=== PATIENT | female | born 1950 | race Caucasian/White ===

== ENCOUNTER 2016-08-08 06:13 | Day surgery (SDC) | payer MEDICARE, OTHER ==
[2016-08-06 15:24] VITALS: BMI 36.6
[~2016-08-08 06:13] MED LIST: LACTATED RINGERS 1,000 ML IV SCH
[2016-08-08 06:58] VITALS: TEMP 98
[2016-08-08] MEDS ORDERED: LIDOCAINE 1% 20 ML VIAL (10MG/ML) FOR IV START SQ ONE (06:59)
[2016-08-08] MEDS ORDERED: LACTATED RINGERS 1,000 ML IV ONE (06:59)
[2016-08-08 07:02] LABS: Glucose,Whole Blood 127 mg/dL (75-99)
[2016-08-08] MEDS ORDERED: BUPIVACAINE (PF) 0.5% 30 ML VIAL ONE (07:06)
[2016-08-08] MEDS ORDERED: fentaNYL (PF) 50 MCG/ML 2 ML AMP ONE (07:06)
[2016-08-08] MEDS ORDERED: TRIAMCINOLONE ACETONIDE 40 MG/ML 1 ML VIAL ONE (07:06)
[2016-08-08] MEDS ORDERED: MIDAZOLAM 2 MG/2 ML VIAL ONE (07:06)
[2016-08-08] MEDS ORDERED: IV FLUID CONTINUATION 1,000 ML IV ONE (07:31)
--- NOTE | 2016-08-08 07:31 | P.PCN ---
Date of Procedure: 08/08/16 Procedure(s) Performed: Preoperative diagnoses= 1-bilateral sacroiliitis. 2-bilateral trochanteric bursitis 3-lumbar spondylosis with lumbar facet arthropathy without myelopathy Postoperative diagnoses= same as preoperative diagnosis. Procedure= Right /Left /bilateral sacroiliac joint steroid injection under fluoroscopic guidance. Anesthesia= conscious sedation with Versed 2 mg and fentanyl 50 micrograms and local infiltration with lidocaine 1% 4 ml Estimated blood loss=minimal. Procedure indication= the patient had a history of severe chronic low back pain , diagnosed with sacroiliitis and lumbar sacral facet arthropathy unresponsive to conservative treatment. Procedure description= the patient was seen and identified in the preoperative holding area, risks and benefits and alternative of the procedure and possible complications discussed with the patient, and he agreed with the preceding, patient signed the consent, an IV was started, and vital signs were monitored and were stable throughout the procedure, patient was placed in the prone position or table and the lumbosacral area was prepped and draped with a sterile fashion, vital signs were closely monitored during the procedure, the fluoroscopy camera was placed in the contralateral oblique view on the right sacroiliac joint and the lower part of the joint was identified, local infiltration of the skin and subcutaneous tissue with lidocaine 1% 2 mL then a 22-gauge Quincke-type spinal needle advanced slowly under fluoroscopy and placed in the posterior and inferior border of the right sacroiliac joint, placement confirmed with AP and lateral view, and after appropriate needle placement confirmed and after negative aspiration for heme and CSF and there was no paresthesia during the injection, 3 ml of Marcaine 0.5% and 40 mg of Kenalog injected after negative aspiration, the needle removed, and the entire same procedure was repeated for the left sacroiliac joint Patient tolerated the procedure well without any complication, The patient returned to supine position after the back was cleaned and a Band- Aid applied, the patient transported to recovery room in stable condition and he was monitored for 30 minutes before he was discharged home and then patient was reexamined before going home and patient was discharged in stable condition and patient will follow up with the pain clinic in a few weeks
--- NOTE | 2016-08-08 07:45 | FL ---
EXAMINATION TYPE: FL guided pain mgmt statistic DATE OF EXAM: 08/08/2016 7:34 AM FLUOROSCOPY Fluoroscopy time of 7 seconds was used during bilateral SI joint injections. 2 image/s document/s th e procedure.
[2016-08-08 07:50] VITALS: BP 132/72; PULSE 63; RESP 18
[2016-08-08 07:54] LABS: Glucose,Whole Blood 134 mg/dL (75-99)
== END 2016-08-08 08:10 | disposition home or self-care (01) ==
LOC: ORPAIN 06:13
PROVIDERS: ATTEND Specialist
DX: M46.1 Sacroiliitis, not elsewhere classified (principal); M70.62 Trochanteric bursitis, left hip; M70.61 Trochanteric bursitis, right hip; M47.816 Spondylosis without myelopathy or radiculopathy, lumbar region; M46.87 Other specified inflammatory spondylopathies, lumbosacral region; G89.29 Other chronic pain; Z88.5 Allergy status to narcotic agent; Z88.2 Allergy status to sulfonamides; Z88.8 Allergy status to other drugs, medicaments and biological substances; Z91.041 Radiographic dye allergy status
CPT/HCPCS: J2250; J3301; J3010; G0260

== ENCOUNTER 2016-08-14 07:49 | Day surgery (SDC) | payer MEDICARE, OTHER ==
[2016-08-09 13:50] VITALS: BMI 36.6
[~2016-08-14 07:49] MED LIST changes: +LIDOCAINE 1% 20 ML VIAL (10MG/ML) FOR IV START INTRADERMA PRN
--- NOTE | 2016-08-14 08:01 | P.GSHP ---
History of Present Illness H&P Date: 08/14/16 CHIEF COMPLAINT: GERD and colon screen HISTORY OF PRESENT ILLNESS: The patient is a 66-year-old female who presents reports gastroesophageal reflux disease and need for colon screen. Upper and lower endoscopy were offered for further evaluation and management. PAST MEDICAL HISTORY: Please see list. PAST SURGICAL HISTORY: Please see list. MEDICATIONS: Please see list. ALLERGIES: Please see list. SOCIAL HISTORY: No illicit drug use FAMILY HISTORY: No reports of Crohn disease or ulcerative colitis. REVIEW OF ORGAN SYSTEMS: CONSTITUTIONAL: No reports of fevers or chills. GI: Denies any blood in stools or constipation. PHYSICAL EXAM: VITAL SIGNS: Stable GENERAL: Well-developed pleasant in no acute distress. HEENT: No scleral icterus. Extraocular movements grossly intact. Moist buccal mucosa. NECK: Supple without lymphadenopathy. CHEST: Unlabored respirations. Equal bilateral excursions. CARDIOVASCULAR: Regular rate and rhythm. Distal 2+ pulses. ABDOMEN: Soft, nondistended. MUSCULOSKELETAL: No clubbing, cyanosis, or edema. ASSESSMENT: 1. Gastroesophageal reflux disease 2. Colon screen. PLAN: 1. Recommend proceeding with an upper and lower endoscopy Past Medical History Past Medical History: Asthma, CVA/TIA, Diabetes Mellitus, Fibromyalgia, GERD/ Reflux, Hyperlipidemia, Hypertension, Myocardial Infarction ([place]), Osteoarthritis (OA), Seizure Disorder, Sleep Apnea/CPAP/BIPAP, Thyroid Disorder Additional Past Medical History / Comment(s): hx back pain, sarcoidosis,IBS, hayfever,osteopenia,. difficult to lay on back needs pillow or to lay on side then go to back Last Myocardial Infarction Date:: 2005 History of Any Multi-Drug Resistant Organisms: MRSA Date of last positivie culture/infection: 2010 MDRO Source:: lung Past Surgical History: Appendectomy, Back Surgery, Bladder Surgery, Breast Surgery, Cholecystectomy, Coronary Bypass/CABG, Heart Catheterization With Stent , Hysterectomy, Joint Replacement, Orthopedic Surgery, Tonsillectomy, Tubal Ligation Additional Past Surgical History / Comment(s): cervical spinal fusion, rt, leg elbow surgery,total lt knee replacement, rt carotid artery, cataracts artie., benign tumor lt lung removed, lt ankle with hardware, laser surgery eyes Past Anesthesia/Blood Transfusion Reactions: No Reported Reaction Date of Last Stent Placement:: 2005 Smoking Status: Former smoker Past Alcohol Use History: Rare Additional Past Alcohol Use History / Comment(s): former smoker 44 years 2ppd Past Drug Use History: None Reported - Past Family History Sister(s) Family Medical History: Cancer, Diabetes Mellitus Brother(s) Family Medical History: Cancer, Diabetes Mellitus Medications and Allergies Home Medications Medication Instructions Recorded Confirmed Type Albuterol Inhaler [Ventolin Hfa 2 puff INHALATION Q6HR PRN 06/11/16 08/09/16 History Inhaler] Aspirin 325 mg PO DAILY 06/11/16 08/09/16 History Atorvastatin [Lipitor] 10 mg PO DAILY 06/11/16 08/09/16 History Baclofen 10 mg PO HS 06/11/16 08/09/16 History Calcium Carbonate/Vitamin D3 2 tab PO DAILY 06/11/16 08/09/16 History [Calcium 600-Vit D3 200 Tablet] Clopidogrel [Plavix] 75 mg PO DAILY 06/11/16 08/09/16 History Isosorbide Mononitrate ER [Imdur] 60 mg PO DAILY 06/11/16 08/09/16 History Levothyroxine Sodium [Levoxyl] 100 mcg PO DAILY 06/11/16 08/09/16 History Magnesium 400 mg PO DAILY 06/11/16 08/09/16 History Metoprolol Tartrate [Lopressor] 25 mg PO BID 06/11/16 08/09/16 History Multivitamins, Thera [Multivitamin] 1 tab PO DAILY 06/11/16 08/09/16 History Nifedical 60 mg PO DAILY 06/11/16 08/09/16 History Nitroglycerin [Nitromist] 4.9 gm TL DIRECTED PRN 06/11/16 08/09/16 History Pantoprazole Sodium [Protonix] 20 mg PO DAILY 06/11/16 08/09/16 History Pramipexole [Mirapex] 0.25 mg PO DAILY 06/11/16 08/09/16 History Pregabalin [Lyrica] 150 mg PO TID 06/11/16 08/09/16 History Ranitidine HCl 150 mg PO BID 06/11/16 08/09/16 History glipiZIDE [Glucotrol] 5 mg PO AC-BID 06/11/16 08/09/16 History metFORMIN HCL 1,000 mg PO BID 06/11/16 08/09/16 History traMADol HCL [Ultram] 50 mg PO TID 06/11/16 08/09/16 History Dicyclomine [Bentyl] 10 mg PO DAILY PRN 08/09/16 08/09/16 History Mometasone Furoate [Asmanex Hfa] 2 puff INHALATION DAILY 08/09/16 08/09/16 History Allergies Allergy/AdvReac Type Severity Reaction Status Date / Time doxycycline Allergy Nausea & Verified 08/09/16 13:24 Vomiting fluticasone Allergy loss of Verified 08/09/16 13:24 voice hydrocodone Allergy Itching-states Verified 08/09/16 13:24 "can't take to many in a row" hydroxychloroquine Allergy Nausea & Verified 08/09/16 13:24 [From Plaquenil] Vomiting Iodinated Contrast Media - Allergy Anaphylaxis Verified 08/09/16 13:24 Oral and [Iodinated Contrast Media - IV Dye] levofloxacin Allergy Nausea & Verified 08/09/16 13:24 Vomiting lisinopril Allergy Cough Verified 08/09/16 13:24 morphine Allergy Nausea & Verified 08/09/16 13:24 Vomiting shellfish derived [Shrimp] Allergy Anaphylaxis Verified 08/09/16 13:24 sulfamethoxazole Allergy Nausea & Verified 08/09/16 13:24 [From Bactrim] Vomiting trimethoprim [From Bactrim] Allergy Nausea & Verified 08/09/16 13:24 Vomiting venom-honey bee Allergy Swelling,extreme Verified 08/09/16 13:24 [bee venom (honey bee)] pain
[2016-08-14 08:25] VITALS: TEMP 97.1
[2016-08-14 08:36] LABS: Glucose,Whole Blood 120 mg/dL (75-99)
[2016-08-14] MEDS ORDERED: LACTATED RINGERS 1,000 ML IV ONE ×2 (08:38)
[2016-08-14] MEDS ORDERED: fentaNYL (PF) 50 MCG/ML 2 ML AMP ONE (08:42)
[2016-08-14] MEDS ORDERED: GLYCOPYRROLATE 0.2 MG/ML 2 ML VIAL ONE (08:42)
[2016-08-14] MEDS ORDERED: LIDOCAINE 1% INJ 10MG/ML (20 ML MDV) ONE (08:42)
[2016-08-14] MEDS ORDERED: PROPOFOL 10 MG/ML 20 ML VIAL IV ONE (08:42)
[2016-08-14] MEDS ORDERED: PHENYLEPHRINE-0.9% NACL SYG 1 MG/10 ML SYRINGE ONE (08:42)
[2016-08-14] MEDS ORDERED: MIDAZOLAM 2 MG/2 ML VIAL ONE (08:42)
[2016-08-14 09:18] VITALS: RESP 18
--- NOTE | 2016-08-14 09:26 | P.PCN ---
Date of Procedure: 08/14/16 Description of Procedure: PREOPERATIVE DIAGNOSIS: Epigastric abdominal pain. Gastroesophageal reflux disease. POSTOPERATIVE DIAGNOSIS: Chronic gastritis with stigmata of prior bleed Gastroesophageal reflux disease. Epigastric abdominal pain. Candidiasis esophagitis. OPERATION: Esophagogastroduodenoscopy with biopsies along antrum and esophagus. SURGEON: Rekha Garcia MD ANESTHESIA: MAC. INDICATIONS: The patient is a 66-year-old female who presents with a history of reflux disease. Benefits and risks of the procedure were described. Informed consent was obtained. DESCRIPTION: The patient was brought into the endoscopy suite and laid in the left lateral decubitus position. An Olympus gastroscope was passed along the posterior oropharynx down to the distal esophagus where the squamocolumnar junction was encountered at 38 cm from the incisors. Features use was found along the esophagus and biopsied. The stomach was entered and moderate bile reflux was found. Additional findings are listed below. Biopsies with cold forceps were obtained of the antrum. The first through third portion of the duodenum was examined and unremarkable. Retroflexion of the scope confirmed Hill grade II lower esophageal valve. The squamocolumnar junction demostrated acute LA grade A erosive esophagitis. The stomach was desufflated. The patient tolerated the procedure well. FINDINGS: Squamocolumnar junction 38 cm from the incisors. Hill grade II lower esophageal valve. LA grade A erosive esophagitis. No active duodenitis. Candidiasis of the esophagus. Active gastritis along the antrum with recent bleed biopsied. RECOMMENDATIONS: Start medical therapy with Zantac. Further recommendations pending results of pathology report. Upper endoscopy as needed. Treatment for yeast of the esophagus recommended.
--- NOTE | 2016-08-14 09:27 | P.PCN ---
Date of Procedure: 08/14/16 Description of Procedure: PREOPERATIVE DIAGNOSIS: Colonoscopy screening. POSTOPERATIVE DIAGNOSIS: Colonoscopy screening. Diverticulosis, sigmoid colon. Benign neoplasm of the colon of the hepatic flexure. OPERATION: Colonoscopy to the ileocecal valve and appendiceal orifice. Colonoscopy with cold forceps biopsy. SURGEON: Rekha Garcia MD. ANESTHESIA: MAC. INDICATIONS: The patient is a 66-year-old female who presents for colonoscopy screening. Her last colonoscopy was over 5 years ago with previous history of polyps. Benefits and risks were described and informed consent was obtained. DESCRIPTION OF PROCEDURE: The patient had undergone Gatorade, MiraLAX and Dulcolax prep. She had been brought into the operating room and laid in the left lateral decubitus position. After adequate intravenous sedation, the rectum was examined with 2% lidocaine jelly. No external hemorrhoids were encountered. The rectal tone was within normal limits. No lesions were palpated in the rectal vault. An Olympus colonoscope was advanced until the ileocecal valve and appendiceal orifice were clearly viewed. The prep was good with clear visualization of the mucosal folds. The scope was removed with visualization of each mucosal fold. Small sigmoid diverticulosis was encountered. At the hepatic flexure, a 3 mm benign neoplasm was cold forcep biopsy to completion. No evidence of focal colitis was found. Retroflexion of the scope demonstrated grade 1 internal hemorrhoids with mild inflammation. The colon was desufflated. The patient had tolerated the procedure well. Withdrawal time was over 6 minutes. FINDINGS: Internal hemorrhoids, grade 1 with mild inflammation. No external prolapsed hemorrhoids. No arteriovenous malformations. Benign neoplasm of the colon, hyperplastic, 3 mm at hepatic flexure cold forceps biopsy. Sigmoid diverticulosis without active diverticulitis. No focal colitis. RECOMMENDATIONS: Repeat lower endoscopy in 5 years, 2021.
[2016-08-14 10:31] VITALS: BP 142/68; PULSE 61
== END 2016-08-14 10:49 | disposition home or self-care (01) ==
LOC: ORWHC2ENDO 07:49
PROVIDERS: ATTEND Surgery Plastic and Reconstructive Surgery
DX: Z12.11 Encounter for screening for malignant neoplasm of colon (principal); K21.0 Gastro-esophageal reflux disease with esophagitis; B37.81 Candidal esophagitis; D12.3 Benign neoplasm of transverse colon; K29.50 Unspecified chronic gastritis without bleeding; K57.30 Diverticulosis of large intestine without perforation or abscess without bleeding; K64.0 First degree hemorrhoids; Z87.19 Personal history of other diseases of the digestive system; E11.9 Type 2 diabetes mellitus without complications; Z79.84 Long term (current) use of oral hypoglycemic drugs; M79.7 Fibromyalgia; E78.5 Hyperlipidemia, unspecified; I25.2 Old myocardial infarction; Z87.891 Personal history of nicotine dependence; E07.9 Disorder of thyroid, unspecified; I10 Essential (primary) hypertension; Z95.1 Presence of aortocoronary bypass graft; G47.30 Sleep apnea, unspecified; Z99.89 Dependence on other enabling machines and devices; M85.80 Other specified disorders of bone density and structure, unspecified site; Z79.82 Long term (current) use of aspirin; Z79.51 Long term (current) use of inhaled steroids; Z79.899 Other long term (current) drug therapy; R10.13 Epigastric pain; Z88.2 Allergy status to sulfonamides; Z91.030 Bee allergy status; Z91.041 Radiographic dye allergy status; Z88.5 Allergy status to narcotic agent; Z91.013 Allergy to seafood
CPT/HCPCS: 93005; 88305; 88342; 45380; 43239; J2250; J2001; J3010; J2370; J2704; 99153

== ENCOUNTER 2016-09-03 09:20 | Day surgery (SDC) | payer MEDICARE, OTHER ==
[2016-08-29 13:31] VITALS: BMI 35.8
[~2016-09-03 09:20] MED LIST changes: -LIDOCAINE 1% 20 ML VIAL (10MG/ML) FOR IV START INTRADERMA PRN
[2016-09-03 09:58] VITALS: TEMP 97.8
[2016-09-03] MEDS ORDERED: LIDOCAINE 1% 20 ML VIAL (10MG/ML) FOR IV START INTRADERMA ONE (10:08)
[2016-09-03] MEDS ORDERED: BUPIVACAINE (PF) 0.5% 30 ML VIAL ONE (10:15)
[2016-09-03] MEDS ORDERED: MIDAZOLAM 2 MG/2 ML VIAL ONE (10:15)
[2016-09-03] MEDS ORDERED: TRIAMCINOLONE ACETONIDE 40 MG/ML 1 ML VIAL ONE (10:15)
[2016-09-03] MEDS ORDERED: fentaNYL (PF) 50 MCG/ML 2 ML AMP ONE (10:15)
[2016-09-03 10:20] LABS: Glucose,Whole Blood 108 mg/dL (75-99)
--- NOTE | 2016-09-03 10:42 | P.PCN ---
Date of Procedure: 09/03/16 Procedure(s) Performed: Preoperative diagnoses= 1-Bilateral sacroiliitis. 2-lumbar spondylosis with lumbar facet arthropathy without myelopathy Postoperative diagnoses= same as preoperative diagnosis. Procedure= Bilateral sacroiliac joint steroid injection under fluoroscopic guidance.#2 Anesthesia= conscious sedation with Versed 2 mg and fentanyl 50 micrograms and local infiltration with lidocaine 1% 4 ml Estimated blood loss=minimal. Procedure indication= the patient had a history of severe chronic low back pain , diagnosed with sacroiliitis and lumbar sacral facet arthropathy unresponsive to conservative treatment. Procedure description= the patient was seen and identified in the preoperative holding area, risks and benefits and alternative of the procedure and possible complications discussed with the patient, and he agreed with the preceding, patient signed the consent, an IV was started, and vital signs were monitored and were stable throughout the procedure, patient was placed in the prone position or table and the lumbosacral area was prepped and draped with a sterile fashion, vital signs were closely monitored during the procedure, the fluoroscopy camera was placed in the contralateral oblique view on the right sacroiliac joint and the lower part of the joint was identified, local infiltration of the skin and subcutaneous tissue with lidocaine 1% 2 mL then a 22-gauge Quincke-type spinal needle advanced slowly under fluoroscopy and placed in the posterior and inferior border of the right sacroiliac joint, placement confirmed with AP and lateral view, and after appropriate needle placement confirmed and after negative aspiration for heme and CSF and there was no paresthesia during the injection, 3 ml of Marcaine 0.5% and 40 mg of Kenalog injected after negative aspiration, the needle removed, and the entire same procedure was repeated for the left sacroiliac joint Patient tolerated the procedure well without any complication, The patient returned to supine position after the back was cleaned and a Band- Aid applied, the patient transported to recovery room in stable condition and he was monitored for 30 minutes before he was discharged home and then patient was reexamined before going home and patient was discharged in stable condition and patient will follow up with the pain clinic in a few weeks given prescription refill for Lyrica 150 mg every 8 hours dispense 90 with 1 refill, and Ultram 50 mg every 8 hours dispense 60 with 1 refill, and she will be seen in the clinic in a few weeks was discussed with the patient the option of doing radiofrequency ablation of the toes around his of L5-S1 and lateral branches of S1/S2/S3 to do the radiofrequency of the sacroiliac joint, this will be done if patient had more than 50% improvement in her low back pain ,
[2016-09-03] MEDS ORDERED: IV FLUID CONTINUATION 1,000 ML IV ONE (10:46)
[2016-09-03 10:50] VITALS: RESP 18
[2016-09-03 11:09] LABS: Glucose,Whole Blood 97 mg/dL (75-99)
[2016-09-03 11:17] VITALS: BP 160/60; PULSE 60
== END 2016-09-03 11:30 | disposition home or self-care (01) ==
LOC: ORPAIN 09:20
PROVIDERS: ATTEND Specialist
DX: G89.29 Other chronic pain (principal); M54.5 Low back pain; M46.1 Sacroiliitis, not elsewhere classified; M47.816 Spondylosis without myelopathy or radiculopathy, lumbar region; M46.96 Unspecified inflammatory spondylopathy, lumbar region; Z91.041 Radiographic dye allergy status

== ENCOUNTER → 2016-09-04 | Outpatient (CLI) | payer MEDICARE, OTHER ==
[2016-09-04 15:41] LABS: Blood Urea Nitrogen 11 mg/dL (7-17); Non-African American GFR(MDRD) >60 (>60 ml/min/1.73 sqM)
--- NOTE | 2016-09-05 07:32 | CT ---
EXAMINATION TYPE: CT chest wo con DATE OF EXAM: 09/04/2016 4:40 PM COMPARISON: NONE HISTORY: SOB CT DLP: 2228 mGycm. Automated Exposure Control for Dose Reduction was Utilized. TECHNIQUE: CT scan of the thorax is performed without IV contrast. FINDINGS: LUNGS: There are some patchy atelectatic change in the left lower lobe posteriorly near axial image 3 5. No suspicious additional areas of consolidation or groundglass opacification is identified. No ple ural effusion or pneumothorax is seen bilaterally. No suspicious parenchymal nodule or mass is noted. MEDIASTINUM: Lack of IV contrast is noted to limit evaluation for mediastinal and especially hilar ad enopathy. There are no definitive greater than 1 cm hilar or mediastinal lymph nodes. No cardiomega ly or pericardial effusion is seen. There is mild to moderate coronary artery calcification. Sternal wires and mediastinal clips from CABG procedure are identified. There is suspected both SHAW and DARLENE harvesting. Mild to moderate calcified atherotic change of aorta is seen. OTHER: Please refer to same day CT abdomen pelvis report for complete details of the upper abdomen. T here is multilevel moderate spurring and disc space narrowing near the cervical thoracic junction. Th ere is some additional areas of disc space narrowing with vacuum disc phenomenon as well as endplate sclerosis and geode formation in the mid to lower thoracic spine. IMPRESSION: Some mild chronic parenchymal changes without suspicious acute pulmonary process.
--- NOTE | 2016-09-05 07:51 | CT ---
EXAMINATION TYPE: CT abdomen pelvis w con DATE OF EXAM: 09/04/2016 4:40 PM HISTORY: Pt states of abdominal pain per order and patient ; not further specified. CT DLP: 2228mGycm Automated Exposure Control for Dose Reduction was Utilized. CONTRAST: CT scan of the abdomen and pelvis is performed with IV Contrast, patient injected with 100 mL of Omni paque 300. COMPARISON: None. FINDINGS: LUNG BASES: Please see same-day CT chest report for complete details on lung bases. LIVER/GB: Cholecystectomy clips are present. PANCREAS: No significant abnormality is seen. SPLEEN: No significant abnormality is seen. ADRENALS: No significant abnormality is seen. KIDNEYS: A few scattered pelvic phleboliths are seen. There is mild fullness to right renal pelvis an d mild right-sided hydroureter without obstructing mass or calculus clearly identified. No significan t calyceal dilatation is seen to suggest hydronephrosis. Symmetric cortical medullary uptake and excr etion is noted. BOWEL: The oral contrast reaches sigmoid colon level. There is small hiatal hernia seen. There is young ggestion of eccentric wall thickening in the proximal stomach near diaphragmatic hiatus along posteri or cranial aspect near axial image 14, mass lesion at this level cannot be excluded, further workup a dvised. There is no suspicious small or large bowel dilatation. There is wondering cecum which is act ually in the left mid abdomen anteriorly near axial image 37. Amount of fecal material throughout the right and transverse colons is moderately prominent. Some diverticula are seen in the sigmoid colon. No acute diverticulitis is evident. UTERUS/ADNEXA: Uterus is surgically absent. LYMPH NODES: No greater than 1cm abdominal or pelvic lymph nodes are appreciated. OSSEOUS STRUCTURES: There is levoconvex scoliosis. There is moderate to severe multilevel spurring an d disc space narrowing throughout the visualized thoracolumbar spine. There is endplate sclerosis wit h multilevel vacuum disc phenomenon present. There is slight grade 1 anterolisthesis of L4 on L5. The re is moderate to severe joint space loss with subchondral cystic change and mild to moderate head ne ck marginal spurring in both hip joints. OTHER: There is moderate to severe calcified atherosclerotic change of distal abdominal aorta extendi ng into iliac branch vessels. IMPRESSION: 1. Overall nonobstructive bowel gas pattern. Wondering cecum is present in the left mid abdomen anter iorly. There is fairly moderate proximal colonic fecal stasis noted. 2. Moderate to severe multilevel degenerative changes in lumbar spine and both hips is noted. 3. Attention to proximal stomach as detailed above, direct visualization advised to further evaluate.
== END | disposition home or self-care (01) ==
LOC: RADCTMAIN 15:00
PROVIDERS: ATTEND Internal Medicine
DX: R06.02 Shortness of breath (principal); R10.84 Generalized abdominal pain
CPT/HCPCS: 82565; 84520; 71250; 74177; 36415; Q9967

== ENCOUNTER → 2016-09-04 | Outpatient (CLI) | payer MEDICARE, OTHER ==
--- NOTE | 2016-09-03 11:08 | FL ---
EXAMINATION TYPE: FL guided pain mgmt statistic DATE OF EXAM: 09/03/2016 10:40 AM CLINICAL HISTORY: Low back and SI joint pain. TECHNIQUE: Fluoroscopy. COMPARISON: None. FINDINGS: Fluoroscopic guidance was provided during pain relief procedure performed by Dr. Warner . A total of 8 seconds of fluoroscopic time was utilized during the procedure and two spot images ar e acquired. Images acquired shows needle localization at level of sacroiliac joints. IMPRESSION: As Above.
== END | disposition home or self-care (01) ==
LOC: RADCTMAIN 18:38
PROVIDERS: ATTEND Surgery Plastic and Reconstructive Surgery
DX: Z53.9 Procedure and treatment not carried out, unspecified reason (principal)

== ENCOUNTER → 2016-10-01 | Outpatient (CLI) | payer MEDICARE, OTHER ==
[2016-10-01 13:11] VITALS: BP 139/79; PULSE 63; RESP 16; TEMP 98.3
--- NOTE | 2016-10-01 13:26 | P.PN ---
Progress Note - Text Patient returns for followup for chronic back pain with radiation to lower extremities. Patient recently underwent bilateral SIJ injections x 2, which provided some relief for 1-2 days' interval apiece. Patient continues on Maxbass/ tramadol/Lyrica medications for pain with good relief. Patient denies adverse drug effects from medications. Today, pt denies new-onset weakness, bowel/ bladder incontinence, or any other signs or symptoms of cauda equina syndrome. There are no signs of acute intoxication, and no indications of medication diversion or overuse. In addition to above, 13-point review of systems is also negative for chest pain , shortness of breath, changes in vision, changes in hearing, new onset weakness , abdominal pain, diarrhea, extreme fatigue, malaise, fever, skin changes, homicidal or suicidal ideation, or bowel or bladder incontinence. Vital Signs: Reviewed in EMR Gen: WDWN, AAOx3, NAD HEENT: NCAT, EOMI, hearing grossly normal Pulm: resp unlabored Abd: soft, NT, ND Neck: supple, trachea midline ROM in flexion lumbar spine: reduced ROM in extension lumbar spine: reduced Lumbar paravertebral tenderness: + Facet loading: ++ bilateral SI joint tenderness: + bilateral Getachew's test: + bilateral, R > L Straight leg raise: neg Neuro: CN II-XII grossly intact, muscle strength lower extremities PRESERVED Imaging: Reviewed in EMR Assessment: 1. sacroiliac joint dysfunction 2. lumbar spondylosis without myelopathy 3. chronic pain syndrome Plan: 1. Explanation: Opioid and psychological risk scores were reviewed. Diagnoses , prognoses, and multiple treatment options including but not limited to physical therapy, interventional therapies, adjuvant medical therapies, narcotic medication therapies, and surgery were discussed with the patient and all questions were answered to the patient's satisfaction. 2. Opioid agreement: Patient has previously signed narcotic agreement, and was orally counseled to not overuse, abuse, divert, or cell medications, and to take them as prescribed by only 1 healthcare provider. The patient was also counseled to store opioid medications in a safe and preferably locked location. Patient was also counseled against driving while using narcotic medications and also to not use alcohol or any illicit or recreational drugs. The patient verbalized understanding that lack of compliance with any of the above and likely result in failure to renew narcotic prescriptions, possible discharge from the clinic, and possible legal ramifications thereafter if indicated. 3. Counseling: The patient was counseled extensively on BODY MASS INDEX, EXERCISE. Specifically, the patient was instructed regarding the importance of weight loss and exercise in the context of both chronic pain and overall health. 4. Procedures: none for now 5. Consultations: none 6. Investigations: MRI lumbar spine without contrast 7. Medications: Maxbass 7.5 #30 (pt can split in half if needed), pt only uses occasionally 8. Disposition: f/u for re-eval 6-8 weeks PQRS measures: 1-Patient's medications are documented in the chart. 2-Tobacco use is negative 3-Patient has had a pneumococcal vaccine. 4-Advanced care planning discussed, patient unable to give 5-Opioid contract signed with the patient today. 6-Pain positive, follow-up visit or procedure scheduled 7-Patient's blood pressure measured and documented, and patient will follow up with the primary care due to hypertension. 8-Patient's weight was measured, and body mass index ABOVE the normal limits, and counseling was done. Patient instructed to follow up with PCP. 9-Patient WAS NOT identified as an unhealthy alcohol user.
== END | disposition home or self-care (01) ==
LOC: PNWHC3 12:10
PROVIDERS: ATTEND Anesthesiology
DX: G89.4 Chronic pain syndrome (principal); M47.816 Spondylosis without myelopathy or radiculopathy, lumbar region; M53.3 Sacrococcygeal disorders, not elsewhere classified; I10 Essential (primary) hypertension; Z71.3 Dietary counseling and surveillance; Z98.890 Other specified postprocedural states; Z79.891 Long term (current) use of opiate analgesic
CPT/HCPCS: 99211

== ENCOUNTER → 2016-10-16 | Outpatient (CLI) | payer MEDICARE, OTHER ==
[2016-10-16 08:30] LABS: Non-African American GFR(MDRD) >60 (>60 ml/min/1.73 sqM)
--- NOTE | 2016-10-21 09:20 | MR ---
EXAMINATION TYPE: MR lumbar spine wo/w con DATE OF EXAM: 10/16/2016 9:56 AM COMPARISON: Outside MRI lumbar spine November 23, 2011. CT abdomen and pelvis September 04, 2016. HISTORY: Spondylosis without myelopathy per order. Low back pain 4 years into bilateral hips causing pain into bilateral buttocks and left thigh per patient. TECHNIQUE: Multiplanar, multisequence images of the lumbar spine is performed without and with IV contrast, util izing 20 mL intravenous MultiHance . FINDINGS: Sagittal images of the lumbar spine show vertebral body heights to appear satisfactory. The re is multilevel disc desiccation with multilevel moderate to advanced disc space narrowing. There ar e multilevel posterior disc herniations and spur disc complexes effacing anterior thecal sac on sagit jennifer images . There is heterogeneity with endplate changes throughout the lumbar spine. The conus medu llaris is remains somewhat low in position ending at mid L2 vertebral body level. No suspicious clump ing of lumbosacral nerve roots is seen. Mild multilevel spurring is redemonstrated. Progression in de generative findings from 2012 outside MRI is noted. No suspicious postcontrast enhancement is seen. Axial images at the T12-L1 level show mild facet degenerative changes and ligament flavum hypertrophy but spinal canal is preserved and bilateral neural foramina are patent. Axial images at the L1-L2 level show mild facet degenerative changes bilaterally. There is mild broad disc bulge with right lateral disc protrusion component. There is mild central spinal canal effaceme nt. Left-sided neural foramen is patent. Right side shows mild to moderate narrowing. Axial images at L2-L3 level show mild facet degenerative changes bilaterally. There is mild broad dis c bulge with eccentric right lateral disc protrusion component on axial image 19. Left-sided neural f oramen is patent. Right side shows mild/moderate inferior neural foraminal narrowing. There is efface ment of the anterior thecal sac. Axial images at L3-L4 level show mild/moderate facet degenerative changes and ligament flavum hypertr ophy. There is mild broad disc bulge with left lateral disc protrusion component. There is mild right -sided anterior inferior neural foraminal narrowing and more moderate left-sided neural foraminal laron rowing. There is some effacement the anterior and posterior lateral thecal sac. Axial images at L4-L5 level show bilateral laminectomy defects and spinous process resection. There i s mild to moderate facet arthropathy bilaterally. There is subtle spondylolisthesis or grade 1 lynn listhesis of L4 on L5. There is broad disc bulge seen mildly effacing anterior thecal sac. There is a nd moderate left and mild right-sided neural foraminal narrowing that remains present. Axial images at L5-S1 level show mild to moderate facet degenerative changes bilaterally. There is mo derate broad disc bulge seen. Spinal canal is preserved. There is mild to moderate right and mild lef t-sided neural foraminal narrowing at this level identified. IMPRESSION: Multilevel moderate to advanced degenerative changes seen as detailed above with multilev el progression from 2012 MRI noted.
== END ==
LOC: RADMRIMAIN 08:03
PROVIDERS: ATTEND Anesthesiology
DX: M47.816 Spondylosis without myelopathy or radiculopathy, lumbar region (principal)
CPT/HCPCS: 82565; 72158; 36415; A9577

== ENCOUNTER → 2016-10-25 | Outpatient (CLI) | payer MEDICARE, OTHER ==
--- NOTE | 2016-10-31 11:37 | MM ---
Reason for exam: screening (asymptomatic). Last mammogram was performed 1 year and 7 months ago. History: Patient is postmenopausal. Benign excisional biopsy of the left breast, 2014. Benign excisional biopsy of the left breast, 2010. Took estrogen beginning at age 43. Took progesterone beginning at age 43. Physical Findings: A clinical breast exam by your physician is recommended on an annual basis and results should be correlated with mammographic findings. MG 3D Screening Mammo W/Cad Bilateral CC and MLO view(s) were taken. Prior study comparison: March 30, 2015, mammogram, performed at [facility]. July 22, 2013, mammogram, performed at [facility]. The breast tissue is almost entirely fat. There is no discrete abnormality. No significant changes when compared with prior studies. ASSESSMENT: Negative, BI-RAD 1 RECOMMENDATION: Routine screening mammogram of both breasts in 1 year.
== END | disposition home or self-care (01) ==
LOC: RADMAMWWP 09:21
PROVIDERS: ATTEND Internal Medicine
DX: Z12.31 Encounter for screening mammogram for malignant neoplasm of breast (principal)
CPT/HCPCS: 77063; G0202

== ENCOUNTER → 2016-11-26 | Outpatient (CLI) | payer MEDICARE, OTHER ==
[2016-11-26 12:42] VITALS: BP 129/69; PULSE 65; RESP 20; TEMP 98.9
--- NOTE | 2016-11-26 13:11 | P.PN ---
Progress Note - Text Patient returns for followup for chronic back pain with radiation to lower extremities. Patient recently underwent bilateral SIJ injections x 2, which provided some relief for 1-2 days' interval apiece. Patient continues on [place]/ tramadol/Lyrica medications for pain with good relief. Patient denies adverse drug effects from medications. Today, pt denies new-onset weakness, bowel/ bladder incontinence, or any other signs or symptoms of cauda equina syndrome. There are no signs of acute intoxication, and no indications of medication diversion or overuse. In addition to above, 13-point review of systems is also negative for chest pain , shortness of breath, changes in vision, changes in hearing, new onset weakness , abdominal pain, diarrhea, extreme fatigue, malaise, fever, skin changes, homicidal or suicidal ideation, or bowel or bladder incontinence. Vital Signs: Reviewed in EMR Gen: WDWN, AAOx3, NAD HEENT: NCAT, EOMI, hearing grossly normal Pulm: resp unlabored Abd: soft, NT, ND Neck: supple, trachea midline ROM in flexion lumbar spine: reduced ROM in extension lumbar spine: reduced Lumbar paravertebral tenderness: + Facet loading: ++ bilateral SI joint tenderness: + bilateral Get[place]w's test: + bilateral, R > L Straight leg raise: neg Neuro: CN II-XII grossly intact, muscle strength lower extremities PRESERVED Imaging: MRI demonstrates mild facet degenerative changes at multiple levels in lumbar spine. There is mild to moderate inferior neural foraminal narrowing on the right side at the L2-L3 level with effacement of the anterior thecal sac. There are bilateral M [place] changes at the L4-L5 level with spinous process resection is mild to moderate facet arthropathy bilaterally. At the L5- S1 level there is mild to moderate facet degenerative changes bilaterally with a moderate broad-based disc bulge seen. Assessment: 1. sacroiliac joint dysfunction 2. lumbar spondylosis without myelopathy 3. lumbar PLPS 4. chronic pain syndrome Plan: 1. Explanation: Opioid and psychological risk scores were reviewed. Diagnoses , prognoses, and multiple treatment options including but not limited to physical therapy, interventional therapies, adjuvant medical therapies, narcotic medication therapies, and surgery were discussed with the patient and all questions were answered to the patient's satisfaction. 2. Opioid agreement: Patient has previously signed narcotic agreement, and was orally counseled to not overuse, abuse, divert, or cell medications, and to take them as prescribed by only 1 healthcare provider. The patient was also counseled to store opioid medications in a safe and preferably locked location. Patient was also counseled against driving while using narcotic medications and also to not use alcohol or any illicit or recreational drugs. The patient verbalized understanding that lack of compliance with any of the above and likely result in failure to renew narcotic prescriptions, possible discharge from the clinic, and possible legal ramifications thereafter if indicated. 3. Counseling: The patient was counseled extensively on BODY MASS INDEX, EXERCISE. Specifically, the patient was instructed regarding the importance of weight loss and exercise in the context of both chronic pain and overall health. 4. Procedures: none for now 5. Consultations: none 6. Investigations: none for now 7. Medications: tramadol 50 mg #90 with two refills and Lyrica 150 mg #90 with two refills 8. Disposition: f/u for re-eval 12 weeks; patient to read about lumbar MBB/RFA while she may be undergoing removal of ankle hardware PQRS measures: 1-Patient's medications are documented in the chart. 2-Tobacco use is negative 3-Patient has had a pneumococcal vaccine. 4-Advanced care planning discussed, patient unable to give 5-Opioid contract signed with the patient today. 6-Pain positive, follow-up visit or procedure scheduled 7-Patient's blood pressure measured and documented, and patient will follow up with the primary care due to hypertension. 8-Patient's weight was measured, and body mass index ABOVE the normal limits, and counseling was done. Patient instructed to follow up with PCP. 9-Patient WAS NOT identified as an unhealthy alcohol user.
== END ==
LOC: PNWHC3 11:48
PROVIDERS: ATTEND Anesthesiology
DX: M47.816 Spondylosis without myelopathy or radiculopathy, lumbar region (principal); G97.1 Other reaction to spinal and lumbar puncture; M53.3 Sacrococcygeal disorders, not elsewhere classified; G89.4 Chronic pain syndrome; Z87.891 Personal history of nicotine dependence; Z79.899 Other long term (current) drug therapy
CPT/HCPCS: 99211

== ENCOUNTER → 2016-12-03 | Outpatient (CLI) | payer MEDICARE, OTHER ==
[2016-12-03 10:58] LABS: CH 28.3; CHCM 32.8; HCT 39.8 % (34.0-46.0); HDW 2.64; MCH 28.3 pg (25.0-35.0); MCHC 32.7 g/dL (31.0-37.0); MCV 86.5 fL (80.0-100.0); Mean Platelet Volume 7.9; RDW 14.1 % (11.5-15.5); WBC 6.4 k/uL (3.8-10.6)
[2016-12-03 12:33] LABS: Erythrocyte Sedimentation Rate 13 mm/hr (0-20)
--- NOTE | 2016-12-03 14:50 | NM ---
EXAMINATION TYPE: NM bone 3 phase DATE OF EXAM: 12/03/2016 2:24 PM COMPARISON: None available HISTORY: 66-year-old female lesion of plantar nerve, left lower limb, left knee and left ankle/foot p ain. Patient with left knee replacement in 2007 and hardware at the left ankle for 3 years. TECHNIQUE: Triple phase bone scintigraphy was performed following the injection of26.9 mCi Tc 99m MDP . Flow and pool images followed by 3 hours post injection images acquired of the bilateral knees as w ell as the bilateral distal lower extremities. FINDINGS: There is normal symmetrical blood flow to the bilateral knees. Symmetrical pool activity at the knees . Delayed images show photopenic defect at the left knee related to patient's total arthroplasty. Foc al increased activity is noted about the tibial tray component both medially and laterally. No asymmetric focal activity at the distal lower extremities. Delayed images show scattered mild incr eased activity at the left mid foot, and right ankle/midfoot region. No focal abnormal tracer accumul ation at the left ankle. IMPRESSION: 1. Some delayed activity along the tibial tray component of the left total knee arthroplasty is nonsp ecific and could represent changes related to loosening. Radiographic correlation recommended. 2. Findings suggest degenerative activity within the left midfoot as well as the right ankle/midfoot region.
== END | disposition home or self-care (01) ==
LOC: RADNMMAIN 09:56
PROVIDERS: ATTEND Orthopaedic Surgery
DX: R94.8 Abnormal results of function studies of other organs and systems (principal); G57.62 Lesion of plantar nerve, left lower limb; M67.479 Ganglion, unspecified ankle and foot; Z86.14 Personal history of Methicillin resistant Staphylococcus aureus infection; Z96.652 Presence of left artificial knee joint
CPT/HCPCS: 85652; 85027; 86140; 83520; 78315; 36415; A9503

== ENCOUNTER → 2016-12-04 | Outpatient (CLI) | payer MEDICARE, OTHER ==
[2016-12-04 11:40] LABS: Blood Urea Nitrogen 12 mg/dL (7-17); Non-African American GFR(MDRD) >60 (>60 ml/min/1.73 sqM)
--- NOTE | 2016-12-04 15:22 | MR ---
EXAMINATION TYPE: MR brain/cspine wo DATE OF EXAM: 12/04/2016 12:26 PM COMPARISON: NONE HISTORY: Headaches, Neck pain COMPARISON: CT brain 07/19/2016 T1-weighted sagittal, T2, FLAIR, and diffusion axial, and T2 coronal coronal views of the brain are s ubmitted. There is no evidence of acute ischemia. The ventricles, basal cisterns, and sulci overlying the conv exities are consistent with the patient's age. There is no mass effect. Craniocervical junction maintained. Sella turcica has a normal appearance. No cerebellopontine angle mass. Changes of chronic sinusitis noted. White matter: There are approximately 15 punctate areas of abnormal signal seen scattered throughout the white cleve er nonspecific pattern. All measure less than 5 mm. No callosal lesions. No lesions perpendicular to ventricular system. No subcortical lesions. No posterior fossa lesions. Adjacent to the tentorium on the right there is a 7 mm area of rounded signal. Recommend post contras t images. IMPRESSION: 1. No acute intracranial process 2. Posterior fossa 7 mm rounded area of signal adjacent to the tentorium on the right. Postcontrast i maging recommended to assess for possible meningioma or enhancing lesion. 3. Minimal nonspecific white matter changes. Remote microvascular ischemia favored. 4. Moderate changes of ethmoidal chronic sinusitis EXAMINATION TYPE: MR brain/cspine wo DATE OF EXAM: 12/04/2016 12:26 PM COMPARISON: 11/10/2014 HISTORY: Headaches, Neck pain TECHNIQUE: T1 sagittal and coronal, T2 sagittal, and gradient echo axial views of the cervical spine are submitted. Exam limited by motion artifact. FINDINGS: The cranial cervical junction is preserved. There is no abnormal signal seen within the sp inal cord or paraspinal soft tissues. At C2-3 there is hypertrophic change of the facets and uncovertebral joint with degenerative disc dis ease but no canal stenosis or focal herniation. At C3-4 there is artifact seen posteriorly which obscures portions of the posterior elements and spin al canal. Facet arthropathy and uncovertebral joint hypertrophy with mild bilateral foraminal encroac hment. Minimal left paracentral disc bulging but no canal stenosis. At C4-5 there is stable signal within the disc space likely postsurgical but should be correlated cli nically. Artifact posteriorly limits evaluation the spinal canal and posterior elements. Central disc bulging with no spinal cord contact. Neural foramina patent At C5-6 there is a degenerative disc disease and uncovertebral joint hypertrophy. No disc herniation or canal stenosis. At C6-7 there is severe degenerative disc disease with uncovertebral joint hypertrophy and complete l oss of disc space with discogenic marrow changes. Posterior spur osteophyte complex results in severe canal stenosis and moderate left and severe right-sided foraminal encroachment. Osteophyte disc comp kevin abuts the anterior margin the spinal cord. At C7-T1 there is severe degenerative disc disease with complete loss of disc space. Posterior disc o steophyte complex results in mild effacement of thecal sac. Stable bilateral mild foraminal encroachm ent. Minimal anterolisthesis stable. IMPRESSION: 1. Postsurgical changes with severe canal stenosis and foraminal encroachment C6-C7 due to disc oste ophyte complex and hypertrophic changes. Findings appear stable.
== END | disposition home or self-care (01) ==
LOC: RADMRIMAIN 10:39
PROVIDERS: ATTEND Psychiatry & Neurology Pain Medicine
DX: R90.82 White matter disease, unspecified (principal); M48.02 Spinal stenosis, cervical region; Z98.890 Other specified postprocedural states
CPT/HCPCS: 36415; 70551; 72141; 82565; 84520

== ENCOUNTER → 2016-12-09 | Outpatient (CLI) | payer MEDICARE, OTHER ==
[2016-12-09 11:20] LABS: Cholesterol 118 mg/dL (<200); HDL Cholesterol 53 mg/dL (40-60); Triglycerides 119 mg/dL (<150)
== END | disposition home or self-care (01) ==
LOC: LABWHC1 09:59
PROVIDERS: ATTEND Psychiatry & Neurology Pain Medicine
DX: M62.81 Muscle weakness (generalized) (principal); R51 Headache
CPT/HCPCS: 36415; 80061; 87070

== ENCOUNTER → 2016-12-09 | Outpatient (CLI) | payer MEDICARE, OTHER | END | disposition home or self-care (01) | LOC: LABPAT 09:57 | PROVIDERS: ATTEND Orthopaedic Surgery | DX: Z01.812 Encounter for preprocedural laboratory examination (principal) | CPT/HCPCS: 87070 ==

== ENCOUNTER 2016-12-20 09:23 | Day surgery (SDC) | payer MEDICARE, OTHER ==
[2016-12-12 09:33] VITALS: BMI 37.5
[~2016-12-20 09:23] MED LIST changes: +MIDAZOLAM 2 MG/2 ML VIAL IV PRN; +ONDANSETRON 4 MG/2 ML VIAL IVP ONE; +VANCOMYCIN 1,250 MG in SODIUM CHLORIDE 0.9% 250 ML IVPB ONE; +ceFAZolin 2 GM in SODIUM CHLORIDE 0.9% 100 ML IVPB ONE
[2016-12-20] MEDS ORDERED: LIDOCAINE 1% 20 ML VIAL (10MG/ML) FOR IV START INTRADERMA ONE (09:55)
[2016-12-20 10:00] LABS: Glucose,Whole Blood 107 mg/dL (75-99)
[2016-12-20 10:03] VITALS: RESP 16; TEMP 97.5
[2016-12-20] MEDS ORDERED: SUCCINYLCHOLINE CHLORIDE 100 MG/5 ML SYR IV ONE (12:46)
[2016-12-20] MEDS ORDERED: fentaNYL (PF) 50 MCG/ML 2 ML AMP ONE (12:46)
[2016-12-20] MEDS ORDERED: ePHEDrine 50 MG/ML 1 ML AMP ONE (12:46)
[2016-12-20] MEDS ORDERED: MIDAZOLAM 2 MG/2 ML VIAL ONE (12:46)
[2016-12-20] MEDS ORDERED: PROPOFOL 10 MG/ML 20 ML VIAL IV ONE (12:46)
[2016-12-20] MEDS ORDERED: LIDOCAINE 1% INJ 10MG/ML (20 ML MDV) ONE (12:46)
[2016-12-20] MEDS ORDERED: BUPIVACAIN-EPI 0.25%-1:200,000 30 ML VIAL INTRAARTIC ONE (13:22)
[2016-12-20] MEDS ORDERED: methylPREDNISolone ACETATE 40 MG/ML 1 ML VIAL INTRAARTIC ONE (13:23)
[2016-12-20] MEDS ORDERED: HYDROmorphone 1 MG/ML 1 ML SYRINGE IVP ONE ×5 (13:50→14:15)
--- NOTE | 2016-12-20 13:51 | P.OP ---
Date of Procedure: 12/20/16 Preoperative Diagnosis: 1. Symptomatic left ankle hardware 2. Left ankle pain 3. Obesity with a BMI of 37.5 4. Coronary artery disease Postoperative Diagnosis: Same Procedure(s) Performed: 1. Left ankle hardware removal 2. Left ankle injection Implants: Anesthesia: LATONIA Surgeon: Issa Fletcher Logging Assistant #1: Emmanuel Nunez Estimated Blood Loss (ml): 3 IV fluids (ml): 700 Pathology: none sent Condition: stable Disposition: PACU Indications for Procedure: The patient is a 66-year-old female with long-standing history of problems in her left ankle. The patient had a ankle fracture was fixed several years ago an outside hospital. She's gone on to develop symptomatically hardware over the lateral aspect of her ankle. She also has diffuse anterior ankle and foot pain. The patient met with me in the office to discuss treatment options. Due to most for symptoms being over the lateral aspect of her ankle at the site of the prominent hardware I recommended hardware removal. She also had diffuse ankle pain and requested an injection while under anesthesia. The patient understands that she has diffuse pain to the ankle and foot and removing the hardware will only alleviate the lateral hardware-related complaints and will likely not address any of her dorsal midfoot or forefoot pain. We discussed potential risks and complications of surgery including but not limited to risk of anesthesia, risk of superficial infection, risk of deep infection, risk of delayed wound healing, risk of wound necrosis, risk of intraoperative fracture, risk of postoperative fracture, risk of progression of arthritis, risk of continued preoperative symptoms, risk of continued pain, risk of chronic swelling, risk of need for further surgery, risk of damage to local sensory nerves resulting in Her permanent numbness, risk of generalized to satisfaction with surgery, and possibly loss of life or limb. She voiced her verbal and written consent to go forward with above procedures. Operative Findings: Description of Procedure: The patient was identified in preoperative holding and the correct left leg was marked with a marker. She was then brought back to the operating room by anesthesia. She was transferred onto an operating room table and a general anesthetic was administered. The patient had a tourniquet applied proximal aspect of the left thigh. All bony prominences were well-padded. A bone foam bump was placed under her left buttock internally rotating the leg. A ramp was placed under her left leg elevating the leg. Preoperative antibiotics were administered. The patient's left leg was then prepped and draped in a sagittal fashion. Prior to surgery surgery timeout was performed identifying the correct patient, operative extremity, and procedure. The patient's leg was then elevated, exsanguinated with an Esmarch bandage and the tourniquet was inflated to 250 mmHg. I began by outlining incision over the lateral aspect distal femur directly over the previous are. Skin incision with a 15 blade scalpel dissection was carried down carefully through the subcutaneous tissue to the periosteum overlying the plate. The periosteum was elevated off the plate and all the screws were sequentially removed and the plate was freed from the lateral fibula with a antoine elevator and removed. The anterior lag screw was then identified and removed. All of the screw tracks were curetted. The wound was copiously irrigated. C-arm was brought in to verify that all the hardware was removed. I also performed a stress test to verify there was no opening of the ankle joint or fractures. The periosteum was closed with a running 0 Vicryl stitch. The deep subcu was reapproximated using 2-0 Vicryl. The skin was closed with 3-0 nylon horizontal mattress stitches. Next I then performed a left ankle injection. Using sterile technique all the patient's leg was still fairly prepped a running 2-gauge needle was inserted in the anteromedial portal in a solution containing 1 mL of Depo-Medrol and 3 mL's of half percent Marcaine was injected into the ankle joint. The needle withdrawn. The patient also complained of a "cyst" under the plantar aspect of her second toe. Using the 22-gauge needle I attempted to aspirate the cyst but did not get any fluid. A sterile dressing was then applied over the lateral aspect of the ankle including Adaptic, 4 x 4, and web roll. The tourniquet was let down and the drapes removed. An Espinoza wrap was applied and the patient was placed in a cam boot. She is brought to PACU having to the procedure well. Emmanuel Nunez PA-C was required is a skilled podiatry assistant for patient positioning, prepping, draping, surgical exposure, removal of hardware, closure, and application of dressing. Plan: The patient can weight-bear as tolerated in a boot. She is to take her dressing down in 2 days. She can shower after 2 days but should not soak her leg. We'll give for [place] for pain. She'll plan on seeing us in the office in 2 weeks.
[2016-12-20] MEDS ORDERED: LACTATED RINGERS 1,000 ML IV ONE ×2 (14:00)
[2016-12-20 14:48] LABS: Glucose,Whole Blood 77 mg/dL (75-99)
[2016-12-20] MEDS ORDERED: diphenhydrAMINE 50 MG/ML 1 ML VIAL IVP ONE (15:00)
[2016-12-20] MEDS ORDERED: HYDROcodone/APAP 7.5-325MG 1 EACH TAB PO ONE (15:41)
[2016-12-20 15:42] VITALS: BP 110/70; PULSE 65
--- NOTE | 2016-12-20 16:21 | FL ---
EXAMINATION TYPE: FL guidance operating room DATE OF EXAM: 12/20/2016 1:21 PM FLUOROSCOPY Fluoroscopy time of 1 second was used during left ankle hardware removal. 2 image/s document/s the constance johnson.
== END 2016-12-20 16:15 | disposition home or self-care (01) ==
LOC: OR 09:23
PROVIDERS: ATTEND Orthopaedic Surgery
DX: T85.9XXA Unspecified complication of internal prosthetic device, implant and graft, initial encounter (principal); M25.572 Pain in left ankle and joints of left foot; L72.0 Epidermal cyst; E66.9 Obesity, unspecified; Z68.37 Body mass index [BMI] 37.0-37.9, adult; I25.10 Atherosclerotic heart disease of native coronary artery without angina pectoris; I10 Essential (primary) hypertension; K21.9 Gastro-esophageal reflux disease without esophagitis; E03.9 Hypothyroidism, unspecified; E78.5 Hyperlipidemia, unspecified; J45.909 Unspecified asthma, uncomplicated; D86.9 Sarcoidosis, unspecified; E11.9 Type 2 diabetes mellitus without complications; Z79.84 Long term (current) use of oral hypoglycemic drugs; Z79.02 Long term (current) use of antithrombotics/antiplatelets; Z79.891 Long term (current) use of opiate analgesic; Z79.51 Long term (current) use of inhaled steroids; Z79.899 Other long term (current) drug therapy; Z88.2 Allergy status to sulfonamides; Z88.8 Allergy status to other drugs, medicaments and biological substances; Z88.1 Allergy status to other antibiotic agents; Z91.030 Bee allergy status; Z91.041 Radiographic dye allergy status; Z88.5 Allergy status to narcotic agent; Z91.013 Allergy to seafood
CPT/HCPCS: 20680; 20605; 10160; J2250; J3370; J1200; J1030; J2405; J2001; J3010; J1170; J0330; J2704

== ENCOUNTER → 2017-01-01 | Outpatient (CLI) | payer MEDICARE, OTHER ==
--- NOTE | 2017-01-01 08:37 | MR ---
EXAMINATION TYPE: MR brain w con DATE OF EXAM: 01/01/2017 COMPARISON: Recent MRI brain December 04, 2016 HISTORY: white matter changes, cervicalgia. Abnormal MRI. TECHNIQUE: Multiplanar, multisequence images of the brain and brainstem is performed without and with IV contras t, utilizing 20 mL intravenous MultiHance gadolinium contrast is administered intravenously. Demyeli nating disease protocol with additional Sagittal Flair sequence performed. FINDINGS: Exam is suboptimal as there is artifact degradation present. T2 Lesions Present : Yes Approximate Number of Lesions: Estimated approximately 10-15 small lesions Locations Identified : Scattered deep. Size of Reference Lesion(s): 1. 0.7 cm x 0.3 cm x 0.6 cm on axial image 17 and sagittal image 17 anterior aspect midline splenium of corpus callosum. Other lesions all 3 mm or smaller in size. Enhancing Lesion(s) Present: No Change from Prior: N/A -stable from one month earlier. There is no worrisome extra-axial fluid collection. The ventricular system and cisternal spaces are normal in size and appearance. The brain volume is age appropriate. Midline structures demonstrate normal morphology. The craniocervical junction appears within normal limits. Post contrast images demonstrate homogeneous enhancing 8 mm lesion right superior lateral po sterior fossa seen best on sagittal image 114 with dural tail system with small meningioma. No intrac erebral edema is seen to suggest intra-axial lesion. Dural tail is pretty convincing on sagittal imag es. The dural venous sinuses appear patent. The visualized sinuses are clear and the globes are inta ct. IMPRESSION: 1. Small meningioma right lateral superior posterior fossa is confirmed on postcontrast images. 2. Mild nonspecific white matter changes as detailed above. No enhancing lesions are evident
--- NOTE | 2017-01-01 08:43 | MR ---
MRI CERVICAL SPINE: CLINICAL HISTORY: White matter changes and cervicalgia per order. TECHNIQUE: Multiplanar, multisequence imaging of the cervical spine is performed with IV contrast onl y, 20 cc of gadolinium was given intravenously. COMPARISON: Cervical spine MRI December 04, 2016 FINDINGS: There is significant artifact degradation. No suspicious enhancing mass or lesion is seen i n the cervical spinal cord or canal. Fishes osseous enhancement is seen. There is redemonstration of straightening of cervical spine. There is advanced spurring and disc spac e narrowing C6-C7 level with posterior spur disc complex effacing anterior thecal sac redemonstrated. Axial images show artifact from posterior fusion hardware mid to lower cervical levels making evaluat ion suboptimal. IMPRESSION: No suspicious postcontrast enhancement is evident. Artifact degradation noted.
== END | disposition home or self-care (01) ==
LOC: RADMRIMAIN 06:49
PROVIDERS: ATTEND Psychiatry & Neurology Pain Medicine
DX: D18.09 Hemangioma of other sites (principal); R90.82 White matter disease, unspecified; M54.2 Cervicalgia
CPT/HCPCS: 70552; 72142; A9577

== ENCOUNTER → 2017-01-02 | Outpatient (CLI) | payer MEDICARE, OTHER ==
--- NOTE | 2017-01-03 08:49 | NM ---
EXAMINATION TYPE: NM DatScan Brain SPECT DATE OF EXAM: 01/02/2017 COMPARISON: MRI brain January 01, 2017 and older MRI from 03/06/2017. HISTORY: G20 Paralysis agitans per order. White matter changes and headaches. TECHNIQUE: 10 drops of Lugol's solution was administered 1 hour prior to injection as a thyroid bloc radha agent. After the administration of 4.4 mCi I-123 Ioflupane DaTscan. Images obtained [address] injection. SPECT images of the brain were acquired with axial and coronal reconstructions. FINDINGS: The SONALI Scan demonstrates balance striatal loss to the caudate and putamen nuclei in the striata. The appearance is consistent with a lost of the presynaptic dopaminergic terminals. IMPRESSION: Abnormal appearance is supportive of a clinical diagnosis of diffuse Lewy body, idiopathic Parkinson' s disease, Parkinson's dementia complex, or Parkinson's syndrome. Clinical correlation advised.
== END | disposition home or self-care (01) ==
LOC: RADNMMAIN 09:29
PROVIDERS: ATTEND Psychiatry & Neurology Pain Medicine
DX: G20 Parkinson's disease (principal)
CPT/HCPCS: 78607; A9584

== ENCOUNTER → 2017-02-04 | Outpatient (CLI) | payer MEDICARE, OTHER ==
--- NOTE | 2017-02-04 10:18 | XR ---
EXAMINATION TYPE: XR chest 2V DATE OF EXAM: 02/04/2017 COMPARISON: NONE HISTORY: Prior bypass surgery 2006, pre-MRI TECHNIQUE: Frontal and lateral views of the chest are obtained. FINDINGS: There are sternal wires with broken first and second superior wires identified. Mediastinal clips are seen. There is no focal air space opacity, pleural effusion, or pneumothorax seen. Underly ing emphysematous change is not excluded. The cardiac silhouette size is within normal limits. Ather osclerotic change in aortic knob is seen. There is slight S-shaped scoliosis with disc space narrowin g and spurring right L1-L2 level. Cholecystectomy clips are seen on lateral view. IMPRESSION: Chronic changes without acute pulmonary process. No epicardial pacer wires or metallic c ardiac valve identified to prevent MRI study.
== END | disposition home or self-care (01) ==
LOC: RADXRMAIN 09:36
PROVIDERS: ATTEND Orthopaedic Surgery
DX: Z01.818 Encounter for other preprocedural examination (principal)
CPT/HCPCS: 71020

== ENCOUNTER → 2017-02-18 | Outpatient (CLI) | payer MEDICARE, OTHER ==
[2017-02-18 12:50] VITALS: BP 138/81; PULSE 138; RESP 16; TEMP 66
--- NOTE | 2017-02-18 13:43 | P.PN ---
Progress Note - Text Patient returns for followup for chronic back pain with radiation to lower extremities. Patient recently underwent workup for chronic headaches which revealed a possible meningioma in her brain, Parkinson's disease, and severe stenosis in her neck with facet arthropathy as well. Patient continues on tramadol/Lyrica medications for pain with some relief. Patient denies adverse drug effects from medications. Today, pt denies new-onset weakness, bowel/ bladder incontinence, or any other signs or symptoms of cauda equina syndrome. There are no signs of acute intoxication, and no indications of medication diversion or overuse. In addition to above, 13-point review of systems is also negative for chest pain , shortness of breath, changes in vision, changes in hearing, new onset weakness , abdominal pain, diarrhea, extreme fatigue, malaise, fever, skin changes, homicidal or suicidal ideation, or bowel or bladder incontinence. Vital Signs: Reviewed in EMR Gen: WDWN, AAOx3, NAD HEENT: NCAT, EOMI, hearing grossly normal Pulm: resp unlabored Abd: soft, NT, ND Neuro: CN II-XII grossly intact, muscle strength lower extremities PRESERVED Imaging: MRI demonstrates mild facet degenerative changes at multiple levels in lumbar spine. There is mild to moderate inferior neural foraminal narrowing on the right side at the L2-L3 level with effacement of the anterior thecal sac. There are bilateral M [place] changes at the L4-L5 level with spinous process resection is mild to moderate facet arthropathy bilaterally. At the L5- S1 level there is mild to moderate facet degenerative changes bilaterally with a moderate broad-based disc bulge seen. MRI C-spine reviewed Assessment: 1. sacroiliac joint dysfunction 2. lumbar spondylosis without myelopathy 3. lumbar PLPS 4. chronic pain syndrome 5. Parkinson's disease Plan: 1. Explanation: Opioid and psychological risk scores were reviewed. Diagnoses , prognoses, and multiple treatment options including but not limited to physical therapy, interventional therapies, adjuvant medical therapies, narcotic medication therapies, and surgery were discussed with the patient and all questions were answered to the patient's satisfaction. 2. Opioid agreement: Patient has previously signed narcotic agreement, and was orally counseled to not overuse, abuse, divert, or cell medications, and to take them as prescribed by only 1 healthcare provider. The patient was also counseled to store opioid medications in a safe and preferably locked location. Patient was also counseled against driving while using narcotic medications and also to not use alcohol or any illicit or recreational drugs. The patient verbalized understanding that lack of compliance with any of the above and likely result in failure to renew narcotic prescriptions, possible discharge from the clinic, and possible legal ramifications thereafter if indicated. 3. Counseling: The patient was counseled extensively on BODY MASS INDEX, EXERCISE. Specifically, the patient was instructed regarding the importance of weight loss and exercise in the context of both chronic pain and overall health. 4. Procedures: none for now 5. Consultations: none 6. Investigations: none for now 7. Medications: tramadol 50 mg #90 with two refills and Lyrica 150 mg #90 with two refills 8. Disposition: f/u for re-eval 12 weeks; patient to discuss with new neurologist whether or not interventional procedures are OK for her given meningioma and Parkinson's. PQRS measures: 1-Patient's medications are documented in the chart. 2-Tobacco use is negative 3-Patient has had a pneumococcal vaccine. 4-Advanced care planning discussed, patient unable to give 5-Opioid contract signed with the patient today. 6-Pain positive, follow-up visit or procedure scheduled 7-Patient's blood pressure measured and documented, and patient will follow up with the primary care due to hypertension. 8-Patient's weight was measured, and body mass index ABOVE the normal limits, and counseling was done. Patient instructed to follow up with PCP. 9-Patient WAS NOT identified as an unhealthy alcohol user.
== END | disposition home or self-care (01) ==
LOC: PNWHC3 12:11
PROVIDERS: ATTEND Anesthesiology
DX: M47.816 Spondylosis without myelopathy or radiculopathy, lumbar region (principal); M53.3 Sacrococcygeal disorders, not elsewhere classified; G20 Parkinson's disease; G89.4 Chronic pain syndrome
CPT/HCPCS: 99211

== ENCOUNTER → 2017-02-27 | Outpatient (CLI) | payer MEDICARE, OTHER ==
[2017-02-27 08:33] LABS: Basophils # (A) 0.1 k/uL (0-0.2); Basophils % (A) 1 %; CH 27.6; CHCM 32.9; Eosinophils # (A) 0.3 k/uL (0-0.7); Eosinophils % (A) 5 %; HCT 40.2 % (34.0-46.0); HDW 2.64; HGB 13.5 gm/dL (11.4-16.0); Luc # (Auto) 0.16; Luc % (Auto) 3; Lymphocytes # (A) 1.2 k/uL (1.0-4.8); Lymphocytes % (A) 21 %; MCH 28.4 pg (25.0-35.0); MCHC 33.7 g/dL (31.0-37.0); MCV 84.3 fL (80.0-100.0); Mean Platelet Volume 8.6; Monocytes # (A) 0.4 k/uL (0-1.0); Monocytes % (A) 7 %; Neutrophils # (A) 3.7 k/uL (1.3-7.7); Neutrophils % (A) 63 %; RBC 4.76 m/uL (3.80-5.40); RDW 14.3 % (11.5-15.5); WBC 5.9 k/uL (3.8-10.6); WBC (Perox) 5.89
[2017-02-27 10:42] LABS: Erythrocyte Sedimentation Rate 13 mm/hr (0-20)
[2017-02-27 11:19] LABS: ALT 35 U/L (9-52); AST 18 U/L (14-36); Alkaline Phosphatase 92 U/L (38-126); Anion Gap 14 mmol/L; Blood Urea Nitrogen 13 mg/dL (7-17); Calcium 9.4 mg/dL (8.4-10.2); Carbon Dioxide 25 mmol/L (22-30); Chloride 104 mmol/L (98-107); Glucose 104 mg/dL (74-99); Magnesium 1.4 mg/dL (1.6-2.3); Non-African American GFR(MDRD) 55 (>60 ml/min/1.73 sqM); Potassium 4.5 mmol/L (3.5-5.1); Sodium 143 mmol/L (137-145); Total Bilirubin 0.4 mg/dL (0.2-1.3); Total Protein 6.6 g/dL (6.3-8.2)
[2017-02-27 11:22] LABS: Rheumatoid Factor, Qnt <9 IU/mL (<12)
[2017-02-27 12:12] LABS: Hemoglobin A1C 6.3 % (4.2-6.1)
[2017-02-27 16:50] LABS: ANA w/Reflex to Titer NEGATIVE (NEGATIVE)
== END | disposition home or self-care (01) ==
LOC: LABWHC1 07:19
PROVIDERS: ATTEND Family Medicine
DX: E03.9 Hypothyroidism, unspecified (principal); E11.9 Type 2 diabetes mellitus without complications; K21.9 Gastro-esophageal reflux disease without esophagitis; R76.8 Other specified abnormal immunological findings in serum; E55.9 Vitamin D deficiency, unspecified
CPT/HCPCS: 36415; 80053; 82306; 83036; 83735; 84439; 84443; 85025; 85652; 86038; 86431

== ENCOUNTER 2017-04-23 23:43 | Observation (INO) | payer MEDICARE, OTHER ==
[2017-04-23] MEDS ORDERED: SODIUM CHLORIDE 0.9% 1,000 ML IV STA (23:55)
[2017-04-23] MEDS ORDERED: ONDANSETRON 4 MG/2 ML VIAL IVP STA (23:55)
--- NOTE | 2017-04-23 23:58 | ED ---
General Adult HPI - General Chief complaint: Nausea/Vomiting/Diarrhea Stated complaint: NVD Time Seen by Provider: 04/23/17 23:45 Source: patient, EMS, RN notes reviewed Mode of arrival: EMS Limitations: physical limitation - History of Present Illness Initial comments: This is a 66-year-old female presents emergency Department complaining of vomiting and abdominal cramping. Patient states she was here yesterday the emergency department for vomiting and diarrhea. Patient states today she's had no diarrhea but continues to vomit. Patient states she's had a couple episodes of vomiting starting last Friday but over the last 2 days is gotten considerably worse. Patient states she's had previous abdominal surgeries for gallbladder or appendix and hysterectomy. Patient denies any fevers or chills per patient denies chest pain difficult breathing shortness of breath. Patient denies any dysuria hematuria urinary frequency. Patient states the cramping is taking place mostly epigastric region. - Related Data Home Medications Medication Instructions Recorded Confirmed Albuterol Inhaler [Ventolin Hfa 2 puff INHALATION RT-Q6H PRN 06/11/16 04/22/17 Inhaler] Aspirin 325 mg PO DAILY 06/11/16 04/22/17 Baclofen 10 mg PO HS 06/11/16 04/22/17 Calcium Carbonate/Vitamin D3 2 tab PO DAILY 06/11/16 04/22/17 [Calcium 600-Vit D3 200 Tablet] Clopidogrel [Plavix] 75 mg PO DAILY 06/11/16 04/22/17 Isosorbide Mononitrate ER [Imdur] 60 mg PO DAILY 06/11/16 04/22/17 Levothyroxine Sodium [Levoxyl] 100 mcg PO DAILY 06/11/16 04/22/17 Metoprolol Tartrate [Lopressor] 25 mg PO BID 06/11/16 04/22/17 metFORMIN HCL 1,000 mg PO BID 06/11/16 04/22/17 NIFEdipine XL [Procardia XL] 60 mg PO DAILY 09/03/16 04/22/17 Albuterol Nebulized [Ventolin 2.5 mg INHALATION RT-Q4H PRN 12/12/16 04/22/17 Nebulized] Ranitidine HCl [Zantac] 150 mg PO BID 12/12/16 04/22/17 Atorvastatin [Lipitor] 40 mg PO HS 04/22/17 04/22/17 Donepezil HCl [Aricept] 5 mg PO HS 04/22/17 04/22/17 Gabapentin [Neurontin] 100 mg PO HS 04/22/17 04/22/17 HYDROcodone/APAP 7.5-325MG [[place] 1 tab PO BID PRN 04/22/17 04/22/17 7.5-325] Loperamide [Imodium] 2 mg PO BID PRN 04/22/17 04/22/17 Magnesium Oxide [Mag-Ox] 400 mg PO DAILY 04/22/17 04/22/17 Mometasone Inhalr 220 Mcg/Puff 2 puff INHALATION RT-BID 04/22/17 04/22/17 [Asmanex] Multivitamins, Thera [Multivitamin 1 tab PO DAILY 04/22/17 04/22/17 (formulary)] Nitroglycerin [Nitroglycerin 1 spray TRANSLINGU Q5M PRN 04/22/17 04/22/17 400MCG [place]] SUMAtriptan SUCCINATE [Imitrex] 50 mg PO BID PRN 04/22/17 04/22/17 glipiZIDE XL [Glucotrol Xl] 5 mg PO BID 04/22/17 04/22/17 rOPINIRole HCL [Requip] 1 mg PO TID 04/22/17 04/22/17 traMADol HCL [Ultram] 50 mg PO TID PRN 04/22/17 04/22/17 Previous Rx's Medication Instructions Recorded Ketorolac [Toradol] 10 mg PO Q6HR #20 tab 04/22/17 Allergies Allergy/AdvReac Type Severity Reaction Status Date / Time fluconazole Allergy Itching Verified 04/22/17 16:56 hydrocodone Allergy Itching-states Verified 04/22/17 16:56 "can't take too many in a row" Iodinated Contrast- Oral and Allergy Anaphylaxis Verified 04/22/17 16:56 IV Dye /Rash/Itchi [Iodinated Contrast Media - ng IV Dye] shellfish derived [Shrimp] Allergy Anaphylaxis Verified 04/22/17 16:56 vancomycin Allergy Itching Verified 04/22/17 16:56 venom-honey bee Allergy Swelling/It Verified 04/22/17 16:56 [bee venom (honey bee)] suellen doxycycline AdvReac Nausea & Verified 04/22/17 16:56 Vomiting fluticasone AdvReac Loss of Verified 04/22/17 16:56 Voice hydroxychloroquine AdvReac Nausea & Verified 04/22/17 16:56 [From Plaquenil] Vomiting levofloxacin AdvReac Nausea & Verified 04/22/17 16:56 Vomiting lisinopril AdvReac Cough Verified 04/22/17 16:56 morphine AdvReac Nausea & Verified 04/22/17 16:56 Vomiting sulfamethoxazole AdvReac Nausea & Verified 04/22/17 16:56 [From Bactrim] Vomiting trimethoprim [From Bactrim] AdvReac Nausea & Verified 04/22/17 16:56 Vomiting Review of Systems ROS Statement: Those systems with pertinent positive or pertinent negative responses have been documented in the HPI. ROS Other: All systems not noted in ROS Statement are negative. Past Medical History Past Medical History: Asthma, Coronary Artery Disease (CAD), CVA/TIA, Diabetes Mellitus, Fibromyalgia, GERD/Reflux, Hyperlipidemia, Hypertension, Myocardial Infarction (NE), Osteoarthritis (OA), Seizure Disorder, Sleep Apnea/CPAP/BIPAP, Thyroid Disorder Additional Past Medical History / Comment(s): hx back pain, sarcoidosis, IBS, osteopenia, past hx of seizures, last one years ago. states has had both cva and tia, some left sided weakness, face numbness, some memory loss Last Myocardial Infarction Date:: 2006 History of Any Multi-Drug Resistant Organisms: MRSA Date of last positivie culture/infection: 2010 MDRO Source:: lung Past Surgical History: Appendectomy, Back Surgery, Breast Surgery, Cholecystectomy, Coronary Bypass/CABG, Heart Catheterization With Stent, Hysterectomy, Joint Replacement, Orthopedic Surgery, Tonsillectomy, Tubal Ligation Additional Past Surgical History / Comment(s): cervical spinal fusion, rt leg, artie elbow surgery,total lt knee replacement, rt carotid artery, cataracts artie, benign tumor lt lung removed, lt ankle with hardware, laser surgery eyes, stent x1, cabg x1, pin in finger in and removed, sx for pleural effusion, [facility], artie breast bx x2 Past Anesthesia/Blood Transfusion Reactions: No Reported Reaction Date of Last Stent Placement:: 2005 Past Psychological History: No Psychological Hx Reported Smoking Status: Former smoker Past Alcohol Use History: Rare Past Drug Use History: None Reported - Past Family History Sister(s) Family Medical History: Cancer Brother(s) Family Medical History: Cancer General Exam - General Exam Comments Initial Comments: GENERAL: Patient is well-developed and well-nourished. Patient is nontoxic and well- hydrated and is in mild distress. ENT: Neck is soft and supple. No significant lymphadenopathy is noted. Oropharynx is clear. Moist mucous membranes. Neck has full range of motion without eliciting any pain. EYES: The sclera were anicteric and conjunctiva were pink and moist. Extraocular movements were intact and pupils were equal round and reactive to light. Eyelids were unremarkable. PULMONARY: Unlabored respirations. Good breath sounds bilaterally. No audible rales rhonchi or wheezing was noted. CARDIOVASCULAR: There is a regular rate and rhythm without any murmurs gallops or rubs. ABDOMEN: Soft and nontender with normal bowel sounds. No palpable organomegaly was noted. There is no palpable pulsatile mass. SKIN: Skin is clear with no lesions or rashes and otherwise unremarkable. NEUROLOGIC: Patient is alert and oriented x3. Cranial nerves II through XII are grossly intact. Motor and sensory are also intact. Normal speech, volume and content. Symmetrical smile. MUSCULOSKELETAL: Normal extremities with adequate strength and full range of motion. LYMPHATICS: No significant lymphadenopathy is noted PSYCHIATRIC: Normal psychiatric evaluation. Limitations: physical limitation Course Vital Signs 04/23/17 23:45 Temperature 98.9 F Pulse Rate 100 Respiratory 19 Rate Blood Pressure 173/73 O2 Sat by Pulse 100 Oximetry Medical Decision Making - Medical Decision Making I will back in the room to reevaluate the patient she continued to be nauseated complained of epigastric abdominal pain is stated she could not go home because of increasing difficult to the pain and nausea - Lab Data Result diagrams: 04/23/17 23:45 04/23/17 23:45 Lab Results 04/23/17 04/23/17 04/23/17 Range/Units 23:45 23:45 23:45 WBC 8.1 (3.8-10.6) k/uL RBC 5.47 H (3.80-5.40) m/uL Hgb 15.0 (11.4-16.0) gm/dL Hct 45.2 (34.0-46.0) % MCV 82.5 (80.0-100.0) fL MCH 27.4 (25.0-35.0) pg MCHC 33.2 (31.0-37.0) g/dL RDW 15.2 (11.5-15.5) % Plt Count 257 (150-450) k/uL Neutrophils % 83 % Lymphocytes % 10 % Monocytes % 6 % Eosinophils % 1 % Basophils % 0 % Neutrophils # 6.7 (1.3-7.7) k/uL Lymphocytes # 0.8 L (1.0-4.8) k/uL Monocytes # 0.4 (0-1.0) k/uL Eosinophils # 0.1 (0-0.7) k/uL Basophils # 0.0 (0-0.2) k/uL Sodium 140 (137-145) mmol/L Potassium 3.6 (3.5-5.1) mmol/L Chloride 103 (98-107) mmol/L Carbon Dioxide 24 (22-30) mmol/L Anion Gap 13 mmol/L BUN 13 (7-17) mg/dL Creatinine 0.97 (0.52-1.04) mg/dL Est GFR (MDRD) Af Amer >60 (>60 ml/min/1.73 sqM) Est GFR (MDRD) Non-Af 57 (>60 ml/min/1.73 sqM) Glucose 153 H (74-99) mg/dL Plasma Lactic Acid [place] 1.9 (0.7-2.0) mmol/L Calcium 9.8 (8.4-10.2) mg/dL Total Bilirubin 0.5 (0.2-1.3) mg/dL AST 18 (14-36) U/L ALT 41 (9-52) U/L Alkaline Phosphatase 111 (38-126) U/L Total Protein 7.6 (6.3-8.2) g/dL Albumin 4.3 (3.5-5.0) g/dL Amylase 91 (30-110) U/L Lipase 79 (23-300) U/L Urine Color Urine Appearance (Clear) Urine pH (5.0-8.0) Ur Specific [place] (1.001-1.035) Urine Protein (Negative) Urine Glucose (UA) (Negative) Urine Ketones (Negative) Urine Blood (Negative) Urine Nitrite (Negative) Urine Bilirubin (Negative) Urine Urobilinogen (<2.0) mg/dL Ur Leukocyte Esterase (Negative) Urine RBC (0-5) /hpf Urine WBC (0-5) /hpf Ur Squamous Epith Cells (0-4) /hpf Urine Mucus (None) /hpf 04/24/17 Range/Units 02:21 WBC (3.8-10.6) k/uL RBC (3.80-5.40) m/uL Hgb (11.4-16.0) gm/dL Hct (34.0-46.0) % MCV (80.0-100.0) fL MCH (25.0-35.0) pg MCHC (31.0-37.0) g/dL RDW (11.5-15.5) % Plt Count (150-450) k/uL Neutrophils % % Lymphocytes % % Monocytes % % Eosinophils % % Basophils % % Neutrophils # (1.3-7.7) k/uL Lymphocytes # (1.0-4.8) k/uL Monocytes # (0-1.0) k/uL Eosinophils # (0-0.7) k/uL Basophils # (0-0.2) k/uL Sodium (137-145) mmol/L Potassium (3.5-5.1) mmol/L Chloride (98-107) mmol/L Carbon Dioxide (22-30) mmol/L Anion Gap mmol/L BUN (7-17) mg/dL Creatinine (0.52-1.04) mg/dL Est GFR (MDRD) Af Amer (>60 ml/min/1.73 sqM) Est GFR (MDRD) Non-Af (>60 ml/min/1.73 sqM) Glucose (74-99) mg/dL Plasma Lactic Acid [place] (0.7-2.0) mmol/L Calcium (8.4-10.2) mg/dL Total Bilirubin (0.2-1.3) mg/dL AST (14-36) U/L ALT (9-52) U/L Alkaline Phosphatase (38-126) U/L Total Protein (6.3-8.2) g/dL Albumin (3.5-5.0) g/dL Amylase (30-110) U/L Lipase (23-300) U/L Urine Color Yellow Urine Appearance Clear (Clear) Urine pH 8.0 (5.0-8.0) Ur Specific [place] 1.012 (1.001-1.035) Urine Protein 1+ H (Negative) Urine Glucose (UA) Negative (Negative) Urine Ketones 3+ H (Negative) Urine Blood Negative (Negative) Urine Nitrite Negative (Negative) Urine Bilirubin Negative (Negative) Urine Urobilinogen <2.0 (<2.0) mg/dL Ur Leukocyte Esterase Small H (Negative) Urine RBC 1 (0-5) /hpf Urine WBC 3 (0-5) /hpf Ur Squamous Epith Cells 1 (0-4) /hpf Urine Mucus Rare H (None) /hpf Disposition Clinical Impression: Intractable vomiting, Abdominal pain Disposition: ADMITTED IP TO THIS HOSP Referrals: Melissa Mares MD [Primary Care Provider] - 1-2 days Time of Disposition: 02:50
[2017-04-24 00:03] LABS: Basophils % (A) 0 %; CH 28.8; CHCM 35.1; Eosinophils # (A) 0.1 k/uL (0-0.7); Eosinophils % (A) 1 %; HCT 45.2 % (34.0-46.0); HDW 2.68; Luc # (Auto) 0.06; Luc % (Auto) 1; Lymphocytes # (A) 0.8 k/uL (1.0-4.8); Lymphocytes % (A) 10 %; MCH 27.4 pg (25.0-35.0); MCHC 33.2 g/dL (31.0-37.0); MCV 82.5 fL (80.0-100.0); Mean Platelet Volume 8.3; Monocytes # (A) 0.4 k/uL (0-1.0); Monocytes % (A) 6 %; Neutrophils # (A) 6.7 k/uL (1.3-7.7); Neutrophils % (A) 83 %; RBC 5.47 m/uL (3.80-5.40); RDW 15.2 % (11.5-15.5); WBC 8.1 k/uL (3.8-10.6)
[2017-04-24 00:15] LABS: ALT 41 U/L (9-52); AST 18 U/L (14-36); Alkaline Phosphatase 111 U/L (38-126); Amylase 91 U/L (30-110); Anion Gap 13 mmol/L; Blood Urea Nitrogen 13 mg/dL (7-17); Calcium 9.8 mg/dL (8.4-10.2); Carbon Dioxide 24 mmol/L (22-30); Chloride 103 mmol/L (98-107); Glucose 153 mg/dL (74-99); Non-African American GFR(MDRD) 57 (>60 ml/min/1.73 sqM); Potassium 3.6 mmol/L (3.5-5.1); Sodium 140 mmol/L (137-145); Total Bilirubin 0.5 mg/dL (0.2-1.3); Total Protein 7.6 g/dL (6.3-8.2)
--- NOTE | 2017-04-24 00:52 | XR ---
EXAMINATION TYPE: XR KUB DATE OF EXAM: 04/24/2017 COMPARISON: 04/22/2017 HISTORY: Abdominal pain TECHNIQUE: 2 views FINDINGS: There is no sign of intestinal obstruction or pneumoperitoneum. Fecal pattern is normal. Th ere are spondylotic changes in the lumbar spine. There are clips from cholecystectomy. There is no ev idence of a mass. There are no pathologic calcifications over the kidneys. There is thoracolumbar lev oscoliosis. IMPRESSION: Nonacute abdomen. No change.
[2017-04-24 02:37] LABS: Appearance,Urine Clear (Clear); Bilirubin,Urine Negative (Negative); Glucose,Urine (UA) Negative (Negative); Ketones,Urine 3+ (Negative); Leukocyte Esterase,Urine Small (Negative); Mucus,Urine Rare /hpf; Nitrite,Urine Negative (Negative); Particle Count 1686; Protein,Urine 1+ (Negative); RBC,Urine 1 /hpf (0-5); Specific Gravity,Urine 1.012 (1.001-1.035); Squamous Epithelial Cell,Urine 1 /hpf (0-4); UA Billing (MACRO vs. MICRO) MICRO; Urobilinogen,Urine <2.0 mg/dL (<2.0); WBC,Urine 3 /hpf (0-5)
[2017-04-24] MEDS ORDERED: HYDROmorphone 1 MG/ML 1 ML SYRINGE IVP STA ×2 (02:51→11:41)
[2017-04-24] MEDS ORDERED: PANTOPRAZOLE 40 MG/10 ML VIAL IVP STA (02:51)
[2017-04-24] MEDS ORDERED: SODIUM CHLORIDE 0.9% 1,000 ML IV ONE (02:51)
[2017-04-24 05:20] VITALS: BMI 35.6
[2017-04-24] MEDS ORDERED: METOPROLOL TARTRATE 5 MG/5 ML VIAL IVP PRN (06:52)
[2017-04-24] MEDS ORDERED: MAG HYDROX/AL HYDROX/SIMETH 30 ML, HYOSCYAMINE ELIXIR 10 ML, CIMETIDINE HCL 300 MG, LID... PO STA ×8 (06:52→10:34)
[2017-04-24] MEDS ORDERED: IPRATROPIUM-ALBUTEROL 3 ML NEB INHALATION PRN (06:53)
--- NOTE | 2017-04-24 06:54 | P.HPIM ---
History of Present Illness H&P Date: 04/24/17 Chief Complaint: Abdominal pain and nausea and vomiting The patient is a 66-year-old female with a complex past medical history including a past medical history of GERD and abdominal surgeries with laparoscopic cholecystectomy and history of hysterectomy presents to the ER for the second time in 2 days with chief complaint of sharp severe epigastric pain radiating into the right upper quadrant with associated multiple episodes of nausea and vomiting over the last 2 days, she reports bilious emesis with some streaks of blood. She denies any diarrhea or constipation or bright red blood per rectum or dark melanotic stools. She denies any chest pain but does report some shortness of breath she denies a cough and recently saw her PCP for refill of her rescue inhaler. Patient also complains of intermittent pyrosis and bloating. It appears that she had a CT abdomen and pelvis 2 days ago that did not show an acute abdomen and had no significant changes from her prior study in August of this year. Review of her records indicated the patient had a EGD in July that showed chronic gastritis with stigmata of prior bleed and candidal esophagitis, her colonoscopy showed some internal hemorrhoids and a benign neoplasm of the colon described as hyperplastic. Review of Systems All other 14 point review of systems negative except per HPI Past Medical History Past Medical History: Asthma, Coronary Artery Disease (CAD), CVA/TIA, Diabetes Mellitus, Fibromyalgia, GERD/Reflux, Hyperlipidemia, Hypertension, Myocardial Infarction ([place]), Neurologic Disorder, Osteoarthritis (OA), Seizure Disorder, Sleep Apnea/CPAP/BIPAP, Thyroid Disorder Additional Past Medical History / Comment(s): hx back pain, sarcoidosis, IBS, osteopenia, past hx of seizures, last one years ago. 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 has chronic back and neck pain that she goes to the pain clinic for Last Myocardial Infarction Date:: 2006 History of Any Multi-Drug Resistant Organisms: MRSA Date of last positivie culture/infection: 2010 MDRO Source:: lung Past Surgical History: Appendectomy, Back Surgery, Breast Surgery, Cholecystectomy, Coronary Bypass/CABG, Heart Catheterization With Stent, Hysterectomy, Joint Replacement, Orthopedic Surgery, Tonsillectomy, Tubal Ligation Additional Past Surgical History / Comment(s): cervical spinal fusion, rt leg, artie elbow surgery,total lt knee replacement, rt carotid artery, cataracts artie, benign tumor lt lung removed, lt ankle with hardware, laser surgery eyes, stent x1, cabg x1, pin in finger in and removed, sx for pleural effusion, [facility], artie breast bx x2 Past Anesthesia/Blood Transfusion Reactions: No Reported Reaction Date of Last Stent Placement:: 2005 Past Psychological History: No Psychological Hx Reported Smoking Status: Former smoker Past Alcohol Use History: Rare Additional Past Alcohol Use History / Comment(s): former smoker 44 years, 2ppd, quit 2005 Past Drug Use History: None Reported - Past Family History Sister(s) Family Medical History: Cancer Brother(s) Family Medical History: Cancer Medications and Allergies Home Medications Medication Instructions Recorded Confirmed Type Albuterol Inhaler [Ventolin Hfa 2 puff INHALATION RT-Q6H PRN 06/11/16 04/22/17 History Inhaler] Aspirin 325 mg PO DAILY 06/11/16 04/22/17 History Baclofen 10 mg PO HS 06/11/16 04/22/17 History Calcium Carbonate/Vitamin D3 2 tab PO DAILY 06/11/16 04/22/17 History [Calcium 600-Vit D3 200 Tablet] Clopidogrel [Plavix] 75 mg PO DAILY 06/11/16 04/22/17 History Isosorbide Mononitrate ER [Imdur] 60 mg PO DAILY 06/11/16 04/22/17 History Levothyroxine Sodium [Levoxyl] 100 mcg PO DAILY 06/11/16 04/22/17 History Metoprolol Tartrate [Lopressor] 25 mg PO BID 06/11/16 04/22/17 History metFORMIN HCL 1,000 mg PO BID 06/11/16 04/22/17 History NIFEdipine XL [Procardia XL] 60 mg PO DAILY 09/03/16 04/22/17 History Albuterol Nebulized [Ventolin 2.5 mg INHALATION RT-Q4H PRN 12/12/16 04/22/17 History Nebulized] Ranitidine HCl [Zantac] 150 mg PO BID 12/12/16 04/22/17 History Atorvastatin [Lipitor] 40 mg PO HS 04/22/17 04/22/17 History Donepezil HCl [Aricept] 5 mg PO HS 04/22/17 04/22/17 History Gabapentin [Neurontin] 100 mg PO HS 04/22/17 04/22/17 History HYDROcodone/APAP 7.5-325MG [[place] 1 tab PO BID PRN 04/22/17 04/22/17 History 7.5-325] Ketorolac [Toradol] 10 mg PO Q6HR #20 tab 04/22/17 Rx Loperamide [Imodium] 2 mg PO BID PRN 04/22/17 04/22/17 History Magnesium Oxide [Mag-Ox] 400 mg PO DAILY 04/22/17 04/22/17 History Mometasone Inhalr 220 Mcg/Puff 2 puff INHALATION RT-BID 04/22/17 04/22/17 History [Asmanex] Multivitamins, Thera [Multivitamin 1 tab PO DAILY 04/22/17 04/22/17 History (formulary)] Nitroglycerin [Nitroglycerin 1 spray TRANSLINGU Q5M PRN 04/22/17 04/22/17 History 400MCG [place]] SUMAtriptan SUCCINATE [Imitrex] 50 mg PO BID PRN 04/22/17 04/22/17 History glipiZIDE XL [Glucotrol Xl] 5 mg PO BID 04/22/17 04/22/17 History rOPINIRole HCL [Requip] 1 mg PO TID 04/22/17 04/22/17 History traMADol HCL [Ultram] 50 mg PO TID PRN 04/22/17 04/22/17 History Allergies Allergy/AdvReac Type Severity Reaction Status Date / Time fluconazole Allergy Itching Verified 04/24/17 06:39 hydrocodone Allergy Itching-states Verified 04/24/17 06:39 "can't take too many in a row" Iodinated Contrast- Oral and Allergy Anaphylaxis Verified 04/24/17 06:39 IV Dye /Rash/Itchi [Iodinated Contrast Media - ng IV Dye] shellfish derived [Shrimp] Allergy Anaphylaxis Verified 04/24/17 06:39 vancomycin Allergy Itching Verified 04/24/17 06:39 venom-honey bee Allergy Swelling/It Verified 04/24/17 06:39 [bee venom (honey bee)] suellen doxycycline AdvReac Nausea & Verified 04/24/17 06:39 Vomiting fluticasone AdvReac Loss of Verified 04/24/17 06:39 Voice hydroxychloroquine AdvReac Nausea & Verified 04/24/17 06:39 [From Plaquenil] Vomiting levofloxacin AdvReac Nausea & Verified 04/24/17 06:39 Vomiting lisinopril AdvReac Cough Verified 04/24/17 06:39 morphine AdvReac Nausea & Verified 04/24/17 06:39 Vomiting sulfamethoxazole AdvReac Nausea & Verified 04/24/17 06:39 [From Bactrim] Vomiting trimethoprim [From Bactrim] AdvReac Nausea & Verified 04/24/17 06:39 Vomiting Physical Exam Vitals: Vital Signs Temp Pulse Pulse Resp BP BP Pulse Ox 04/24/17 04:58 98.6 F 88 18 145/69 96 04/24/17 04:00 16 04/24/17 03:17 98.6 F 86 19 185/70 99 04/23/17 23:45 98.9 F 100 19 173/73 100 Intake and Output 04/23/17 04/23/17 04/24/17 14:59 22:59 06:59 Other: Voiding Method Toilet Weight 88.451 kg Patient Weight 04/24/17 06:59 Weight 88.451 kg Constitutional: No acute distress, conversant, pleasant Eyes: Anicteric sclerae, moist conjunctiva, no lid-lag, PERRLA ENMT: NC/AT,Oropharynx clear, no erythema, exudates Neck:Supple, FROM, no masses, or JVD, No carotid bruits; No thyromegaly Lungs: Clear to auscultation, Clear to percussion, Normal respiratory effort, no accessory muscle use Cardiovascular: Heart regular in rate and rhythm, No murmurs, gallops, or rubs no peripheral edema Abdominal: Soft tender to palpation in epigastric area, non distended, no guarding, no rebound or rigidity, Normoactive bowel sounds No hepatomegaly, No splenomegaly, No palpable mass No abdominal wall hernia noted Skin: Normal temperature, tone, texture, turgor, No induration No subcutaneous nodules, No rash, lesions, No ulcers Extremities:No digital cyanosis No clubbing, Pedal pulses intact and symmetrical Radial pulses intact and symmetrical Normal gait and station, No calf tenderness Psychiatric: Alert and oriented to person, place and time, Appropriate affect Intact judgement Neuro: Muscles Strength 5/5 in all 4 extremities, Sensation to light touch grossly present throughout, Cranial nerves II-XII grossly intact. No focal sensory deficits Results CBC & Chem 7: 04/23/17 23:45 04/23/17 23:45 Labs: Abnormal Lab Results - Last 24 Hours (Table) 04/23/17 04/23/17 04/24/17 Range/Units 23:45 23:45 02:21 RBC 5.47 H (3.80-5.40) m/uL Lymphocytes # 0.8 L (1.0-4.8) k/uL Glucose 153 H (74-99) mg/dL Urine Protein 1+ H (Negative) Urine Ketones 3+ H (Negative) Ur Leukocyte Esterase Small H (Negative) Urine Mucus Rare H (None) /hpf Thrombosis Risk Factor Assmnt - Choose All That Apply Any of the Below Risk Factors Present?: Yes Each Factor Represents 1 point: Abnormal pulmonary function (COPD), Obesity ( BMI >25) Other Risk Factors: Yes Each Risk Factor Represents 2 Points: Age 61-74 years Other congenital or acquired thrombophilia - If yes, enter type in comment: No Thrombosis Risk Factor Assessment Total Risk Factor Score: 4 Thrombosis Risk Factor Assessment Level: Moderate Risk Assessment and Plan (1) Abdominal pain Status: Acute (2) Intractable vomiting Status: Acute (3) Essential hypertension Status: Acute (4) GERD (gastroesophageal reflux disease) Status: Acute (5) Type 2 diabetes mellitus Status: Acute Plan: The patient was placed in observation anticipated at less than two midnight stay after presenting with intractable nausea and vomiting and epigastric and right upper quadrant abdominal pain. Previous CT of the abdomen and pelvis did not show an acute abdomen and abdominal x-ray repeated today are also negative. Given the patient's history of GERD and gastritis it is reasonable to think that she is having a recurrence or flare given she has not been on any PPI therapy and was only taking ranitidine prior to presentation. GI has been consult to possibly EGD will appreciate their recommendations we'll continue the patient on Protonix she is nothing by mouth. We'll attempt a GI cocktail and start IV metoprolol for her blood pressure. We'll continue to monitor her clinical course Time with Patient: Greater than 30
[2017-04-24] MEDS: ONDANSETRON 4 MG/2 ML VIAL IVP PRN (07:56)
--- NOTE | 2017-04-24 09:57 | P.CONS ---
History of Present Illness - Reason for Consult Consult date: 04/24/17 Abdominal pain nausea vomiting Requesting physician: Lico Jeffery - History of Present Illness 58-year-old female admitted with nausea vomiting crampy abdominal epigastric pain intermittently over the last week but exacerbated over last few days. Denies hematemesis hematochezia melena. Initially patient had diarrhea but that has since subsided. Presently she still reports that epigastric right upper quadrant pain with persistent nausea unable to keep medications or diet down. EGD colonoscopy July [address] Garcia reported chronic gastritis with prior stigmata of bleeding and esophageal brianda biopsies reported chronic esophagitis. Colonoscopy identified left-sided diverticulosis and hepatic flexure polypectomy. Multiple home medications including Zantac, Imodium, Toradol, Plavix, baclofen, and full strength aspirin. No alcohol. Takes daily NSAIDs aspirin but denies excessive consumption. White count 8.1. Hemoglobin 15. Platelet 257. BUN 13. Creatinine 0.9. LFTs lipase within normal limits. Afebrile. Abdominal x-rays nonacute. Review of Systems Constitutional: Denies fever, chills, sweats, weight gain, or loss. HEENT: Negative for migraines, blurred vision or loss, earaches, drainage, tinnitus, oral mucosal lesions, dysphagia, or odynophagia. CARDIAC: [place]. CAD with PCI stent. Hyperlipidemia. Hypertension. Negative for chest pain, arrhythmias, or palpitation. RESPIRATORY: Sleep apnea. Asthma Negative for shortness of breath, hemoptysis, cough, or sputum production. GI: See HPI for pertinent findings. : Negative for hematuria, urgency, frequency, polyuria, or dysuria. GYNc: Denies possibility of . Negative vaginal discharge. MUSCULOSKELETAL: Fibromyalgia. Chronic back pain. NEUROLOGIC: Meningioma brain. Mild Parkinson's. Memory loss. Left-sided weakness facial numbness. CVA/TIA. History of seizures. ENDOCRINE: Diabetes. Hypothyroidism.. SKIN: Negative for rash or itching. History of MRSA. PSYCHIATRIC: Negative history for depression and anxiety All systems: negative (See HPI) Past Medical History Past Medical History: Asthma, Coronary Artery Disease (CAD), CVA/TIA, Diabetes Mellitus, Fibromyalgia, GERD/Reflux, Hyperlipidemia, Hypertension, Myocardial Infarction ([place]), Neurologic Disorder, Osteoarthritis (OA), Seizure Disorder, Sleep Apnea/CPAP/BIPAP, Thyroid Disorder Additional Past Medical History / Comment(s): hx back pain, sarcoidosis, IBS, osteopenia, past hx of seizures, last one years ago. 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 has chronic back and neck pain that she goes to the pain clinic for Last Myocardial Infarction Date:: 2006 History of Any Multi-Drug Resistant Organisms: MRSA Year Discovered:: 2010 MDRO Source:: lung Past Surgical History: Appendectomy, Back Surgery, Breast Surgery, Cholecystectomy, Coronary Bypass/CABG, Heart Catheterization With Stent, Hysterectomy, Joint Replacement, Orthopedic Surgery, Tonsillectomy, Tubal Ligation Additional Past Surgical History / Comment(s): cervical spinal fusion, rt leg, artie elbow surgery,total lt knee replacement, rt carotid artery, cataracts artie, benign tumor lt lung removed, lt ankle with hardware, laser surgery eyes, stent x1, cabg x1, pin in finger in and removed, sx for pleural effusion, [facility], artie breast bx x2 Past Anesthesia/Blood Transfusion Reactions: No Reported Reaction Date of Last Stent Placement:: 2005 Past Psychological History: No Psychological Hx Reported Smoking Status: Former smoker Past Alcohol Use History: Rare Additional Past Alcohol Use History / Comment(s): former smoker 44 years, 2ppd, quit 2005 Past Drug Use History: None Reported - Past Family History Sister(s) Family Medical History: Cancer Brother(s) Family Medical History: Cancer Medications and Allergies Home Medications Medication Instructions Recorded Confirmed Type Albuterol Inhaler [Ventolin Hfa 2 puff INHALATION RT-Q6H PRN 06/11/16 04/24/17 History Inhaler] Aspirin 325 mg PO DAILY 06/11/16 04/24/17 History Baclofen 10 mg PO HS 06/11/16 04/24/17 History Calcium Carbonate/Vitamin D3 2 tab PO DAILY 06/11/16 04/24/17 History [Calcium 600-Vit D3 200 Tablet] Clopidogrel [Plavix] 75 mg PO DAILY 06/11/16 04/24/17 History Isosorbide Mononitrate ER [Imdur] 60 mg PO DAILY 06/11/16 04/24/17 History Levothyroxine Sodium [Levoxyl] 100 mcg PO DAILY 06/11/16 04/24/17 History Metoprolol Tartrate [Lopressor] 25 mg PO BID 06/11/16 04/24/17 History metFORMIN HCL 1,000 mg PO BID 06/11/16 04/24/17 History NIFEdipine XL [Procardia XL] 60 mg PO DAILY 09/03/16 04/24/17 History Albuterol Nebulized [Ventolin 2.5 mg INHALATION RT-Q4H PRN 12/12/16 04/24/17 History Nebulized] Ranitidine HCl [Zantac] 150 mg PO BID 12/12/16 04/24/17 History Atorvastatin [Lipitor] 40 mg PO HS 04/22/17 04/24/17 History Donepezil HCl [Aricept] 5 mg PO HS 04/22/17 04/24/17 History Gabapentin [Neurontin] 100 mg PO HS 04/22/17 04/24/17 History HYDROcodone/APAP 7.5-325MG [[place] 1 tab PO BID PRN 04/22/17 04/24/17 History 7.5-325] Ketorolac [Toradol] 10 mg PO Q6HR #20 tab 04/22/17 04/24/17 Rx Loperamide [Imodium] 2 mg PO BID PRN 04/22/17 04/24/17 History Magnesium Oxide [Mag-Ox] 400 mg PO DAILY 04/22/17 04/24/17 History Mometasone Inhalr 220 Mcg/Puff 2 puff INHALATION RT-BID 04/22/17 04/24/17 History [Asmanex] Multivitamins, Thera [Multivitamin 1 tab PO DAILY 04/22/17 04/24/17 History (formulary)] Nitroglycerin [Nitroglycerin 1 spray TRANSLINGU Q5M PRN 04/22/17 04/24/17 History 400MCG [place]] SUMAtriptan SUCCINATE [Imitrex] 50 mg PO BID PRN 04/22/17 04/24/17 History glipiZIDE XL [Glucotrol Xl] 5 mg PO BID 04/22/17 04/24/17 History rOPINIRole HCL [Requip] 1 mg PO TID 04/22/17 04/24/17 History traMADol HCL [Ultram] 50 mg PO TID PRN 04/22/17 04/24/17 History Allergies Allergy/AdvReac Type Severity Reaction Status Date / Time fluconazole Allergy Itching Verified 04/24/17 06:39 hydrocodone Allergy Itching-states Verified 04/24/17 06:39 "can't take too many in a row" Iodinated Contrast- Oral and Allergy Anaphylaxis Verified 04/24/17 06:39 IV Dye /Rash/Itchi [Iodinated Contrast Media - ng IV Dye] shellfish derived [Shrimp] Allergy Anaphylaxis Verified 04/24/17 06:39 vancomycin Allergy Itching Verified 04/24/17 06:39 venom-honey bee Allergy Swelling/It Verified 04/24/17 06:39 [bee venom (honey bee)] suellen doxycycline AdvReac Nausea & Verified 04/24/17 06:39 Vomiting fluticasone AdvReac Loss of Verified 04/24/17 06:39 Voice hydroxychloroquine AdvReac Nausea & Verified 04/24/17 06:39 [From Plaquenil] Vomiting levofloxacin AdvReac Nausea & Verified 04/24/17 06:39 Vomiting lisinopril AdvReac Cough Verified 04/24/17 06:39 morphine AdvReac Nausea & Verified 04/24/17 06:39 Vomiting sulfamethoxazole AdvReac Nausea & Verified 04/24/17 06:39 [From Bactrim] Vomiting trimethoprim [From Bactrim] AdvReac Nausea & Verified 04/24/17 06:39 Vomiting Physical Exam Vitals: Vital Signs Temp Pulse Pulse Resp BP BP Pulse Ox 04/24/17 07:00 97.6 F 83 16 180/77 96 04/24/17 04:58 98.6 F 88 18 145/69 96 04/24/17 04:00 16 04/24/17 03:17 98.6 F 86 19 185/70 99 04/23/17 23:45 98.9 F 100 19 173/73 100 Intake and Output 04/23/17 04/24/17 04/24/17 22:59 06:59 14:59 Other: Voiding Method Toilet Weight 88.451 kg General appearance: The patient is alert, oriented, in no acute distress. HET: Head is normocephalic and atraumatic. Pupils are equal and reactive. Oropharynx is clear without lesions. Neck: Supple without lymphadenopathy. Trachea midline. Heart: S1 S2. Regular rate and rhythm. Lungs: No crackles or wheezes are heard. Abdomen: Soft, midepigastric tenderness, nondistended with bowel sounds. No peritoneal signs. No palpable organomegaly or masses. Extremities: Normal skin color and turgor. No cyanosis, rash, ulceration, clubbing, or edema. Radial and pedal pulses are 2/4 bilaterally. Neurological: No focal deficits. Strength and sensation are grossly intact. Results CBC & Chem 7: 04/23/17 23:45 04/23/17 23:45 Labs: Abnormal Lab Results - Last 24 Hours (Table) 04/23/17 04/23/17 04/24/17 Range/Units 23:45 23:45 02:21 RBC 5.47 H (3.80-5.40) m/uL Lymphocytes # 0.8 L (1.0-4.8) k/uL Glucose 153 H (74-99) mg/dL Urine Protein 1+ H (Negative) Urine Ketones 3+ H (Negative) Ur Leukocyte Esterase Small H (Negative) Urine Mucus Rare H (None) /hpf Assessment and Plan (1) Abdominal pain Narrative/Plan: Possible GERD possible peptic ulcer disease with home medication NSAID usage Status: Acute Plan: 1. Protonix 40 mg IV daily. 2. EGD evaluation. 3. Hold NSAIDs. The customer service and sales consultant has discussed the risks, benefits and alternative therapies for the above-mentioned procedure and for both sedation/analgesia as well as necessary blood product administration, if indicated, as they pertain to this patient. The patient has indicated understanding and acceptance of the risks and procedures discussed. Thank you for this kind referral and the opportunity to participate in the care of your patient. This consultation was discussed with Dr. Rebollar. The impression and plan of care have been directed as dictated.
[2017-04-24] MEDS: PANTOPRAZOLE 40 MG/10 ML VIAL IVP SCH (10:36)
[2017-04-24] MEDS ORDERED: hydrALAZINE HCL 20 MG/ML 1 ML VIAL IVP STA (11:41)
[2017-04-24] MEDS ORDERED: LIDOCAINE 1% INJ 10MG/ML (20 ML MDV) ONE (14:11)
[2017-04-24] MEDS ORDERED: IV FLUID CONTINUATION 1,000 ML IV ONE (14:11)
[2017-04-24] MEDS ORDERED: ONDANSETRON 4 MG/2 ML VIAL ONE (14:11)
[2017-04-24] MEDS ORDERED: PROPOFOL 10 MG/ML 20 ML VIAL IV ONE (14:11)
[2017-04-24] MEDS ORDERED: LACTATED RINGERS 1,000 ML IV ONE (14:28)
--- NOTE | 2017-04-24 14:58 | P.PCN ---
Date of Procedure: 04/24/17 Procedure(s) Performed: Procedure: Esophagogastroduodenoscopy and biopsy. Preoperative diagnosis: Epigastric pain and nausea. Postoperative diagnosis: 1. Small sliding hiatal hernia with high-grade esophagitis R/O infectious etiology, biopsies obtained. 2. Mild gastritis. 3. Biopsies obtained from the duodenum and antrum in addition to the esophageal biopsies. Preparation sedation: Was provided by anesthesia. Brief clinical history: The patient is a 58-year-old female who was admitted to the hospital with nausea, vomiting, crampy abdominal and epigastric pain intermittently over the last week but exacerbated over last few days. Denied hematemesis, hematochezia or melena. Initially patient had diarrhea but that has since subsided. Presently she still reports that epigastric right upper quadrant pain with persistent nausea unable to keep medications or diet down. EGD and colonoscopy were performed in July [address] Garcia reported chronic gastritis with prior stigmata of bleeding and esophageal brianda biopsies reported chronic esophagitis. Colonoscopy identified left-sided diverticulosis and hepatic flexure polyp which was snared. Was on several medications at home including Zantac, Imodium, Toradol, Plavix, baclofen, and full strength aspirin. No alcohol. Takes daily NSAIDs aspirin but denies excessive consumption. The details are summarized in the history and physical and dictated consultation and progress notes. This evaluation is to assess the bases for symptoms. Procedure: With the patient on her left lateral decubitus position and after informed consent and adequate sedation, I passed the Olympus-GIF 160 video upper endoscope through the cricopharyngeus down the esophagus. GE junction was around 36 cm from the incisors and there was a small sliding hiatal hernia. The esophagus showed high-grade esophagitis with ulcerations and exudations carpeting the lower third of the esophagus and extending partially to the middle third with no evidence of active bleeding. No strictures. Biopsies obtained to rule out infectious etiology. The endoscope was then passed into the stomach which was insufflated with air and inspected in detail including the retroflex view in the cardia. There was some mottling and erythema in the antrum and minimal friability consistent with mild gastritis but no ulcers or erosions. Pyloric channel, duodenal bulb, post bulbar area and descending duodenum appeared within normal limits, however, because of her symptoms, I obtained biopsies from the duodenum in addition to biopsies from the antrum as well as the esophagus as mentioned. The patient tolerated the procedure well. Plan: The patient was reassured and I discussed with her daughter. Will await biopsy results. In the meantime, would continue PPI and symptomatic treatment and will allow liquid diet and advance diet as tolerated.
[2017-04-24] MEDS ORDERED: LOPERAMIDE 2 MG CAP PO PRN (15:59)
[2017-04-24] MEDS ORDERED: NITROGLYCERIN SL TABS 0.4 MG TAB SUBLINGUAL PRN (15:59)
[2017-04-24] MEDS ORDERED: ALBUTEROL INHALER 60 PUFF/8 GM INHALER INHALATION PRN (15:59)
[2017-04-24] MEDS ORDERED: ALBUTEROL NEBULIZED 2.5 MG/3 ML INHALATION PRN (15:59)
[2017-04-24] MEDS ORDERED: MORPHINE SULFATE 2 MG/ML SYRINGE IVP PRN (16:06)
[2017-04-24] MEDS ORDERED: NON-FORMULARY DRUG (Ketorolac 10 MG) PO SCH (18:00)
--- NOTE | 2017-04-24 18:57 | P.PN ---
Subjective Principal diagnosis: intractable vomitting and abdomenal pain x 1 week A 66-year-old white female who presented with abdominal pain and vomiting for one week she had dry heaves admitted for further management and workup she is still symptomatic without any acute abdominal signs on exam GI consultation. Scheduled for EGD today she reported episodes of loose stools no recent antibiotic and no recent travel . No clear fever or chills nor pulmonary neurologic genitourinary complaints offered Objective - Vital Signs Vital signs: Vital Signs Temp 97.2 F L 04/24/17 15:00 Pulse 72 04/24/17 15:00 Resp 18 04/24/17 15:00 BP 165/81 04/24/17 15:00 Pulse Ox 95 04/24/17 15:00 Intake & Output 04/23/17 04/24/17 04/24/17 18:59 06:59 18:59 Intake Total 200 Balance 200 Weight 88.451 kg 88.451 kg Intake: IV 200 Other: Voiding Method Toilet Toilet # Voids 1 2 - Constitutional General appearance: Present: cooperative, mild distress - EENT Eyes: Present: anicteric sclerae, EOMI, PERRLA ENT: Present: NA/AT, normal oropharynx. Absent: pharyngeal erythema, thrush Ears: bilateral: normal - Neck Neck: Present: normal ROM. Absent: lymphadenopathy, other, rigidity, stridor, thyromegaly Thyroid: negative: normal size, enlarged, firm, nodule - Respiratory Respiratory: bilateral: CTA, negative: diminished, dullness, rales, rhonchi, wheezing, prolonged expiration - Cardiovascular Rhythm: regular Heart sounds: normal: S1, S2 Abnormal Heart Sounds: Absent: systolic murmur, diastolic murmur, rub, S3 Gallop , S4 Gallop, click, other - Gastrointestinal General gastrointestinal: Present: hyperactive bowel sounds, soft, tenderness. Absent: distended, hepatomegaly, organomegaly, splenomegaly - Integumentary Integumentary: Absent: calor, cellulitis, cyanotic, decreased turgor, flushed, jaundiced, normal, normal turgor, pale, rash, ulcer - Neurologic Neurologic: Present: CNII-XII intact, focal deficits - Musculoskeletal Musculoskeletal: Present: gait normal, strength equal bilaterally. Absent: generalized weakness, right sided weakness, left sided weakness - Psychiatric Psychiatric: Present: A&O x's 3, appropriate affect, intact judgment & insight - Labs CBC & Chem 7: 04/23/17 23:45 04/23/17 23:45 Labs: Abnormal Lab Results - Last 24 Hours (Table) 04/23/17 04/23/17 04/24/17 Range/Units 23:45 23:45 02:21 RBC 5.47 H (3.80-5.40) m/uL Lymphocytes # 0.8 L (1.0-4.8) k/uL Glucose 153 H (74-99) mg/dL Urine Protein 1+ H (Negative) Urine Ketones 3+ H (Negative) Ur Leukocyte Esterase Small H (Negative) Urine Mucus Rare H (None) /hpf Assessment and Plan (1) CAD (coronary artery disease) of artery bypass graft Narrative/Plan: s/p CABG Asymptomatic Status: Chronic (2) Abdominal pain Narrative/Plan: diffuse no acute signs Status: Acute (3) Essential hypertension Narrative/Plan: BP is high off therapy Hydralazine prn Status: Chronic (4) GERD (gastroesophageal reflux disease) Narrative/Plan: stable Status: Chronic (5) Intractable vomiting Narrative/Plan: dry heaving now zofran iv gi consult Status: Acute (6) Type 2 diabetes mellitus Narrative/Plan: controled Status: Chronic Plan: Gi consult : EGD today iv protonix MS ivp prn for pain Zofran for vomitting Time with Patient: Less than 30
[2017-04-24] MEDS: BUDESONIDE 0.5 MG/2 ML NEBU INHALATION SCH (19:46)
[2017-04-24] MEDS: HYDROcodone/APAP 5-325MG 1 EACH TAB PO PRN (20:45)
[2017-04-24] MEDS: GABAPENTIN 100 MG CAP PO SCH (20:47)
[2017-04-24] MEDS: BACLOFEN 10 MG TAB PO SCH (20:47)
[2017-04-24] MEDS: ATORVASTATIN 40 MG TAB PO SCH (20:47)
[2017-04-24] MEDS: METOPROLOL TARTRATE 25 MG TAB PO SCH (20:49)
[2017-04-24] MEDS: glipiZIDE 5 MG TAB PO SCH (20:51)
[2017-04-24] MEDS: metFORMIN 500 MG TAB PO SCH (20:51)
[2017-04-25] MEDS: HYDROcodone/APAP 5-325MG 1 EACH TAB PO PRN ×2 (03:49→21:38)
[2017-04-25] MEDS: LEVOTHYROXINE 100 MCG TAB PO SCH (06:16)
[2017-04-25] MEDS: PANTOPRAZOLE 40 MG/10 ML VIAL IVP SCH (07:19)
[2017-04-25] MEDS: BUDESONIDE 0.5 MG/2 ML NEBU INHALATION SCH ×2 (08:15→20:51)
[2017-04-25] MEDS ORDERED: CALCIUM CARBONATE PO SCH (09:00)
[2017-04-25] MEDS ORDERED: VITAMIN D3 PO SCH (09:00)
[2017-04-25] MEDS: ONDANSETRON 4 MG/2 ML VIAL IVP PRN (10:41)
[2017-04-25] MEDS: MAGNESIUM OXIDE 400 MG TAB PO SCH (10:42)
[2017-04-25] MEDS: glipiZIDE 5 MG TAB PO SCH ×2 (10:43→21:30)
[2017-04-25] MEDS: ASPIRIN 325 MG TAB PO SCH (10:43)
[2017-04-25] MEDS: metFORMIN 500 MG TAB PO SCH ×2 (10:43→21:31)
[2017-04-25] MEDS: ISOSORBIDE MONONITRATE ER 60 MG TAB.ER.24H PO SCH (10:43)
[2017-04-25] MEDS: CLOPIDOGREL 75 MG TAB PO SCH (10:43)
[2017-04-25] MEDS: METOPROLOL TARTRATE 25 MG TAB PO SCH ×2 (10:44→21:31)
[2017-04-25] MEDS ORDERED: MULTIVITAMINS, THERA 1 EACH TAB PO SCH (12:00)
[2017-04-25 16:56] VITALS: RESP 16
--- NOTE | 2017-04-25 18:32 | P.PN ---
Subjective Principal diagnosis: Abdominal pain Patient is a 66-year-old female with history of Parkinson's disease, hypertension, and coronary artery disease who presented with abdominal pain. She was seen by GI and underwent EGD on 04/24. This was consisted with hiatal hernia, esophagitis, and gastritis. They recommended placement on a PPI. Patient feels as though her gastritis may be secondary to vomiting with Requip use. She is going to stop this medication and talk with her neurologist. Patient seen and examined at bedside. Feeling much improved. Wants advance her diet but worry that it may re-flare her symptoms. Had a long discussion with her regarding her Parkinson's disease, meningioma, and neck pain. She plans on following up with a new neurologist and orthopedic surgeon on discharge. She denies any nausea, vomiting, or recurrent abdominal pain. Objective - Vital Signs Vital signs: Vital Signs Temp 97.7 F 04/25/17 15:00 Pulse 59 L 04/25/17 16:00 Resp 16 04/25/17 16:00 BP 133/75 04/25/17 15:00 Pulse Ox 95 04/25/17 15:00 Intake & Output 04/24/17 04/25/17 04/25/17 18:59 06:59 18:59 Intake Total 200 1200 500 Balance 200 1200 500 Weight 88.451 kg Intake: IV 200 Intake, IV Titration 1200 Amount Lactated Ringers 1,000 ml 600 As IV .STK-MED ONE Rx#: [id number] Sodium Chloride 0.9% 1, 600 000 ml @ 75 mls/hr IV . [id number] ONE Rx#:[id number] Oral 500 Other: Voiding Method Toilet Toilet Toilet # Voids 2 2 - Exam General: non toxic, no distress, appears at stated age Derm: no rashes, no lesions Head: atraumatic, normocephalic, symmetric Eyes: EOMI, no lid lag, anicteric sclera ENT: no post nasal drip, no thrush Mouth: no lip lesion, mucus membranes moist Cardiovascular: S1S2 reg, no murmur, positive posterior tibial pulse bilateral, Lungs: CTA bilateral, no rhonchi, no rales , no accessory muscle use Abdominal: soft, nontender to palpation, no guarding, no appreciable organomegaly Ext: no gross muscle atrophy, no edema, no contractures Neuro: CN II-XI grossly intact, no focal neuro deficits Psych: Alert, oriented, appropriate affect - Labs CBC & Chem 7: 04/23/17 23:45 04/23/17 23:45 Assessment and Plan Plan: #Acute gastritis and esophagitis -Continue with PPI, discontinue H2 ramakrishna -Patient has elected to remain off her Requip which was causing her to have nausea #Hypertension -Controlled -Continue with current medications #DM type II -Continue glipizide, metformin -Follow blood sugars And hemoglobin A1c 6.3 02/2017 Chronic: Coronary artery disease R consistencies Fibromyalgia Sarcoidosis IBS Seizures CVA
[2017-04-25 19:50] LABS: ALT 36 U/L (9-52); AST 17 U/L (14-36); Alkaline Phosphatase 82 U/L (38-126); Anion Gap 12 mmol/L; Blood Urea Nitrogen 9 mg/dL (7-17); Calcium 9.2 mg/dL (8.4-10.2); Carbon Dioxide 23 mmol/L (22-30); Chloride 106 mmol/L (98-107); Glucose 94 mg/dL (74-99); Non-African American GFR(MDRD) >60 (>60 ml/min/1.73 sqM); Potassium 3.1 mmol/L (3.5-5.1); Sodium 141 mmol/L (137-145); Total Bilirubin 0.4 mg/dL (0.2-1.3); Total Protein 6.7 g/dL (6.3-8.2)
[2017-04-25] MEDS: GABAPENTIN 100 MG CAP PO SCH (21:30)
[2017-04-25] MEDS: BACLOFEN 10 MG TAB PO SCH (21:30)
[2017-04-25] MEDS: ATORVASTATIN 40 MG TAB PO SCH (21:31)
[2017-04-26] MEDS: HYDROcodone/APAP 5-325MG 1 EACH TAB PO PRN (04:53)
[2017-04-26] MEDS: LEVOTHYROXINE 100 MCG TAB PO SCH (06:11)
[2017-04-26] MEDS: BUDESONIDE 0.5 MG/2 ML NEBU INHALATION SCH (07:26)
[2017-04-26] MEDS: PANTOPRAZOLE 40 MG/10 ML VIAL IVP SCH (09:01)
[2017-04-26] MEDS: glipiZIDE 5 MG TAB PO SCH (09:02)
[2017-04-26] MEDS: CLOPIDOGREL 75 MG TAB PO SCH (09:02)
[2017-04-26] MEDS: METOPROLOL TARTRATE 25 MG TAB PO SCH (09:02)
[2017-04-26] MEDS: MAGNESIUM OXIDE 400 MG TAB PO SCH (09:02)
[2017-04-26] MEDS: ISOSORBIDE MONONITRATE ER 60 MG TAB.ER.24H PO SCH (09:02)
[2017-04-26] MEDS: ASPIRIN 325 MG TAB PO SCH (09:02)
[2017-04-26] MEDS: metFORMIN 500 MG TAB PO SCH (09:03)
[2017-04-26 09:07] VITALS: BP 124/71; PULSE 73; TEMP 98.2
--- NOTE | 2017-04-26 10:26 | P.DS ---
Providers Date of admission: 04/24/17 02:51 Expected date of discharge: 04/26/17 Attending physician: Lico Jeffery MD Consults: 04/24/17 02:51 Consult Physician Urgent Consulting Provider: Anastacio Rebollar Consult Reason/Comments: Abdominal pain, intractable vomiting Do you want consulting provider notified?: Yes Primary care physician: Melissa Mares MD - Discharge Diagnosis(es) (1) Gastritis Status: Acute (2) Parkinsons disease Status: Chronic (3) HTN (hypertension) Status: Chronic (4) Intractable vomiting Status: Resolved Priority: High (5) Type 2 diabetes mellitus Status: Chronic Priority: Low Hospital Course: aliza is a 66-year-old female with history of Parkinson's disease, hypertension, and coronary artery disease who presented with abdominal pain. She was seen by GI and underwent EGD on 04/24. This was consisted with hiatal hernia, esophagitis, and gastritis. They recommended placement on a PPI. Biopsy resulted which showed no signs of H. pylori but were consistent with chronic gastritis and esophagitis. Patient feels as though her gastritis may be secondary to vomiting with Requip use. She is going to stop this medication and talk with her neurologist. She was able to tolerate a soft diet and was determined stable for discharge home. She will maintain on her PPI, stop her oral Toradol, and continue her daily aspirin. She will follow up with a neurologist regarding her Parkinson's disease. Patient seen and examined at bedside. Tolerating diet, no recurrent abdominal pain, no nausea, no vomiting. Vital signs reviewed and stable. General: non toxic, no distress, appears at stated age Derm: no rashes, no lesions Head: atraumatic, normocephalic, symmetric Eyes: EOMI, no lid lag, anicteric sclera ENT: no post nasal drip, no thrush Mouth: no lip lesion, mucus membranes moist Cardiovascular: S1S2 reg, no murmur, positive posterior tibial pulse bilateral, Lungs: CTA bilateral, no rhonchi, no rales , no accessory muscle use Abdominal: soft, nontender to palpation, no guarding, no appreciable organomegaly Ext: no gross muscle atrophy, no edema, no contractures Neuro: CN II-XI grossly intact, no focal neuro deficits Psych: Alert, oriented, appropriate affect A total of 35 minutes of time were spent preparing this complex discharge summary . Pertinent Studies: KUB-no acute process Procedures: EGD-esophagitis, gastritis, hiatal hernia Patient Condition at Discharge: Stable Plan - Discharge Summary New Discharge Prescriptions: New Pantoprazole [Protonix] 40 mg PO BID #60 tablet.dr Continue Calcium Carbonate/Vitamin D3 [Calcium 600-Vit D3 200 Tablet] 2 tab PO DAILY Aspirin 325 mg PO DAILY Albuterol Inhaler [Ventolin Hfa Inhaler] 2 puff INHALATION RT-Q6H PRN PRN Reason: Shortness Of Breath Baclofen 10 mg PO HS Levothyroxine Sodium [Levoxyl] 100 mcg PO DAILY Clopidogrel [Plavix] 75 mg PO DAILY Metoprolol Tartrate [Lopressor] 25 mg PO BID Isosorbide Mononitrate ER [Imdur] 60 mg PO DAILY metFORMIN HCL 1,000 mg PO BID NIFEdipine XL [Procardia XL] 60 mg PO DAILY Albuterol Nebulized [Ventolin Nebulized] 2.5 mg INHALATION RT-Q4H PRN PRN Reason: Shortness Of Breath Magnesium Oxide [Mag-Ox] 400 mg PO DAILY Multivitamins, Thera [Multivitamin (formulary)] 1 tab PO DAILY Loperamide [Imodium] 2 mg PO BID PRN PRN Reason: Diarrhea HYDROcodone/APAP 7.5-325MG [[place] 7.5-325] 1 tab PO BID PRN PRN Reason: Pain Nitroglycerin [Nitroglycerin 400MCG [place]] 1 spray TRANSLINGU Q5M PRN PRN Reason: Chest Pain SUMAtriptan SUCCINATE [Imitrex] 50 mg PO BID PRN PRN Reason: Migraine Headache Mometasone Inhalr 220 Mcg/Puff [Asmanex] 2 puff INHALATION RT-BID Atorvastatin [Lipitor] 40 mg PO HS traMADol HCL [Ultram] 50 mg PO TID PRN PRN Reason: Pain Gabapentin [Neurontin] 100 mg PO HS glipiZIDE XL [Glucotrol XL] 5 mg PO BID Discontinued Ranitidine HCl [Zantac] 150 mg PO BID Donepezil HCl [Aricept] 5 mg PO HS rOPINIRole HCL [Requip] 1 mg PO TID Ketorolac [Toradol] 10 mg PO Q6HR #20 tab Discharge Medication List Albuterol Inhaler [Ventolin Hfa Inhaler] 2 puff INHALATION RT-Q6H PRN 06/11/16 [ History] Aspirin 325 mg PO DAILY 06/11/16 [History] Baclofen 10 mg PO HS 06/11/16 [History] Calcium Carbonate/Vitamin D3 [Calcium 600-Vit D3 200 Tablet] 2 tab PO DAILY [History] Clopidogrel [Plavix] 75 mg PO DAILY 06/11/16 [History] Isosorbide Mononitrate ER [Imdur] 60 mg PO DAILY 06/11/16 [History] Levothyroxine Sodium [Levoxyl] 100 mcg PO DAILY 06/11/16 [History] Metoprolol Tartrate [Lopressor] 25 mg PO BID 06/11/16 [History] metFORMIN HCL 1,000 mg PO BID 06/11/16 [History] NIFEdipine XL [Procardia XL] 60 mg PO DAILY 09/03/16 [History] Albuterol Nebulized [Ventolin Nebulized] 2.5 mg INHALATION RT-Q4H PRN 12/12/16 [ History] Atorvastatin [Lipitor] 40 mg PO HS 04/22/17 [History] Gabapentin [Neurontin] 100 mg PO HS 04/22/17 [History] HYDROcodone/APAP 7.5-325MG [[place] 7.5-325] 1 tab PO BID PRN 04/22/17 [History] Loperamide [Imodium] 2 mg PO BID PRN 04/22/17 [History] Magnesium Oxide [Mag-Ox] 400 mg PO DAILY 04/22/17 [History] Mometasone Inhalr 220 Mcg/Puff [Asmanex] 2 puff INHALATION RT-BID 04/22/17 [ History] Multivitamins, Thera [Multivitamin (formulary)] 1 tab PO DAILY 04/22/17 [History ] Nitroglycerin [Nitroglycerin 400MCG [place]] 1 spray TRANSLINGU Q5M PRN 04/22/17 [ History] SUMAtriptan SUCCINATE [Imitrex] 50 mg PO BID PRN 04/22/17 [History] glipiZIDE XL [Glucotrol XL] 5 mg PO BID 04/22/17 [History] traMADol HCL [Ultram] 50 mg PO TID PRN 04/22/17 [History] Pantoprazole [Protonix] 40 mg PO BID #60 tablet. 04/26/17 [Rx] Follow up Appointment(s)/Referral(s): Anastacio Rebollar MD [STAFF PHYSICIAN] - 4 Weeks El Noland MD [STAFF PHYSICIAN] - 1 Week Melissa Mares MD [Primary Care Provider] - 1-2 days Patient Instructions/Handouts: Pantoprazole (By mouth), Acute Abdominal Pain ( DC) Activity/Diet/Wound Care/Special Instructions: Diabetic diet Activity as tolerated [facility] ([facility]) [id number] [place], [place] [phone] Jimbo Herndon Discharge Disposition: HOME SELF-CARE
== END 2017-04-26 11:35 | disposition home or self-care (01) ==
LOC: EC 23:43 → 5MS5E 04-24 02:51
PROVIDERS: ADMIT Family Medicine; ATTEND Family Medicine
DX: K29.50 Unspecified chronic gastritis without bleeding (principal); K29.00 Acute gastritis without bleeding; G20 Parkinson's disease; I10 Essential (primary) hypertension; E11.9 Type 2 diabetes mellitus without complications; M85.80 Other specified disorders of bone density and structure, unspecified site; M79.7 Fibromyalgia; K58.9 Irritable bowel syndrome, unspecified; G47.30 Sleep apnea, unspecified; G40.909 Epilepsy, unspecified, not intractable, without status epilepticus; E78.5 Hyperlipidemia, unspecified; I25.2 Old myocardial infarction; K57.90 Diverticulosis of intestine, part unspecified, without perforation or abscess without bleeding; E03.9 Hypothyroidism, unspecified; K44.9 Diaphragmatic hernia without obstruction or gangrene; K22.10 Ulcer of esophagus without bleeding; I25.810 Atherosclerosis of coronary artery bypass graft(s) without angina pectoris; M19.90 Unspecified osteoarthritis, unspecified site; Z79.82 Long term (current) use of aspirin; Z79.899 Other long term (current) drug therapy; Z79.02 Long term (current) use of antithrombotics/antiplatelets; Z79.84 Long term (current) use of oral hypoglycemic drugs; Z88.2 Allergy status to sulfonamides; Z88.8 Allergy status to other drugs, medicaments and biological substances; Z88.1 Allergy status to other antibiotic agents; Z88.3 Allergy status to other anti-infective agents; Z91.030 Bee allergy status; Z91.041 Radiographic dye allergy status; Z88.5 Allergy status to narcotic agent; Z91.013 Allergy to seafood; Z86.73 Personal history of transient ischemic attack (TIA), and cerebral infarction without residual deficits; Z99.89 Dependence on other enabling machines and devices; Z86.14 Personal history of Methicillin resistant Staphylococcus aureus infection; Z95.1 Presence of aortocoronary bypass graft; Z95.5 Presence of coronary angioplasty implant and graft; Z87.891 Personal history of nicotine dependence; Z79.1 Long term (current) use of non-steroidal anti-inflammatories (NSAID); K21.0 Gastro-esophageal reflux disease with esophagitis; D32.0 Benign neoplasm of cerebral meninges; Z79.51 Long term (current) use of inhaled steroids; D86.9 Sarcoidosis, unspecified; E66.9 Obesity, unspecified; Z68.35 Body mass index [BMI] 35.0-35.9, adult; J44.9 Chronic obstructive pulmonary disease, unspecified; M54.2 Cervicalgia
CPT/HCPCS: 96376 ×3; 96375 ×2; 96361; 96374; 99285; 36415; 94640 ×2; 88305; 80053 ×2; 82150; 83605; 83690; 85025; 81001; 88312; 88342; 74000; 43239; G0378 ×3; J2405 ×2; J2001; J1170; J2704; C9113 ×3

== ENCOUNTER → 2017-04-28 | Outpatient (CLI) | payer MEDICARE, OTHER ==
[2017-04-28 14:11] VITALS: BP 89/55; PULSE 77; RESP 16; TEMP 97.6
--- NOTE | 2017-04-28 14:24 | P.PN ---
Progress Note - Text Patient returns for followup for chronic back pain with radiation to lower extremities. Patient recently underwent workup for chronic headaches which revealed a possible meningioma in her brain, Parkinson's disease, and severe stenosis in her neck with facet arthropathy as well. Patient continues on tramadol/Lyrica medications for pain with some relief. Patient was seen at Dr. Arriaza's office and they stopped her Lyrica suddenly and she experienced withdrawal. She is now on gabapentin which is helping with her neuropathy symptoms and her back pain is well-controlled for now. Patient denies adverse drug effects from medications. Today, pt denies new-onset weakness, bowel/ bladder incontinence, or any other signs or symptoms of cauda equina syndrome. There are no signs of acute intoxication, and no indications of medication diversion or overuse. In addition to above, 13-point review of systems is also negative for chest pain , shortness of breath, changes in vision, changes in hearing, new onset weakness , abdominal pain, diarrhea, extreme fatigue, malaise, fever, skin changes, homicidal or suicidal ideation, or bowel or bladder incontinence. Vital Signs: Reviewed in EMR Gen: WDWN, AAOx3, NAD HEENT: NCAT, EOMI, hearing grossly normal Pulm: resp unlabored Abd: soft, NT, ND Neuro: CN II-XII grossly intact, muscle strength lower extremities PRESERVED Imaging: MRI demonstrates mild facet degenerative changes at multiple levels in lumbar spine. There is mild to moderate inferior neural foraminal narrowing on the right side at the L2-L3 level with effacement of the anterior thecal sac. There are bilateral laminectomy changes at the L4-L5 level with spinous process resection is mild to moderate facet arthropathy bilaterally. At the L5- S1 level there is mild to moderate facet degenerative changes bilaterally with a moderate broad-based disc bulge seen. MRI C-spine reviewed Assessment: 1. sacroiliac joint dysfunction 2. lumbar spondylosis without myelopathy 3. lumbar PLPS 4. chronic pain syndrome 5. Parkinson's disease Plan: 1. Explanation: Opioid and psychological risk scores were reviewed. Diagnoses , prognoses, and multiple treatment options including but not limited to physical therapy, interventional therapies, adjuvant medical therapies, narcotic medication therapies, and surgery were discussed with the patient and all questions were answered to the patient's satisfaction. 2. Opioid agreement: Patient has previously signed narcotic agreement, and was orally counseled to not overuse, abuse, divert, or cell medications, and to take them as prescribed by only 1 healthcare provider. The patient was also counseled to store opioid medications in a safe and preferably locked location. Patient was also counseled against driving while using narcotic medications and also to not use alcohol or any illicit or recreational drugs. The patient verbalized understanding that lack of compliance with any of the above and likely result in failure to renew narcotic prescriptions, possible discharge from the clinic, and possible legal ramifications thereafter if indicated. 3. Counseling: The patient was counseled extensively on BODY MASS INDEX, EXERCISE. Specifically, the patient was instructed regarding the importance of weight loss and exercise in the context of both chronic pain and overall health. 4. Procedures: none for now 5. Consultations: referral to Dr. Noland re: Parkinson's management, history of meningioma 6. Investigations: none for now 7. Medications: gabapentin 100 mg #90 with two refills 8. Disposition: f/u for re-eval 6 weeks after patient sees Dr. Noland PQRS measures: 1-Patient's medications are documented in the chart. 2-Tobacco use is negative 3-Patient has had a pneumococcal vaccine. 4-Advanced care planning discussed, patient unable to give 5-Opioid contract signed with the patient today. 6-Pain positive, follow-up visit or procedure scheduled 7-Patient's blood pressure measured and documented, and patient will follow up with the primary care due to hypertension. 8-Patient's weight was measured, and body mass index ABOVE the normal limits, and counseling was done. Patient instructed to follow up with PCP. 9-Patient WAS NOT identified as an unhealthy alcohol user.
== END | disposition home or self-care (01) ==
LOC: PNWHC3 13:25
PROVIDERS: ATTEND Anesthesiology
DX: M47.816 Spondylosis without myelopathy or radiculopathy, lumbar region (principal); M53.3 Sacrococcygeal disorders, not elsewhere classified; M96.1 Postlaminectomy syndrome, not elsewhere classified; G89.4 Chronic pain syndrome; G20 Parkinson's disease
CPT/HCPCS: 99211

== ENCOUNTER → 2017-06-09 | Outpatient (CLI) | payer MEDICARE, OTHER ==
[2017-06-09 13:02] VITALS: BP 117/75; PULSE 87; RESP 16; TEMP 98
--- NOTE | 2017-06-09 13:17 | P.PN ---
Progress Note - Text Progress Note Date: 06/09/17 This is a 67-year-old female with history of chronic lower back pain status post back surgery. The patient had bilateral sacroiliac joint steroid injection long time ago which did not give her good pain relief. Her pain starts from the mid back area down to the hips. She does have numbness in the left big toe but she thinks it is due to her previous foot surgery. She denies any bowel or bladder dysfunction. The patient takes tramadol 3 times a day and when the pain is very severe she takes [place] however she is trying not to use [place]. Today I will ask the patient to go up on the Neurontin dose from 300 to 400 mg a day. I will continue tramadol and I will give her prescription for 90 pills with 1 refill. She might be a good candidate for lumbar diagnostic medial branch block under fluoroscopic guidance but we will plan on doing this procedure for pain gets out of control. She is going to see her neurologist next week. We will see the patient 2 months from now. PQRS measures: 1-Patient's medications are documented in the chart. 2-Tobacco use is negative, counseling given 3-Patient has had a pneumococcal vaccine. 4-Advanced care planning discussed, patient unable to give 5-Opioid contract signed with the patient. 6-Pain positive, follow-up visit or procedure scheduled 7-Patient's blood pressure measured and documented within normal limits. 8-Patient's weight was measured, and body mass index ABOVE the normal limits, and counseling was done. Patient instructed to follow up with PCP. 9-Patient WAS NOT identified as an unhealthy alcohol user
== END | disposition home or self-care (01) ==
LOC: PNWHC3 12:29
PROVIDERS: ATTEND Anesthesiology
DX: M54.5 Low back pain (principal)
CPT/HCPCS: 99211

== ENCOUNTER 2017-06-12 21:26 | Inpatient (IN) | payer MEDICARE, OTHER ==
[2017-06-12] MEDS ORDERED: SODIUM CHLORIDE 0.9% 1,000 ML IV STA (22:02)
[2017-06-12] MEDS ORDERED: SODIUM CHLORIDE 0.9% 500 ML IV STA (22:02)
[2017-06-12] MEDS ORDERED: FAMOTIDINE 20 MG/2 ML VIAL IV STA (22:02)
[2017-06-12] MEDS ORDERED: methylPREDNISolone SOD SUCCI 125 MG/2 ML VIAL IV STA (22:02)
[2017-06-12] MEDS ORDERED: RX INFO: IV CONTRAST WAS GIVEN 1 EACH MISC MISCELLANE PRN (22:02)
[2017-06-12] MEDS ORDERED: diphenhydrAMINE 50 MG/ML 1 ML VIAL IVP STA (22:02)
[2017-06-12 22:11] LABS: Glucose,Whole Blood 172 mg/dL (75-99)
--- NOTE | 2017-06-12 22:21 | ED ---
General Adult HPI - General Chief complaint: Neuro Symptoms/Deficit Stated complaint: Poss CVA Time Seen by Provider: 06/12/17 21:27 Source: patient, EMS, RN notes reviewed, old records reviewed Mode of arrival: EMS Limitations: no limitations - History of Present Illness Initial comments: This is a 67-year-old female to the ER for evaluation of slurred speech difficulty to eat and left-sided facial weakness. Patient has strong history of CVA and also has underlying history of CVA. Patient coming in today about 2 hours after onset of symptoms. She does also complain of mild headache but denies any other neurological complaints. Patient does take aspirin every day. No blood thinners. Patient has no nausea vomiting no chest pain no shortness of breath no other complaints. - Related Data Home Medications Medication Instructions Recorded Confirmed Aspirin 325 mg PO DAILY 06/11/16 06/12/17 Baclofen 10 mg PO HS 06/11/16 06/12/17 Clopidogrel [Plavix] 75 mg PO DAILY 06/11/16 06/12/17 Isosorbide Mononitrate ER [Imdur] 60 mg PO DAILY 06/11/16 06/12/17 Levothyroxine Sodium [Levoxyl] 100 mcg PO DAILY 06/11/16 06/12/17 Metoprolol Tartrate [Lopressor] 25 mg PO BID 06/11/16 06/12/17 NIFEdipine XL [Procardia XL] 60 mg PO DAILY 09/03/16 06/12/17 Albuterol Nebulized [Ventolin 2.5 mg INHALATION RT-Q4H PRN 12/12/16 06/12/17 Nebulized] Atorvastatin [Lipitor] 40 mg PO HS 04/22/17 06/12/17 HYDROcodone/APAP 7.5-325MG [[place] 1 tab PO BID PRN 04/22/17 06/12/17 7.5-325] Loperamide [Imodium] 2 mg PO BID PRN 04/22/17 06/12/17 Magnesium Oxide [Mag-Ox] 750 mg PO DAILY 04/22/17 06/12/17 Nitroglycerin [Nitroglycerin 1 spray TRANSLINGU Q5M PRN 04/22/17 06/12/17 400MCG [place]] SUMAtriptan SUCCINATE [Imitrex] 50 mg PO BID PRN 04/22/17 06/12/17 glipiZIDE XL [Glucotrol XL] 5 mg PO BID 04/22/17 06/12/17 Albuterol Inhaler [Ventolin Hfa 1 - 2 puff INHALATION RT-Q6H PRN 04/28/17 Inhaler] Fluticasone Propionate [Flovent 2 puff INHALATION RT-BID 04/28/17 06/12/17 Hfa 110mcg] Gabapentin [Neurontin] 100 mg PO TID 04/28/17 06/12/17 Calcium Carbonate/Vitamin D3 1 tab PO DIRECTED 06/12/17 06/12/17 [Calcium 500-Vit D3 200 Tablet] Multivitamins, Thera [Multivitamin 1 tab PO DIRECTED 06/12/17 06/12/17 (formulary)] metFORMIN HCL 1,000 mg PO BID 06/12/17 06/12/17 Previous Rx's Medication Instructions Recorded Pantoprazole [Protonix] 40 mg PO BID #60 tablet. 04/26/17 Allergies Allergy/AdvReac Type Severity Reaction Status Date / Time fluconazole Allergy Itching Verified 06/12/17 22:10 hydrocodone Allergy Itching-states Verified 06/12/17 22:10 "can't take too many in a row" Iodinated Contrast- Oral and Allergy Anaphylaxis Verified 06/12/17 22:10 IV Dye /Rash/Itchi [Iodinated Contrast Media - ng IV Dye] shellfish derived [Shrimp] Allergy Anaphylaxis Verified 06/12/17 22:10 vancomycin Allergy Itching Verified 06/12/17 22:10 venom-honey bee Allergy Swelling/It Verified 06/12/17 22:10 [bee venom (honey bee)] suellen doxycycline AdvReac Nausea & Verified 06/12/17 22:10 Vomiting fluticasone AdvReac Loss of Verified 06/12/17 22:10 Voice hydroxychloroquine AdvReac Nausea & Verified 06/12/17 22:10 [From Plaquenil] Vomiting levofloxacin AdvReac Nausea & Verified 06/12/17 22:10 Vomiting lisinopril AdvReac Cough Verified 06/12/17 22:10 morphine AdvReac Nausea & Verified 06/12/17 22:10 Vomiting ropinirole AdvReac Nausea & Verified 06/12/17 22:10 Vomiting sulfamethoxazole AdvReac Nausea & Verified 06/12/17 22:10 [From Bactrim] Vomiting trimethoprim [From Bactrim] AdvReac Nausea & Verified 06/12/17 22:10 Vomiting Review of Systems ROS Statement: Those systems with pertinent positive or pertinent negative responses have been documented in the HPI. ROS Other: All systems not noted in ROS Statement are negative. Past Medical History Past Medical History: Asthma, Coronary Artery Disease (CAD), CVA/TIA, Diabetes Mellitus, Fibromyalgia, GERD/Reflux, Hyperlipidemia, Hypertension, Myocardial Infarction ([place]), Neurologic Disorder, Osteoarthritis (OA), Seizure Disorder, Sleep Apnea/CPAP/BIPAP, Thyroid Disorder Additional Past Medical History / Comment(s): hx back pain, sarcoidosis, IBS, osteopenia, past hx of seizures, last one years ago. 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 has chronic back and neck pain that she goes to the pain clinic for Last Myocardial Infarction Date:: 2006 History of Any Multi-Drug Resistant Organisms: MRSA Date of last positivie culture/infection: 2010 MDRO Source:: lung Past Surgical History: Appendectomy, Back Surgery, Breast Surgery, Cholecystectomy, Coronary Bypass/CABG, Heart Catheterization With Stent, Hysterectomy, Joint Replacement, Orthopedic Surgery, Tonsillectomy, Tubal Ligation Additional Past Surgical History / Comment(s): cervical spinal fusion, rt leg, artie elbow surgery,total lt knee replacement, rt carotid artery, cataracts artie, benign tumor lt lung removed, lt ankle with hardware, laser surgery eyes, stent x1, cabg x1, pin in finger in and removed, sx for pleural effusion, [facility] pain clinic, artie breast bx x2 Past Anesthesia/Blood Transfusion Reactions: No Reported Reaction Date of Last Stent Placement:: 2005 Past Psychological History: No Psychological Hx Reported Smoking Status: Former smoker Past Alcohol Use History: Rare Past Drug Use History: None Reported - Past Family History Sister(s) Family Medical History: Cancer Brother(s) Family Medical History: Cancer General Exam - General Exam Comments Initial Comments: NIH of 1, left-sided facial droop Limitations: no limitations General appearance: alert, in no apparent distress Head exam: Present: atraumatic, normocephalic, normal inspection Eye exam: Present: normal appearance, PERRL, EOMI. Absent: scleral icterus, conjunctival injection, periorbital swelling ENT exam: Present: normal exam, mucous membranes moist Neck exam: Present: normal inspection. Absent: tenderness, meningismus, lymphadenopathy Respiratory exam: Present: normal lung sounds bilaterally. Absent: respiratory distress, wheezes, rales, rhonchi, stridor Cardiovascular Exam: Present: regular rate, normal rhythm, normal heart sounds. Absent: systolic murmur, diastolic murmur, rubs, gallop, clicks GI/Abdominal exam: Present: soft, normal bowel sounds. Absent: distended, tenderness, guarding, rebound, rigid Extremities exam: Present: normal inspection, full ROM, normal capillary refill. Absent: tenderness, pedal edema, joint swelling, calf tenderness Back exam: Present: normal inspection Neurological exam: Present: alert, oriented X3, CN II-XII intact Psychiatric exam: Present: normal affect, normal mood Skin exam: Present: warm, dry, intact, normal color. Absent: rash Course Vital Signs 06/12/17 06/12/17 06/12/17 21:34 21:49 22:04 Temperature 97.9 F Pulse Rate 79 78 78 Respiratory 18 18 18 Rate Blood Pressure 144/71 168/81 185/88 O2 Sat by Pulse 96 94 L 94 L Oximetry 06/12/17 06/12/17 06/12/17 22:19 22:34 23:00 Temperature Pulse Rate 80 74 72 Respiratory 18 19 18 Rate Blood Pressure 199/94 175/77 153/66 O2 Sat by Pulse 98 98 94 L Oximetry 06/12/17 23:15 Temperature Pulse Rate 70 Respiratory 18 Rate Blood Pressure 157/67 O2 Sat by Pulse 95 Oximetry - Reevaluation(s) Reevaluation #1: Code stroke. Initial patient evaluation, patient not to be a candidate secondary to low NIH Reevaluation #2: 06/12/17 23:53 Patient has no clinical improvement EKG Findings - EKG Comments: EKG Findings:: EKG shows normal sinus rhythm rhythm rate of 77, [place] 128, QRS 90, QTc 457 Medical Decision Making - Medical Decision Making 67 male DEL with left-sided facial droop, positive CVA. Patient will be admitted for neurological evaluation and treatment, no prior history of CVA. - Lab Data Result diagrams: 06/12/17 21:40 06/12/17 21:40 Lab Results 06/12/17 06/12/17 06/12/17 Range/Units 21:29 21:40 21:40 WBC 6.4 (3.8-10.6) k/uL RBC 4.92 (3.80-5.40) m/uL Hgb 13.2 (11.4-16.0) gm/dL Hct 40.0 (34.0-46.0) % MCV 81.3 (80.0-100.0) fL MCH 26.9 (25.0-35.0) pg MCHC 33.0 (31.0-37.0) g/dL RDW 14.8 (11.5-15.5) % Plt Count 236 (150-450) k/uL Neutrophils % 62 % Lymphocytes % 24 % Monocytes % 6 % Eosinophils % 5 % Basophils % 1 % Neutrophils # 3.9 (1.3-7.7) k/uL Lymphocytes # 1.6 (1.0-4.8) k/uL Monocytes # 0.4 (0-1.0) k/uL Eosinophils # 0.3 (0-0.7) k/uL Basophils # 0.1 (0-0.2) k/uL PT (9.0-12.0) sec INR (<1.2) APTT (22.0-30.0) sec Sodium (137-145) mmol/L Potassium (3.5-5.1) mmol/L Chloride (98-107) mmol/L Carbon Dioxide (22-30) mmol/L Anion Gap mmol/L BUN (7-17) mg/dL Creatinine (0.52-1.04) mg/dL Est GFR (MDRD) Af Amer (>60 ml/min/1.73 sqM) Est GFR (MDRD) Non-Af (>60 ml/min/1.73 sqM) Glucose (74-99) mg/dL POC Glucose (mg/dL) 172 H (75-99) mg/dL POC Glu Newspaper Illustrator ID Nancy Reilly Calcium (8.4-10.2) mg/dL Total Bilirubin (0.2-1.3) mg/dL AST (14-36) U/L ALT (9-52) U/L Alkaline Phosphatase (38-126) U/L Total Creatine Kinase <20 L (30-135) U/L CK-MB (CK-2) 0.3 (0.0-2.4) ng/mL CK-MB (CK-2) Rel Index Troponin I <0.012 (0.000-0.034) ng/mL Total Protein (6.3-8.2) g/dL Albumin (3.5-5.0) g/dL 06/12/17 06/12/17 Range/Units 21:40 21:40 WBC (3.8-10.6) k/uL RBC (3.80-5.40) m/uL Hgb (11.4-16.0) gm/dL Hct (34.0-46.0) % MCV (80.0-100.0) fL MCH (25.0-35.0) pg MCHC (31.0-37.0) g/dL RDW (11.5-15.5) % Plt Count (150-450) k/uL Neutrophils % % Lymphocytes % % Monocytes % % Eosinophils % % Basophils % % Neutrophils # (1.3-7.7) k/uL Lymphocytes # (1.0-4.8) k/uL Monocytes # (0-1.0) k/uL Eosinophils # (0-0.7) k/uL Basophils # (0-0.2) k/uL PT 10.4 (9.0-12.0) sec INR 1.0 (<1.2) APTT 23.6 (22.0-30.0) sec Sodium 137 (137-145) mmol/L Potassium 4.3 (3.5-5.1) mmol/L Chloride 101 (98-107) mmol/L Carbon Dioxide 25 (22-30) mmol/L Anion Gap 11 mmol/L BUN 17 (7-17) mg/dL Creatinine 1.10 H (0.52-1.04) mg/dL Est GFR (MDRD) Af Amer 60 (>60 ml/min/1.73 sqM) Est GFR (MDRD) Non-Af 49 (>60 ml/min/1.73 sqM) Glucose 180 H (74-99) mg/dL POC Glucose (mg/dL) (75-99) mg/dL POC Glu Newspaper Illustrator ID Calcium 9.3 (8.4-10.2) mg/dL Total Bilirubin 0.4 (0.2-1.3) mg/dL AST 16 (14-36) U/L ALT 31 (9-52) U/L Alkaline Phosphatase 87 (38-126) U/L Total Creatine Kinase (30-135) U/L CK-MB (CK-2) (0.0-2.4) ng/mL CK-MB (CK-2) Rel Index Troponin I (0.000-0.034) ng/mL Total Protein 6.7 (6.3-8.2) g/dL Albumin 3.8 (3.5-5.0) g/dL - Radiology Data Radiology results: report reviewed (CT brain and CTA brain negative for acute disease, chest x-ray negative), image reviewed Disposition Clinical Impression: HTN (hypertension), Cerebrovascular accident Disposition: ADMITTED IP TO THIS [facility] Condition: Fair Referrals: Melissa Mares MD [Primary Care Provider] - 1-2 days
[2017-06-12 22:25] LABS: Basophils # (A) 0.1 k/uL (0-0.2); Basophils % (A) 1 %; CH 27.6; CHCM 34.1; Eosinophils # (A) 0.3 k/uL (0-0.7); Eosinophils % (A) 5 %; HDW 2.63; HGB 13.2 gm/dL (11.4-16.0); Luc # (Auto) 0.16; Luc % (Auto) 3; Lymphocytes # (A) 1.6 k/uL (1.0-4.8); Lymphocytes % (A) 24 %; MCH 26.9 pg (25.0-35.0); MCV 81.3 fL (80.0-100.0); Mean Platelet Volume 7.4; Monocytes # (A) 0.4 k/uL (0-1.0); Monocytes % (A) 6 %; Neutrophils # (A) 3.9 k/uL (1.3-7.7); Neutrophils % (A) 62 %; RBC 4.92 m/uL (3.80-5.40); RDW 14.8 % (11.5-15.5); WBC 6.4 k/uL (3.8-10.6); WBC (Perox) 6.49
[2017-06-12 22:33] LABS: Partial Thromboplastin Time 23.6 sec (22.0-30.0); Prothrombin Time 10.4 sec (9.0-12.0)
[2017-06-12 22:36] LABS: Calcium 9.3 mg/dL (8.4-10.2); Potassium 4.3 mmol/L (3.5-5.1); Total Bilirubin 0.4 mg/dL (0.2-1.3); Total Protein 6.7 g/dL (6.3-8.2)
--- NOTE | 2017-06-12 22:38 | CT ---
EXAMINATION TYPE: CT brain wo con for TPA DATE OF EXAM: 06/12/2017 COMPARISON: 07/19/2016 HISTORY: Stroke symptoms CT DLP: 952.8 mGycm Automated exposure control for dose reduction was used. FINDINGS: There is mild cerebral cortical atrophy. There is no mass effect nor midline shift. There is no sign of intracranial hemorrhage. There is some mucosal thickening in the right ethmoid sinus. The calvariu m is intact. IMPRESSION: CEREBRAL ATROPHY. NO ACUTE INTRACRANIAL ABNORMALITY. RIGHT SIDED ETHMOID MUCOUS RETENTION CYST IS STA BLE COMPARED TO OLD EXAM.
[2017-06-12 22:43] LABS: Creatine Kinase <20 U/L (30-135)
[2017-06-12 22:56] LABS: Creatine Kinase MB 0.3 ng/mL (0.0-2.4); Troponin I <0.012 ng/mL (0.000-0.034)
--- NOTE | 2017-06-12 23:07 | XR ---
EXAMINATION TYPE: XR chest 1V portable DATE OF EXAM: 06/12/2017 COMPARISON: 04/22/2017 HISTORY: Asthma. Neuro deficits. TECHNIQUE: Single frontal view of the chest is obtained. FINDINGS: There is no heart failure nor confluent pneumonic infiltrate. There are sternal wires. The re are chest leads. Costophrenic angles are clear. IMPRESSION: No active cardiopulmonary disease. No change.
--- NOTE | 2017-06-12 23:14 | CT ---
EXAMINATION TYPE: CT angio head neck DATE OF EXAM: 06/12/2017 HISTORY: Stroke symptoms COMPARISON: NONE CT DLP: 325.2 mGycm. Automated Exposure Control for Dose Reduction was Utilized. TECHNIQUE: CTA scan of the neck is performed with IV Contrast, patient injected with 65 mL of Omnipa que 350, axial images are obtained, coronal and sagittal reformatted images are reviewed. Three-D rec onstructed images are created on an independent workstation and reviewed. FINDINGS: There is normal branching pattern of the great vessels on the aortic arch. Thoracic aorta is atheroma tous. There is no evidence of aneurysm at the aortic arch. There is bilateral patency of the vertebral arteries. Left vertebral artery is larger than the right. There appears to be wide patency of the right carotid artery bifurcation. There is significant plaqu e formation at the left carotid artery bifurcation with lumen narrowing of approximate 75% at the fabio gin of the left internal carotid artery. There is 75% stenosis of the distal left common carotid marshall ry. There is no sign of dissection. There is bilateral arterial flow in the anterior middle and posterior cerebral arteries. There is no mass effect. There is no evidence of aneurysm or neovascularity. There is patency of the vertebrobasi lar artery system. There is normal contrast opacification of the venous sinuses. There is approximate 50% stenosis of the origin of the right subclavian artery. There appears to be 50% stenosis of the o rigin of the innominate artery on the aortic arch. There is plaque formation an approximate 50% steno sis of the origin of the left common carotid artery on the aortic arch. CONCLUSION: Normal CT angiogram of the brain. Approximate 75% stenosis of the origin of the left internal carotid artery and the distal left common carotid artery. 50% stenosis of the origin of the right subclavian artery. 50% stenosis of the origins of the innomin ate artery and the left common carotid artery.
[2017-06-12] MEDS ORDERED: ASPIRIN 325 MG TAB PO STA (23:50)
[2017-06-13] MEDS ORDERED: NALOXONE 0.4 MG/ML 1 ML VIAL IV PRN (01:09)
[2017-06-13] MEDS ORDERED: ACETAMINOPHEN TAB 325 MG TAB PO PRN (01:09)
[2017-06-13] MEDS ORDERED: NITROGLYCERIN SL TABS 0.4 MG TAB SUBLINGUAL PRN (01:13)
[2017-06-13] MEDS ORDERED: ALBUTEROL NEBULIZED 2.5 MG/3 ML INHALATION PRN (01:13)
[2017-06-13] MEDS ORDERED: SUMAtriptan SUCCINATE 50 MG TAB PO PRN (01:13)
[2017-06-13] MEDS ORDERED: CALCIUM CARB-VIT D 500MG-200UN 1 EACH TAB PO SCH (01:15)
[2017-06-13] MEDS ORDERED: MULTIVITAMINS, THERA 1 EACH TAB PO SCH (01:15)
--- NOTE | 2017-06-13 01:41 | P.HPIM ---
History of Present Illness H&P Date: 06/13/17 Chief Complaint: left-sided facial weakness 67-year-old female to the ER for evaluation of slurred speech, difficulty with eating and left-sided facial weakness. Patient has history of multiple TIAs in the past. Her symptoms started around 8 PM last evening. she felt that the words were not coming out of her mouth right and that her speech was not ''plain ' as it is usually. In addition she was having left-sided facial weakness, left- sided blurred vision. Throughout the day yesterday she was having headaches. She felt slightly nauseous but did not throw up. She arrived to the ER 2 hours after onset of symptoms. she was feeling generally weak but did not have any focal weakness. She mentioned that her left carotid artery is narrow and that her physicians are currently watching it, no intervention was advised. Patient does take aspirin and Plavix every day. No blood thinners. Patient has no nausea, vomiting, no chest pain ,no shortness of breath, no other complaints. Review of Systems 12 point review of system was performed, negative except for HPI Past Medical History Past Medical History: Asthma, Coronary Artery Disease (CAD), CVA/TIA, Diabetes Mellitus, Fibromyalgia, GERD/Reflux, Hyperlipidemia, Hypertension, Myocardial Infarction ([place]), Neurologic Disorder, Osteoarthritis (OA), Seizure Disorder, Sleep Apnea/CPAP/BIPAP, Thyroid Disorder Additional Past Medical History / Comment(s): hx back pain, sarcoidosis, IBS, osteopenia, past hx of seizures, last one years ago. 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 has chronic back and neck pain that she goes to the pain clinic for Last Myocardial Infarction Date:: 2006 History of Any Multi-Drug Resistant Organisms: MRSA Date of last positivie culture/infection: 2010 MDRO Source:: lung Past Surgical History: Appendectomy, Back Surgery, Breast Surgery, Cholecystectomy, Coronary Bypass/CABG, Heart Catheterization With Stent, Hysterectomy, Joint Replacement, Orthopedic Surgery, Tonsillectomy, Tubal Ligation Additional Past Surgical History / Comment(s): cervical spinal fusion, rt leg, artie elbow surgery,total lt knee replacement, rt carotid artery, cataracts artie, benign tumor lt lung removed, lt ankle with hardware, laser surgery eyes, stent x1, cabg x1, pin in finger in and removed, sx for pleural effusion, [facility] pain clinic, artie breast bx x2 Past Anesthesia/Blood Transfusion Reactions: No Reported Reaction Date of Last Stent Placement:: 2005 Past Psychological History: No Psychological Hx Reported Smoking Status: Former smoker Past Alcohol Use History: Rare Past Drug Use History: None Reported - Past Family History Sister(s) Family Medical History: Cancer Brother(s) Family Medical History: Cancer Medications and Allergies Home Medications Medication Instructions Recorded Confirmed Type Aspirin 325 mg PO DAILY 06/11/16 06/12/17 History Baclofen 10 mg PO HS 06/11/16 06/12/17 History Clopidogrel [Plavix] 75 mg PO DAILY 06/11/16 06/12/17 History Isosorbide Mononitrate ER [Imdur] 60 mg PO DAILY 06/11/16 06/12/17 History Levothyroxine Sodium [Levoxyl] 100 mcg PO DAILY 06/11/16 06/12/17 History Metoprolol Tartrate [Lopressor] 25 mg PO BID 06/11/16 06/12/17 History NIFEdipine XL [Procardia XL] 60 mg PO DAILY 09/03/16 06/12/17 History Albuterol Nebulized [Ventolin 2.5 mg INHALATION RT-Q4H PRN 12/12/16 06/12/17 History Nebulized] Atorvastatin [Lipitor] 40 mg PO HS 04/22/17 06/12/17 History HYDROcodone/APAP 7.5-325MG [[place] 1 tab PO BID PRN 04/22/17 06/12/17 History 7.5-325] Loperamide [Imodium] 2 mg PO BID PRN 04/22/17 06/12/17 History Magnesium Oxide [Mag-Ox] 750 mg PO DAILY 04/22/17 06/12/17 History Nitroglycerin [Nitroglycerin 1 spray TRANSLINGU Q5M PRN 04/22/17 06/12/17 History 400MCG [place]] SUMAtriptan SUCCINATE [Imitrex] 50 mg PO BID PRN 04/22/17 06/12/17 History glipiZIDE XL [Glucotrol XL] 5 mg PO BID 04/22/17 06/12/17 History Pantoprazole [Protonix] 40 mg PO BID #60 tablet. 04/26/17 06/12/17 Rx Albuterol Inhaler [Ventolin Hfa 1 - 2 puff INHALATION RT-Q6H PRN 04/28/17 History Inhaler] Fluticasone Propionate [Flovent 2 puff INHALATION RT-BID 04/28/17 06/12/17 History Hfa 110mcg] Gabapentin [Neurontin] 100 mg PO TID 04/28/17 06/12/17 History Calcium Carbonate/Vitamin D3 1 tab PO DIRECTED 06/12/17 06/12/17 History [Calcium 500-Vit D3 200 Tablet] Multivitamins, Thera [Multivitamin 1 tab PO DIRECTED 06/12/17 06/12/17 History (formulary)] metFORMIN HCL 1,000 mg PO BID 06/12/17 06/12/17 History Allergies Allergy/AdvReac Type Severity Reaction Status Date / Time fluconazole Allergy Itching Verified 06/12/17 22:10 hydrocodone Allergy Itching-states Verified 06/12/17 22:10 "can't take too many in a row" Iodinated Contrast- Oral and Allergy Anaphylaxis Verified 06/12/17 22:10 IV Dye /Rash/Itchi [Iodinated Contrast Media - ng IV Dye] shellfish derived [Shrimp] Allergy Anaphylaxis Verified 06/12/17 22:10 vancomycin Allergy Itching Verified 06/12/17 22:10 venom-honey bee Allergy Swelling/It Verified 06/12/17 22:10 [bee venom (honey bee)] suellen doxycycline AdvReac Nausea & Verified 06/12/17 22:10 Vomiting fluticasone AdvReac Loss of Verified 06/12/17 22:10 Voice hydroxychloroquine AdvReac Nausea & Verified 06/12/17 22:10 [From Plaquenil] Vomiting levofloxacin AdvReac Nausea & Verified 06/12/17 22:10 Vomiting lisinopril AdvReac Cough Verified 06/12/17 22:10 morphine AdvReac Nausea & Verified 06/12/17 22:10 Vomiting ropinirole AdvReac Nausea & Verified 06/12/17 22:10 Vomiting sulfamethoxazole AdvReac Nausea & Verified 06/12/17 22:10 [From Bactrim] Vomiting trimethoprim [From Bactrim] AdvReac Nausea & Verified 06/12/17 22:10 Vomiting Physical Exam Vitals: Vital Signs Temp Pulse Resp BP Pulse Ox 06/13/17 00:50 79 19 184/81 94 L 06/12/17 23:15 70 18 157/67 95 06/12/17 23:00 72 18 153/66 94 L 06/12/17 22:34 74 19 175/77 98 06/12/17 22:19 80 18 199/94 98 06/12/17 22:04 78 18 185/88 94 L 06/12/17 21:49 78 18 168/81 94 L 06/12/17 21:34 97.9 F 79 18 144/71 96 Intake and Output 06/12/17 06/12/17 06/13/17 14:59 22:59 06:59 Other: Weight 83.5 kg Patient Weight 06/13/17 06:59 Weight 83.5 kg Constitutional: No acute distress, conversant, pleasant Eyes:Anicteric sclerae, moist conjunctiva, no lid-lag, PERRLA, ENMT: Oropharynx clear, no erythema, exudates Neck: Supple, FROM, no masses, or JVD, No carotid bruits, No thyromegaly Lungs: Clear to auscultation, Clear to percussion, Normal respiratory effort, no accessory muscle use Cardiovascular: Heart regular in rate and rhythm, No murmurs, gallops, or rubs, No peripheral edema Abdominal: Soft, Nontender, no guarding, rebound or rigidity, Normoactive bowel sounds, No hepatomegaly, No splenomegaly, No palpable mass Skin: Normal temperature, tone, texture, turgor, no induration, No subcutaneous nodules, No rash, lesions, No ulcers Extremities: No digital cyanosis, No clubbing, Pedal pulses intact and symmetrical, Radial pulses intact and symmetrical, No calf tenderness Psychiatric: Alert and oriented to person, place and time, appropriate affect, intact judgement Neuro: Muscles Strength 4+/5 in the RUE, 5/5 all other extremities, Sensation to light touch diminished on the left face and left arm, +left facial weakness. Speech clear. Results CBC & Chem 7: 06/12/17 21:40 06/12/17 21:40 Labs: Abnormal Lab Results - Last 24 Hours (Table) 06/12/17 06/12/17 06/12/17 Range/Units 21:29 21:40 21:40 Creatinine 1.10 H (0.52-1.04) mg/dL Glucose 180 H (74-99) mg/dL POC Glucose (mg/dL) 172 H (75-99) mg/dL Total Creatine Kinase <20 L (30-135) U/L Assessment and Plan Plan: #1 Acute cerebrovascular accident: Admit to selective care unit Telemetry Labs checked Continue aspirin and Plavix High dose statin Already had a CT angiogram of the neck that showed 75% stenosis of the left internal carotid artery, consult vascular surgery Neuro checks Neuro consult. Check lipid profile Check MRI brain, echo PT/OT/speech and swallow eval #2 diabetes type 2 Hold oral hypoglycemics Start sliding scale insulin with blood sugar checks every before meals and at bedtime Check HbA1c #3 Benign hypertension, hyperlipidemia, chronic back pain, hypothyroidism Stable Check lipid profile as above Continue all medications #4 DVT prophylaxis: S.Q Lovenox
[2017-06-13 01:57] VITALS: BMI 35.2
[2017-06-13] MEDS: SODIUM CHLORIDE 0.9% 1,000 ML IV SCH ×2 (02:00→12:12)
[2017-06-13 03:51] LABS: Cholesterol 128 mg/dL (<200); HDL Cholesterol 45 mg/dL (40-60)
[2017-06-13 05:33] LABS: Glucose,Whole Blood 214 mg/dL (75-99)
[2017-06-13] MEDS: INSULIN ASPART 100 UNIT/ML 1 ML 10 ML VIAL SQ SCH ×4 (06:19→22:55)
[2017-06-13] MEDS: LEVOTHYROXINE 100 MCG TAB PO SCH (06:19)
[2017-06-13] MEDS: PANTOPRAZOLE 40 MG TABLET PO SCH ×2 (06:19→16:56)
[2017-06-13] MEDS: BUDESONIDE 0.5 MG/2 ML NEBU INHALATION SCH ×2 (08:31→20:31)
[2017-06-13] MEDS: METOPROLOL TARTRATE 25 MG TAB PO SCH ×2 (08:32→20:57)
[2017-06-13] MEDS: MAGNESIUM OXIDE 400 MG TAB PO SCH (08:32)
[2017-06-13] MEDS: ENOXAPARIN 40 MG/0.4 ML SYRINGE SQ SCH (08:33)
[2017-06-13] MEDS: ISOSORBIDE MONONITRATE ER 60 MG TAB.ER.24H PO SCH (08:33)
[2017-06-13] MEDS: GABAPENTIN 100 MG CAP PO SCH ×3 (08:33→20:57)
[2017-06-13] MEDS: CLOPIDOGREL 75 MG TAB PO SCH (08:33)
[2017-06-13] MEDS: ASPIRIN 325 MG TAB PO SCH (08:33)
[2017-06-13] MEDS ORDERED: ASPIRIN 325 MG TAB PO SCH (09:00)
--- NOTE | 2017-06-13 09:59 | ECHOF ---
Referral Reason:stroke workup MEASUREMENTS -------- HEIGHT: 157.5 cm WEIGHT: 88.0 kg BP: 192/82 RVIDd: 2.8 cm (< 3.3) IVSd: 1.0 cm (0.6 - 1.1) LVIDd: 4.1 cm (3.9 - 5.3) LVPWd: 1.0 cm (0.6 - 1.1) IVSs: 1.3 cm LVIDs: 2.8 cm LVPWs: 1.0 cm LAESV Index (A-L): 18.29 ml/m Ao Diam: 2.6 cm (2.0 - 3.7) AV Cusp: 1.3 cm (1.5 - 2.6) LA Diam: 4.5 cm (2.7 - 3.8) MV EXCURSION: 12.451 mm (> 18.000) MV EF SLOPE: 40 mm/s (70 - 150) EPSS: 0.2 cm MV E Jayden: 0.68 m/s MV DecT: 281 ms MV A Jayden: 0.92 m/s MV E/A Ratio: 0.74 RAP: 5.00 mmHg RVSP: 24.03 mmHg FINDINGS -------- Sinus rhythm. This was a technically good study. The left ventricular size is normal. There is borderline concentric left ventricular hypertrophy. Overall left ventricular systolic function is normal with, an EF between 55 - 60 %. The right ventricle is normal in size. Normal LA size by volume 22+/-6 ml/m2. The right atrial size is normal. The aortic valve is trileaflet, and appears structurally normal. No aortic stenosis or regurgitation. Mild mitral regurgitation is present. Mild tricuspid regurgitation present. There is no evidence of pulmonary hypertension. The right v entricular systolic pressure, as measured by Doppler, is 24.03mmHg. There is no pulmonic regurgitation present. The aortic root size is normal. There is no pericardial effusion. CONCLUSIONS -------- 1. The left ventricular size is normal. 2. There is borderline concentric left ventricular hypertrophy. 3. Overall left ventricular systolic function is normal with, an EF between 55 - 60 %. 4. The aortic valve is trileaflet, and appears structurally normal. No aortic stenosis or regurgitati on. 5. Mild mitral regurgitation is present. 6. Mild tricuspid regurgitation present. 7. There is no evidence of pulmonary hypertension. 8. The right ventricular systolic pressure, as measured by Doppler, is 24.03mmHg. 9. There is no pulmonic regurgitation present. 10. The aortic root size is normal. 11. There is no pericardial effusion. HOT MAN: Coral Sheikh RDCS
[2017-06-13 11:35] LABS: Glucose,Whole Blood 187 mg/dL (75-99)
--- NOTE | 2017-06-13 13:21 | FL ---
EXAMINATION TYPE: FL barium swallow w video DATE OF EXAM: 06/13/2017 MODIFIED SWALLOW / DEGLUTITION STUDY CLINICAL HISTORY: Recent stroke with left-sided facial droop, globus sensation and dysphagia. TECHNIQUE: Deglutition study is performed utilizing thin liquid barium, honey and nectar thick liqui d barium, barium thick applesauce, and barium coated cracker. 0 images were saved and 1.34 minutes of fluoroscopy time was utilized. COMPARISON: None. FINDINGS: The oral and pharyngeal phases show satisfactory initiation and propagation with all modali ties tested. Normal mastication is seen with solid modalities tested. There is no evidence of penet ration or aspiration with any modality tested. No significant pharyngeal residue was appreciated. IMPRESSION: Unremarkable deglutition study. Please refer to speech therapist notes for further detai ls if necessary.
--- NOTE | 2017-06-13 14:45 | MR ---
EXAMINATION TYPE: MR brain wo con DATE OF EXAM: 06/13/2017 COMPARISON: CTA angiogram of head and neck dated 06/12/2017 HISTORY: Stroke TECHNIQUE: Multiplanar, multisequence images of the brain and brainstem is performed without intravenous contras t. FINDINGS: Diffusion weighted images demonstrate no evidence of a recent infarct or other diffusion ab normality. Few punctate foci of nonspecific T2/FLAIR hyperintensity are scattered within the subcorti alexandra and periventricular white matter, mild burden. These are localized to the supratentorial white ma tter. Old lacunar injury measuring 4 mm is seen of the right lentiform nucleus. There is no extra-ax ial fluid collection. The ventricular system and cisternal spaces are normal in size and appearance. The brain volume is age appropriate. Major intracranial flow voids are maintained Midline structures demonstrate normal morphology. The craniocervical junction appears within normal limits. Mucosal thickening is seen within the ethmoid sinuses, moderate in degree and circumferential ly with near complete opacification in the right maxillary sinus. Remaining paranasal sinuses and mas toid air cells are well aerated. IMPRESSION: 1. No restricted diffusion to indicate acute infarct. 2. Old right lacunar injury of the lentiform nucleus. 3. Circumferential near complete opacification of the right maxillary sinus and moderate ethmoid muco raheem thickening. 3. Mild burden nonspecific white matter change, likely related to chronic microangiopathy.
[2017-06-13 16:51] LABS: Glucose,Whole Blood 146 mg/dL (75-99)
[2017-06-13] MEDS: HYDROcodone/APAP 7.5-325MG 1 EACH TAB PO PRN ×2 (16:54→23:51)
--- NOTE | 2017-06-13 18:44 | P.PN ---
Progress Note - Text Progress Note Date: 06/13/17 67 year old female with history of CVA and TIA, presented due to left sided facial weakness of a few hours duration prior to presentation. She was not a candidate for TPA due to low NIH. Further workup has revealed left internal carotid stenosis of 75% MRI of the brain has not show area of infarct. Patient continues on aspirin and statin await further input from neurology. Patient requests to go home after discharge she denies any new focal neurologic deficits in her upper or lower extremities. She had she seems to have deficits related to her cranial nerves only.
[2017-06-13] MEDS ORDERED: ARTIFICIAL TEARS-HYPROMELLOSE DROPS 15 ML BTL LEFT EYE PRN (18:49)
--- NOTE | 2017-06-13 18:52 | P.CNNES ---
History of Present Illness Consult date: 06/13/17 History of Present Illness: The patient is a 67-year-old right-handed white female with a history of recurrent TIAs consisting of left-sided weakness. She has been on Plavix and baby aspirin. She is not sure when her last TIA was. She states that last night she was eating a frozen pop when her face became droopy on the left side and she had difficulty articulating her words. She also noticed last night she was unable to close her left eyelid. He denied any new weakness in her arms or legs. She did describe numbness and tingling in the left cheek area and pain in the left ear. The patient denies any headache dizziness vertigo double vision or ataxia. She has a history of residual left-sided weakness from a previous right subcortical stroke. She had an MRI of the brain which showed an old right lacunar infarct. She has a history of right carotid endarterectomy and left carotid stenosis which is being followed by cardiology. He had as Angio-Seal CT today which showed narrowing and stenosis of 75% at the origin of the left ICA. Review of Systems Constitutional: Denies chills, Denies fever Eyes: denies blurred vision, denies pain Ears, nose, mouth and throat: Denies headache, Denies sore throat Cardiovascular: Denies chest pain, Denies shortness of breath Respiratory: Denies cough Musculoskeletal: Denies myalgias Neurological: Denies numbness, Denies weakness Psychiatric: Denies anxiety, Denies depression Past Medical History Past Medical History: Asthma, Coronary Artery Disease (CAD), CVA/TIA, Diabetes Mellitus, Fibromyalgia, GERD/Reflux, Hyperlipidemia, Hypertension, Myocardial Infarction ([place]), Neurologic Disorder, Osteoarthritis (OA), Seizure Disorder, Sleep Apnea/CPAP/BIPAP, Thyroid Disorder Additional Past Medical History / Comment(s): hx back pain, sarcoidosis, IBS, osteopenia, past hx of seizures, last one years ago. 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 has chronic back and neck pain that she goes to the pain clinic for Last Myocardial Infarction Date:: 2006 History of Any Multi-Drug Resistant Organisms: MRSA Date of last positivie culture/infection: 2010 MDRO Source:: lung Past Surgical History: Appendectomy, Back Surgery, Breast Surgery, Cholecystectomy, Coronary Bypass/CABG, Heart Catheterization With Stent, Hysterectomy, Joint Replacement, Orthopedic Surgery, Tonsillectomy, Tubal Ligation Additional Past Surgical History / Comment(s): cervical spinal fusion, rt leg, artie elbow surgery,total lt knee replacement, rt carotid artery, cataracts artie, benign tumor lt lung removed, lt ankle with hardware, laser surgery eyes, stent x1, cabg x1, pin in finger in and removed, sx for pleural effusion, [facility] pain clinic, artie breast bx x2 Past Anesthesia/Blood Transfusion Reactions: No Reported Reaction Date of Last Stent Placement:: 2005 Past Psychological History: No Psychological Hx Reported Smoking Status: Former smoker Past Alcohol Use History: Rare Past Drug Use History: None Reported - Past Family History Sister(s) Family Medical History: Cancer Additional Family Medical History / Comment(s): Cervical cancer; lung cancer Brother(s) Family Medical History: Cancer Additional Family Medical History / Comment(s): Pancreatic, prostate; lung cancer Medications and Allergies Home Medications Medication Instructions Recorded Confirmed Type Aspirin 325 mg PO DAILY 06/11/16 06/12/17 History Baclofen 10 mg PO HS 06/11/16 06/12/17 History Clopidogrel [Plavix] 75 mg PO DAILY 06/11/16 06/12/17 History Isosorbide Mononitrate ER [Imdur] 60 mg PO DAILY 06/11/16 06/12/17 History Levothyroxine Sodium [Levoxyl] 100 mcg PO DAILY 06/11/16 06/12/17 History Metoprolol Tartrate [Lopressor] 25 mg PO BID 06/11/16 06/12/17 History NIFEdipine XL [Procardia XL] 60 mg PO DAILY 09/03/16 06/12/17 History Albuterol Nebulized [Ventolin 2.5 mg INHALATION RT-Q4H PRN 12/12/16 06/12/17 History Nebulized] Atorvastatin [Lipitor] 40 mg PO HS 04/22/17 06/12/17 History HYDROcodone/APAP 7.5-325MG [[place] 1 tab PO BID PRN 04/22/17 06/12/17 History 7.5-325] Loperamide [Imodium] 2 mg PO BID PRN 04/22/17 06/12/17 History Magnesium Oxide [Mag-Ox] 750 mg PO DAILY 04/22/17 06/12/17 History Nitroglycerin [Nitroglycerin 1 spray TRANSLINGU Q5M PRN 04/22/17 06/12/17 History 400MCG [place]] SUMAtriptan SUCCINATE [Imitrex] 50 mg PO BID PRN 04/22/17 06/12/17 History glipiZIDE XL [Glucotrol XL] 5 mg PO BID 04/22/17 06/12/17 History Pantoprazole [Protonix] 40 mg PO BID #60 tablet. 04/26/17 06/12/17 Rx Albuterol Inhaler [Ventolin Hfa 1 - 2 puff INHALATION RT-Q6H PRN 04/28/17 History Inhaler] Fluticasone Propionate [Flovent 2 puff INHALATION RT-BID 04/28/17 06/12/17 History Hfa 110mcg] Gabapentin [Neurontin] 100 mg PO TID 04/28/17 06/12/17 History Calcium Carbonate/Vitamin D3 1 tab PO DIRECTED 06/12/17 06/12/17 History [Calcium 500-Vit D3 200 Tablet] Multivitamins, Thera [Multivitamin 1 tab PO DIRECTED 06/12/17 06/12/17 History (formulary)] metFORMIN HCL 1,000 mg PO BID 06/12/17 06/12/17 History Allergies Allergy/AdvReac Type Severity Reaction Status Date / Time fluconazole Allergy Itching Verified 06/12/17 22:10 hydrocodone Allergy Itching-states Verified 06/12/17 22:10 "can't take too many in a row" Iodinated Contrast- Oral and Allergy Anaphylaxis Verified 06/12/17 22:10 IV Dye /Rash/Itchi [Iodinated Contrast Media - ng IV Dye] shellfish derived [Shrimp] Allergy Anaphylaxis Verified 06/12/17 22:10 vancomycin Allergy Itching Verified 06/12/17 22:10 venom-honey bee Allergy Swelling/It Verified 06/12/17 22:10 [bee venom (honey bee)] suellen doxycycline AdvReac Nausea & Verified 06/12/17 22:10 Vomiting fluticasone AdvReac Loss of Verified 06/12/17 22:10 Voice hydroxychloroquine AdvReac Nausea & Verified 06/12/17 22:10 [From Plaquenil] Vomiting levofloxacin AdvReac Nausea & Verified 06/12/17 22:10 Vomiting lisinopril AdvReac Cough Verified 06/12/17 22:10 morphine AdvReac Nausea & Verified 06/12/17 22:10 Vomiting ropinirole AdvReac Nausea & Verified 06/12/17 22:10 Vomiting sulfamethoxazole AdvReac Nausea & Verified 06/12/17 22:10 [From Bactrim] Vomiting trimethoprim [From Bactrim] AdvReac Nausea & Verified 06/12/17 22:10 Vomiting Physical Examination - Vital Signs Vital Signs: Vital Signs Temp Pulse Pulse Resp BP BP Pulse Ox 06/13/17 15:56 98.1 F 96 20 126/59 94 L 06/13/17 11:33 98.3 F 89 20 132/70 94 L 06/13/17 08:42 101 H 06/13/17 08:33 101 H 06/13/17 08:00 97.8 F 103 H 20 218/88 95 06/13/17 06:30 87 16 192/82 95 06/13/17 04:30 89 17 151/70 95 06/13/17 03:30 97.3 F L 80 17 189/77 94 L 06/13/17 03:16 97.3 F L 80 17 189/77 94 L 06/13/17 02:30 72 17 174/79 96 06/13/17 01:30 96.6 F L 78 17 187/84 96 06/13/17 00:50 79 19 184/81 94 L 06/13/17 00:24 96.6 F L 78 17 187/84 96 06/12/17 23:15 70 18 157/67 95 06/12/17 23:00 72 18 153/66 94 L 06/12/17 22:34 74 19 175/77 98 06/12/17 22:19 80 18 199/94 98 06/12/17 22:04 78 18 185/88 94 L 06/12/17 21:49 78 18 168/81 94 L 06/12/17 21:34 97.9 F 79 18 144/71 96 Intake and Output 06/13/17 06/13/17 06/13/17 06:59 14:59 22:59 Intake Total 500 1272 220 Balance 500 1272 220 Intake: IV 500 800 Sodium Chloride 0.9% 1, 500 800 000 ml @ 100 mls/hr IV . Q10H STA Rx#:[id number] Oral 472 220 Other: Voiding Method Toilet # Voids 2 1 1 Weight 87.5 kg - Constitutional General appearance: average body habitus - EENT EENT: PERRL, hearing intact, vision intact - Respiratory Respiratory: lungs clear - Cardiovascular Cardiovascular: regular rate, normal S1 - Neurologic Mental status she was awake alert and oriented chance of questions appropriately there is no a aphasia or dysarthria Cranial nerve examination: PERRL, EOMI, VFF, facial droop (She had a left lower motor neuron facial paralysis) Speech examination: intact Sensorimotor examination: other (Decreased light touch left cheek) Detailed motor examination: grossly full strength in all extremities - Psychiatric Psychiatric: mood/affect appropriate Results - Laboratory Findings CBC and BMP: 06/12/17 21:40 06/12/17 21:40 Abnormal Lab Findings: Abnormal Labs 06/12/17 06/12/17 06/12/17 21:29 21:40 21:40 Creatinine 1.10 H Glucose 180 H POC Glucose (mg/dL) 172 H Hemoglobin A1c Total Creatine Kinase <20 L 06/13/17 06/13/17 06/13/17 03:06 05:32 11:34 Creatinine Glucose POC Glucose (mg/dL) 214 H 187 H Hemoglobin A1c 7.3 H Total Creatine Kinase 06/13/17 16:42 Creatinine Glucose POC Glucose (mg/dL) 146 H Hemoglobin A1c Total Creatine Kinase Assessment and Plan (1) Left-sided Corona's palsy Current Visit: Yes Status: Acute SNOMED Code(s): 210121907 (2) Left carotid stenosis Current Visit: Yes Status: Acute SNOMED Code(s): 274792606598137 Plan: The patient is a 67-year-old woman who is admitted to the hospital with difficulty with speech and left facial weakness. On neurologic examination she has a left lower motor neuron facial paralysis i.e. Corona's palsy. Recommend artificial tears to left eye every 6 hours. Recommend eye patch to wear in the evening. Recommend facial exercises., Recommend Medrol Dosepak, and antiviral treatment i.e. Valtrex 7 days. Recommend physical therapy to evaluate patient for possible TENS unit. The patient also has asymptomatic left carotid stenosis. Recommend vascular surgery consult. Continue Plavix and aspirin therapy
[2017-06-13] MEDS ORDERED: ATORVASTATIN 80 MG TAB PO SCH (21:00)
[2017-06-13] MEDS ORDERED: ATORVASTATIN 40 MG TAB PO SCH (21:00)
[2017-06-13] MEDS ORDERED: BACLOFEN 10 MG TAB PO SCH (21:00)
[2017-06-13 21:01] LABS: Glucose,Whole Blood 136 mg/dL (75-99)
[2017-06-14 05:56] LABS: Anisocytosis Slight; Basophils % (A) 1 %; CHCM 33.1; Eosinophils # (A) 0.1 k/uL (0-0.7); Eosinophils % (A) 2 %; HDW 2.53; HGB 12.2 gm/dL (11.4-16.0); Luc # (Auto) 0.09; Luc % (Auto) 2; Lymphocytes # (A) 1.3 k/uL (1.0-4.8); Lymphocytes % (A) 23 %; MCHC 32.9 g/dL (31.0-37.0); MCV 82.1 fL (80.0-100.0); Mean Platelet Volume 8.2; Monocytes # (A) 0.4 k/uL (0-1.0); Monocytes % (A) 7 %; Neutrophils # (A) 3.6 k/uL (1.3-7.7); Neutrophils % (A) 66 %; RDW 16.5 % (11.5-15.5); WBC 5.4 k/uL (3.8-10.6)
[2017-06-14 06:04] LABS: Glucose,Whole Blood 152 mg/dL (75-99)
[2017-06-14] MEDS: INSULIN ASPART 100 UNIT/ML 1 ML 10 ML VIAL SQ SCH ×2 (06:33→11:56)
[2017-06-14 06:34] LABS: Anion Gap 9 mmol/L; Blood Urea Nitrogen 13 mg/dL (7-17); Carbon Dioxide 23 mmol/L (22-30); Chloride 107 mmol/L (98-107); Glucose 147 mg/dL (74-99); Magnesium 1.8 mg/dL (1.6-2.3); Non-African American GFR(MDRD) >60 (>60 ml/min/1.73 sqM); Phosphorous 3.9 mg/dL (2.5-4.5); Potassium 3.8 mmol/L (3.5-5.1); Sodium 139 mmol/L (137-145)
[2017-06-14] MEDS: PANTOPRAZOLE 40 MG TABLET PO SCH (06:34)
[2017-06-14] MEDS: LEVOTHYROXINE 100 MCG TAB PO SCH (06:34)
[2017-06-14] MEDS: GABAPENTIN 100 MG CAP PO SCH (07:53)
[2017-06-14] MEDS: ISOSORBIDE MONONITRATE ER 60 MG TAB.ER.24H PO SCH (07:53)
[2017-06-14] MEDS: CLOPIDOGREL 75 MG TAB PO SCH (07:53)
[2017-06-14] MEDS: ASPIRIN 325 MG TAB PO SCH (07:53)
[2017-06-14] MEDS: METOPROLOL TARTRATE 25 MG TAB PO SCH (07:53)
[2017-06-14] MEDS: MAGNESIUM OXIDE 400 MG TAB PO SCH (07:53)
[2017-06-14] MEDS: ENOXAPARIN 40 MG/0.4 ML SYRINGE SQ SCH (07:53)
[2017-06-14] MEDS: BUDESONIDE 0.5 MG/2 ML NEBU INHALATION SCH (08:32)
[2017-06-14] MEDS ORDERED: valACYclovir 500 MG TAB PO SCH (09:15)
[2017-06-14] MEDS ORDERED: valACYclovir HCL 1,000 MG TABLET PO SCH (09:29)
[2017-06-14] MEDS ORDERED: predniSONE 20 MG TAB PO SCH (09:30)
--- NOTE | 2017-06-14 09:45 | CONS ---
CONSULTATION This is a 67-year-old, white female, patient came with a history of recent TIA. Patient came recently with history of she had difficulty in producing her words and she also noticed some she was unable to close her left eye. She had no evidence of any motor deficit. She had some kind of numbness and tingling sensation of the left cheek area and the area of pain in the left the ear. There is no history of headache, vertigo, loss of vision or any motor deficit. The patient had a complete stroke workup. MRI of the brain showed old infarct. She has a right carotid endarterectomy done in the past in [facility]. The patient MRI should old right lacunar infarct. The patient had a CT which showed left side 70% to 75% right side 50% stenosis. MEDICAL HISTORY: History of hypertension, diabetes, sarcoidosis, history of fibromyalgia. SURGICAL HISTORY: Patient had multiple back surgeries and right carotid endarterectomy and a C-spine surgery in the past. The patient has history of hypertension. The patient also had a coronary artery bypass in 2006 and also she had a coronary artery stent. EXAMINATION: Patient was seen in her room. Her vital signs stable. NECK: Supple. Trachea central. Patient still has some facial weakness. Patient has normal motor function of her lower extremity. CHEST: Clear to auscultation. ABDOMEN: Soft. Femoral pulses are present. Motor functions are normal bilateral upper and lower extremity. IMPRESSION: I have been reviewed the case with Neurology, they stating that she has Corona's palsy versus transient ischemic attack. The patient is on antiplatelet therapy which will be continued. We will discuss with internal medicine and Dr. Noland about further management. We will follow with you. MMODL / IJN: [id number] /
[2017-06-14] MEDS: SODIUM CHLORIDE 0.9% 1,000 ML IV SCH (10:35)
[2017-06-14 11:39] LABS: Glucose,Whole Blood 185 mg/dL (75-99)
[2017-06-14 12:09] VITALS: BP 107/61; PULSE 86; RESP 20; TEMP 98
--- NOTE | 2017-06-14 12:16 | P.DS ---
Providers Date of admission: 06/12/17 23:52 Expected date of discharge: 06/14/17 Attending physician: Lico Jeffery MD Consults: 06/12/17 23:51 Consult Physician Routine Consulting Provider: Tamara Noland Consult Reason/Comments: cva Do you want consulting provider notified?: Yes 06/13/17 02:13 Consult Physician Routine Consulting Provider: Chintan Rossi Consult Reason/Comments: carotid stenosis Do you want consulting provider notified?: Yes, Notify in am 06/14/17 09:19 Consult Physician Routine Consulting Provider: Cisco Key Consult Reason/Comments: bells palsy Do you want consulting provider notified?: Yes Primary care physician: Melissa Mares MD - Discharge Diagnosis(es) (1) Left carotid stenosis Current Visit: Yes Status: Acute (2) Left-sided Corona's palsy Current Visit: Yes Status: Acute (3) HTN (hypertension) Current Visit: Yes Status: Chronic (4) Type 2 diabetes mellitus Current Visit: No Status: Chronic Priority: Low Hospital Course: 67-year-old female with past medical history of diabetes type 2, CVA multiple TIAs with residual left-sided weakness. Patient presented due to sudden onset left facial droop and numbness of 2 hours duration prior to presentation. In the ED she was evaluated and was found to have low NIH score CT angiogram the head and neck revealed 75% stenosis of the left internal carotid artery. TPA was not given due to low NIH score. Patient admitted for further care for presumed stroke. Later she had an MRI of the brain and only showed was an old infarct no acute stroke. Upon further evaluation and questioning patient reported left-sided ear pain and and itching patient was found to have viral Corona's palsy of the left facial nerve. She was started on high-dose steroid and valacyclovir and was instructed to continue that for 7 days. Physical therapy was consulted, patient was counseled regarding facial exercising, chewing gum. Patient will require follow-up as an outpatient with neurology and physical therapy as she has severe left facial weakness for which she might not end up with complete resolution of her symptoms. Vascular surgery evaluated the patient and no recommendations for immediate intervention patient to follow up outpatient. Continue with aspirin and Plavix and statin. Patient seen and examined on day of discharge no events overnight patient was counseled regarding her current condition prognosis treatment options patient verbalized understanding of the plan she denies any new weakness or numbness in her body. She continues to have left-sided facial numbness and weakness. No trouble with swallowing. Constitutional: vital signs stable, Not in acute distress, pleasant, conversant Lungs: Clear to auscultation bilaterally, clear to percussion, normal respiratory effort Cardiovascular: Regular rate and rhythm, no murmurs, no gallops, no rubs, no peripheral edema Gastrointestinal: Soft, no tenderness to palpation, no palpable hepatosplenomegally, bowel sounds positive, no abdominal wall hernias Extremities: No digital cyanosis or ischemia, peripheral pulses palpable and equal over bilateral radial arteries and dorsalis pedis artery, no calf muscle tenderness Psych: Alert, oriented to place, person and time Neuro: Patient cranial nerve exam compatible with left seventh cranial nerve weakness of lower motor neuron type. Prescription for valacyclovir and prednisone was sent pharmacy. Magda performed Patient follow-up outpatient with neurology physical therapy and vascular surgery Metformin was added to her home regimen of oral hypoglycemic medications due to risk of hyperglycemia while on high-dose steroid Patient counseled to monitor her blood glucose 3 times a day 40 minutes were spent discharging this patient, and more than 50% of the time was spent in counseling the patient and family and in coordinating care. Patient Condition at Discharge: Fair Plan - Discharge Summary Discharge Rx Participant: Yes New Discharge Prescriptions: New Artificial Tears-Hypromellose [Artificial Tear Drops] 1 drops LEFT EYE QID PRN #1 bottle PRN Reason: Dry Eye(S) predniSONE 80 mg PO DAILY 6 Days #24 tab valACYclovir HCL [Valtrex] 1,000 mg PO TID #21 tablet Continue Aspirin 325 mg PO DAILY Baclofen 10 mg PO HS Levothyroxine Sodium [Levoxyl] 100 mcg PO DAILY Clopidogrel [Plavix] 75 mg PO DAILY Metoprolol Tartrate [Lopressor] 25 mg PO BID Isosorbide Mononitrate ER [Imdur] 60 mg PO DAILY NIFEdipine XL [Procardia XL] 60 mg PO DAILY Albuterol Nebulized [Ventolin Nebulized] 2.5 mg INHALATION RT-Q4H PRN PRN Reason: Shortness Of Breath Magnesium Oxide [Mag-Ox] 750 mg PO DAILY Nitroglycerin [Nitroglycerin 400MCG [place]] 1 spray TRANSLINGU Q5M PRN PRN Reason: Chest Pain SUMAtriptan SUCCINATE [Imitrex] 50 mg PO BID PRN PRN Reason: Migraine Headache Atorvastatin [Lipitor] 40 mg PO HS glipiZIDE XL [Glucotrol XL] 5 mg PO BID Pantoprazole [Protonix] 40 mg PO BID #60 tablet. Fluticasone Propionate [Flovent Hfa 110mcg] 2 puff INHALATION RT-BID Gabapentin [Neurontin] 100 mg PO TID Albuterol Inhaler [Ventolin Hfa Inhaler] 1 - 2 puff INHALATION RT-Q6H PRN PRN Reason: difficulty breathing Multivitamins, Thera [Multivitamin (formulary)] 1 tab PO DIRECTED Calcium Carbonate/Vitamin D3 [Calcium 500-Vit D3 200 Tablet] 1 tab PO DIRECTED Changed metFORMIN HCL 1,000 mg PO DAILY #30 tablet Discontinued Loperamide [Imodium] 2 mg PO BID PRN PRN Reason: Diarrhea HYDROcodone/APAP 7.5-325MG [[place] 7.5-325] 1 tab PO BID PRN PRN Reason: Pain Discharge Medication List Aspirin 325 mg PO DAILY 06/11/16 [History] Baclofen 10 mg PO HS 06/11/16 [History] Clopidogrel [Plavix] 75 mg PO DAILY 06/11/16 [History] Isosorbide Mononitrate ER [Imdur] 60 mg PO DAILY 06/11/16 [History] Levothyroxine Sodium [Levoxyl] 100 mcg PO DAILY 06/11/16 [History] Metoprolol Tartrate [Lopressor] 25 mg PO BID 06/11/16 [History] NIFEdipine XL [Procardia XL] 60 mg PO DAILY 09/03/16 [History] Albuterol Nebulized [Ventolin Nebulized] 2.5 mg INHALATION RT-Q4H PRN 12/12/16 [ History] Atorvastatin [Lipitor] 40 mg PO HS 04/22/17 [History] Magnesium Oxide [Mag-Ox] 750 mg PO DAILY 04/22/17 [History] Nitroglycerin [Nitroglycerin 400MCG [place]] 1 spray TRANSLINGU Q5M PRN 04/22/17 [ History] SUMAtriptan SUCCINATE [Imitrex] 50 mg PO BID PRN 04/22/17 [History] glipiZIDE XL [Glucotrol XL] 5 mg PO BID 04/22/17 [History] Pantoprazole [Protonix] 40 mg PO BID #60 tablet. 04/26/17 [Rx] Albuterol Inhaler [Ventolin Hfa Inhaler] 1 - 2 puff INHALATION RT-Q6H PRN [History] Fluticasone Propionate [Flovent Hfa 110mcg] 2 puff INHALATION RT-BID 04/28/17 [ History] Gabapentin [Neurontin] 100 mg PO TID 04/28/17 [History] Calcium Carbonate/Vitamin D3 [Calcium 500-Vit D3 200 Tablet] 1 tab PO DIRECTED 06/12/17 [History] Multivitamins, Thera [Multivitamin (formulary)] 1 tab PO DIRECTED 06/12/17 [ History] Artificial Tears-Hypromellose [Artificial Tear Drops] 1 drops LEFT EYE QID PRN # 1 bottle 06/14/17 [Rx] metFORMIN HCL 1,000 mg PO DAILY #30 tablet 06/14/17 [Rx] predniSONE 80 mg PO DAILY 6 Days #24 tab 06/14/17 [Rx] valACYclovir HCL [Valtrex] 1,000 mg PO TID #21 tablet 06/14/17 [Rx] Follow up Appointment(s)/Referral(s): Melissa Mares MD [Primary Care Provider] - 1-2 days [facility], [NON-STAFF] - Chintan Rossi MD [STAFF PHYSICIAN] - 1 Week Cisco Key MD [STAFF PHYSICIAN] - 1 Week Tamara Noland MD [STAFF PHYSICIAN] - 1 Week Patient Instructions/Handouts: Corona Palsy (GEN), Carotid Artery Disease (GEN) Activity/Diet/Wound Care/Special Instructions: activity as tolerated diet as tolerated resume preadmission diet Discharge Disposition: HOME SELF-CARE
== END 2017-06-14 14:27 | disposition home or self-care (01) | DRG 74 ==
LOC: EC 21:26 → 6SEL 23:52
PROVIDERS: ADMIT Family Medicine; ATTEND Family Medicine
DX: G51.0 Bell's palsy (principal); I69.354 Hemiplegia and hemiparesis following cerebral infarction affecting left non-dominant side; G20 Parkinson's disease; D86.9 Sarcoidosis, unspecified; E03.9 Hypothyroidism, unspecified; E11.9 Type 2 diabetes mellitus without complications; E78.5 Hyperlipidemia, unspecified; G40.909 Epilepsy, unspecified, not intractable, without status epilepticus; G47.30 Sleep apnea, unspecified; G89.29 Other chronic pain; I10 Essential (primary) hypertension; I25.10 Atherosclerotic heart disease of native coronary artery without angina pectoris; I25.2 Old myocardial infarction; I65.22 Occlusion and stenosis of left carotid artery; J45.909 Unspecified asthma, uncomplicated; K21.9 Gastro-esophageal reflux disease without esophagitis; K58.9 Irritable bowel syndrome, unspecified; M79.7 Fibromyalgia; M85.80 Other specified disorders of bone density and structure, unspecified site; M19.90 Unspecified osteoarthritis, unspecified site; M54.9 Dorsalgia, unspecified; Z79.02 Long term (current) use of antithrombotics/antiplatelets; Z79.51 Long term (current) use of inhaled steroids; Z79.82 Long term (current) use of aspirin; Z79.84 Long term (current) use of oral hypoglycemic drugs; Z79.899 Other long term (current) drug therapy; Z87.891 Personal history of nicotine dependence; Z95.1 Presence of aortocoronary bypass graft; Z95.5 Presence of coronary angioplasty implant and graft; Z98.1 Arthrodesis status; Z96.652 Presence of left artificial knee joint; Z86.14 Personal history of Methicillin resistant Staphylococcus aureus infection; Z88.2 Allergy status to sulfonamides; Z88.8 Allergy status to other drugs, medicaments and biological substances; Z88.1 Allergy status to other antibiotic agents; Z91.041 Radiographic dye allergy status; Z88.5 Allergy status to narcotic agent; Z91.013 Allergy to seafood
CPT/HCPCS: 36415; 70450; 70496; 70498; 70551; 71010; 74230; 80048; 80053; 80061; 82550; 82553; 83036; 83735; 84100; 84484; 85025; 85610; 85730; 93005; 93306; 94640; 94760; 96361; 96374; 96375; 99285

== ENCOUNTER → 2017-08-29 | Outpatient (CLI) | payer MEDICARE, OTHER ==
[2017-08-29 09:30] LABS: Basophils # (A) 0.1 k/uL (0-0.2); Basophils % (A) 1 %; Eosinophils # (A) 0.1 k/uL (0-0.7); Eosinophils % (A) 3 %; HCT 42.8 % (34.0-46.0); HGB 13.8 gm/dL (11.4-16.0); Lymphocytes % (A) 25 %; MCHC 32.2 g/dL (31.0-37.0); Monocytes # (A) 0.3 k/uL (0-1.0); Monocytes % (A) 8 %; Neutrophils # (A) 2.5 k/uL (1.3-7.7); Neutrophils % (A) 60 %; Platelet Count 185 k/uL (150-450); RBC 4.92 m/uL (3.80-5.40); RDW 13.6 % (11.5-15.5); WBC 4.1 k/uL (3.8-10.6)
[2017-08-29 09:44] LABS: ALT 33 U/L (9-52); AST 19 U/L (14-36); Albumin 4.1 g/dL (3.5-5.0); Alkaline Phosphatase 117 U/L (38-126); Anion Gap 13 mmol/L; Blood Urea Nitrogen 13 mg/dL (7-17); Calcium 9.7 mg/dL (8.4-10.2); Carbon Dioxide 30 mmol/L (22-30); Chloride 101 mmol/L (98-107); Cholesterol 102 mg/dL (<200); Glucose 178 mg/dL (74-99); HDL Cholesterol 39 mg/dL (40-60); LDL Cholesterol,Calculated 32 mg/dL (0-99); Magnesium 1.6 mg/dL (1.6-2.3); Phosphorus 3.7 mg/dL (2.5-4.5); Potassium 4.1 mmol/L (3.5-5.1); Sodium 144 mmol/L (137-145); Total Bilirubin 0.5 mg/dL (0.2-1.3); Total Protein 6.9 g/dL (6.3-8.2); Triglycerides 154 mg/dL (<150)
[2017-08-29 09:56] LABS: T4, Free (Free Thyroxine) 1.42 ng/dL (0.78-2.19)
[2017-08-29 17:06] LABS: Vitamin D 25 Hydroxy 23.2 ng/mL (30.0-100.0)
[2017-08-29 17:49] LABS: Parathyroid Hormone Intact 57.5 pg/mL (14.0-72.0)
[2017-08-29 19:37] LABS: Hemoglobin A1C 6.7 % (4.0-6.0)
== END | disposition home or self-care (01) ==
LOC: LABWHC1 08:53
PROVIDERS: ATTEND Family Medicine
DX: E03.9 Hypothyroidism, unspecified (principal); N18.3 Chronic kidney disease, stage 3 (moderate); E11.22 Type 2 diabetes mellitus with diabetic chronic kidney disease; I12.9 Hypertensive chronic kidney disease with stage 1 through stage 4 chronic kidney disease, or unspecified chronic kidney disease
CPT/HCPCS: 36415; 80053; 80061; 82043; 82306; 82570; 83036; 83735; 83970; 84100; 84439; 84443; 85025

== ENCOUNTER → 2017-09-04 | Outpatient (CLI) | payer MEDICARE, OTHER ==
[2017-09-04 12:13] VITALS: BP 145/78; PULSE 97; RESP 18; TEMP 98.3
--- NOTE | 2017-09-06 07:18 | P.PN ---
Subjective Progress Note Date: 09/04/17 This is follow-up visit for this patient with a history of severe and chronic low back pain secondary to lumbar degenerative disc diseases , lumbar spondylosis with facet arthropathy, And sacroiliitis ,the past we have sacroiliac joint steroid injection Patients currently on Ultram 50 mg 3 times a day, Neurontin 3 times a day , and [place] 5/325 , patient reported that [place] quarrelsome itching for her and she tried to avoid taking [place] because she had side effects from it and she reported that the Ultram is not helping to control her pain and improve activity of daily living, Patient denies any motor or sensory deficit , patient denies any fever or night sweats, denies any change in the bowel movements or urination Physical Examinations : 1-Constitutiona : Cooperative , not in acute distress . 2-HEENT : nech ; supple , no Lymphadenopathy , no Thyromegaly , normal thyroid size . eyes : no ptosis , no icterus, no photophobia . ENT : normal of hearing , normal oropharynx , no Thrush . 3- Respiratory : Chest clear to auscultations Bilaterally , no wheezing , no Rhonchi . 4- Cardiovascular : regular rate and rhythem , S1 , S2 , no S3 , no S4. 5- Gastrointestinal : abdomen soft no tenderness , bowel sounds positive all four quadrents , no organomegally . 6- Genitourinary : Defferred . 7- neurologic : Cranial nerve II to XII intact , no focal neurological deffecit . 8-psychatric : alert , oriented X 3 , appropriate affect , intact judgment and insight . 9-Lymphatic : no Lymphadenopathy . 10- musculoskeltal : exams of the cervical spine = motor strength normal bilateral upper extremities facet loading test cervical area positive. exams of the Lumber spine = motor strength lower extremities ,thigh and legs .5/5 deep tendon reflexes : normal Knee Jerk , normal ankle Jerk . lumber facet Loading Test positive strait leg raising test positive at 30 degree , RT ,LT , Fabere test positive RT and positive LT . Range of motion: Range of motion in flexion of the lumbar spine 30 degrees Range of motion range of motion of extension of the lumbar spine 10 Sever tenderness over the Sacroiliac joint on the Right , and Left side Assessment and plan = Chronic low back pain secondary to lumbar degenerative disc disease , lumbar spondylosis with facet arthropathy without myelopathy , and sacroiliitis chronic and current use of high-risk medication (Opioids). The patient was counseled about risk of opioid use, psychological risk associated with opioids and was orally counseled to not overuse , divert,or sell dictations to take medications as prescribed only , and to restore medication in safe location , and the patient counseled against driving while using narcotic medications, and also not to use alcohol or any illicit recreational drugs, the patient's verbalized understanding that the lack of compliance will result in failure to renew narcotic prescription and possible discharge from the clinic - diagnoses, prognosis, and treatment options including but not limited to physical therapy, surgical interventions, interventional therapies , and medication management including narcotics and adjuvant medication were discussed with the patient and all the questions answered Discussed with the patient the option of doing diagnostic medial branch block and possibly radiofrequency ablation of the medial branch, the patient will think about it and next visit with local aborted if she will proceed with the diagnostic medial branch block, also patient given prescription refill for Ultram 50 mg 3 times a day dispensed 90 with 1 refill, I will discontinue [place] 5/325, patient given prescription for oxycodone 5 mg every 12 hours when necessary Objective - Vital Signs Vital signs: Vital Signs Temp 98.3 F 09/04/17 12:07 Pulse 97 09/04/17 12:07 Resp 18 09/04/17 12:07 BP 145/78 09/04/17 12:07 Pulse Ox
== END | disposition home or self-care (01) ==
LOC: PNWHC3 11:37
PROVIDERS: ATTEND Specialist
DX: G89.29 Other chronic pain (principal); M51.36 Other intervertebral disc degeneration, lumbar region; M47.816 Spondylosis without myelopathy or radiculopathy, lumbar region; M46.86 Other specified inflammatory spondylopathies, lumbar region; M46.1 Sacroiliitis, not elsewhere classified; Z79.891 Long term (current) use of opiate analgesic; Z79.899 Other long term (current) drug therapy
CPT/HCPCS: 99211

== ENCOUNTER → 2017-09-11 | Outpatient (CLI) | payer MEDICARE, OTHER ==
--- NOTE | 2017-09-11 14:25 | US ---
EXAMINATION TYPE: US kidneys/renal and bladder DATE OF EXAM: 09/11/2017 COMPARISON: NONE CLINICAL HISTORY: N18.3 CHRONIC KIDNEY DX,STAGE 3. EXAM MEASUREMENTS: Right Kidney: 10.7 x 4.3 x 5.3 cm Left Kidney: 9.6 x 5.1 x 5.1 cm Right Kidney: No hydronephrosis or masses seen Left Kidney: No hydronephrosis or masses seen Bladder: wnl Bilateral Jets seen: Yes There is no evidence for hydronephrosis at this point in time. No nephrolithiasis is seen. No kim s are identified. The urinary bladder is anechoic. Bilateral ureteral jets are seen. IMPRESSION: No significant abnormality seen.
== END | disposition home or self-care (01) ==
LOC: RADUSWWP 13:25
PROVIDERS: ATTEND Family Medicine
DX: N18.3 Chronic kidney disease, stage 3 (moderate) (principal)
CPT/HCPCS: 76770

== ENCOUNTER → 2017-10-30 | Outpatient (CLI) | payer MEDICARE, OTHER ==
[2017-10-30 13:08] VITALS: BP 128/60; PULSE 62; RESP 16
--- NOTE | 2017-10-30 14:45 | P.PN ---
Subjective Progress Note Date: 10/30/17 This is follow-up visit for this patient with a history of severe and chronic low back pain secondary to lumbar degenerative disc disease, lumbar facet arthropathy, and sacroiliitis we have done bilateral sacroiliac joint steroid injection patient currently on Ultram 50 mg daily at bedtime , Neurontin 100 mg 3 times a day and oxycodone 5/325 Patient denies any side effects of the medication, denies excessive drowsiness or sleepiness, denies suicidal ideation, and reports that the current pain medication is NOT helping To control the pain and improve activity of daily living . Patient denies any motor or sensory deficit, denies change in bowel movement or urination, patient denies any fever or night sweats and patient here for follow-up visit and medication refill Objective - Vital Signs Vital signs: Vital Signs Temp Pulse 62 10/30/17 12:59 Resp 16 10/30/17 12:59 BP 128/60 10/30/17 12:59 Pulse Ox 95 10/30/17 12:59 Intake & Output 10/29/17 10/30/17 10/30/17 18:59 06:59 18:59 Weight 83.461 kg - Exam Physical Examinations : 1-Constitutiona : Cooperative , not in acute distress . 2-HEENT : nech ; supple , no Lymphadenopathy , normal thyroid size . eyes : no ptosis , no icterus, no photophobia . ENT : normal of hearing , normal oropharynx , no Thrush . 3- Respiratory : Chest clear to auscultations Bilaterally , no wheezing , no Rhonchi . 4- Cardiovascular : regular rate and rhythem , S1 , S2 , no S3 , no S4. 5- Gastrointestinal : abdomen soft no tenderness , bowel sounds positive all four quadrents , no organomegally . 6- Genitourinary : Defferred . 7- neurologic : Cranial nerve II to XII intact , no focal neurological deffecit . 8-psychatric : alert , oriented X 3 , appropriate affect , intact judgment and insight . 9-Lymphatic : no Lymphadenopathy . 10- musculoskeltal : , Lumber spine = normal moter stegnth lower extremities ,thigh and legs .5/5 deep tendon reflexes : normal Knee Jerk , normal ankle Jerk . lumber facet Loading Test positive strait leg raising test positive at 30 degree Right , positve at 30 degree Left Fabere test positive Right and positive Left Sever tenderness over the Sacroiliac joint on the Right , and Left side sever Left hip pain with flexion and extension of the left hip Assessment and Plan Plan: Assessment and plan= chronic low back pain secondary to lumbar degenerative disc disease , lumbar spondylosis with lumbar facet arthropathy , sacroiliitis New finding which is left hip arthralgia chronic and current use of high-risk medication (opioids) Patient denies any side effects of the current pain medication and the current treatment/medication ML and the patient to do activity of daily living , Diagnoses, prognosis, treatment options, including but not limited to physical therapy, medication management, interventional therapies, and surgery, were discussed with the patient All the questions answered Patient signed the narcotic agreement, and he was orally counseled, not to overuse, not to abuse, not to Divert , not tp sell pain medication, and to take it as prescribed only, Patient was counseled not to drive or operate heavy equipment while using narcotic medication, and advised not to use alcohol or any Illicit drugs while using the narcotis, the patient's verbalized understanding that lack of compliance with any of the above instructions and will likely to cause discharge from the pain service, not to renew his narcotic prescriptions Medication managements= patient will be given prescription refills for Neurontin 100 mg 3 times a day , Percocet 5/325 every 8 hours dispense 90 Discontinue Ultram, ordered x-ray of the left hip rule out osteoarthritis forces avascular necrosis of the left hip. She will follow up in the pain clinic in 1 month , Time with Patient: Less than 30
== END | disposition home or self-care (01) ==
LOC: PNWHC3 12:27
PROVIDERS: ATTEND Specialist
DX: G89.29 Other chronic pain (principal); M51.36 Other intervertebral disc degeneration, lumbar region; M47.816 Spondylosis without myelopathy or radiculopathy, lumbar region; M46.96 Unspecified inflammatory spondylopathy, lumbar region; M46.1 Sacroiliitis, not elsewhere classified; M25.552 Pain in left hip; Z79.891 Long term (current) use of opiate analgesic; Z79.899 Other long term (current) drug therapy
CPT/HCPCS: 99211

== ENCOUNTER → 2017-11-24 | Outpatient (CLI) | payer MEDICARE, OTHER ==
--- NOTE | 2017-11-26 08:57 | MM ---
Reason for exam: screening (asymptomatic). Last mammogram was performed 1 year and 1 month ago. History: Patient is postmenopausal. Benign excisional biopsy of the left breast, 2014. Benign excisional biopsy of the left breast, 2010. Took estrogen beginning at age 43. Took progesterone beginning at age 43. Physical Findings: A clinical breast exam by your physician is recommended on an annual basis and results should be correlated with mammographic findings. MG 3D Screening Mammo W/Cad Bilateral CC and MLO view(s) were taken. Prior study comparison: October 25, 2016, bilateral MG 3d screening mammo w/cad. March 30, 2015, mammogram, performed at [facility]. The breast tissue is almost entirely fat. No significant changes when compared with prior studies. ASSESSMENT: Negative, BI-RAD 1 RECOMMENDATION: Routine screening mammogram of both breasts in 1 year.
== END | disposition home or self-care (01) ==
LOC: RADMAMWWP 14:04
PROVIDERS: ATTEND Family Medicine
DX: Z12.31 Encounter for screening mammogram for malignant neoplasm of breast (principal)
CPT/HCPCS: 77063; 77067

== ENCOUNTER → 2017-11-27 | Outpatient (CLI) | payer MEDICARE, OTHER ==
[2017-11-27 14:01] VITALS: PULSE 69; RESP 18
--- NOTE | 2017-11-27 14:37 | P.PAINPG ---
Subjective Progress Note Date: 11/27/17 This is a 67-year-old woman with a history of severe chronic hip pain. She recently underwent x-ray evaluation. She reports continued debility secondary to her hip pain. She has never followed up with orthopedist for her hip. She does take Plavix and has done so for nearly 20 years. This is secondary to a history of TIAs as well as a 75% blockage in her carotid artery. She denies any new pain symptoms. She does report that the Percocet she was prescribed at her last appointment tends to cause her to have her legs shake more once it has been several hours since her last dose. She admits that she reported she had itching when taking the [place] but then she continue to take it for several days after her appointment and realized she did not have any itching with this drug. She is requesting to go back to her [place] as a prescription. Objective - Vital Signs Vital signs: Vital Signs Temp Pulse 69 11/27/17 13:45 Resp 18 11/27/17 13:45 BP Pulse Ox 96 11/27/17 13:45 Intake & Output 11/26/17 11/27/17 11/27/17 18:59 06:59 18:59 Weight 83.915 kg - Exam Physical Examination : 1-Constitutional : Cooperative , not in acute distress . She is wheelchair bound 2-HEENT : No obvious masses. Normocephalic. 3- Respiratory : Chest clear to auscultation. 4- Cardiovascular : regular rate and rhythm. 5- Gastrointestinal: abdomen soft no tenderness , bowel sounds positive all four quadrants, no organomegaly . 6- Genitourinary : Deferred . 7- Integumentary : No cellulitis , no ulcers, normal skin turgor, no cyanotic. Well-healed scar on left knee from previous replacement surgery 8- neurologic : No obvious focal motor deficits. 9- psychatric : alert, oriented, appropriate affect , intact judgment and insight . Affect congruent with situation. 10- musculoskeltal: The patient is difficulty with ambulation. She does utilize a wheelchair whenever possible. She is requesting electronic scooter. Assessment and Plan Plan: Follow-up plan: Impression: Hip arthralgia Corona's palsy Carotid stenosis Medications: Will discontinue the patient's Percocet. I will describe her [place] at her previous dose. She has signed an opiate agreement. I reviewed her mass report. It does reveal some utilization of tramadol and Percocet as prescribed by our office. She will continue on [place] only. She is aware of the risks and benefits of opiate therapy. Procedures: No procedure indicated due to the patient being on anticoagulant therapy Referrals: Patient will follow up with senior quality assurance specialist as well as a physician who specializes in disability evaluations Additional tests ordered: No additional tests were ordered Next follow-up visit: One month for medication management PQRS Measure Charge Sheet Measure #130: Documentation of Current Meds in Medical Chart: Patient's medications documented in chart Measure #226: Tobacco Use: Screen & Cessation Intervention: Pt not a tobacco user Measure #111: Pneumonia Vaccination: Pneumococcal vaccine administered or previously received Measure #47: Advance Care Plan: Advance care planning discussed & documented, pt chose/unable to give Measure #412: Opioid Treatment Agreement: Documented signed opioid trtmnt agreemnt min once during opioid trtmnt Measure #408: Opioid Therapy Follow-up Evaluation: Patient had f/u eval minimum every 3 months during opioid therapy Measure #317: Preventitive Care & Scrn High Bld Press & F/U: Pre-hypertensive or hypertensive BP documented, pt will f/u with PCP Measure #128: Body Mass Index (BMI) Screening & Follow-up: BMI documented ABOVE normal parameters - f/u documented Measure #131: Pain Assessment & Follow-up: Pain positive & plan documented Measure #431: Unhealthy Alcohol Use Preventative Care & Scrn: Patient not identified as an unhealthy alcohol user PQRS Narrative: Smoking Status Former smoker Do You Want the Pneumonia Vaccine Up to Date Vaccine AT THIS TIME? Pain Intensity [Left Hip] 3 Scale Used Numeric (1 - 10) Hx Alcohol Use (MH) Yes: OCCASIONALLY Home Medications: Ambulatory Orders Aspirin 325 mg PO DAILY 06/11/16 Baclofen 10 mg PO HS 06/11/16 Clopidogrel [Plavix] 75 mg PO DAILY 06/11/16 Isosorbide Mononitrate ER [Imdur] 60 mg PO DAILY 06/11/16 Metoprolol Tartrate [Lopressor] 25 mg PO BID 06/11/16 NIFEdipine XL [Procardia XL] 60 mg PO DAILY 09/03/16 Albuterol Nebulized [Ventolin Nebulized] 2.5 mg INHALATION RT-Q4H PRN 12/12/16 Atorvastatin [Lipitor] 40 mg PO HS 04/22/17 Magnesium Oxide [Mag-Ox] 750 mg PO DAILY 04/22/17 Nitroglycerin [Nitroglycerin 400MCG [place]] 1 spray TRANSLINGU Q5M PRN 04/22/17 SUMAtriptan SUCCINATE [Imitrex] 50 mg PO BID PRN 04/22/17 glipiZIDE XL [Glucotrol XL] 5 mg PO BID 04/22/17 Pantoprazole [Protonix] 40 mg PO BID #60 tablet. 04/26/17 Albuterol Inhaler [Ventolin Hfa Inhaler] 1 - 2 puff INHALATION RT-Q6H PRN Fluticasone Propionate [Flovent Hfa 110mcg] 2 puff INHALATION RT-BID 04/28/17 Gabapentin [Neurontin] 100 mg PO TID 04/28/17 Multivitamins, Thera [Multivitamin (formulary)] 1 tab PO DIRECTED 06/12/17 Artificial Tears-Hypromellose [Artificial Tear Drops] 2 drops LEFT EYE QID PRN 09/04/17 Melatonin 5 mg PO HS 09/04/17 Levothyroxine Sodium [Synthroid] 88 mcg PO DAILY 11/27/17 Controlled Substance Measures - Controlled Substance Measures Is patient prescribed a controlled substance at discharge?: Yes If prescribed controlled substance>3 days was MAPS reviewed?: Yes When asked, does pt state using other controlled substances?: No
== END | disposition home or self-care (01) ==
LOC: PNWHC3 13:29
PROVIDERS: ATTEND Pain Medicine Pain Medicine
DX: G89.29 Other chronic pain (principal); M25.559 Pain in unspecified hip; I65.29 Occlusion and stenosis of unspecified carotid artery; G51.0 Bell's palsy; Z79.01 Long term (current) use of anticoagulants; Z79.891 Long term (current) use of opiate analgesic; Z79.02 Long term (current) use of antithrombotics/antiplatelets; Z79.82 Long term (current) use of aspirin; Z79.51 Long term (current) use of inhaled steroids
CPT/HCPCS: 99211

== ENCOUNTER → 2017-12-30 | Outpatient (CLI) | payer MEDICARE, OTHER ==
--- NOTE | 2017-12-30 11:25 | MR ---
EXAMINATION TYPE: MR brain wo/w con DATE OF EXAM: 12/30/2017 COMPARISON: 01/01/2017, 12/04/2016 HISTORY: Left-sided Minford palsy / Meningioma TECHNIQUE: Multiplanar, multisequence images of the brain and brainstem is performed without and with IV contras t, utilizing 8 mL intravenous Gadavist . FINDINGS: Diffusion weighted images demonstrate no evidence of a recent infarct or other diffusion ab normality. Changes of chronic sinusitis noted. Craniocervical junction maintained. Sella turcica has a normal ap pearance. The ventricular system and cisternal spaces are normal in size and appearance. The brain v olume is age appropriate. There is a linear area of enhancement involving the medulla which may be artifactual. Changes of supplier diversity director nalini sinusitis noted. White matter: There are approximately 15 punctate areas of abnormal signal seen scattered throughout the white cleve er nonspecific pattern. All measure less than 5 mm. No callosal lesions. No lesions perpendicular to ventricular system. No subcortical lesions. No enhancing lesions. Adjacent to the tentorium on the right there is a 8.5 mm area of rounded signal. Recommend post contr ast images. IMPRESSION: 1. Minimal increase in size of the posterior fossa extra-axial mass most typical of meningioma now me asuring 8.5 mm and previously measuring 7 mm area 2. Stable minimal nonspecific white matter changes. Differential diagnosis would include remote micro vascular ischemia. Other etiologies not entirely excluded. 3. linear area of enhancement within the medulla is felt to be most likely artifactual and not presen t on the previous exam. Short-term follow-up could be obtained for confirmation.
== END | disposition home or self-care (01) ==
LOC: RADMRIMAIN 09:46
PROVIDERS: ATTEND Psychiatry & Neurology Neurology
DX: D32.0 Benign neoplasm of cerebral meninges (principal); G51.0 Bell's palsy; Z91.041 Radiographic dye allergy status; Z13.89 Encounter for screening for other disorder
CPT/HCPCS: 82565; 70553; 36415; A9581

== ENCOUNTER → 2018-01-01 | Outpatient (CLI) | payer MEDICARE, OTHER ==
--- NOTE | 2018-01-01 12:14 | P.PN ---
Progress Note - Text Progress Note Date: 01/01/18 Patient returns for followup for chronic back pain with radiation to lower extremities. Patient continues on Rid[place] medications for pain with some relief, but ran out of [place] due to cancelled appt and had to take leftover Percocet, which she notes is helping more with her pain. She is also on gabapentin which is helping with her neuropathy symptoms and her back pain is controlled for now. Patient denies adverse drug effects from medications. Today, pt denies new-onset weakness, bowel/bladder incontinence, or any other signs or symptoms of cauda equina syndrome. There are no signs of acute intoxication, and no indications of medication diversion or overuse. In addition to above, 13-point review of systems is also negative for chest pain , shortness of breath, changes in vision, changes in hearing, new onset weakness , abdominal pain, diarrhea, extreme fatigue, malaise, fever, skin changes, homicidal or suicidal ideation, or bowel or bladder incontinence. Vital Signs: Reviewed in EMR Gen: WDWN, AAOx3, NAD HEENT: NCAT, EOMI, hearing grossly normal Pulm: resp unlabored Abd: soft, NT, ND +lumbar facet loading, L > R Imaging: MRI demonstrates mild facet degenerative changes at multiple levels in lumbar spine. There is mild to moderate inferior neural foraminal narrowing on the right side at the L2-L3 level with effacement of the anterior thecal sac. There are bilateral laminectomy changes at the L4-L5 level with spinous process resection is mild to moderate facet arthropathy bilaterally. At the L5- S1 level there is mild to moderate facet degenerative changes bilaterally with a moderate broad-based disc bulge seen. Assessment: 1. sacroiliac joint dysfunction 2. lumbar spondylosis without myelopathy 3. lumbar PLPS 4. chronic pain syndrome 5. Parkinson's disease Plan: 1. Explanation: Opioid and psychological risk scores were reviewed. Diagnoses , prognoses, and multiple treatment options including but not limited to physical therapy, interventional therapies, adjuvant medical therapies, narcotic medication therapies, and surgery were discussed with the patient and all questions were answered to the patient's satisfaction. 2. Opioid agreement: Patient has previously signed narcotic agreement, and was orally counseled to not overuse, abuse, divert, or cell medications, and to take them as prescribed by only 1 healthcare provider. The patient was also counseled to store opioid medications in a safe and preferably locked location. Patient was also counseled against driving while using narcotic medications and also to not use alcohol or any illicit or recreational drugs. The patient verbalized understanding that lack of compliance with any of the above and likely result in failure to renew narcotic prescriptions, possible discharge from the clinic, and possible legal ramifications thereafter if indicated. 3. Counseling: The patient was counseled extensively on BODY MASS INDEX, EXERCISE. Specifically, the patient was instructed regarding the importance of weight loss and exercise in the context of both chronic pain and overall health. 4. Procedures: none for now 5. Consultations: 6. Investigations: none for now 7. Medications: Percocet 5/325 reduced to #60 with no refill, patient still has >30 Percocet pills left 8. MME/day: 15 (unchanged from [place] 7.5 BID) 8. Disposition: f/u for re-eval 6 weeks for further evaluation prior to patient 's hip surgery PQRS measures: 1-Patient's medications are documented in the chart. 2-Tobacco use is negative 3-Patient has had a pneumococcal vaccine. 4-Advanced care planning discussed, patient unable to give 5-Opioid contract signed with the patient today. 6-Pain positive, follow-up visit or procedure scheduled 7-Patient's blood pressure measured and documented, and patient will follow up with the primary care due to hypertension. 8-Patient's weight was measured, and body mass index ABOVE the normal limits, and counseling was done. Patient instructed to follow up with PCP. 9-Patient WAS NOT identified as an unhealthy alcohol user.
== END | disposition home or self-care (01) ==
LOC: PNWHC3 11:11
PROVIDERS: ATTEND Anesthesiology
DX: G89.4 Chronic pain syndrome (principal); M54.9 Dorsalgia, unspecified; M47.816 Spondylosis without myelopathy or radiculopathy, lumbar region; M53.88 Other specified dorsopathies, sacral and sacrococcygeal region; G20 Parkinson's disease; G97.1 Other reaction to spinal and lumbar puncture; Z79.891 Long term (current) use of opiate analgesic
CPT/HCPCS: 99211

== ENCOUNTER → 2018-01-29 | Outpatient (CLI) | payer MEDICARE, OTHER ==
[2018-01-29 12:03] VITALS: BP 138/62; PULSE 69; RESP 16
--- NOTE | 2018-01-29 12:29 | P.PAINPG ---
Subjective Progress Note Date: 01/29/18 Principal diagnosis: Hip arthralgia This very pleasant 67-year-old woman with a history of significant hip pain who is scheduled for hip surgery. She is maintained on opiate therapy. She reports that this is well tolerated and does afford her some reduction in pain and improvement in functionality. She still is suffering significant relief from her hip pain. Objective - Vital Signs Vital signs: Vital Signs Temp Pulse 69 01/29/18 11:55 Resp 16 01/29/18 11:55 BP 138/62 01/29/18 11:55 Pulse Ox 94 L 01/29/18 11:55 Intake & Output 01/28/18 01/29/18 01/29/18 18:59 06:59 18:59 Weight 86.183 kg - Exam General: The patient is alert and oriented. Patient is not sedateded Patient answers all question appropriately. She is transported in a wheelchair by her daughter Cardiac: Heart is regular in rate and rhythm Respiratory: Clear to auscultation. No audible wheezes. Abdomen: Soft nontender nondistended. Lower extremities: Strength is normal bilaterally. Sensation is normal bilaterally. Reflexes are preserved and symmetric bilaterally. Straight leg raise is negative bilaterally. Multiple scars from previous knee surgeries. Assessment and Plan (1) Hip arthritis Narrative/Plan: Plan of Care 1. Medications: I will give the patient 2 refills of her oxycodone. I do expect that she will probably be on a different medication from her orthopedic surgeon immediately after her surgery. She will then referred back to her twice a day oxycodone. I discussed with her weaning off this medication as she heals from her surgery. She is in agreement with this goal. I have reviewed the patient's MAPS report and it reveals expected results. Patient has signed an opiate agreement as well as opiate consent for treatment in our clinic. They understand the risks and benefits of opiate medications. They are aware of the potential for addiction. 2. Interventions: None indicated 3. Referrals: None 4. Testing: None 5. Psychological: She denies significant depression or anxiety today. Current Visit: Yes Status: Acute Code(s): M16.10 - UNILATERAL PRIMARY OSTEOARTHRITIS, UNSPECIFIED HIP SNOMED Code(s): 55270523 PQRS Measure Charge Sheet Measure #130: Documentation of Current Meds in Medical Chart: Patient's medications documented in chart Measure #226: Tobacco Use: Screen & Cessation Intervention: Pt not a tobacco user Measure #111: Pneumonia Vaccination: Pneumococcal vaccine NOT administered or previously given Measure #47: Advance Care Plan: Advance care planning discussed & documented, pt chose/unable to give Measure #412: Opioid Treatment Agreement: Documented signed opioid trtmnt agreemnt min once during opioid trtmnt Measure #408: Opioid Therapy Follow-up Evaluation: Patient had f/u eval minimum every 3 months during opioid therapy Measure #317: Preventitive Care & Scrn High Bld Press & F/U: Pre-hypertensive or hypertensive BP documented, pt will f/u with PCP Measure #128: Body Mass Index (BMI) Screening & Follow-up: BMI documented ABOVE normal parameters - f/u documented Measure #131: Pain Assessment & Follow-up: Pain positive & plan documented Measure #431: Unhealthy Alcohol Use Preventative Care & Scrn: Patient not identified as an unhealthy alcohol user PQRS Narrative: Smoking Status Former smoker Do You Want the Pneumonia Yes Vaccine AT THIS TIME? Blood Pressure 138/62 Pain Intensity [Left Leg] 8 Scale Used Numeric (1 - 10) Hx Alcohol Use (MH) Yes: OCCASIONALLY Home Medications: Ambulatory Orders Aspirin 325 mg PO DAILY 06/11/16 Baclofen 10 mg PO HS 06/11/16 Clopidogrel [Plavix] 75 mg PO DAILY 06/11/16 Isosorbide Mononitrate ER [Imdur] 60 mg PO DAILY 06/11/16 Metoprolol Tartrate [Lopressor] 25 mg PO BID 06/11/16 NIFEdipine XL [Procardia XL] 60 mg PO DAILY 09/03/16 Albuterol Nebulized [Ventolin Nebulized] 2.5 mg INHALATION RT-Q4H PRN 12/12/16 Atorvastatin [Lipitor] 40 mg PO HS 04/22/17 Magnesium Oxide [Mag-Ox] 750 mg PO DAILY 04/22/17 Nitroglycerin [Nitroglycerin 400MCG [place]] 1 spray TRANSLINGU Q5M PRN 04/22/17 SUMAtriptan SUCCINATE [Imitrex] 50 mg PO BID PRN 04/22/17 glipiZIDE XL [Glucotrol XL] 5 mg PO BID 04/22/17 Albuterol Inhaler [Ventolin Hfa Inhaler] 1 - 2 puff INHALATION RT-Q6H PRN Fluticasone Propionate [Flovent Hfa 110mcg] 2 puff INHALATION RT-BID 04/28/17 Gabapentin [Neurontin] 200 mg PO TID 04/28/17 Artificial Tears-Hypromellose [Artificial Tear Drops] 2 drops LEFT EYE QID PRN 09/04/17 Melatonin 7.5 mg PO HS 09/04/17 Levothyroxine Sodium [Synthroid] 88 mcg PO DAILY 11/27/17 Pantoprazole [Protonix] 40 mg PO DAILY 01/01/18 Ranitidine HCl 150 mg PO DAILY 01/01/18 oxyCODONE HCL/ACETAMINOPHEN [Percocet 5-325 mg] 1 tab PO Q12HR PRN 30 Days #60 tab 01/01/18 Controlled Substance Measures - Controlled Substance Measures Is patient prescribed a controlled substance at discharge?: Yes When asked, does pt state using other controlled substances?: No If Rx opioid, was Start Talking consent form obtained?: Yes If opioid is for acute pain is fill amount 7 days or less?: Yes Was information provided regarding opioid addiction?: Yes
== END | disposition home or self-care (01) ==
LOC: PNWHC3 11:45
PROVIDERS: ATTEND Pain Medicine Pain Medicine
DX: M16.10 Unilateral primary osteoarthritis, unspecified hip (principal); Z87.891 Personal history of nicotine dependence; Z79.82 Long term (current) use of aspirin; Z79.02 Long term (current) use of antithrombotics/antiplatelets; Z79.899 Other long term (current) drug therapy
CPT/HCPCS: 99211

== ENCOUNTER → 2018-02-20 | Outpatient (CLI) | payer MEDICARE, OTHER ==
[2018-02-20 10:08] LABS: Basophils % (A) 1 %; Eosinophils # (A) 0.2 k/uL (0-0.7); Eosinophils % (A) 5 %; Lymphocytes # (A) 1.1 k/uL (1.0-4.8); Lymphocytes % (A) 26 %; MCH 26.9 pg (25.0-35.0); MCHC 31.7 g/dL (31.0-37.0); Mean Platelet Volume 7.7; Monocytes # (A) 0.3 k/uL (0-1.0); Monocytes % (A) 8 %; Neutrophils # (A) 2.5 k/uL (1.3-7.7); Neutrophils % (A) 57 %; Platelet Count 188 k/uL (150-450); RBC 4.83 m/uL (3.80-5.40); RDW 14.5 % (11.5-15.5); WBC 4.3 k/uL (3.8-10.6)
[2018-02-20 10:19] LABS: Partial Thromboplastin Time 22.3 sec (22.0-30.0); Prothrombin Time 9.8 sec (9.0-12.0)
[2018-02-20 10:56] LABS: Calcium 9.2 mg/dL (8.4-10.2); Magnesium 1.8 mg/dL (1.6-2.3); Potassium 4.6 mmol/L (3.5-5.1); Total Bilirubin 0.3 mg/dL (0.2-1.3); Total Protein 6.8 g/dL (6.3-8.2)
[2018-02-20 11:03] LABS: T4, Free (Free Thyroxine) 1.05 ng/dL (0.78-2.19)
[2018-02-20 16:05] LABS: Vitamin D 25 Hydroxy 28.7 ng/mL (30.0-100.0)
== END | disposition home or self-care (01) ==
LOC: LABPAT 08:58
PROVIDERS: ATTEND Orthopaedic Surgery
DX: Z01.812 Encounter for preprocedural laboratory examination (principal); M16.12 Unilateral primary osteoarthritis, left hip; E53.8 Deficiency of other specified B group vitamins; E55.9 Vitamin D deficiency, unspecified; E11.9 Type 2 diabetes mellitus without complications; I10 Essential (primary) hypertension; I25.10 Atherosclerotic heart disease of native coronary artery without angina pectoris; E03.9 Hypothyroidism, unspecified
CPT/HCPCS: 80053; 80061; 82306; 82607; 83036; 83735; 84439; 84443; 85025; 85610; 85730; 86850; 86900; 86901; 87070

== ENCOUNTER → 2018-04-03 | Outpatient (CLI) | payer MEDICARE, OTHER ==
[2018-04-03 13:24] LABS: Basophils # (A) 0.1 k/uL (0-0.2); Basophils % (A) 1 %; Eosinophils # (A) 0.2 k/uL (0-0.7); Eosinophils % (A) 4 %; HCT 39.1 % (34.0-46.0); HGB 12.8 gm/dL (11.4-16.0); Lymphocytes # (A) 1.4 k/uL (1.0-4.8); Lymphocytes % (A) 24 %; MCH 28.3 pg (25.0-35.0); MCHC 32.8 g/dL (31.0-37.0); MCV 86.3 fL (80.0-100.0); Mean Platelet Volume 7.4; Monocytes # (A) 0.5 k/uL (0-1.0); Monocytes % (A) 8 %; Neutrophils # (A) 3.5 k/uL (1.3-7.7); Neutrophils % (A) 62 %; Platelet Count 205 k/uL (150-450); RBC 4.53 m/uL (3.80-5.40); RDW 13.8 % (11.5-15.5); WBC 5.8 k/uL (3.8-10.6)
[2018-04-03 13:30] LABS: INR 1.1 (<1.2); Prothrombin Time 10.6 sec (9.0-12.0)
[2018-04-03 13:51] LABS: Potassium 4.6 mmol/L (3.5-5.1)
== END | disposition home or self-care (01) ==
LOC: LABPAT 12:43
PROVIDERS: ATTEND Orthopaedic Surgery
DX: Z01.812 Encounter for preprocedural laboratory examination (principal); M16.12 Unilateral primary osteoarthritis, left hip
CPT/HCPCS: 36415; 80051; 85025; 85610; 86850; 86900; 86901

== ENCOUNTER 2018-04-13 08:53 | Inpatient (IN) | payer MEDICARE, OTHER ==
[2018-04-03 12:33] VITALS: BMI 35.9
--- NOTE | 2018-04-12 10:38 | HP ---
HISTORY AND PHYSICAL REASON FOR ADMISSION: Surgery is 04/13/2018. Sofy Faria is a 67-year-old patient seen with symptomatic left hip osteoarthritis. We discussed treatment options. She elected to proceed with total hip arthroplasty. Consent regarding the procedure obtained. Medical clearance provided by Dr. Mares. Cardiac clearance provided by Dr. Gongora. PAST MEDICAL HISTORY: Asthma, hypertension, hypothyroidism, liv-bcupitt-nllizqrxj diabetes. PAST SURGICAL HISTORY: Appendectomy, breast biopsy, tubal ligation, coronary artery bypass, cataract surgery, cholecystectomy, hysterectomy. MEDICATIONS: Aspirin, albuterol, atorvastatin, baclofen, Flovent, glipizide, levothyroxine, loperamide, metoprolol. ALLERGIES: MULTIPLE: IV DYE, PLAQUENIL, LEVOFLOXACIN, DOXYCYCLINE, BACTRIM, MORPHINE, VICODIN, LISINOPRIL, VANCOMYCIN. SOCIAL HISTORY: Patient denies tobacco use. PHYSICAL EXAMINATION: Evaluation of the left hip, there is limited range of motion with severe pain, diffuse tenderness. Straight leg raise negative. Positive hip impingement sign. Distal neurovascular exam is intact. RADIOGRAPHS: Radiographs of the left hip reveal severe osteoarthritic changes. IMPRESSION: 1. Left hip osteoarthritis. 2. Hypertension. 3. Hyperlipidemia. 4. Hypothyroidism. 5. Lfd-hlhqpoi-yskgzjfur diabetes. PLAN: Direct anterior left total hip arthroplasty. Surgery scheduled for 04/13/2018. MMODL / IJN: [id number] /
[~2018-04-13 08:53] MED LIST changes: -LACTATED RINGERS 1,000 ML IV SCH; -MIDAZOLAM 2 MG/2 ML VIAL IV PRN; -VANCOMYCIN 1,250 MG in SODIUM CHLORIDE 0.9% 250 ML IVPB ONE; -ceFAZolin 2 GM in SODIUM CHLORIDE 0.9% 100 ML IVPB ONE; +fentaNYL (PF) 50 MCG/ML 2 ML AMP IV PRN
[2018-04-13] MEDS ORDERED: VANCOMYCIN 1,250 MG in SODIUM CHLORIDE 0.9% 250 ML IVPB ONE (10:00)
[2018-04-13] MEDS: LACTATED RINGERS 1,000 ML IV SCH (10:07)
[2018-04-13] MEDS ORDERED: LIDOCAINE 1% 20 ML VIAL (10MG/ML) FOR IV START INTRADERMA ONE (10:07)
[2018-04-13] MEDS ORDERED: MELOXICAM 7.5 MG TAB PO ONE (10:15)
[2018-04-13] MEDS ORDERED: ACETAMINOPHEN TAB 500 MG TAB PO ONE (10:15)
[2018-04-13] MEDS ORDERED: TRANEXAMIC ACID 1,000 MG in SODIUM CHLORIDE 0.9% 50 ML IVPB ONE ×4 (10:15)
[2018-04-13 10:21] LABS: Glucose,Whole Blood 202 mg/dL (75-99)
[2018-04-13] MEDS ORDERED: ROPIVACAINE 246.25 MG, EPINEPHrine 0.5 MG, KETOROLAC 30 MG, cloNIDine HCL/PF 80 MCG, WA... MISCELLANE ONE ×5 (11:13)
[2018-04-13] MEDS ORDERED: TRANEXAMIC ACID 1,000 MG/10 ML VIAL ONE (11:25)
[2018-04-13] MEDS ORDERED: MIDAZOLAM 2 MG/2 ML VIAL ONE (11:25)
[2018-04-13] MEDS ORDERED: PHENYLEPHRINE-0.9% NACL SYG 1 MG/10 ML SYRINGE ONE (11:25)
[2018-04-13] MEDS ORDERED: SODIUM CHLORIDE 0.9% 100 ML BAG ONE (11:25)
[2018-04-13] MEDS ORDERED: DEXAMETHASONE SOD PHOS (MDV) 100 MG/10 ML VIAL ONE (11:25)
[2018-04-13] MEDS ORDERED: ePHEDrine SULFATE/0.9% NACL/PF 50 MG/5 ML SYRINGE IV ONE (11:25)
[2018-04-13] MEDS ORDERED: GLYCOPYRROLATE 0.2 MG/ML 2 ML VIAL ONE (11:25)
[2018-04-13] MEDS ORDERED: ceFAZolin 3,000 MG in SODIUM CHLORIDE 0.9% IRRIGATIO 3,000 ML IRRIGATION ONE (12:12)
[2018-04-13] MEDS ORDERED: LACTATED RINGERS 1,000 ML IV ONE (13:01)
[2018-04-13] MEDS ORDERED: HYDROmorphone 1 MG/ML 1 ML SYRINGE IVP PRN ×3 (13:15)
[2018-04-13] MEDS ORDERED: NALOXONE 0.4 MG/ML 1 ML VIAL IV PRN (13:15)
[2018-04-13] MEDS ORDERED: HYDROcodone/APAP 7.5-325MG 1 EACH TAB PO PRN (13:15)
[2018-04-13] MEDS ORDERED: ONDANSETRON 4 MG/2 ML VIAL IVP PRN (13:15)
--- NOTE | 2018-04-13 13:15 | P.OP ---
Date of Procedure: 04/13/18 Preoperative Diagnosis: Left hip osteoarthritis Postoperative Diagnosis: Left hip osteoarthritis Procedure(s) Performed: Direct anterior left total hip arthroplasty Implants: 1. Lauren Corail KA size 11 standard collar press-fit femoral stem 2. [place] pinnacle 52 mm acetabular press-fit shell 3. [place] pinnacle polyethylene acetabular liner neutral 36 mm ID 52 mm OD 4. Biolox delta ceramic femoral head +1.5 36 Anesthesia: local, spinal Surgeon: Jackson Palma Neon Installer #1: Blu Goldberg Estimated Blood Loss (ml): 1,000 Pathology: none sent (Femoral head) Condition: stable Disposition: PACU Indications for Procedure: 67-year-old patient seen with symptomatic left hip osteoarthritis. After having treatment options discussed, she elected to proceed with total hip arthroplasty. Operative Findings: See description of procedure Description of Procedure: The patient was taken to the operative suite. Patient underwent a spinal anesthetic by the department of anesthesia. Patient was then transferred to the [place] table. Patient was given preoperative IV antibiotics and TXA. Both lower extremities were placed in standard leg spars. The hip was then prepped and draped in the normal sterile orthopedic fashion. A standard anterior incision was made beginning 3 cm lateral and 1 cm distal to the ASIS extending 10 cm. Dissection was then carried down through the subcutaneous soft tissues down to the fascia overlying the tensor fascia jeff. An incision was now made through the fascia. Careful dissection was taken down exposing the tensor fascia jeff muscle. A Cobra retractor was now placed along the medial femoral neck and a second one along the lateral femoral neck. The venous circumflex vessels were now identified, cauterized and clipped. We identified the anterior hip capsule. An incision was made through the hip capsule along the lateral border. I performed a partial anterior capsulectomy. Retractors were now placed around the femoral neck itself. A femoral neck cut was now made with a sagittal saw. It was completed with an osteotome at the lateral neck area. The femoral head was now removed without difficulty. The extremity was now rotated to 45 of external rotation. It was locked in position. Residual labrum was now debrided out. Serial reaming was performed of the acetabulum while Cisco WHITAKER assisted holding an anterior retractor for exposure. Once we reached the appropriate size and a trial was position and fit nicely. The appropriate size was now chosen opened and made available. It was introduced into the acetabulum without difficulty. The C-arm/fluoroscopy was now brought into the operative field. We made sure we had a true AP pelvic view. We now under direct C-arm/fluoroscopy introduced into the acetabular component with appropriate version and inclination. I held the cup in appropriate position well Cisco WHITAKER used a mallet to seat the acetabular component. I noted the component now to be well seated and stable. Acetabular cup introduce her was removed. The C-arm was pulled back. An appropriate liner was introduced and clicked into position. It was felt to be stable. At this point retractors were removed. The extremity was now placed into 120 external rotation with no traction. The leg was now dropped to the ground and adducted. Appropriate retractors were now positioned along the proximal femur. We also placed our femoral look into position. Additional capsular releasing was performed to gain access to the proximal femur. We now used a box osteotome. A canal finder was now utilized. Serial broaching was now performed with the assistance of Cisco WHITAKER tapping the broaches down with a mallet while held the broach in appropriate rotation and position. This was done until we reached the appropriate size with good overall rotational stability. Appropriate calcar planing was performed. A trial head/neck was placed into position. The hip was now reduced. The C-arm/fluoroscopy was brought back into the operative field. A spot film was obtained of the nonoperative hip. A spot film was obtained of the trial components. Overlays were performed, we noted good overall alignment and positioning for determining leg length. The C- arm/fluoroscopy was pulled back. Retractors were repositioned and the hip was dislocated. The leg was again taken down to the ground and adducted. Appropriate retractors were repositioned as well as the femoral hook. All trial components were removed. The femoral implant was opened along with the femoral head. The femoral implant was introduced on the appropriate handle into our pre-broached area. I held the component position well Cisco WHITAKER used a mallet to seat the femoral component. The femoral component was now noted to be well seated and stable.. The femoral head was introduced with good positioning and fixation noted. Retractors were now removed. The hip was now reduced. There appeared be good positioning of the hip confirmed on intraoperative fluoroscopy. Spot films were obtained to document this. A second gram of TXA was given. The deep and superficial soft tissues were infiltrated with local analgesic. Bipolar cautery had been utilized intermittently through the procedure for hemostasis. The wound was irrigated copiously with pulse lavage mechanical irrigation. The fascia was repaired with Vicryl suture. The subcutaneous soft tissues were repaired in layers with Vicryl suture. The skin was approximated with pernio/Dermabond. Sterile dressings were applied. Patient was then awakened, transferred to a bed and taken to recovery in stable condition. Cisco WHITAKER assisted with the complex procedure.
[2018-04-13 13:57] LABS: Glucose,Whole Blood 182 mg/dL (75-99)
--- NOTE | 2018-04-13 14:08 | FL ---
Fluoroscopy History: Lt Hip-Ant 16sec fluoro time
[2018-04-13] MEDS: HYDROcodone/APAP 7.5-325MG 1 EACH TAB PO PRN ×2 (17:47→23:20)
[2018-04-13 17:52] LABS: Glucose,Whole Blood 248 mg/dL (75-99)
--- NOTE | 2018-04-13 18:42 | P.CONS ---
History of Present Illness - Reason for Consult Consult date: 04/13/18 Medical management Requesting physician: Jackson Palma - Chief Complaint Consult for medical management - History of Present Illness The patient is a [age]-year-old obese female with a complex past medical history including asthma coronary artery disease, history of CVA/TIA, GERD, T2DM, hypertension, hyperlipidemia, seizure disorder, sleep apnea who is currently postop day #0 status post left hip arthroplasty secondary to history of severe left hip osteoarthritis performed by Dr. Palma earlier today. The patient is doing well postop denies any chest pain or shortness of breath, denies any wheezing, nausea vomiting or abdominal pain. She actually has no complaints today. She reports she was cleared by cardiology Dr. Roach and her PCP Dr. Mares after having a reportedly negative echocardiogram and stress test prior to her procedure today. Review of Systems Pertinent positives per HPI, all other review of systems otherwise negative Past Medical History Past Medical History: Asthma, Coronary Artery Disease (CAD), CVA/TIA, Diabetes Mellitus, Fibromyalgia, GERD/Reflux, Hyperlipidemia, Hypertension, Myocardial Infarction ([place]), Neurologic Disorder, Osteoarthritis (OA), Seizure Disorder, Sleep Apnea/CPAP/BIPAP, Thyroid Disorder Additional Past Medical History / Comment(s): back pain & hip pain, sarcoidosis , IBS, osteopenia, past hx of seizures, states has had both cva and tia, some left sided weakness, face numbness, some memory loss, possibly early stages of parkinsons, mengioma on her brain, Rahel fuentesangela (2016)- still has some numbness left face., frequent diarrhea., states left carotid artery 75 % blockage., walks only short distance and needs to sit down due to hip pain. Last Myocardial Infarction Date:: 2006 History of Any Multi-Drug Resistant Organisms: MRSA Year Discovered:: 2010 MDRO Source:: lung Past Surgical History: Appendectomy, Back Surgery, Breast Surgery, Cholecystectomy, Coronary Bypass/CABG, Heart Catheterization With Stent, Hysterectomy, Joint Replacement, Orthopedic Surgery, Tonsillectomy, Tubal Ligation Additional Past Surgical History / Comment(s): cervical spinal fusion, artie elbow surgery,total lt knee replacement, rt carotid artery, cataracts artie, benign tumor lt lung removed, lt ankle with hardware, laser surgery eyes, Heart Cath with 1 stent (2005)), cabg (2006), pin in finger and removed, drainage of pleural effusion, [facility] pain [facility] procedures, artie breast bx x2, eye surgery for macular hole in left eye., Right Carotid surgery. Past Anesthesia/Blood Transfusion Reactions: No Reported Reaction Additional Past Anesthesia/Blood Transfusion Reaction / Comm: claustrophobic. UNKNOWN RX PRIOR TO HEART CATH MADE HER LEGS "JUMP". HX OF BLOOD TRANSFUSION ( NO REACTION). STATES DIFFICULTY LYING FLAT- NEEDS PILLOW AND "EASES IN TO LYING FLAT" Date of Last Stent Placement:: 2005 Past Psychological History: No Psychological Hx Reported Smoking Status: Former smoker Past Alcohol Use History: None Reported Additional Past Alcohol Use History / Comment(s): former smoker 44 years, 2ppd, quit 2005 Past Drug Use History: None Reported - Past Family History Sister(s) Family Medical History: Cancer Additional Family Medical History / Comment(s): Cervical cancer; lung cancer Brother(s) Family Medical History: Cancer Additional Family Medical History / Comment(s): Pancreatic, prostate; lung cancer Medications and Allergies Home Medications Medication Instructions Recorded Confirmed Type Aspirin 325 mg PO DAILY 06/11/16 04/13/18 History Baclofen 10 mg PO HS 06/11/16 04/13/18 History Clopidogrel [Plavix] 75 mg PO DAILY 06/11/16 04/13/18 History Isosorbide Mononitrate ER [Imdur] 60 mg PO DAILY 06/11/16 04/13/18 History Metoprolol Tartrate [Lopressor] 25 mg PO BID 06/11/16 04/13/18 History NIFEdipine XL [Procardia XL] 60 mg PO DAILY@1200 09/03/16 04/13/18 History Albuterol Nebulized [Ventolin 2.5 mg INHALATION RT-Q4H PRN 12/12/16 04/13/18 History Nebulized] Atorvastatin [Lipitor] 40 mg PO HS 04/22/17 04/13/18 History Nitroglycerin [Nitroglycerin 1 spray TRANSLINGU Q5M PRN 04/22/17 04/13/18 History 400MCG [place]] SUMAtriptan SUCCINATE [Imitrex] 50 mg PO BID PRN 04/22/17 04/13/18 History Albuterol Inhaler [Ventolin Hfa 1 - 2 puff INHALATION RT-Q6H PRN 04/28/17 History Inhaler] Fluticasone Propionate [Flovent 2 puff INHALATION RT-BID 04/28/17 04/13/18 History Hfa 110mcg] Gabapentin [Neurontin] 200 mg PO TID 04/28/17 04/13/18 History Melatonin 7.5 mg PO HS 09/04/17 04/13/18 History Levothyroxine Sodium [Synthroid] 88 mcg PO DAILY 11/27/17 04/13/18 History Pantoprazole [Protonix] 40 mg PO DAILY 01/01/18 04/13/18 History Ranitidine HCl 150 mg PO HS 01/01/18 04/13/18 History Cholecalciferol [Vitamin D3] 1,000 unit PO DAILY 04/03/18 04/13/18 History Cyanocobalamin [Vitamin B-12] 500 mcg PO DAILY 04/03/18 04/13/18 History Loperamide HCl [Loperamide] 2 mg PO DAILY PRN 04/03/18 04/13/18 History Magnesium 200 mg PO DAILY 04/03/18 04/13/18 History glipiZIDE [Glucotrol] 10 mg PO AC-BID 04/03/18 04/13/18 History oxyCODONE HCL/ACETAMINOPHEN 1 tab PO TID PRN 04/03/18 04/13/18 History [Percocet 5-325 mg] Allergies Allergy/AdvReac Type Severity Reaction Status Date / Time fluconazole Allergy Itching Verified 04/13/18 16:01 hydrocodone Allergy Itching-states Verified 04/13/18 16:01 "can't take too many in a row" Iodinated Contrast- Oral and Allergy Anaphylaxis Verified 04/13/18 16:01 IV Dye /Rash/Itchi [Iodinated Contrast Media - ng IV Dye] shellfish derived [Shrimp] Allergy Anaphylaxis- Verified 04/13/18 16:01 FEELS LIKE THROAT CLOSING vancomycin Allergy Itching Verified 04/13/18 16:01 venom-honey bee Allergy Swelling/It Verified 04/13/18 16:01 [bee venom (honey bee)] suellen doxycycline AdvReac Nausea & Verified 04/13/18 16:01 Vomiting fluticasone AdvReac Loss of Verified 04/13/18 16:01 Voice hydroxychloroquine AdvReac Nausea & Verified 04/13/18 16:01 [From Plaquenil] Vomiting levofloxacin AdvReac Nausea & Verified 04/13/18 16:01 Vomiting lisinopril AdvReac Cough Verified 04/13/18 16:01 morphine AdvReac Nausea & Verified 04/13/18 16:01 Vomiting ropinirole AdvReac Nausea & Verified 04/13/18 16:01 Vomiting sulfamethoxazole AdvReac Nausea & Verified 04/13/18 16:01 [From Bactrim] Vomiting trimethoprim [From Bactrim] AdvReac Nausea & Verified 04/13/18 16:01 Vomiting Physical Exam Vitals: Vital Signs Temp Pulse Resp BP Pulse Ox 04/13/18 16:45 89 148/83 04/13/18 16:30 98 129/66 04/13/18 16:15 99 126/66 04/13/18 16:00 93 142/69 04/13/18 14:30 87 16 130/60 99 04/13/18 14:15 83 16 134/60 99 04/13/18 14:00 82 16 142/64 95 04/13/18 13:46 97.1 F L 92 15 136/65 97 04/13/18 10:02 97.4 F L 59 L 18 148/67 97 Intake and Output 04/13/18 04/13/18 04/13/18 06:59 14:59 22:59 Intake Total 1451 Output Total 1000 Balance 451 Intake: IV 1451 Output: Estimated Blood Loss 1000 Other: Weight 86.183 kg Constitutional: No acute distress, conversant, pleasant Eyes: Anicteric sclerae, moist conjunctiva, no lid-lag, PERRLA ENMT: NC/AT,Oropharynx clear, no erythema, exudates Neck:Supple, FROM, no masses, or JVD, No carotid bruits; No thyromegaly Lungs: Clear to auscultation, Clear to percussion, Normal respiratory effort, no accessory muscle use Cardiovascular: Heart regular in rate and rhythm, No murmurs, gallops, or rubs no peripheral edema Abdominal: Soft Nontender, nom distended, no guarding, no rebound or rigidity, Normoactive bowel sounds No hepatomegaly, No splenomegaly, No palpable mass No abdominal wall hernia noted Skin: Normal temperature, tone, texture, turgor, No induration No subcutaneous nodules, No rash, lesions, No ulcers Extremities:No digital cyanosis No clubbing, Pedal pulses intact and symmetrical Radial pulses intact and symmetrical Normal gait and station, No calf tenderness Psychiatric: Alert and oriented to person, place and time, Appropriate affect Intact judgement Neuro: Muscles Strength 5/5 in all 4 extremities, Sensation to light touch grossly present throughout, Cranial nerves II-XII grossly intact. No focal sensory deficits Results Labs: Abnormal Lab Results - Last 24 Hours (Table) 04/13/18 04/13/18 04/13/18 Range/Units 10:03 13:55 17:50 POC Glucose (mg/dL) 202 H 182 H 248 H (75-99) mg/dL Assessment and Plan (1) CAD (coronary artery disease) of artery bypass graft Current Visit: No Status: Chronic Priority: Low Onset Date: Unknown Code (s): I25.810 - ATHEROSCLEROSIS OF CABG W/O ANGINA PECTORIS SNOMED Code(s): 197094582 (2) Essential hypertension Current Visit: No Status: Chronic Priority: Medium Code(s): I10 - ESSENTIAL (PRIMARY) HYPERTENSION SNOMED Code(s): 19834743 (3) GERD (gastroesophageal reflux disease) Current Visit: No Status: Chronic Priority: Medium Code(s): K21.9 - GASTRO -ESOPHAGEAL REFLUX DISEASE WITHOUT ESOPHAGITIS SNOMED Code(s): 629594286 (4) HTN (hypertension) Current Visit: No Status: Chronic Code(s): I10 - ESSENTIAL (PRIMARY) HYPERTENSION SNOMED Code(s): 72361756 (5) Type 2 diabetes mellitus Current Visit: No Status: Chronic Priority: Low Code(s): E11.9 - TYPE 2 DIABETES MELLITUS WITHOUT COMPLICATIONS SNOMED Code(s): 96539816 Plan: The patient is admitted to primary orthopedic service under currently postop after having left hip total arthroplasty secondary to severe left hip osteoarthritis. Doing well postop. Hemodynamically stable. Resume all home medications including dual antiplatelet therapy, beta blockers. hr blood sugar slightly elevated resume home diabetic regimen with Accu-Cheks planned. Defer pain management to primary team. We'll continue to follow her clinical course I appreciate opportunity to be involved in ongoing care of this patient. We'll continue to follow with you
[2018-04-13] MEDS: traMADol 50 MG TAB PO SCH ×2 (18:57→23:20)
[2018-04-13] MEDS: SODIUM CHLORIDE 0.9% 1,000 ML IV SCH ×2 (18:57→19:27)
[2018-04-13 19:48] LABS: Glucose,Whole Blood 259 mg/dL (75-99)
[2018-04-13] MEDS: INSULIN ASPART 100 UNIT/ML 1 ML 10 ML VIAL SQ SCH (20:13)
[2018-04-13] MEDS: ATORVASTATIN 40 MG TAB PO SCH (20:13)
[2018-04-13] MEDS: BACLOFEN 10 MG TAB PO SCH (20:13)
[2018-04-13] MEDS: MELATONIN 5 MG TABLET PO SCH (20:14)
[2018-04-13] MEDS: METOPROLOL TARTRATE 25 MG TAB PO SCH (20:14)
[2018-04-13] MEDS: GABAPENTIN 100 MG CAP PO SCH (20:14)
[2018-04-13] MEDS: SENNOSIDES-DOCUSATE SODIUM 1 EACH TAB PO SCH (20:14)
[2018-04-14] MEDS: FLUTICASONE 110 MCG INHALER INHALATION SCH ×3 (00:06→21:15)
[2018-04-14] MEDS: HYDROcodone/APAP 7.5-325MG 1 EACH TAB PO PRN ×3 (04:33→17:56)
[2018-04-14] MEDS: LEVOTHYROXINE 88 MCG TAB PO SCH (04:36)
[2018-04-14] MEDS: LACTATED RINGERS 1,000 ML IV SCH (05:44)
[2018-04-14 07:16] LABS: Glucose,Whole Blood 217 mg/dL (75-99)
[2018-04-14 07:57] LABS: Basophils % (A) 0 %; Eosinophils % (A) 0 %; Lymphocytes # (A) 0.6 k/uL (1.0-4.8); Lymphocytes % (A) 7 %; MCH 28.4 pg (25.0-35.0); MCHC 33.4 g/dL (31.0-37.0); Mean Platelet Volume 7.9; Monocytes # (A) 0.5 k/uL (0-1.0); Monocytes % (A) 5 %; Neutrophils # (A) 7.5 k/uL (1.3-7.7); Neutrophils % (A) 87 %; Platelet Count 184 k/uL (150-450); RBC 3.41 m/uL (3.80-5.40); RDW 13.9 % (11.5-15.5); WBC 8.6 k/uL (3.8-10.6)
[2018-04-14 08:01] LABS: HGB 9.7 gm/dL (11.4-16.0)
[2018-04-14] MEDS: ISOSORBIDE MONONITRATE ER 60 MG TAB.ER.24H PO SCH (08:01)
[2018-04-14] MEDS: GABAPENTIN 100 MG CAP PO SCH ×3 (08:02→21:45)
[2018-04-14] MEDS: CHOLECALCIFEROL 1,000 UNIT TAB PO SCH (08:02)
[2018-04-14] MEDS: glipiZIDE 10 MG TAB PO SCH ×2 (08:02→17:57)
[2018-04-14] MEDS: ASPIRIN 325 MG TAB PO SCH (08:02)
[2018-04-14] MEDS: traMADol 50 MG TAB PO SCH ×4 (08:02→21:46)
[2018-04-14] MEDS: INSULIN ASPART 100 UNIT/ML 1 ML 10 ML VIAL SQ SCH ×4 (08:03→21:44)
[2018-04-14] MEDS: MAGNESIUM OXIDE 400 MG TAB PO SCH (08:03)
[2018-04-14] MEDS: CYANOCOBALAMIN 500 MCG TAB PO SCH (08:03)
[2018-04-14] MEDS: PANTOPRAZOLE 40 MG TABLET PO SCH (08:03)
[2018-04-14] MEDS: METOPROLOL TARTRATE 25 MG TAB PO SCH ×2 (08:03→21:47)
[2018-04-14] MEDS: CLOPIDOGREL 75 MG TAB PO SCH (08:03)
[2018-04-14] MEDS ORDERED: ENOXAPARIN 40 MG/0.4 ML SYRINGE SQ SCH (09:00)
[2018-04-14] MEDS ORDERED: MELOXICAM 7.5 MG TAB PO SCH (09:00)
[2018-04-14] MEDS ORDERED: FAMOTIDINE 20 MG TAB PO SCH (09:00)
[2018-04-14 11:49] LABS: Glucose,Whole Blood 163 mg/dL (75-99)
--- NOTE | 2018-04-14 11:52 | P.PN ---
Subjective Progress Note Date: 04/14/18 Principal diagnosis: Status post left total hip arthroplasty Patient seen today resting in her hospital chair, she does have family at bedside. She has minimally with therapy. She denies any acute pain. She denies any chest pain or shortness of breath. Objective - Vital Signs Vital signs: Vital Signs Temp 98.5 F 04/14/18 07:00 Pulse 54 L 04/14/18 07:00 Resp 12 04/14/18 07:00 BP 148/68 04/14/18 07:00 Pulse Ox 98 04/14/18 07:00 Intake & Output 04/13/18 04/14/18 04/14/18 18:59 06:59 18:59 Intake Total 1451 Output Total 1000 Balance 451 Weight 86.183 kg Intake: IV 1451 Output: Estimated Blood Loss 1000 Other: Voiding Method Bedside Commode # Voids 2 - Exam Left lower extremity: Incision is clean, dry, and intact. The prineo tape is in good condition. There is minimal soft tissue swelling and ecchymosis surrounding the medial and lateral aspects of the incision. Calf is soft, no tenderness with palpation. Plantar flexion, dorsiflexion, EHL, FHL are intact. Sensory exam to light touch throughout the extremity is intact, dorsal pedis pulses 2+. - Labs CBC & Chem 7: 04/14/18 06:22 Labs: Abnormal Lab Results - Last 24 Hours (Table) 04/13/18 04/13/18 04/13/18 Range/Units 13:55 17:50 19:46 RBC (3.80-5.40) m/uL Hgb (11.4-16.0) gm/dL Hct (34.0-46.0) % Lymphocytes # (1.0-4.8) k/uL POC Glucose (mg/dL) 182 H 248 H 259 H (75-99) mg/dL 04/14/18 04/14/18 04/14/18 Range/Units 06:22 07:13 11:48 RBC 3.41 L (3.80-5.40) m/uL Hgb 9.7 L D (11.4-16.0) gm/dL Hct 29.0 L (34.0-46.0) % Lymphocytes # 0.6 L (1.0-4.8) k/uL POC Glucose (mg/dL) 217 H 163 H (75-99) mg/dL Assessment and Plan Plan: Assessment: Postoperative day #1 status post left total hip arthroplasty Plan: Pain control, continue subcu current medication GI and DVT prophylaxis, continue Lovenox Continue work physical therapy Encourage incentive spirometer Daily dressing changes/ice the extremity Medical recommendations Discharge planning: Patient will likely be discharged home tomorrow Time with Patient: Less than 30
[2018-04-14 14:19] LABS: Hemoglobin A1C 8.4 % (4.0-6.0)
--- NOTE | 2018-04-14 16:34 | P.PN ---
Subjective Progress Note Date: 04/14/18 Patient doing well postop day #1 status post left total hip arthroplasty, appears comfortable, reports her pain is tolerable, hasn't had a bowel movement as yet. Working well with her incentive spirometry, plans to work with PT Objective - Vital Signs Vital signs: Vital Signs Temp 98.5 F 04/14/18 07:00 Pulse 54 L 04/14/18 07:00 Resp 12 04/14/18 07:00 BP 148/68 04/14/18 07:00 Pulse Ox 98 04/14/18 07:00 Intake & Output 04/13/18 04/14/18 04/14/18 18:59 06:59 18:59 Intake Total 1451 Output Total 1000 Balance 451 Weight 86.183 kg Intake: IV 1451 Output: Estimated Blood Loss 1000 Other: Voiding Method Bedside Commode # Voids 2 - Exam Constitutional: No acute distress, conversant, pleasant Eyes: Anicteric sclerae, moist conjunctiva, no lid-lag, PERRLA ENMT: NC/AT,Oropharynx clear, no erythema, exudates Neck:Supple, FROM, no masses, or JVD, No carotid bruits; No thyromegaly Lungs: Clear to auscultation, Clear to percussion, Normal respiratory effort, no accessory muscle use Cardiovascular: Heart regular in rate and rhythm, No murmurs, gallops, or rubs no peripheral edema Abdominal: Soft Nontender, nom distended, no guarding, no rebound or rigidity, Normoactive bowel sounds No hepatomegaly, No splenomegaly, No palpable mass No abdominal wall hernia noted Skin: Normal temperature, tone, texture, turgor, No induration No subcutaneous nodules, No rash, lesions, No ulcers Extremities: Incision clean dry and intact, minimal soft tissue swelling and ecchymosis surrounding incision, neurovascularly intact, with good pulses Psychiatric: Alert and oriented to person, place and time, Appropriate affect Intact judgement Neuro: Muscles Strength 5/5 in all 4 extremities, Sensation to light touch grossly present throughout, Cranial nerves II-XII grossly intact. No focal sensory deficits - Labs CBC & Chem 7: 04/14/18 06:22 Labs: Abnormal Lab Results - Last 24 Hours (Table) 04/13/18 04/13/18 04/13/18 Range/Units 13:55 17:50 19:46 RBC (3.80-5.40) m/uL Hgb (11.4-16.0) gm/dL Hct (34.0-46.0) % Lymphocytes # (1.0-4.8) k/uL POC Glucose (mg/dL) 182 H 248 H 259 H (75-99) mg/dL 04/14/18 04/14/18 04/14/18 Range/Units 06:22 07:13 11:48 RBC 3.41 L (3.80-5.40) m/uL Hgb 9.7 L D (11.4-16.0) gm/dL Hct 29.0 L (34.0-46.0) % Lymphocytes # 0.6 L (1.0-4.8) k/uL POC Glucose (mg/dL) 217 H 163 H (75-99) mg/dL Assessment and Plan (1) CAD (coronary artery disease) of artery bypass graft Narrative/Plan: * Stable asymptomatic, denies any chest pain * Continue dual antiplatelet therapy Current Visit: No Status: Chronic Priority: Low Onset Date: Unknown Code (s): I25.810 - ATHEROSCLEROSIS OF CABG W/O ANGINA PECTORIS SNOMED Code(s): 081109427 (2) Essential hypertension Current Visit: No Status: Chronic Priority: Medium Code(s): I10 - ESSENTIAL (PRIMARY) HYPERTENSION SNOMED Code(s): 66109834 (3) GERD (gastroesophageal reflux disease) Narrative/Plan: * Stable * Continue Protonix therapy Current Visit: No Status: Chronic Priority: Medium Code(s): K21.9 - GASTRO -ESOPHAGEAL REFLUX DISEASE WITHOUT ESOPHAGITIS SNOMED Code(s): 669045699 (4) HTN (hypertension) Narrative/Plan: * Blood pressure stable and controlled * Continue current regimen Current Visit: No Status: Chronic Code(s): I10 - ESSENTIAL (PRIMARY) HYPERTENSION SNOMED Code(s): 30244337 (5) Type 2 diabetes mellitus Narrative/Plan: * A1c 8.4 * Continue with Accu-Cheks and correctional scale insulin Current Visit: No Status: Chronic Priority: Low Code(s): E11.9 - TYPE 2 DIABETES MELLITUS WITHOUT COMPLICATIONS SNOMED Code(s): 43001516 Plan: Patient doing well postop day 1 status post left total hip arthroplasty. Anticipate discharge tomorrow, pain management per primary team
[2018-04-14 17:22] LABS: Glucose,Whole Blood 177 mg/dL (75-99)
[2018-04-14] MEDS: SODIUM CHLORIDE 0.9% 1,000 ML IV SCH (18:20)
[2018-04-14 21:01] LABS: Glucose,Whole Blood 175 mg/dL (75-99)
[2018-04-14] MEDS: MELATONIN 5 MG TABLET PO SCH (21:45)
[2018-04-14] MEDS: SENNOSIDES-DOCUSATE SODIUM 1 EACH TAB PO SCH (21:45)
[2018-04-14] MEDS: BACLOFEN 10 MG TAB PO SCH (21:46)
[2018-04-14] MEDS: ATORVASTATIN 40 MG TAB PO SCH (21:47)
[2018-04-15] MEDS: HYDROcodone/APAP 7.5-325MG 1 EACH TAB PO PRN ×3 (00:08→14:56)
[2018-04-15] MEDS: LACTATED RINGERS 1,000 ML IV SCH (03:22)
[2018-04-15] MEDS: LEVOTHYROXINE 88 MCG TAB PO SCH (05:48)
[2018-04-15 07:31] LABS: Glucose,Whole Blood 155 mg/dL (75-99)
[2018-04-15 07:50] LABS: Basophils % (A) 0 %; Eosinophils # (A) 0.1 k/uL (0-0.7); Eosinophils % (A) 3 %; HCT 26.8 % (34.0-46.0); HGB 8.9 gm/dL (11.4-16.0); Lymphocytes # (A) 1.4 k/uL (1.0-4.8); Lymphocytes % (A) 26 %; MCH 28.5 pg (25.0-35.0); MCHC 33.3 g/dL (31.0-37.0); MCV 85.6 fL (80.0-100.0); Mean Platelet Volume 7.9; Monocytes # (A) 0.4 k/uL (0-1.0); Monocytes % (A) 8 %; Neutrophils # (A) 3.4 k/uL (1.3-7.7); Neutrophils % (A) 61 %; Platelet Count 147 k/uL (150-450); RBC 3.13 m/uL (3.80-5.40); RDW 13.9 % (11.5-15.5); WBC 5.5 k/uL (3.8-10.6)
[2018-04-15 07:51] VITALS: BP 117/51; PULSE 60; RESP 16; TEMP 97.6
[2018-04-15] MEDS: glipiZIDE 10 MG TAB PO SCH (08:14)
[2018-04-15] MEDS: PANTOPRAZOLE 40 MG TABLET PO SCH (08:14)
[2018-04-15] MEDS: INSULIN ASPART 100 UNIT/ML 1 ML 10 ML VIAL SQ SCH ×2 (08:14→12:31)
[2018-04-15] MEDS: traMADol 50 MG TAB PO SCH ×2 (08:14→12:32)
[2018-04-15] MEDS: ASPIRIN 325 MG TAB PO SCH (08:48)
[2018-04-15] MEDS: METOPROLOL TARTRATE 25 MG TAB PO SCH (08:48)
[2018-04-15] MEDS: ISOSORBIDE MONONITRATE ER 60 MG TAB.ER.24H PO SCH (08:48)
[2018-04-15] MEDS: MAGNESIUM OXIDE 400 MG TAB PO SCH (08:48)
[2018-04-15] MEDS: CYANOCOBALAMIN 500 MCG TAB PO SCH (08:49)
[2018-04-15] MEDS: CHOLECALCIFEROL 1,000 UNIT TAB PO SCH (08:49)
[2018-04-15] MEDS: GABAPENTIN 100 MG CAP PO SCH (08:49)
[2018-04-15] MEDS: CLOPIDOGREL 75 MG TAB PO SCH (08:49)
[2018-04-15] MEDS: FLUTICASONE 110 MCG INHALER INHALATION SCH (09:15)
--- NOTE | 2018-04-15 11:21 | P.PN ---
Subjective Progress Note Date: 04/15/18 Principal diagnosis: left hip pain Patient is a 67-year-old female with a history of diabetes mellitus type 2 on oral medications not well-controlled with an A1c of 8.4, coronary artery disease, and TIA who presented for elective left total hip arthroplasty. She underwent left total hip arthroplasty on 04/13. She had approximately 1 L of intraoperative blood loss. She develop some postoperative anemia as well as anticipated that this was not symptomatic. She does have a history of anemia needing blood transfusions in the past. Patient seen and examined at bedside. Her pain is controlled. She is excited to go home. She denies any chest pain or shortness of breath. We had a long discussion about her diabetes. She states that Dr. Mares recently increased her glipizide to 10 mg twice daily from 5 mg. We discussed that her A1c is actually elevating from where was at January and is now 8.4. She reports increased stress and difficulty obtaining her testing strips. We discussed adding additional medication. She has been intolerant to metformin in the past secondary to diarrhea. She is agreeable to start Januvia. Objective - Vital Signs Vital signs: Vital Signs Temp 97.6 F 04/15/18 07:00 Pulse 60 04/15/18 07:00 Resp 16 04/15/18 07:00 BP 117/51 04/15/18 07:00 Pulse Ox 96 04/15/18 07:00 Intake & Output 04/14/18 04/15/18 04/15/18 18:59 06:59 18:59 Intake Total 540 Output Total 200 Balance -200 540 Intake: Oral 540 Output: Urine 200 Other: # Voids 2 2 1 - Exam General: non toxic, no distress, appears at stated age, obese Derm: warm, dry Head: atraumatic, normocephalic, symmetric Eyes: EOMI, no lid lag, anicteric sclera Mouth: no lip lesion, mucus membranes moist Cardiovascular: S1S2 reg, no murmur, positive posterior tibial pulse bilateral, Lungs: Increased breath sounds bilateral bases, no rhonchi, no rales , no accessory muscle use Abdominal: soft, nontender to palpation, no guarding, no appreciable organomegaly Ext: no gross muscle atrophy, trace edema left leg, no contractures Neuro: CN II-XI grossly intact, no focal neuro deficits Psych: Alert, oriented, appropriate affect - Labs CBC & Chem 7: 04/15/18 06:49 Labs: Abnormal Lab Results - Last 24 Hours (Table) 04/14/18 04/14/18 04/14/18 Range/Units 06:22 11:48 17:15 RBC (3.80-5.40) m/uL Hgb (11.4-16.0) gm/dL Hct (34.0-46.0) % Plt Count (150-450) k/uL POC Glucose (mg/dL) 163 H 177 H (75-99) mg/dL Hemoglobin A1c 8.4 H (4.0-6.0) % 04/14/18 04/15/18 04/15/18 Range/Units 21:00 06:49 07:20 RBC 3.13 L (3.80-5.40) m/uL Hgb 8.9 L (11.4-16.0) gm/dL Hct 26.8 L (34.0-46.0) % Plt Count 147 L (150-450) k/uL POC Glucose (mg/dL) 175 H 155 H (75-99) mg/dL Hemoglobin A1c (4.0-6.0) % Assessment and Plan Assessment: Diabetes mellitus type 2, uncontrolled with A1c 8.4 -Continue with his eye, and Januvia -New prescription for Accu-Chek with test strips was provided for patient -Follow up with Dr. Mares upon discharge Acute blood loss anemia -Oral iron supplementation twice daily 30 days -Repeat CBC in 1 week with results to Dr. Mares. Will be obtained with home health care. Osteoarthritis status post left total hip arthroplasty -Management per primary team Morbid obesity -Structured outpatient weight loss Thrombocytopenia - follow CBC Patient is medically stable for discharge at the discretion of orthopedics.
[2018-04-15 11:59] LABS: Glucose,Whole Blood 163 mg/dL (75-99)
--- NOTE | 2018-04-15 12:48 | P.PN ---
Subjective Progress Note Date: 04/15/18 Principal diagnosis: Status post left total hip arthroplasty Patient seen today resting in her hospital chair, she does have family at bedside. She denies any acute pain. She denies any chest pain or shortness of breath. Objective - Vital Signs Vital signs: Vital Signs Temp 97.6 F 04/15/18 07:00 Pulse 60 04/15/18 07:00 Resp 16 04/15/18 07:00 BP 117/51 04/15/18 07:00 Pulse Ox 96 04/15/18 07:00 Intake & Output 04/14/18 04/15/18 04/15/18 18:59 06:59 18:59 Intake Total 540 Output Total 200 Balance -200 540 Intake: Oral 540 Output: Urine 200 Other: # Voids 2 2 1 - Exam Left lower extremity: Incision is clean, dry, and intact. The prineo tape is in good condition. There is minimal soft tissue swelling and ecchymosis surrounding the medial and lateral aspects of the incision. Calf is soft, no tenderness with palpation. Plantar flexion, dorsiflexion, EHL, FHL are intact. Sensory exam to light touch throughout the extremity is intact, dorsal pedis pulses 2+. - Labs CBC & Chem 7: 04/15/18 06:49 Labs: Abnormal Lab Results - Last 24 Hours (Table) 04/14/18 04/14/18 04/14/18 Range/Units 06:22 17:15 21:00 RBC (3.80-5.40) m/uL Hgb (11.4-16.0) gm/dL Hct (34.0-46.0) % Plt Count (150-450) k/uL POC Glucose (mg/dL) 177 H 175 H (75-99) mg/dL Hemoglobin A1c 8.4 H (4.0-6.0) % 04/15/18 04/15/18 04/15/18 Range/Units 06:49 07:20 11:57 RBC 3.13 L (3.80-5.40) m/uL Hgb 8.9 L (11.4-16.0) gm/dL Hct 26.8 L (34.0-46.0) % Plt Count 147 L (150-450) k/uL POC Glucose (mg/dL) 155 H 163 H (75-99) mg/dL Hemoglobin A1c (4.0-6.0) % Assessment and Plan Plan: Assessment: Postoperative day #2 status post left total hip arthroplasty Plan: Pain control, plan for discharge on [place] and tramadol GI and DVT prophylaxis, will utilize aspirin 325 mg twice a day after discharge Continue work physical therapy Encourage incentive spirometer Daily dressing changes/ice the extremity Medical recommendations Discharge planning: Plan for discharge home today Time with Patient: Less than 30
--- NOTE | 2018-04-15 12:57 | P.DS ---
Providers Date of admission: 04/13/18 08:53 Expected date of discharge: 04/15/18 Attending physician: Jackson Palma Consults: 04/13/18 13:15 Consult Physician Routine Consulting Provider: Melissa Mares Consult Reason/Comments: Medical management Do you want consulting provider notified?: Yes Primary care physician: Melissa Mares MD Hospital Course: Date of admission: 04/13/2018 Date of discharge: 04/15/2018 Admission diagnosis: Status post left total arthroplasty Discharge diagnosis: Same Attending physician: Dr. Palma Surgical procedures: Left total knee arthroplasty Brief history: Patient is a 67-year-old female with a history of progressive primary left knee arthritis. At this point patient has failed conservative treatment measures and has opted to proceed with a elective left total knee arthroplasty. Hospital course: Details of patient's surgery can be found in operative report. Patient tolerated the procedure well and was subsequently transported to orthopedic floor. Patient's orthopeidc and medical care was provided daily. Patient had daily laboratory tests performed for evaluation of overall blood counts. Patient had daily physical therapy to include strengthening range of motion as well as education with walker ambulation. Patient was treated with Lovenox for their postoperative DVT prophylaxis during their inpatient stay. Patient was noted to have a relatively uneventful postoperative course. Patient reported satisfactory pain control with oral pain medications by postoperative day 1. Patient showed satisfactory progress with physical therapy. Patient moved steadily through the program and had no difficulty meeting the goals by postoperative day 2. Given patient's otherwise satisfactory course and having met physical therapy goals, plan is to discharge patient home on postoperative day 2. Discharge condition/disposition: Patient will be discharged home in stable condition. Discharge medications: Instructions are given on resumption of patient's normal daily medications per primary care recommendation, in addition patient will be prescribed [place] 7.5 mg/325 mg, ferrous sulfate, Januvia. Discharge instructions: 1. Wound care and infection precautions, keep incision dry and covered while showering, no lotions, creams, moisturizers. No soaking, tubs, pools, hottubs. Do not scrub over the incision. 2. Weight-bear as tolerated with walker / cane until follow-up. 3. Ice and elevate when necessary. Do not exceed 20 minutes per hour with ice pack. 4. Utilize compression sleeve until seen at first follow up appointment. 5. Visiting nursing care. 6. Home physical therap. 7. Pain meds and anticoagulants per prescription. 8. Pain medication has potential to cause constipation. Increase oral fluid and fiber intake. Contact primary care provider if you have not had a bowel movement within 48 hours after discharge 9. No anti-inflammatory medication until discussed at first post operative visit, this including Motrin, Aleve, Mobic, Diclofenac 10. Follow up in office at 2 weeks postop with Cisco Goldberg PA-C 11. Follow up with your primary care doctor 7-10 days after discharge. 12. Contact [facility] with any questions, . Procedures: Left total hip arthroplasty Patient Condition at Discharge: Good Plan - Discharge Summary Discharge Rx Participant: Yes New Discharge Prescriptions: New Ferrous Sulfate [Iron (65 MG Elemental)] 325 mg PO BID #60 tab sitaGLIPtin [Januvia] 100 mg PO DAILY #30 tab HYDROcodone/APAP 7.5-325MG [[place] 7.5] 1 - 2 each PO Q6HR PRN #40 tab PRN Reason: Pain traMADol HCl [Ultram] 50 mg PO Q6H PRN #28 tab PRN Reason: Pain Continue Baclofen 10 mg PO HS Clopidogrel [Plavix] 75 mg PO DAILY Metoprolol Tartrate [Lopressor] 25 mg PO BID Isosorbide Mononitrate ER [Imdur] 60 mg PO DAILY NIFEdipine XL [Procardia XL] 60 mg PO DAILY@1200 Albuterol Nebulized [Ventolin Nebulized] 2.5 mg INHALATION RT-Q4H PRN PRN Reason: Shortness Of Breath Nitroglycerin [Nitroglycerin 400MCG [place]] 1 spray TRANSLINGU Q5M PRN PRN Reason: Chest Pain SUMAtriptan SUCCINATE [Imitrex] 50 mg PO BID PRN PRN Reason: Migraine Headache Atorvastatin [Lipitor] 40 mg PO HS Fluticasone Propionate [Flovent Hfa 110mcg] 2 puff INHALATION RT-BID Gabapentin [Neurontin] 200 mg PO TID Albuterol Inhaler [Ventolin Hfa Inhaler] 1 - 2 puff INHALATION RT-Q6H PRN PRN Reason: Shortness Of Breath Melatonin 7.5 mg PO HS Levothyroxine Sodium [Synthroid] 88 mcg PO DAILY Pantoprazole [Protonix] 40 mg PO DAILY Ranitidine HCl 150 mg PO HS Cholecalciferol [Vitamin D3] 1,000 unit PO DAILY Magnesium 200 mg PO DAILY Loperamide HCl [Loperamide] 2 mg PO DAILY PRN PRN Reason: Diarrhea Cyanocobalamin [Vitamin B-12] 500 mcg PO DAILY No Action Aspirin 325 mg PO DAILY glipiZIDE [Glucotrol] 10 mg PO AC-BID oxyCODONE HCL/ACETAMINOPHEN [Percocet 5-325 mg] 1 tab PO TID PRN PRN Reason: Pain Discharge Medication List Aspirin 325 mg PO DAILY 06/11/16 [History] Baclofen 10 mg PO HS 06/11/16 [History] Clopidogrel [Plavix] 75 mg PO DAILY 06/11/16 [History] Isosorbide Mononitrate ER [Imdur] 60 mg PO DAILY 06/11/16 [History] Metoprolol Tartrate [Lopressor] 25 mg PO BID 06/11/16 [History] NIFEdipine XL [Procardia XL] 60 mg PO DAILY@1200 09/03/16 [History] Albuterol Nebulized [Ventolin Nebulized] 2.5 mg INHALATION RT-Q4H PRN 12/12/16 [ History] Atorvastatin [Lipitor] 40 mg PO HS 04/22/17 [History] Nitroglycerin [Nitroglycerin 400MCG [place]] 1 spray TRANSLINGU Q5M PRN 04/22/17 [ History] SUMAtriptan SUCCINATE [Imitrex] 50 mg PO BID PRN 04/22/17 [History] Albuterol Inhaler [Ventolin Hfa Inhaler] 1 - 2 puff INHALATION RT-Q6H PRN [History] Fluticasone Propionate [Flovent Hfa 110mcg] 2 puff INHALATION RT-BID 04/28/17 [ History] Gabapentin [Neurontin] 200 mg PO TID 04/28/17 [History] Melatonin 7.5 mg PO HS 09/04/17 [History] Levothyroxine Sodium [Synthroid] 88 mcg PO DAILY 11/27/17 [History] Pantoprazole [Protonix] 40 mg PO DAILY 01/01/18 [History] Ranitidine HCl 150 mg PO HS 01/01/18 [History] Cholecalciferol [Vitamin D3] 1,000 unit PO DAILY 04/03/18 [History] Cyanocobalamin [Vitamin B-12] 500 mcg PO DAILY 04/03/18 [History] Loperamide HCl [Loperamide] 2 mg PO DAILY PRN 04/03/18 [History] Magnesium 200 mg PO DAILY 04/03/18 [History] glipiZIDE [Glucotrol] 10 mg PO AC-BID 04/03/18 [History] oxyCODONE HCL/ACETAMINOPHEN [Percocet 5-325 mg] 1 tab PO TID PRN 04/03/18 [ History] Ferrous Sulfate [Iron (65 MG Elemental)] 325 mg PO BID #60 tab 04/15/18 [Rx] HYDROcodone/APAP 7.5-325MG [[place] 7.5] 1 - 2 each PO Q6HR PRN #40 tab 04/15/18 [ Rx] sitaGLIPtin [Januvia] 100 mg PO DAILY #30 tab 04/15/18 [Rx] traMADol HCl [Ultram] 50 mg PO Q6H PRN #28 tab 04/15/18 [Rx] Follow up Appointment(s)/Referral(s): Melissa Mares MD [Primary Care Provider] - 1 Week [facility], [NON-STAFF] - Blu Goldberg PAC [PHYSICIAN PAPER MAKER] - 2 Weeks Ambulatory/Diagnostic Orders: Complete Blood Count w/diff [LAB.AMB] Location: None Selected Patient Instructions/Handouts: Anterior Hip Replacement (DC) Activity/Diet/Wound Care/Special Instructions: Orthopedic Discharge Instructions: 1. Wound care and infection precautions, keep incision dry and covered while showering, no lotions, creams, moisturizers. No soaking, pools, hot tubs. Do not scrub over incision. 2. Weight-bear as tolerated with walker / cane until follow-up. 3. Ice and elevate when necessary. Do not exceed 20 minutes per hour with ice pack. 4. Utilize compression sleeve until seen at first follow up appointment. 5. Pain meds and anticoagulants per prescription. 6. Pain medication has potential to cause constipation. Increase oral fluid and fiber intake. Contact primary care provider if you have not had a bowel movement within 48 hours after discharge. 7. No anti-inflammatory medication until discussed at first post operative visit, this including Motrin, Aleve, Mobic, Diclofenac. 8. Follow up in office at 2 weeks postop with Cisco Goldberg PA-C 9. Follow up with your primary care doctor 7-10 days after discharge. 10. Contact [facility] with any questions, 11.[facility] - [phone] - will deliver to bedside before discharge. Discharge Disposition: HOME WITH HOME HEALTH SERVICES
== END 2018-04-15 15:17 | disposition home health service (06) | DRG 470 ==
LOC: 2ORMAIN 08:53 → 3SUR 15:00
PROVIDERS: ADMIT Orthopaedic Surgery; ATTEND Orthopaedic Surgery
PROC: 0SRB04A Replacement of Left Hip Joint with Ceramic on Polyethylene Synthetic Substitute, Uncemented, Open Approach (ICD-10-PCS; principal; 2018-04-13 11:55)
DX: M16.12 Unilateral primary osteoarthritis, left hip (principal); D62 Acute posthemorrhagic anemia; I25.810 Atherosclerosis of coronary artery bypass graft(s) without angina pectoris; I69.354 Hemiplegia and hemiparesis following cerebral infarction affecting left non-dominant side; D69.6 Thrombocytopenia, unspecified; D86.9 Sarcoidosis, unspecified; E03.9 Hypothyroidism, unspecified; E11.65 Type 2 diabetes mellitus with hyperglycemia; E66.01 Morbid (severe) obesity due to excess calories; E78.5 Hyperlipidemia, unspecified; F40.240 Claustrophobia; G40.909 Epilepsy, unspecified, not intractable, without status epilepticus; G47.30 Sleep apnea, unspecified; I10 Essential (primary) hypertension; I25.2 Old myocardial infarction; J45.909 Unspecified asthma, uncomplicated; K21.9 Gastro-esophageal reflux disease without esophagitis; K58.0 Irritable bowel syndrome with diarrhea; M79.7 Fibromyalgia; M85.80 Other specified disorders of bone density and structure, unspecified site; Z79.02 Long term (current) use of antithrombotics/antiplatelets; Z79.51 Long term (current) use of inhaled steroids; Z79.82 Long term (current) use of aspirin; Z79.84 Long term (current) use of oral hypoglycemic drugs; Z80.1 Family history of malignant neoplasm of trachea, bronchus and lung; Z80.49 Family history of malignant neoplasm of other genital organs; G20 Parkinson's disease; I65.22 Occlusion and stenosis of left carotid artery; Z79.890 Hormone replacement therapy; Z79.899 Other long term (current) drug therapy; Z87.891 Personal history of nicotine dependence; Z90.710 Acquired absence of both cervix and uterus; Z96.652 Presence of left artificial knee joint; Z95.1 Presence of aortocoronary bypass graft; Z95.5 Presence of coronary angioplasty implant and graft; Z98.1 Arthrodesis status; Z98.42 Cataract extraction status, left eye; Z98.41 Cataract extraction status, right eye; Z88.2 Allergy status to sulfonamides; Z88.1 Allergy status to other antibiotic agents; Z91.041 Radiographic dye allergy status; Z88.5 Allergy status to narcotic agent; Z91.013 Allergy to seafood
CPT/HCPCS: 73501; 83036; 85025; 86850; 86900; 86901; 88300; 94640

== ENCOUNTER 2018-05-02 10:02 | Inpatient (IN) | payer MEDICARE, OTHER ==
--- NOTE | 2018-05-02 10:23 | ED ---
General Adult HPI - General Chief complaint: Recheck/Abnormal Lab/Rx Stated complaint: Post surgery incision turning black Time Seen by Provider: 05/02/18 10:09 Source: patient, family, RN notes reviewed Mode of arrival: wheelchair Limitations: no limitations - History of Present Illness Initial comments: Patient is a pleasant 67-year-old female presenting to the emergency department with concerns for possible wound infection. Patient did have surgery done less than a month ago. Patient is having some increased discomfort and burning of the skin over the incision. Patient has noticed a dark discoloration. Discomfort does increase somewhat with movement. Discomfort has been waxing and waning. Patient was seen last week in the office and started on cephalexin. Symptoms are worsening despite this. - Related Data Home Medications Medication Instructions Recorded Confirmed Aspirin 325 mg PO DAILY 06/11/16 04/13/18 Baclofen 10 mg PO HS 06/11/16 04/13/18 Clopidogrel [Plavix] 75 mg PO DAILY 06/11/16 04/13/18 Isosorbide Mononitrate ER [Imdur] 60 mg PO DAILY 06/11/16 04/13/18 Metoprolol Tartrate [Lopressor] 25 mg PO BID 06/11/16 04/13/18 NIFEdipine XL [Procardia XL] 60 mg PO DAILY@1200 09/03/16 04/13/18 Albuterol Nebulized [Ventolin 2.5 mg INHALATION RT-Q4H PRN 12/12/16 04/13/18 Nebulized] Atorvastatin [Lipitor] 40 mg PO HS 04/22/17 04/13/18 Nitroglycerin [Nitroglycerin 1 spray TRANSLINGU Q5M PRN 04/22/17 04/13/18 400MCG [place]] SUMAtriptan SUCCINATE [Imitrex] 50 mg PO BID PRN 04/22/17 04/13/18 Albuterol Inhaler [Ventolin Hfa 1 - 2 puff INHALATION RT-Q6H PRN 04/28/17 Inhaler] Fluticasone Propionate [Flovent 2 puff INHALATION RT-BID 04/28/17 04/13/18 Hfa 110mcg] Gabapentin [Neurontin] 200 mg PO TID 04/28/17 04/13/18 Melatonin 7.5 mg PO HS 09/04/17 04/13/18 Levothyroxine Sodium [Synthroid] 88 mcg PO DAILY 11/27/17 04/13/18 Pantoprazole [Protonix] 40 mg PO DAILY 01/01/18 04/13/18 Ranitidine HCl 150 mg PO HS 01/01/18 04/13/18 Cholecalciferol [Vitamin D3] 1,000 unit PO DAILY 04/03/18 04/13/18 Cyanocobalamin [Vitamin B-12] 500 mcg PO DAILY 04/03/18 04/13/18 Loperamide HCl [Loperamide] 2 mg PO DAILY PRN 04/03/18 04/13/18 Magnesium 200 mg PO DAILY 04/03/18 04/13/18 glipiZIDE [Glucotrol] 10 mg PO AC-BID 04/03/18 04/13/18 oxyCODONE HCL/ACETAMINOPHEN 1 tab PO TID PRN 04/03/18 04/13/18 [Percocet 5-325 mg] Previous Rx's Medication Instructions Recorded Ferrous Sulfate [Iron (65 MG 325 mg PO BID #60 tab 04/15/18 Elemental)] HYDROcodone/APAP 7.5-325MG [[place] 1 - 2 each PO Q6HR PRN #40 tab 04/15/18 7.5] sitaGLIPtin [Januvia] 100 mg PO DAILY #30 tab 04/15/18 traMADol HCl [Ultram] 50 mg PO Q6H PRN #28 tab 04/15/18 Allergies Allergy/AdvReac Type Severity Reaction Status Date / Time fluconazole Allergy Itching Verified 05/02/18 10:07 hydrocodone Allergy Itching-states Verified 05/02/18 10:07 "can't take too many in a row" Iodinated Contrast- Oral and Allergy Anaphylaxis Verified 05/02/18 10:07 IV Dye /Rash/Itchi [Iodinated Contrast Media - ng IV Dye] shellfish derived [Shrimp] Allergy Anaphylaxis- Verified 05/02/18 10:07 FEELS LIKE THROAT CLOSING vancomycin Allergy Itching Verified 05/02/18 10:07 venom-honey bee Allergy Swelling/It Verified 05/02/18 10:07 [bee venom (honey bee)] suellen doxycycline AdvReac Nausea & Verified 05/02/18 10:07 Vomiting fluticasone AdvReac Loss of Verified 05/02/18 10:07 Voice hydroxychloroquine AdvReac Nausea & Verified 05/02/18 10:07 [From Plaquenil] Vomiting levofloxacin AdvReac Nausea & Verified 05/02/18 10:07 Vomiting lisinopril AdvReac Cough Verified 05/02/18 10:07 morphine AdvReac Nausea & Verified 05/02/18 10:07 Vomiting ropinirole AdvReac Nausea & Verified 05/02/18 10:07 Vomiting sulfamethoxazole AdvReac Nausea & Verified 05/02/18 10:07 [From Bactrim] Vomiting trimethoprim [From Bactrim] AdvReac Nausea & Verified 05/02/18 10:07 Vomiting Review of Systems ROS Statement: Those systems with pertinent positive or pertinent negative responses have been documented in the HPI. ROS Other: All systems not noted in ROS Statement are negative. Constitutional: Denies: fever, chills Eyes: Denies: eye pain ENT: Denies: ear pain Respiratory: Denies: cough Cardiovascular: Denies: chest pain Endocrine: Denies: fatigue Gastrointestinal: Denies: abdominal pain Genitourinary: Denies: dysuria Skin: Reports: rash Neurological: Denies: weakness Past Medical History Past Medical History: Asthma, Coronary Artery Disease (CAD), CVA/TIA, Diabetes Mellitus, Fibromyalgia, GERD/Reflux, Hyperlipidemia, Hypertension, Myocardial Infarction ([place]), Neurologic Disorder, Osteoarthritis (OA), Seizure Disorder, Sleep Apnea/CPAP/BIPAP, Thyroid Disorder Additional Past Medical History / Comment(s): back pain & hip pain, sarcoidosis , IBS, osteopenia, past hx of seizures, 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 Last Myocardial Infarction Date:: 2006 History of Any Multi-Drug Resistant Organisms: MRSA Date of last positivie culture/infection: 2010 MDRO Source:: lung Past Surgical History: Appendectomy, Back Surgery, Breast Surgery, Cholecystectomy, Coronary Bypass/CABG, Heart Catheterization With Stent, Hysterectomy, Joint Replacement, Orthopedic Surgery, Tonsillectomy, Tubal Ligation Additional Past Surgical History / Comment(s): cervical spinal fusion, artie elbow surgery,total lt knee replacement, rt carotid artery, cataracts artie, benign tumor lt lung removed, lt ankle with hardware, laser surgery eyes, Heart Cath with 1 stent (2005)), cabg (2006), pin in finger and removed, drainage of pleural effusion, [facility] procedures, artie breast bx x2, eye surgery for macular hole in left eye., Right Carotid surgery. Past Anesthesia/Blood Transfusion Reactions: No Reported Reaction Additional Past Anesthesia/Blood Transfusion Reaction / Comment(s): claustrophobic. UNKNOWN RX PRIOR TO HEART CATH MADE HER LEGS "JUMP". HX OF BLOOD TRANSFUSION (NO REACTION). STATES DIFFICULTY LYING FLAT- NEEDS PILLOW AND "EASES IN TO LYING FLAT" Date of Last Stent Placement:: 2005 Past Psychological History: No Psychological Hx Reported Smoking Status: Former smoker Past Alcohol Use History: None Reported Past Drug Use History: None Reported - Past Family History Sister(s) Family Medical History: Cancer Additional Family Medical History / Comment(s): Cervical cancer; lung cancer Brother(s) Family Medical History: Cancer Additional Family Medical History / Comment(s): Pancreatic, prostate; lung cancer General Exam Limitations: no limitations General appearance: alert, in no apparent distress Head exam: Present: atraumatic Eye exam: Present: normal appearance Neck exam: Present: normal inspection Respiratory exam: Present: normal lung sounds bilaterally Cardiovascular Exam: Present: regular rate, normal rhythm GI/Abdominal exam: Present: soft. Absent: tenderness Extremities exam: Present: tenderness, other (Left anterior hip with erythematous discoloration. Incisional site and site lateral to it with black eschar formation. There is some purulent discharge in the superior portion of the incisional site.) Neurological exam: Present: alert. Absent: motor sensory deficit Psychiatric exam: Present: normal affect, normal mood Skin exam: Present: rash Course Vital Signs 05/02/18 10:05 Temperature 98.2 F Pulse Rate 86 Respiratory 20 Rate Blood Pressure 112/67 O2 Sat by Pulse 98 Oximetry - Reevaluation(s) Reevaluation #1: 05/02/18 11:27 1500 mL fluid bolus provided based on a deal body weight of 50 kg. 05/02/18 11:38 Patient does not meet Sirs criteria. Medical Decision Making - Medical Decision Making Patient reevaluated and resting comfortably in bed. Patient and family updated on results and plan. Case was discussed in detail with Dr. Palma, who will admit his patient. He does request 2 g every 6 hours as well as consult for medicine and infectious disease. - Lab Data Result diagrams: 05/02/18 10:15 Lab Results 05/02/18 05/02/18 05/02/18 Range/Units 10:15 10:15 10:15 WBC 8.1 (3.8-10.6) k/uL RBC 4.01 (3.80-5.40) m/uL Hgb 11.1 L (11.4-16.0) gm/dL Hct 32.7 L (34.0-46.0) % MCV 81.5 D (80.0-100.0) fL MCH 27.7 (25.0-35.0) pg MCHC 33.9 (31.0-37.0) g/dL RDW 14.0 (11.5-15.5) % Plt Count 392 (150-450) k/uL Neutrophils % 79 % Lymphocytes % 11 % Monocytes % 6 % Eosinophils % 1 % Basophils % 1 % Neutrophils # 6.4 (1.3-7.7) k/uL Lymphocytes # 0.9 L (1.0-4.8) k/uL Monocytes # 0.5 (0-1.0) k/uL Eosinophils # 0.1 (0-0.7) k/uL Basophils # 0.1 (0-0.2) k/uL Hypochromasia Slight Poikilocytosis Slight PT 10.2 (9.0-12.0) sec INR 1.0 (<1.2) APTT 24.8 (22.0-30.0) sec Plasma Lactic Acid Osvaldo 2.4 H* (0.7-2.0) mmol/L - Radiology Data Radiology results: image reviewed (Status post left hip [id number]. No acute process.) Disposition Clinical Impression: Incisional infection Disposition: ADMITTED IP TO THIS HOSP Is patient prescribed a controlled substance at d/c from ED?: No Referrals: Melissa Mares MD [Primary Care Provider] - 1-2 days Decision Time: 11:40
--- NOTE | 2018-05-02 11:01 | XR ---
EXAMINATION TYPE: XR Hip Limited LT , 2 VIEWS DATE OF EXAM ORDERED: 05/02/2018 HISTORY: infection. COMPARISON: None. FINDINGS: A left hip hemiarthroplasties been performed. Prosthetic elements appear in good position. IMPRESSION: STATUS POST LEFT HIP HEMIARTHROPLASTY.
[2018-05-02 11:02] LABS: Basophils # (A) 0.1 k/uL (0-0.2); Basophils % (A) 1 %; Eosinophils # (A) 0.1 k/uL (0-0.7); Eosinophils % (A) 1 %; HCT 32.7 % (34.0-46.0); HGB 11.1 gm/dL (11.4-16.0); Hypochromasia Slight; Lymphocytes # (A) 0.9 k/uL (1.0-4.8); Lymphocytes % (A) 11 %; MCH 27.7 pg (25.0-35.0); MCHC 33.9 g/dL (31.0-37.0); Monocytes # (A) 0.5 k/uL (0-1.0); Monocytes % (A) 6 %; Neutrophils # (A) 6.4 k/uL (1.3-7.7); Neutrophils % (A) 79 %; Platelet Count 392 k/uL (150-450); Poikilocytosis Slight; RBC 4.01 m/uL (3.80-5.40); WBC 8.1 k/uL (3.8-10.6)
[2018-05-02 11:04] LABS: MCV 81.5 fL (80.0-100.0)
[2018-05-02 11:06] LABS: Partial Thromboplastin Time 24.8 sec (22.0-30.0); Prothrombin Time 10.2 sec (9.0-12.0)
[2018-05-02] MEDS ORDERED: SODIUM CHLORIDE 0.9% 1,000 ML IV STA (11:27)
[2018-05-02] MEDS ORDERED: SODIUM CHLORIDE 0.9% 500 ML 500 ML IV STA (11:27)
[2018-05-02] MEDS ORDERED: cefTRIAXone 1,000 MG in SODIUM CHLORIDE 0.9% 100 ML IVPB STA (11:35)
[2018-05-02 11:37] LABS: Albumin 3.7 g/dL (3.5-5.0); Anion Gap 13 mmol/L; Blood Urea Nitrogen 12 mg/dL (7-17); Calcium 9.4 mg/dL (8.4-10.2); Carbon Dioxide 24 mmol/L (22-30); Chloride 102 mmol/L (98-107); Glucose 162 mg/dL (74-99); Sodium 139 mmol/L (137-145); Total Bilirubin 0.7 mg/dL (0.2-1.3); Total Protein 7.2 g/dL (6.3-8.2)
[2018-05-02 11:40] LABS: ALT 13 U/L (9-52); AST 29 U/L (14-36); Alkaline Phosphatase 84 U/L (38-126); Potassium 4.9 mmol/L (3.5-5.1)
[2018-05-02] MEDS ORDERED: NALOXONE 0.4 MG/ML 1 ML VIAL IV PRN (11:40)
[2018-05-02] MEDS ORDERED: ACETAMINOPHEN TAB 325 MG TAB PO PRN (11:40)
[2018-05-02] MEDS: SODIUM CHLORIDE 0.9% 1,000 ML IV SCH (12:40)
[2018-05-02 12:41] LABS: Glucose,Whole Blood 127 mg/dL (75-99)
[2018-05-02 12:52] VITALS: BMI 34.0
[2018-05-02] MEDS: ceFAZolin IN SWFI 2 GM/20 ML SYRINGE IVP SCH ×3 (13:43→23:32)
[2018-05-02] MEDS ORDERED: ALBUTEROL NEBULIZED 2.5 MG/3 ML INHALATION PRN (14:20)
[2018-05-02] MEDS: HYDROcodone/APAP 7.5-325MG 1 EACH TAB PO PRN ×2 (15:33→21:33)
--- NOTE | 2018-05-02 15:58 | P.CONS ---
History of Present Illness - Reason for Consult Consult date: 05/02/18 medical management Requesting physician: Jackson Palma - Chief Complaint left hip erythema - History of Present Illness 67-year-old female with extensive past medical history. Patient presented for hospital due to left hip erythema and black discoloration over the surgical wound. Patient had left hip replacement on 3 weeks ago. However up until one week ago she was doing fine until she noticed erythema and pain over the surgical site. In consultation with orthopedic was recommended that she start on Keflex for possible cellulitis and skin infection. She received antibiotics and after 2 days noticed worsening of the area of erythema with new areas of blackish discoloration over the surgical wound otherwise denies any fevers or chills. She reports only superficial pain over the skin that worsens with movement no radiation no deep pain at the surgical site. Denies any traumas. Patient was growing concerned as the area of erythema was increasing and presented for further evaluation and management. Patient otherwise denies any headache, shortness of breath, chest pain, abdominal pain, GI bleeding, denies any dizziness or lightheadedness. Patient has been compliant with her medications otherwise and physical therapy outpatient. Patient is admitted under orthopedic service, medicine was consult at to assist in medical management of her complex medical history. Review of Systems Pertinent positives as noted in HPI. All other systems were reviewed and are negative Past Medical History Past Medical History: Asthma, Coronary Artery Disease (CAD), CVA/TIA, Diabetes Mellitus, Fibromyalgia, GERD/Reflux, Hyperlipidemia, Hypertension, Myocardial Infarction ([place]), Neurologic Disorder, Osteoarthritis (OA), Seizure Disorder, Sleep Apnea/CPAP/BIPAP, Thyroid Disorder Additional Past Medical History / Comment(s): back pain & hip pain, sarcoidosis , IBS, osteopenia, past hx of seizures, states has had both cva and tia, some left sided weakness, face numbness, some memory loss, possibly early stages of parkinsons, mengioma on her brain, [place] ruiz (2016)- still has some numbness left face, frequent diarrhea., states left carotid artery 75 % blockage., walks only short distance and needs to sit down due to hip pain, left hip replacement 04/13/18. Last Myocardial Infarction Date:: 2006 History of Any Multi-Drug Resistant Organisms: MRSA Year Discovered:: 2010 MDRO Source:: lung Past Surgical History: Appendectomy, Back Surgery, Breast Surgery, Cholecystectomy, Coronary Bypass/CABG, Heart Catheterization With Stent, Hysterectomy, Joint Replacement, Orthopedic Surgery, Tonsillectomy, Tubal Ligation Additional Past Surgical History / Comment(s): cervical spinal fusion, lumbar spinal surg x2, artie elbow surgery,total lt knee replacement, cataracts artie, benign tumor lt lung removed, lt ankle with hardware (since removed), laser surgery eyes, Heart Cath with 1 stent (2005)), cabg (2006), pin in finger and removed, drainage of pleural effusion, [facility] procedures, artie breast bx x2, eye surgery for macular hole in left eye., Right Carotid surgery. Past Anesthesia/Blood Transfusion Reactions: No Reported Reaction Additional Past Anesthesia/Blood Transfusion Reaction / Comm: claustrophobic. UNKNOWN RX PRIOR TO HEART CATH MADE HER LEGS "JUMP". HX OF BLOOD TRANSFUSION ( NO REACTION). STATES DIFFICULTY LYING FLAT- NEEDS PILLOW AND "EASES IN TO LYING FLAT" Date of Last Stent Placement:: 2005 Past Psychological History: No Psychological Hx Reported Smoking Status: Former smoker Past Alcohol Use History: None Reported Additional Past Alcohol Use History / Comment(s): former smoker 44 years, 2ppd, quit 2005 Past Drug Use History: None Reported - Past Family History Sister(s) Family Medical History: Cancer Additional Family Medical History / Comment(s): Cervical cancer; lung cancer Brother(s) Family Medical History: Cancer Additional Family Medical History / Comment(s): Pancreatic, prostate; lung cancer Medications and Allergies Home Medications Medication Instructions Recorded Confirmed Type Aspirin 325 mg PO DAILY 06/11/16 05/02/18 History Baclofen 10 mg PO HS 06/11/16 05/02/18 History Clopidogrel [Plavix] 75 mg PO DAILY 06/11/16 05/02/18 History Isosorbide Mononitrate ER [Imdur] 60 mg PO DAILY 06/11/16 05/02/18 History Metoprolol Tartrate [Lopressor] 25 mg PO BID 06/11/16 05/02/18 History NIFEdipine XL [Procardia XL] 60 mg PO DAILY@1200 09/03/16 05/02/18 History Albuterol Nebulized [Ventolin 2.5 mg INHALATION RT-Q4H PRN 12/12/16 05/02/18 History Nebulized] Atorvastatin [Lipitor] 40 mg PO HS 04/22/17 05/02/18 History Nitroglycerin [Nitroglycerin 1 spray TRANSLINGU Q5M PRN 04/22/17 05/02/18 History 400MCG [place]] SUMAtriptan SUCCINATE [Imitrex] 50 mg PO BID PRN 04/22/17 05/02/18 History Albuterol Inhaler [Ventolin Hfa 1 - 2 puff INHALATION RT-Q6H PRN 04/28/17 History Inhaler] Fluticasone Propionate [Flovent 2 puff INHALATION RT-BID 04/28/17 05/02/18 History Hfa 110mcg] Gabapentin [Neurontin] 200 mg PO TID 04/28/17 05/02/18 History Melatonin 7.5 mg PO HS 09/04/17 05/02/18 History Levothyroxine Sodium [Synthroid] 88 mcg PO DAILY 11/27/17 05/02/18 History Pantoprazole [Protonix] 40 mg PO DAILY 01/01/18 05/02/18 History Ranitidine HCl 150 mg PO HS 01/01/18 05/02/18 History Cholecalciferol [Vitamin D3] 1,000 unit PO DAILY 04/03/18 05/02/18 History Cyanocobalamin [Vitamin B-12] 500 mcg PO DAILY 04/03/18 05/02/18 History Loperamide HCl [Loperamide] 2 mg PO DAILY PRN 04/03/18 05/02/18 History Magnesium 200 mg PO DAILY 04/03/18 05/02/18 History glipiZIDE [Glucotrol] 10 mg PO AC-BID 04/03/18 05/02/18 History Ferrous Sulfate [Iron (65 MG 325 mg PO BID #60 tab 04/15/18 05/02/18 Rx Elemental)] sitaGLIPtin [Januvia] 100 mg PO DAILY #30 tab 04/15/18 05/02/18 Rx Cephalexin [Keflex] 500 mg PO Q6H 05/02/18 05/02/18 History HYDROcodone/APAP 7.5-325MG [[place] 1 - 2 tab PO Q6HR PRN 05/02/18 05/02/18 History 7.5] traMADol HCl [Ultram] 50 mg PO Q6H PRN 05/02/18 05/02/18 History Allergies Allergy/AdvReac Type Severity Reaction Status Date / Time fluconazole Allergy Itching Verified 05/02/18 12:19 hydrocodone Allergy Itching-states Verified 05/02/18 12:19 "can't take too many in a row" Iodinated Contrast- Oral and Allergy Anaphylaxis Verified 05/02/18 12:19 IV Dye /Rash/Itchi [Iodinated Contrast Media - ng IV Dye] shellfish derived [Shrimp] Allergy Anaphylaxis- Verified 05/02/18 12:19 FEELS LIKE THROAT CLOSING vancomycin Allergy Itching Verified 05/02/18 12:19 venom-honey bee Allergy Swelling/It Verified 05/02/18 12:19 [bee venom (honey bee)] suellen doxycycline AdvReac Nausea & Verified 05/02/18 12:19 Vomiting fluticasone AdvReac Loss of Verified 05/02/18 12:19 Voice hydroxychloroquine AdvReac Nausea & Verified 05/02/18 12:19 [From Plaquenil] Vomiting levofloxacin AdvReac Nausea & Verified 05/02/18 12:19 Vomiting lisinopril AdvReac Cough Verified 05/02/18 12:19 morphine AdvReac Nausea & Verified 05/02/18 12:19 Vomiting ropinirole AdvReac Nausea & Verified 05/02/18 12:19 Vomiting sulfamethoxazole AdvReac Nausea & Verified 05/02/18 12:19 [From Bactrim] Vomiting trimethoprim [From Bactrim] AdvReac Nausea & Verified 05/02/18 12:19 Vomiting Physical Exam Vitals: Vital Signs Temp Pulse Pulse Resp BP BP Pulse Ox 05/02/18 14:35 98.1 F 73 18 133/63 97 05/02/18 12:40 98.0 F 74 18 137/73 95 05/02/18 11:53 98.4 F 67 18 146/67 99 05/02/18 10:05 98.2 F 86 20 112/67 98 Intake and Output 05/02/18 05/02/18 05/02/18 06:59 14:59 22:59 Other: # Voids 0 Weight 84.36 kg Constitutional: No acute distress, conversant, pleasant Eyes: Anicteric sclerae, moist conjunctiva, no lid-lag Pupils equal round reactive to light ENMT: NC/AT Oropharynx clear, no erythema, or exudates Neck: Supple, FROM, no masses, or JVD No carotid bruits No thyromegaly Lungs: Clear to auscultation Clear to percussion Normal respiratory effort, no accessory muscle use Cardiovascular: Heart regular in rate and rhythm, No murmurs, gallops, or rubs No peripheral edema Abdominal: Soft Nontender, no guarding, rebound or rigidity Abdomen moving with respiration Normoactive bowel sounds No hepatomegaly, No splenomegaly No palpable mass No abdominal wall hernia noted Skin: left hip area with large erythema and induration, with 2 areas of scab black in color , of 5X2 and 5X5 cm, no active drainage noted, warm to the touch otherwise Normal temperature, tone, texture, turgor No subcutaneous nodules No ulcers Extremities: left hip area with large erythema and induration, with 2 areas of scab black in color , of 5X2 and 5X5 cm, no active drainage noted No digital cyanosis No clubbing Pedal pulses intact and symmetrical Radial pulses intact and symmetrical No calf tenderness Psychiatric: Alert and oriented to person, place and time Appropriate affect fair judgment Neuro Muscles Strength 5/5 in all 4 extremities Sensation to light touch grossly present throughout Cranial nerves II-XII grossly intact No focal sensory deficits Lymphatics: no palpable cervical or supraclavicular , or inguinal lymph nodes Results CBC & Chem 7: 05/02/18 10:15 05/02/18 10:15 Labs: Abnormal Lab Results - Last 24 Hours (Table) 05/02/18 05/02/18 05/02/18 Range/Units 10:15 10:15 10:15 Hgb 11.1 L (11.4-16.0) gm/dL Hct 32.7 L (34.0-46.0) % Lymphocytes # 0.9 L (1.0-4.8) k/uL Glucose 162 H (74-99) mg/dL POC Glucose (mg/dL) (75-99) mg/dL Plasma Lactic Acid Osvaldo 2.4 H* (0.7-2.0) mmol/L 05/02/18 Range/Units 12:39 Hgb (11.4-16.0) gm/dL Hct (34.0-46.0) % Lymphocytes # (1.0-4.8) k/uL Glucose (74-99) mg/dL POC Glucose (mg/dL) 127 H (75-99) mg/dL Plasma Lactic Acid Osvaldo (0.7-2.0) mmol/L Assessment and Plan Assessment: 67 year old female with extensive past medical history , patient had left hip replacement surgery done 3 weeks ago, however, she noticed some erythema and ulceration over the surgical wound for the past week, she went to her surgeons office who started her on oral keflex however, patient did not notice any improvement and noticed worsening of the erythema area which got larger with another area of blackish discoloration. she denies any fevers or chills. medicine was consulted for medical management of her complex medical history . patient is allergic to vancomycin, doxycyclin and bactrim, await further recs from ID for choice of antibiotics, I will add clindamycin for staph coverage Plan: surgical site wound infection , failed OP therapy currently on IV cephalosporin Add clindamycin for staph coverage (patient with multiple allergies) ortho evaluation ID recommendations pain control Anemia , chronic post op, improving overall denies any evidence of bleeding Diabetes mellitus type II on oral agents hold oral agents Insulin sliding scale history of CAD continue with ASA, statin , plavix Hypertension and hyperlipidemia continue home meds Hypothyroidism continue with levothyroxin DVT PPx on heaprin sc tid full code Thank you for allowing us to participate in the care of this patient. Do not hesitate to contact us with questions. Someone can be reached from the [facility] hospitalist group at all hours of the day at [phone].
[2018-05-02] MEDS: CLINDAMYCIN 150 MG CAP PO SCH ×2 (17:01→21:27)
[2018-05-02 17:02] LABS: Glucose,Whole Blood 174 mg/dL (75-99)
[2018-05-02] MEDS: GABAPENTIN 100 MG CAP PO SCH ×2 (17:03→21:27)
[2018-05-02] MEDS: INSULIN ASPART 100 UNIT/ML 1 ML 10 ML VIAL SQ SCH ×2 (17:19→21:27)
[2018-05-02] MEDS: traMADol 50 MG TAB PO PRN (18:54)
[2018-05-02 20:36] LABS: Glucose,Whole Blood 137 mg/dL (75-99)
[2018-05-02] MEDS: FLUTICASONE 110 MCG INHALER INHALATION SCH (21:08)
[2018-05-02] MEDS: BACLOFEN 10 MG TAB PO SCH (21:27)
[2018-05-02] MEDS: METOPROLOL TARTRATE 25 MG TAB PO SCH (21:27)
[2018-05-02] MEDS: ATORVASTATIN 40 MG TAB PO SCH (21:27)
[2018-05-02] MEDS: FERROUS SULFATE 325 MG TAB PO SCH (21:27)
[2018-05-02] MEDS: FAMOTIDINE 20 MG TAB PO SCH (21:27)
[2018-05-02] MEDS: MELATONIN 5 MG TABLET PO SCH (21:27)
--- NOTE | 2018-05-03 00:04 | P.CONS ---
History of Present Illness - Reason for Consult Consult date: 05/02/18 - Chief Complaint Pain left hip - History of Present Illness 67-year-old female who is a known history of severe degenerative joint disease was having progressive pain to her left hip and constantly underwent a left total hip arthroplasty via anterior approach about 3 weeks ago. Directly postoperatively she continued to improve but now several days ago developed increasing pain to the area. She does have a physical therapist who has been coming to the home who apparently has been assessing area. The patient herself has difficulty seeing the area and there was a dressing in place. She contact her primary care physician and the visiting nurse was requested. Apparently when the nurse evaluated the site she was directed to hospital with evidence of pain erythema and discoloration to the site.She continues to have pain and discomfort at the area which limits her ability to move the leg at this time. Touch the area is very tender. She has noticed no drainage. She's had low-grade temperature only without chills or rigors. Review of Systems HEENT:Denies headache or acute visual change. Denies sinus or mouth discomforts. Denies neck stiffness or pain. Denies significant oral cavity pain. Denies difficulty on swallowing. Lungs: Denies significant shortness of breath, cough, sputum production, or hemoptysis. Cardiovascular: Denies significant shortness of breath, chest pain, chest wall pain, orthopnea, dyspnea on exertion, syncope Gastrointestinal:Denies nausea, vomiting, diarrhea, constipation, hematemesis, melena, hematochezia. No no significant change of bowel habit noticed. Musculoskeletal: denies significant myalgias or arthralgias. No new joint swelling. Denies new back pain. Skin: As per the HPI has developed evidence of the rash at the left hip total arthroplasty anterior incision with discomfort to range of motion no drainage Neuro: Denies headache or visual change. Denies any new onset weakness or difficulty with ambulation. Denies falls or seizures. Psychiatric:Denies anxiety or depression. Endocrine: Denies significant fatigue, denies significant weight loss or weight gain. Past Medical History Past Medical History: Asthma, Coronary Artery Disease (CAD), CVA/TIA, Diabetes Mellitus, Fibromyalgia, GERD/Reflux, Hyperlipidemia, Hypertension, Myocardial Infarction ([place]), Neurologic Disorder, Osteoarthritis (OA), Seizure Disorder, Sleep Apnea/CPAP/BIPAP, Thyroid Disorder Additional Past Medical History / Comment(s): back pain & hip pain, sarcoidosis , IBS, osteopenia, past hx of seizures, states has had both cva and tia, some left sided weakness, face numbness, some memory loss, possibly early stages of parkinsons, mengioma on her brain, [place] alfredoangela (2016)- still has some numbness left face, frequent diarrhea., states left carotid artery 75 % blockage., walks only short distance and needs to sit down due to hip pain, left hip replacement 04/13/18. Last Myocardial Infarction Date:: 2006 History of Any Multi-Drug Resistant Organisms: MRSA Year Discovered:: 2010 MDRO Source:: lung Past Surgical History: Appendectomy, Back Surgery, Breast Surgery, Cholecystectomy, Coronary Bypass/CABG, Heart Catheterization With Stent, Hysterectomy, Joint Replacement, Orthopedic Surgery, Tonsillectomy, Tubal Ligation Additional Past Surgical History / Comment(s): cervical spinal fusion, lumbar spinal surg x2, artie elbow surgery,total lt knee replacement, cataracts artie, benign tumor lt lung removed, lt ankle with hardware (since removed), laser surgery eyes, Heart Cath with 1 stent (2005)), cabg (2006), pin in finger and removed, drainage of pleural effusion, [facility] procedures, artie breast bx x2, eye surgery for macular hole in left eye., Right Carotid surgery. Past Anesthesia/Blood Transfusion Reactions: No Reported Reaction Additional Past Anesthesia/Blood Transfusion Reaction / Comm: claustrophobic. UNKNOWN RX PRIOR TO HEART CATH MADE HER LEGS "JUMP". HX OF BLOOD TRANSFUSION ( NO REACTION). STATES DIFFICULTY LYING FLAT- NEEDS PILLOW AND "EASES IN TO LYING FLAT" Date of Last Stent Placement:: 2005 Past Psychological History: No Psychological Hx Reported Additional Psychological History / Comment(s): Single. Former smoker. Retired labor. The experience. No travel history. No animal exposures. No significant alcohol use Smoking Status: Former smoker Past Alcohol Use History: None Reported Additional Past Alcohol Use History / Comment(s): former smoker 44 years, 2ppd, quit 2005 Past Drug Use History: None Reported - Past Family History Sister(s) Family Medical History: Cancer Additional Family Medical History / Comment(s): Cervical cancer; lung cancer Brother(s) Family Medical History: Cancer Additional Family Medical History / Comment(s): Pancreatic, prostate; lung cancer Medications and Allergies Home Medications and Allergies Comment(s): Current Medications Acetaminophen (Tylenol Tab) 650 mg PO Q6HR PRN PRN Reason: Mild Pain or Fever > 100.5 Hydrocodone Bitart/Acetaminophen ([place] 7.5-325) 1 each PO Q6H PRN PRN Reason: Pain Last Admin: 05/02/18 21:33 Dose: 1 each Albuterol Sulfate (Ventolin Nebulized) 2.5 mg INHALATION RT-Q4H PRN PRN Reason: Shortness Of Breath Aspirin (Aspirin) 325 mg PO DAILY [facility] Atorvastatin Calcium (Lipitor) 40 mg PO HS [facility] Last Admin: 05/02/18 21:27 Dose: 40 mg Baclofen (Lioresal) 10 mg PO HS [facility] Last Admin: 05/02/18 21:27 Dose: 10 mg Cefazolin Sodium (Kefzol) 2 gm IVP Q6HR [facility] Last Admin: 05/02/18 23:32 Dose: 2 gm Clindamycin HCl (Cleocin) 450 mg PO QID [facility] Last Admin: 05/02/18 21:27 Dose: 450 mg Clopidogrel Bisulfate (Plavix) 75 mg PO DAILY [facility] Famotidine (Pepcid) 20 mg PO HS [facility] Last Admin: 05/02/18 21:27 Dose: 20 mg Ferrous Sulfate (Feosol) 325 mg PO BID [facility] Last Admin: 05/02/18 21:27 Dose: 325 mg Fluticasone Propionate (Flovent 110 Mcg Inhaler) 2 puff INHALATION RT-BID [facility] Last Admin: 05/02/18 21:08 Dose: 2 puff Gabapentin (Neurontin) 200 mg PO TID [facility] Last Admin: 05/02/18 21:27 Dose: 200 mg Sodium Chloride (Saline 0.9%) 1,000 mls @ 20 mls/hr IV .Q24H [facility] Last Admin: 05/02/18 12:40 Dose: 20 mls/hr Insulin Aspart (Novolog) 0 unit SQ [facility]; Protocol Last Admin: 05/02/18 21:27 Dose: 1 unit Isosorbide Mononitrate (Imdur) 60 mg PO DAILY [facility] Levothyroxine Sodium (Synthroid) 88 mcg PO DAILY@0630 [facility] Magnesium Oxide (Mag-Ox) 200 mg PO DAILY [facility] Melatonin (Melatonin) 7.5 mg PO HS [facility] Last Admin: 05/02/18 21:27 Dose: 7.5 mg Metoprolol Tartrate (Lopressor) 25 mg PO BID [facility] Last Admin: 05/02/18 21:27 Dose: 25 mg Naloxone HCl (Narcan) 0.2 mg IV Q2M PRN PRN Reason: Opioid Reversal Nifedipine (Procardia Xl) 60 mg PO DAILY@1200 [facility] Last Admin: 05/02/18 14:57 Dose: 60 mg Pantoprazole Sodium (Protonix) 40 mg PO -[facility] Tramadol HCl (Ultram) 50 mg PO Q6H PRN PRN Reason: MODERATE Pain Last Admin: 05/02/18 18:54 Dose: 50 mg Home Medications Medication Instructions Recorded Confirmed Type Aspirin 325 mg PO DAILY 06/11/16 05/02/18 History Baclofen 10 mg PO HS 06/11/16 05/02/18 History Clopidogrel [Plavix] 75 mg PO DAILY 06/11/16 05/02/18 History Isosorbide Mononitrate ER [Imdur] 60 mg PO DAILY 06/11/16 05/02/18 History Metoprolol Tartrate [Lopressor] 25 mg PO BID 06/11/16 05/02/18 History NIFEdipine XL [Procardia XL] 60 mg PO DAILY@1200 09/03/16 05/02/18 History Albuterol Nebulized [Ventolin 2.5 mg INHALATION RT-Q4H PRN 12/12/16 05/02/18 History Nebulized] Atorvastatin [Lipitor] 40 mg PO HS 04/22/17 05/02/18 History Nitroglycerin [Nitroglycerin 1 spray TRANSLINGU Q5M PRN 04/22/17 05/02/18 History 400MCG [place]] SUMAtriptan SUCCINATE [Imitrex] 50 mg PO BID PRN 04/22/17 05/02/18 History Albuterol Inhaler [Ventolin Hfa 1 - 2 puff INHALATION RT-Q6H PRN 04/28/17 History Inhaler] Fluticasone Propionate [Flovent 2 puff INHALATION RT-BID 04/28/17 05/02/18 History Hfa 110mcg] Gabapentin [Neurontin] 200 mg PO TID 04/28/17 05/02/18 History Melatonin 7.5 mg PO HS 09/04/17 05/02/18 History Levothyroxine Sodium [Synthroid] 88 mcg PO DAILY 11/27/17 05/02/18 History Pantoprazole [Protonix] 40 mg PO DAILY 01/01/18 05/02/18 History Ranitidine HCl 150 mg PO HS 01/01/18 05/02/18 History Cholecalciferol [Vitamin D3] 1,000 unit PO DAILY 04/03/18 05/02/18 History Cyanocobalamin [Vitamin B-12] 500 mcg PO DAILY 04/03/18 05/02/18 History Loperamide HCl [Loperamide] 2 mg PO DAILY PRN 04/03/18 05/02/18 History Magnesium 200 mg PO DAILY 04/03/18 05/02/18 History glipiZIDE [Glucotrol] 10 mg PO AC-BID 04/03/18 05/02/18 History Ferrous Sulfate [Iron (65 MG 325 mg PO BID #60 tab 04/15/18 05/02/18 Rx Elemental)] sitaGLIPtin [Januvia] 100 mg PO DAILY #30 tab 04/15/18 05/02/18 Rx Cephalexin [Keflex] 500 mg PO Q6H 05/02/18 05/02/18 History HYDROcodone/APAP 7.5-325MG [[place] 1 - 2 tab PO Q6HR PRN 05/02/18 05/02/18 History 7.5] traMADol HCl [Ultram] 50 mg PO Q6H PRN 05/02/18 05/02/18 History Allergies Allergy/AdvReac Type Severity Reaction Status Date / Time fluconazole Allergy Itching Verified 05/02/18 12:19 hydrocodone Allergy Itching-states Verified 05/02/18 12:19 "can't take too many in a row" Iodinated Contrast- Oral and Allergy Anaphylaxis Verified 05/02/18 12:19 IV Dye /Rash/Itchi [Iodinated Contrast Media - ng IV Dye] shellfish derived [Shrimp] Allergy Anaphylaxis- Verified 05/02/18 12:19 FEELS LIKE THROAT CLOSING vancomycin Allergy Itching Verified 05/02/18 12:19 venom-honey bee Allergy Swelling/It Verified 05/02/18 12:19 [bee venom (honey bee)] suellen doxycycline AdvReac Nausea & Verified 05/02/18 12:19 Vomiting fluticasone AdvReac Loss of Verified 05/02/18 12:19 Voice hydroxychloroquine AdvReac Nausea & Verified 05/02/18 12:19 [From Plaquenil] Vomiting levofloxacin AdvReac Nausea & Verified 05/02/18 12:19 Vomiting lisinopril AdvReac Cough Verified 05/02/18 12:19 morphine AdvReac Nausea & Verified 05/02/18 12:19 Vomiting ropinirole AdvReac Nausea & Verified 05/02/18 12:19 Vomiting sulfamethoxazole AdvReac Nausea & Verified 05/02/18 12:19 [From Bactrim] Vomiting trimethoprim [From Bactrim] AdvReac Nausea & Verified 05/02/18 12:19 Vomiting Physical Exam Vitals: Vital Signs Temp Pulse Pulse Resp BP BP Pulse Ox 05/02/18 23:00 98.4 F 67 16 84/47 95 05/02/18 14:35 98.1 F 73 18 133/63 97 05/02/18 12:40 98.0 F 74 18 137/73 95 05/02/18 11:53 98.4 F 67 18 146/67 99 05/02/18 10:05 98.2 F 86 20 112/67 98 Intake and Output 05/02/18 05/02/18 05/03/18 14:59 22:59 06:59 Other: Voiding Method Toilet # Voids 0 1 Weight 84.36 kg Pleasant 67-year-old woman complains of discomfort to the left hip HEENT: Anicteric conjunctiva are pink and moist nasal mucosa grossly intact without significant lesions, there is no thrush. Neck: The neck is supple without significant lymphadenopathy or thyromegaly. Lungs: Good bilateral air entry without significant crackles or wheezing. There is no significant bronchial sounds. There is no egophony or dullness. Heart: Regular rate and rhythm with an audible S1-S2, no S3 no S4. There is no significant murmur click or rub, PMI was nondisplaced. Abdomen: Positive bowel sounds soft and nontender without palpable masses or organomegaly. There was no guarding or rebound. Extremities: The upper extremities have excellent pulses they are symmetric, no significant petechiae or telangiectasia. No splinter hemorrhages were noted. The right lower extremity has no acute abnormalities. Left lower extremity reveals evidence of the recent intervention into the anterior aspect of the left hip. The surgical incision reveals evidence of no curtis purulence. There are 2 areas of dark eschar approximately 5 x 5 cm as noted. It is quite tender there is swelling and erythema over the area. There is tenderness to range of motion to the left hip. There is no significant ascending erythema. Neuro: Awake alert oriented to person place and time. There are no acute new gross focal sensory motor deficits. Results CBC & Chem 7: 05/02/18 10:15 05/02/18 10:15 Labs: Abnormal Lab Results - Last 24 Hours (Table) 05/02/18 05/02/18 05/02/18 Range/Units 10: 10: 10:15 Hgb 11.1 L (11.4-16.0) gm/dL Hct 32.7 L (34.0-46.0) % Lymphocytes # 0.9 L (1.0-4.8) k/uL Glucose 162 H (74-99) mg/dL POC Glucose (mg/dL) (75-99) mg/dL Plasma Lactic Acid Osvaldo 2.4 H* (0.7-2.0) mmol/L 05/02/18 05/02/18 05/02/18 Range/Units 12:39 16:53 20:35 Hgb (11.4-16.0) gm/dL Hct (34.0-46.0) % Lymphocytes # (1.0-4.8) k/uL Glucose (74-99) mg/dL POC Glucose (mg/dL) 127 H 174 H 137 H (75-99) mg/dL Plasma Lactic Acid Osvaldo (0.7-2.0) mmol/L Microbiology - Last 24 Hours (Table) 05/02/18 10:15 Wound Culture - Preliminary Hip - Left Laboratory Results WBC 8.1 k/uL (3.8-10.6) 05/02/18 10:15 RBC 4.01 m/uL (3.80-5.40) 05/02/18 10:15 Hgb 11.1 gm/dL (11.4-16.0) L 05/02/18 10:15 Hct 32.7 % (34.0-46.0) L 05/02/18 10:15 MCV 81.5 fL (80.0-100.0) D 05/02/18 10:15 MCH 27.7 pg (25.0-35.0) 05/02/18 10:15 MCHC 33.9 g/dL (31.0-37.0) 05/02/18 10:15 RDW 14.0 % (11.5-15.5) 05/02/18 10:15 Plt Count 392 k/uL (150-450) 05/02/18 10:15 Neutrophils % 79 % 05/02/18 10:15 Lymphocytes % 11 % 05/02/18 10:15 Monocytes % 6 % 05/02/18 10:15 Eosinophils % 1 % 05/02/18 10:15 Basophils % 1 % 05/02/18 10:15 Neutrophils # 6.4 k/uL (1.3-7.7) 05/02/18 10:15 Lymphocytes # 0.9 k/uL (1.0-4.8) L 05/02/18 10:15 Monocytes # 0.5 k/uL (0-1.0) 05/02/18 10:15 Eosinophils # 0.1 k/uL (0-0.7) 05/02/18 10:15 Basophils # 0.1 k/uL (0-0.2) 05/02/18 10:15 Hypochromasia Slight 05/02/18 10:15 Poikilocytosis Slight 05/02/18 10:15 PT 10.2 sec (9.0-12.0) 05/02/18 10:15 INR 1.0 (<1.2) 05/02/18 10:15 APTT 24.8 sec (22.0-30.0) 05/02/18 10:15 Sodium 139 mmol/L (137-145) 05/02/18 10:15 Potassium 4.9 mmol/L (3.5-5.1) 05/02/18 10:15 Chloride 102 mmol/L (98-107) 05/02/18 10:15 Carbon Dioxide 24 mmol/L (22-30) 05/02/18 10:15 Anion Gap 13 mmol/L 05/02/18 10:15 BUN 12 mg/dL (7-17) 05/02/18 10:15 Creatinine 0.73 mg/dL (0.52-1.04) 05/02/18 10:15 Est GFR (CKD-EPI)AfAm >90 (>60 ml/min/1.73 sqM) 05/02/18 10:15 Est GFR (CKD-EPI)NonAf 85 (>60 ml/min/1.73 sqM) 05/02/18 10:15 Glucose 162 mg/dL (74-99) H 05/02/18 10:15 POC Glucose (mg/dL) 137 mg/dL (75-99) H 05/02/18 20:35 POC Glu Commissioning Specialist Angélica Hernandes 05/02/18 20:35 Lactic Ac Sepsis Rflx Y 05/02/18 11:25 Plasma Lactic Acid Osval[place] 0.9 mmol/L (0.7-2.0) 05/02/18 14:33 Calcium 9.4 mg/dL (8.4-10.2) 05/02/18 10:15 Total Bilirubin 0.7 mg/dL (0.2-1.3) 05/02/18 10:15 AST 29 U/L (14-36) 05/02/18 10:15 ALT 13 U/L (9-52) 05/02/18 10:15 Alkaline Phosphatase 84 U/L (38-126) 05/02/18 10:15 Total Protein 7.2 g/dL (6.3-8.2) 05/02/18 10:15 Albumin 3.7 g/dL (3.5-5.0) 05/02/18 10:15 Microbiology 05/02/18 10:15 Hip - Left Wound Culture - Preliminary Comments: X-ray of left hip reveals evidence of recent arthroplasty without evidence of fracture or displacement. Assessment and Plan (1) Status post total hip replacement, left Current Visit: No Status: Acute Code(s): Z96.642 - PRESENCE OF LEFT ARTIFICIAL HIP JOINT SNOMED Code(s): 640512935549 (2) Cellulitis of left hip Narrative/Plan: 67-year-old female presents to Hospital after evaluation by her visiting nurse because of increasing difficulties to her left hip. The patient is approximately 3 weeks status post her left total hip arthroplasty via anterior approach. The surgery went well and she's been having care. Her physical therapist in the home setting. She was having some difficulties and to talk to her primary care physician and requested visiting nurse. The home care agency revealed that the physical therapist would be able to perform dressing changes for her. The patient relates the site became much more tender and she became more concerned and constantly a home care nurse was sent to the home. The nurse revealed evidence of cellulitis and she was referred to hospital. With evidence of what appears to be some eschar on the skin on the anterior aspect of the hip the infectious diseases consultation was requested. The patient does have a history of diabetes mellitus type 2 with a last known hemoglobin A1c of 8.9. Uncontrolled diabetes mellitus is a significant risk factor for wound infection. Antimicrobial therapy has been initiated including clindamycin which will be altered to daptomycin therapy with concerns to a vancomycin ALLERGY. Local wound care with Silvadene to be applied locally to help with some discomfort at the area. Orthopedic evaluation will also be helpful. The limb is otherwise warm and well perfused and does not appear to have severe peripheral vascular disease. She does have mild obesity but does not have a large amount of adipose tissue in the region, which should limit the difficulties of fat necrosis. The patient's progression over the next short period of time will determine if surgical debridement is required. Current Visit: Yes Status: Acute Code(s): L03.116 - CELLULITIS OF LEFT LOWER LIMB SNOMED Code(s): 2722995
[2018-05-03] MEDS: DAPTOmycin 500 MG in SODIUM CHLORIDE 0.9% 50 ML IVPB SCH (01:54)
[2018-05-03] MEDS: LEVOTHYROXINE 88 MCG TAB PO SCH (05:45)
[2018-05-03] MEDS: ceFAZolin IN SWFI 2 GM/20 ML SYRINGE IVP SCH ×3 (05:45→17:07)
[2018-05-03] MEDS: HYDROcodone/APAP 7.5-325MG 1 EACH TAB PO PRN ×3 (05:49→18:52)
[2018-05-03 07:25] LABS: Glucose,Whole Blood 166 mg/dL (75-99)
[2018-05-03] MEDS: GABAPENTIN 100 MG CAP PO SCH ×3 (08:00→21:40)
[2018-05-03] MEDS: METOPROLOL TARTRATE 25 MG TAB PO SCH ×2 (08:00→21:41)
[2018-05-03] MEDS: MAGNESIUM OXIDE 400 MG TAB PO SCH (08:00)
[2018-05-03] MEDS: PANTOPRAZOLE 40 MG TABLET PO SCH ×2 (08:01→08:44)
[2018-05-03] MEDS: FERROUS SULFATE 325 MG TAB PO SCH ×2 (08:01→21:41)
[2018-05-03] MEDS: ISOSORBIDE MONONITRATE ER 60 MG TAB.ER.24H PO SCH (08:01)
[2018-05-03] MEDS: INSULIN ASPART 100 UNIT/ML 1 ML 10 ML VIAL SQ SCH ×4 (08:01→21:42)
[2018-05-03] MEDS: traMADol 50 MG TAB PO PRN (08:07)
[2018-05-03] MEDS ORDERED: ASPIRIN 325 MG TAB PO SCH (09:00)
[2018-05-03] MEDS ORDERED: CLOPIDOGREL 75 MG TAB PO SCH (09:00)
[2018-05-03] MEDS: FLUTICASONE 110 MCG INHALER INHALATION SCH ×2 (09:10→20:58)
[2018-05-03 09:56] LABS: Basophils % (A) 1 %; Eosinophils # (A) 0.2 k/uL (0-0.7); Eosinophils % (A) 3 %; HCT 29.3 % (34.0-46.0); HGB 9.8 gm/dL (11.4-16.0); Hypochromasia Moderate; Lymphocytes # (A) 0.9 k/uL (1.0-4.8); Lymphocytes % (A) 17 %; MCH 27.9 pg (25.0-35.0); MCHC 33.4 g/dL (31.0-37.0); MCV 83.4 fL (80.0-100.0); Mean Platelet Volume 6.9; Monocytes # (A) 0.3 k/uL (0-1.0); Monocytes % (A) 6 %; Neutrophils # (A) 3.7 k/uL (1.3-7.7); Neutrophils % (A) 71 %; Platelet Count 302 k/uL (150-450); Poikilocytosis Slight; RBC 3.51 m/uL (3.80-5.40); WBC 5.2 k/uL (3.8-10.6)
--- NOTE | 2018-05-03 10:16 | P.HPOR ---
History of Present Illness H&P Date: 05/03/18 Chief Complaint: Left hip pain 67-year-old patient who underwent direct anterior left total hip arthroplasty on 04/13/18 presented with increasing erythema around the incision area and increased pain. She was seen in the office once day 04/29/2018 at which time she was noted to have mild erythema and placed on oral antibiotics. Over the ensuing days the erythema progressed as did the discomfort prompting the patient to present to the emergency room. Patient denies any fevers or chills.. Patient denies any other orthopedic complaints at this point. Review of Systems Constitutional: Reports as per HPI Past Medical History Past Medical History: Asthma, Coronary Artery Disease (CAD), CVA/TIA, Diabetes Mellitus, Fibromyalgia, GERD/Reflux, Hyperlipidemia, Hypertension, Myocardial Infarction (OK), Neurologic Disorder, Osteoarthritis (OA), Seizure Disorder, Sleep Apnea/CPAP/BIPAP, Thyroid Disorder Additional Past Medical History / Comment(s): back pain & hip pain, sarcoidosis , IBS, osteopenia, past hx of seizures, states has had both cva and tia, some left sided weakness, face numbness, some memory loss, possibly early stages of parkinsons, mengioma on her brain, Rahel ruiz (2016)- still has some numbness left face, frequent diarrhea., states left carotid artery 75 % blockage., walks only short distance and needs to sit down due to hip pain, left hip replacement 04/13/18. Last Myocardial Infarction Date:: 2006 History of Any Multi-Drug Resistant Organisms: MRSA Date of last positivie culture/infection: 2010 MDRO Source:: lung Past Surgical History: Appendectomy, Back Surgery, Breast Surgery, Cholecystectomy, Coronary Bypass/CABG, Heart Catheterization With Stent, Hysterectomy, Joint Replacement, Orthopedic Surgery, Tonsillectomy, Tubal Ligation Additional Past Surgical History / Comment(s): cervical spinal fusion, lumbar spinal surg x2, artie elbow surgery,total lt knee replacement, cataracts artie, benign tumor lt lung removed, lt ankle with hardware (since removed), laser surgery eyes, Heart Cath with 1 stent (2005)), cabg (2006), pin in finger and removed, drainage of pleural effusion, [facility] procedures, artie breast bx x2, eye surgery for macular hole in left eye., Right Carotid surgery. Past Anesthesia/Blood Transfusion Reactions: No Reported Reaction Additional Past Anesthesia/Blood Transfusion Reaction / Comment(s): claustrophobic. UNKNOWN RX PRIOR TO HEART CATH MADE HER LEGS "JUMP". HX OF BLOOD TRANSFUSION (NO REACTION). STATES DIFFICULTY LYING FLAT- NEEDS PILLOW AND "EASES IN TO LYING FLAT" Date of Last Stent Placement:: 2005 Past Psychological History: No Psychological Hx Reported Additional Psychological History / Comment(s): Single. Former smoker. Retired labor. The experience. No travel history. No animal exposures. No significant alcohol use Smoking Status: Former smoker Past Alcohol Use History: None Reported Additional Past Alcohol Use History / Comment(s): former smoker 44 years, 2ppd, quit 2005 Past Drug Use History: None Reported - Past Family History Sister(s) Family Medical History: Cancer Additional Family Medical History / Comment(s): Cervical cancer; lung cancer Brother(s) Family Medical History: Cancer Additional Family Medical History / Comment(s): Pancreatic, prostate; lung cancer Medications and Allergies Home Medications Medication Instructions Recorded Confirmed Type Aspirin 325 mg PO DAILY 06/11/16 05/02/18 History Baclofen 10 mg PO HS 06/11/16 05/02/18 History Clopidogrel [Plavix] 75 mg PO DAILY 06/11/16 05/02/18 History Isosorbide Mononitrate ER [Imdur] 60 mg PO DAILY 06/11/16 05/02/18 History Metoprolol Tartrate [Lopressor] 25 mg PO BID 06/11/16 05/02/18 History NIFEdipine XL [Procardia XL] 60 mg PO DAILY@1200 09/03/16 05/02/18 History Albuterol Nebulized [Ventolin 2.5 mg INHALATION RT-Q4H PRN 12/12/16 05/02/18 History Nebulized] Atorvastatin [Lipitor] 40 mg PO HS 04/22/17 05/02/18 History Nitroglycerin [Nitroglycerin 1 spray TRANSLINGU Q5M PRN 04/22/17 05/02/18 History 400MCG [place]] SUMAtriptan SUCCINATE [Imitrex] 50 mg PO BID PRN 04/22/17 05/02/18 History Albuterol Inhaler [Ventolin Hfa 1 - 2 puff INHALATION RT-Q6H PRN 04/28/17 History Inhaler] Fluticasone Propionate [Flovent 2 puff INHALATION RT-BID 04/28/17 05/02/18 History Hfa 110mcg] Gabapentin [Neurontin] 200 mg PO TID 04/28/17 05/02/18 History Melatonin 7.5 mg PO HS 09/04/17 05/02/18 History Levothyroxine Sodium [Synthroid] 88 mcg PO DAILY 11/27/17 05/02/18 History Pantoprazole [Protonix] 40 mg PO DAILY 01/01/18 05/02/18 History Ranitidine HCl 150 mg PO HS 01/01/18 05/02/18 History Cholecalciferol [Vitamin D3] 1,000 unit PO DAILY 04/03/18 05/02/18 History Cyanocobalamin [Vitamin B-12] 500 mcg PO DAILY 04/03/18 05/02/18 History Loperamide HCl [Loperamide] 2 mg PO DAILY PRN 04/03/18 05/02/18 History Magnesium 200 mg PO DAILY 04/03/18 05/02/18 History glipiZIDE [Glucotrol] 10 mg PO AC-BID 04/03/18 05/02/18 History Ferrous Sulfate [Iron (65 MG 325 mg PO BID #60 tab 04/15/18 05/02/18 Rx Elemental)] sitaGLIPtin [Januvia] 100 mg PO DAILY #30 tab 04/15/18 05/02/18 Rx Cephalexin [Keflex] 500 mg PO Q6H 05/02/18 05/02/18 History HYDROcodone/APAP 7.5-325MG [Seymour 1 - 2 tab PO Q6HR PRN 05/02/18 05/02/18 History 7.5] traMADol HCl [Ultram] 50 mg PO Q6H PRN 05/02/18 05/02/18 History Allergies Allergy/AdvReac Type Severity Reaction Status Date / Time fluconazole Allergy Itching Verified 05/02/18 12:19 hydrocodone Allergy Itching-states Verified 05/02/18 12:19 "can't take too many in a row" Iodinated Contrast- Oral and Allergy Anaphylaxis Verified 05/02/18 12:19 IV Dye /Rash/Itchi [Iodinated Contrast Media - ng IV Dye] shellfish derived [Shrimp] Allergy Anaphylaxis- Verified 05/02/18 12:19 FEELS LIKE THROAT CLOSING vancomycin Allergy Itching Verified 05/02/18 12:19 venom-honey bee Allergy Swelling/It Verified 05/02/18 12:19 [bee venom (honey bee)] suellen doxycycline AdvReac Nausea & Verified 05/02/18 12:19 Vomiting fluticasone AdvReac Loss of Verified 05/02/18 12:19 Voice hydroxychloroquine AdvReac Nausea & Verified 05/02/18 12:19 [From Plaquenil] Vomiting levofloxacin AdvReac Nausea & Verified 05/02/18 12:19 Vomiting lisinopril AdvReac Cough Verified 05/02/18 12:19 morphine AdvReac Nausea & Verified 05/02/18 12:19 Vomiting ropinirole AdvReac Nausea & Verified 05/02/18 12:19 Vomiting sulfamethoxazole AdvReac Nausea & Verified 05/02/18 12:19 [From Bactrim] Vomiting trimethoprim [From Bactrim] AdvReac Nausea & Verified 05/02/18 12:19 Vomiting Physical Examination Osteopathic Statement: *. No significant issues noted on an osteopathic structural exam other than those noted in the History and Physical/Consult. There is an area of necrotic superficial skin laterally as well as overlying the incision area. There is some diffuse erythema laterally and touching the lateral aspect of the incision area. There is discomfort/pain to palpation along the area of erythema. There is some limited range of motion of the left hip with some discomfort present. Distal neurovascular exam appears intact. Homans and Emmanuel are both negative. Results - Labs Labs: Abnormal Lab Results - Last 24 Hours (Table) 05/02/18 05/02/18 05/02/18 Range/Units 10:15 10:15 10:15 Hgb 11.1 L (11.4-16.0) gm/dL Hct 32.7 L (34.0-46.0) % Lymphocytes # 0.9 L (1.0-4.8) k/uL Glucose 162 H (74-99) mg/dL POC Glucose (mg/dL) (75-99) mg/dL Plasma Lactic Acid Osvaldo 2.4 H* (0.7-2.0) mmol/L 05/02/18 05/02/18 05/02/18 Range/Units 12:39 16:53 20:35 Hgb (11.4-16.0) gm/dL Hct (34.0-46.0) % Lymphocytes # (1.0-4.8) k/uL Glucose (74-99) mg/dL POC Glucose (mg/dL) 127 H 174 H 137 H (75-99) mg/dL Plasma Lactic Acid Osvaldo (0.7-2.0) mmol/L 05/03/18 Range/Units 07:11 Hgb (11.4-16.0) gm/dL Hct (34.0-46.0) % Lymphocytes # (1.0-4.8) k/uL Glucose (74-99) mg/dL POC Glucose (mg/dL) 166 H (75-99) mg/dL Plasma Lactic Acid Osvaldo (0.7-2.0) mmol/L Microbiology - Last 24 Hours (Table) 05/02/18 10:15 Gram Stain - Preliminary Hip - Left Wound Culture - Preliminary Gram Neg Bacilli H & H 05/02/18 Range/Units 10:15 Hgb 11.1 L (11.4-16.0) gm/dL Hct 32.7 L (34.0-46.0) % Coagulation 05/02/18 Range/Units 10:15 INR 1.0 (<1.2) Result Diagrams: 05/02/18 10:15 05/02/18 10:15 - Diagnostic results Hip x-ray: report reviewed, image reviewed (Stable appearing total hip arthroplasty) Assessment and Plan Assessment: Left hip area infection with history of direct anterior total hip arthroplasty Plan: I discussed the superficial infection with the patient and her daughter. I certainly am concerned or could be a deep infection going on here. I recommend at this point incision with irrigation debridement and possible polyethylene exchange. I discussed the procedure, risks, complications and recovery with both patient and her daughter. I discussed the possibility of inserting antibiotics into the wound. I discussed the possibility of full-blown exchange. I discussed the probability of long-term antibiotic treatment. I discussed the possibility of future additional surgical intervention as needed. They were agreeable. Consent regarding the procedure was obtained. Time with Patient: Less than 30
--- NOTE | 2018-05-03 12:07 | P.PN ---
Subjective Progress Note Date: 05/03/18 Principal diagnosis: Patient is followed up on management of her medical issues diabetes mellitus, hypertension, and surgical site wound infection Patient seen and examined today, afebrile overnight, still reporting pain over the left hip, denies any chest pain or trouble breathing. Objective - Vital Signs Vital signs: Vital Signs Temp 98.1 F 05/03/18 07:00 Pulse 66 05/03/18 07:00 Resp 16 05/03/18 07:00 BP 105/64 05/03/18 07:00 Pulse Ox 95 05/03/18 07:00 Intake & Output 05/02/18 05/03/18 05/03/18 18:59 06:59 18:59 Weight 84.36 kg Other: Voiding Method Toilet Toilet # Voids 2 2 - Exam Constitutional: vital signs stable, Not in acute distress, pleasant, conversant Lungs: Clear to auscultation bilaterally, clear to percussion, normal respiratory effort no use of accessory muscles Cardiovascular: Regular rate and rhythm, no murmurs, no gallops, no rubs, no peripheral edema Gastrointestinal: Soft, no tenderness to palpation, no palpable hepatosplenomegally, bowel sounds positive, no abdominal wall hernias Skin: Large area of erythema over the left hip at the site of surgical wound, with eschar over the surgical wound site, tender to superficial palpation no active drainage noted Extremities: No digital cyanosis or clubbing, peripheral pulses palpable and equal over bilateral radial arteries and dorsalis pedis artery, no calf muscle tenderness Psych: Alert, oriented to place, person and time, appropriate affect, intact judgment - Labs CBC & Chem 7: 05/03/18 09:33 05/02/18 10:15 Labs: Abnormal Lab Results - Last 24 Hours (Table) 05/02/18 05/02/18 05/02/18 Range/Units 12:39 16:53 20:35 RBC (3.80-5.40) m/uL Hgb (11.4-16.0) gm/dL Hct (34.0-46.0) % Lymphocytes # (1.0-4.8) k/uL POC Glucose (mg/dL) 127 H 174 H 137 H (75-99) mg/dL 05/03/18 05/03/18 Range/Units 07:11 09:33 RBC 3.51 L (3.80-5.40) m/uL Hgb 9.8 L (11.4-16.0) gm/dL Hct 29.3 L (34.0-46.0) % Lymphocytes # 0.9 L (1.0-4.8) k/uL POC Glucose (mg/dL) 166 H (75-99) mg/dL Microbiology - Last 24 Hours (Table) 05/02/18 10:15 Gram Stain - Preliminary Hip - Left Wound Culture - Preliminary Gram Neg Bacilli Assessment and Plan Assessment: 67 year old female with extensive past medical history , patient had left hip replacement surgery done 3 weeks ago, however, she noticed some erythema and ulceration over the surgical wound for the past week, she went to her surgeons office who started her on oral keflex however, patient did not notice any improvement and noticed worsening of the erythema area which got larger with another area of blackish discoloration. she denies any fevers or chills. medicine was consulted for medical management of her complex medical history . Patient was evaluated by ID who started her on daptomycin Orthopedic service planning on wound debridement possibly tomorrow Plan: surgical site wound infection with eschar, failed OP therapy ID recommended starting daptomycin, and to continue Cefazolin ortho evaluation planning on wound debridement pain control Anemia , chronic post op denies any evidence of bleeding Transfuse for hemoglobin below 7 Patient is currently on Plavix and that might increase risk of bleeding postop she receives wound debridement Diabetes mellitus type II on oral agents hold oral agents Insulin sliding scale history of CAD continue with ASA, statin , plavix Hypertension and hyperlipidemia continue home meds Hypothyroidism continue with levothyroxin DVT PPx on heaprin sc tid Patient had one episode of hypotension however was asymptomatic otherwise her blood pressure is within normal limits, continue to monitor
[2018-05-03 12:34] LABS: Glucose,Whole Blood 120 mg/dL (75-99)
[2018-05-03] MEDS: SODIUM CHLORIDE 0.9% 1,000 ML IV SCH (13:33)
[2018-05-03 17:41] LABS: Glucose,Whole Blood 109 mg/dL (75-99)
[2018-05-03 21:26] LABS: Glucose,Whole Blood 153 mg/dL (75-99)
[2018-05-03] MEDS: BACLOFEN 10 MG TAB PO SCH (21:40)
[2018-05-03] MEDS: MELATONIN 5 MG TABLET PO SCH (21:40)
[2018-05-03] MEDS: ATORVASTATIN 40 MG TAB PO SCH (21:40)
[2018-05-03] MEDS: FAMOTIDINE 20 MG TAB PO SCH (21:41)
[2018-05-04] MEDS: ceFAZolin IN SWFI 2 GM/20 ML SYRINGE IVP SCH ×3 (00:47→14:16)
[2018-05-04] MEDS: DAPTOmycin 500 MG in SODIUM CHLORIDE 0.9% 50 ML IVPB SCH (00:47)
[2018-05-04] MEDS: HYDROcodone/APAP 7.5-325MG 1 EACH TAB PO PRN ×2 (01:35→08:49)
[2018-05-04] MEDS: LEVOTHYROXINE 88 MCG TAB PO SCH (05:26)
[2018-05-04 07:30] LABS: Glucose,Whole Blood 143 mg/dL (75-99)
[2018-05-04] MEDS: FLUTICASONE 110 MCG INHALER INHALATION SCH ×2 (07:47→19:35)
[2018-05-04] MEDS: INSULIN ASPART 100 UNIT/ML 1 ML 10 ML VIAL SQ SCH ×4 (08:23→22:30)
[2018-05-04] MEDS: METOPROLOL TARTRATE 25 MG TAB PO SCH ×2 (08:42→22:12)
[2018-05-04] MEDS: MAGNESIUM OXIDE 400 MG TAB PO SCH (08:42)
[2018-05-04] MEDS: ISOSORBIDE MONONITRATE ER 60 MG TAB.ER.24H PO SCH (08:42)
[2018-05-04] MEDS: GABAPENTIN 100 MG CAP PO SCH ×3 (08:42→22:12)
[2018-05-04] MEDS: PANTOPRAZOLE 40 MG TABLET PO SCH (08:42)
[2018-05-04] MEDS: FERROUS SULFATE 325 MG TAB PO SCH ×2 (08:43→22:12)
[2018-05-04 11:22] LABS: Glucose,Whole Blood 158 mg/dL (75-99)
[2018-05-04 12:04] LABS: Basophils # (A) 0.1 k/uL (0-0.2); Basophils % (A) 1 %; Eosinophils # (A) 0.2 k/uL (0-0.7); Eosinophils % (A) 4 %; HCT 32.1 % (34.0-46.0); HGB 10.4 gm/dL (11.4-16.0); Hypochromasia Moderate; Lymphocytes # (A) 1.1 k/uL (1.0-4.8); Lymphocytes % (A) 18 %; MCH 26.8 pg (25.0-35.0); MCHC 32.5 g/dL (31.0-37.0); MCV 82.3 fL (80.0-100.0); Mean Platelet Volume 6.9; Monocytes # (A) 0.4 k/uL (0-1.0); Monocytes % (A) 7 %; Neutrophils # (A) 4.2 k/uL (1.3-7.7); Neutrophils % (A) 69 %; Platelet Count 346 k/uL (150-450); Poikilocytosis Slight; RDW 14.2 % (11.5-15.5); WBC 6.1 k/uL (3.8-10.6)
[2018-05-04 12:28] LABS: INR 1.1 (<1.2); Prothrombin Time 10.6 sec (9.0-12.0)
[2018-05-04] MEDS: SODIUM CHLORIDE 0.9% 1,000 ML IV SCH (13:14)
--- NOTE | 2018-05-04 13:30 | P.PN ---
Subjective Progress Note Date: 05/04/18 Principal diagnosis: left hip skin changes Patient is a 67-year-old female with a past medical history of coronary artery disease, diabetes mellitus type 2, fibromyalgia, IBS, osteopenia , and meningioma who presented to the hospital for erythema and black discoloration over her surgical wound on the left hip. Patient had undergone a left hip replacement 3 weeks prior. She has poorly controlled diabetes with hyperglycemia and an A1c of 8.4. She had cultures obtained which grew Proteus. Plan is for I&D today with Dr. Palma. Patient seen and examined at bedside. She is still feeling overall fatigued. She is still having pain when touching her left hip. No nausea, vomiting, diarrhea, or constipation. No chest pain or shortness of breath. Had a long discussion with daughter and patient slept a could express their concerns about the care they received from home health. Objective - Vital Signs Vital signs: Vital Signs Temp 98.1 F 05/04/18 05:45 Pulse 59 L 05/04/18 05:45 Resp 20 05/04/18 05:45 BP 154/69 05/04/18 05:45 Pulse Ox 95 05/04/18 05:45 Intake & Output 05/03/18 05/04/18 05/04/18 18:59 06:59 18:59 Intake Total 500 Output Total 3 Balance -3 500 Intake: Oral 500 Output: Urine 3 Other: Voiding Method Toilet # Voids 4 - Exam General: Ill-appearing, pale, obese, no distress, appears at stated age Derm: Left hip with necrotic area over her incision and one slightly lateral to the incision both areas a re 5-7 cm in length, no purulent discharge noted. warm, dry Head: atraumatic, normocephalic, symmetric Eyes: EOMI, no lid lag, anicteric sclera Mouth: no lip lesion, mucus membranes moist Cardiovascular: S1S2 reg, no murmur, positive posterior tibial pulse bilateral, Lungs: CTA bilateral, no rhonchi, no rales , no accessory muscle use Abdominal: soft, nontender to palpation, no guarding, no appreciable organomegaly Ext: no gross muscle atrophy, no edema, no contractures Neuro: CN II-XI grossly intact, no focal neuro deficits Psych: Alert, oriented, appropriate affect - Labs CBC & Chem 7: 05/04/18 11:50 05/02/18 10:15 Labs: Abnormal Lab Results - Last 24 Hours (Table) 05/03/18 05/03/18 05/04/18 Range/Units 17:39 21:14 07:29 Hgb (11.4-16.0) gm/dL Hct (34.0-46.0) % POC Glucose (mg/dL) 109 H 153 H 143 H (75-99) mg/dL 05/04/18 05/04/18 Range/Units 11:19 11:50 Hgb 10.4 L (11.4-16.0) gm/dL Hct 32.1 L (34.0-46.0) % POC Glucose (mg/dL) 158 H (75-99) mg/dL Microbiology - Last 24 Hours (Table) 05/02/18 10:15 Blood Culture - Preliminary Blood No Growth after 48 hours 05/02/18 10:15 Gram Stain - Preliminary Hip - Left Wound Culture - Preliminary Proteus mirabilis Assessment and Plan Assessment: Left hip surgical site infection with Proteus, failed outpatient therapy -Continue with daptomycin and cefazolin and -ID recommendations -Ortho planning on debridement today -Pain control -PT/OT -Hold Plavix Recent left hip total arthroplasty -Pain control -PT/OT Acute blood loss anemia secondary to recent surgical procedure -Hemoglobin is improving -Continue with oral iron supplementation Diabetes mellitus type 2 with hyperglycemia -Hemoglobin A1c 8.4 -Added Januvia at last discharge which has been ringing down her blood sugars at home and fasting have been between 120-160. -Continue sliding scale Hypertension, controlled -Continue with Lopressor Chronic: Dyslipidemia Hypothyroidism IVS GERD Atherosclerotic coronary artery disease Obstructive sleep apnea Fibromyalgia History of CVA DVT prophylaxis: Heparin Discussed with: Patient, nursing, daughter Anticipated discharge: 2-[address]: home with home health A total of 35 minutes was spent on the care of this complex patient more than 50 % of the time was spent in counseling and care coordination.
[2018-05-04] MEDS ORDERED: IV FLUID CONTINUATION 1,000 ML IV ONE (14:23)
[2018-05-04] MEDS ORDERED: fentaNYL (PF) 50 MCG/ML 2 ML AMP ONE ×2 (14:57→15:56)
[2018-05-04] MEDS ORDERED: PIPERACILLIN-TAZOBACTAM 3.375 GM VIAL MISCELLANE ONE (15:00)
[2018-05-04] MEDS ORDERED: fentaNYL (PF) 50 MCG/ML 2 ML AMP IVP ONE ×2 (15:02→15:28)
[2018-05-04] MEDS ORDERED: PROPOFOL 10 MG/ML 20 ML VIAL IV ONE (15:56)
[2018-05-04] MEDS ORDERED: SUCCINYLCHOLINE CHLORIDE 100 MG/5 ML SYR IV ONE (15:56)
[2018-05-04] MEDS ORDERED: MIDAZOLAM 2 MG/2 ML VIAL ONE (15:56)
[2018-05-04] MEDS ORDERED: HYDROmorphone (PF) 1 MG/ML ONE (15:56)
[2018-05-04] MEDS ORDERED: ceFAZolin 3,000 MG in SODIUM CHLORIDE 0.9% IRRIGATIO 3,000 ML IRRIGATION ONE (16:00)
[2018-05-04] MEDS ORDERED: SODIUM CHLORIDE 0.9% 50 ML with ceFAZolin 2,000 MG IV ONE ×2 (16:00)
[2018-05-04] MEDS ORDERED: LACTATED RINGERS 1,000 ML IV ONE (17:11)
[2018-05-04] MEDS ORDERED: ONDANSETRON 4 MG/2 ML VIAL IVP ONE (17:50)
[2018-05-04] MEDS ORDERED: HYDROmorphone 1 MG/ML 1 ML SYRINGE IM PRN (17:52)
[2018-05-04] MEDS ORDERED: HYDROmorphone 1 MG/ML 1 ML SYRINGE IVP PRN (17:52)
[2018-05-04] MEDS ORDERED: HYDROmorphone 1 MG/ML 1 ML SYRINGE IVP ONE ×2 (17:55→18:01)
--- NOTE | 2018-05-04 18:01 | P.OP ---
Date of Procedure: 05/04/18 Preoperative Diagnosis: Left hip incisional infection with history of total hip arthroplasty Postoperative Diagnosis: Left hip deep infection with history of total hip arthroplasty Procedure(s) Performed: 1. Incision with irrigation debridement left hip wound 2. Left hip acetabular polyethylene and femoral head exchange Implants: Lauren pinnacle polyethylene acetabular liner neutral 36 mm ID 52 mm OD and Biolox delta ceramic femoral head +1.536 millimeter Anesthesia: LATONIA Surgeon: Jackson Palma Application Manager #1: Blu Goldberg Estimated Blood Loss (ml): 30 Pathology: none sent Condition: stable Disposition: PACU Indications for Procedure: 67-year-old patient presented with increasing erythema and pain along the left hip incision area with history of total hip arthroplasty approximately 3 weeks ago. I recommended incision irrigation debridement and possible polyethylene/ femoral head exchange. The procedure, risks, complications and recovery were discussed with patient and daughter. They were agreeable and consent was obtained. Operative Findings: See description of procedure Description of Procedure: Patient was taken to the operative suite. Patient underwent a general anesthetic by the department of anesthesia. Patient was transferred to the [facility]. Both lower extremities were placed in spars. The left hip area was now prepped and draped in the normal sterile orthopedic fashion. I removed some necrotic-appearing skin at the incision site. This was done utilizing a 11 blade and I performed a sharp excision removing necrotic tissue superficially. I now dissected down and noted some immediate light brown tinged serous fluid. Cultures were obtained. This area now was irrigated with pulse lavage mechanical irrigation totaling 3 L. I noted that the fascia was completely intact. I inserted a spinal into the hip joint deeply and I was able to aspirate more of this abnormal looking fluid. I now open the fascia. I took cultures of the fluid in the hip joint space. I do not appreciate any abnormal tissue tissue there. At this point the wound was irrigated with approximately 1 L of antibiotic irrigant solution. I now placed traction along the hip dislocating hip with the assistance of [employer]IT[employer]. The ceramic head was removed held the femoral component abducted as [employer]ER tapped out the ceramic head with a mallet and bone punch. I now removed the polyethylene liner utilizing one single screw to pop no loose was removed without difficulty. The femoral and acetabular components were thoroughly probed and noted to be completely intact and well fixated. We now irrigated the wound out with an additional 2 L of antibiotic irrigant. I now irrigated the wound with irresept. We allowed that to soak the wound for greater than 1 minute. We then irrigated the wound out copiously with initial 3 L of antibiotic irrigant. I now placed a new acetabular possibly liner in place. It was tapped into position. We noted to be secured. I now placed a new Biolox delta ceramic femoral head tapped it down making sure was secure. The hip was now reduced. There was good stability in position of the hip noted. I now placed Zosyn antibiotic beads deep and the hip joint. I now repaired the fascia utilizing #1 Vicryl. Some additional antibiotic beads were now placed in the subcutaneous area. The subcu soft tissues now repaired in layers with 2- 0 Vicryl. The skin was approximated with skin claudette. An Aquasol dressing was now placed over that incision. I now turned my attention to a wound that was more lateral. There was an area measuring approximately 3 cm x 3 cm of necrotic-appearing superficial tissue. A sharp incisional debridement was performed utilizing 11 blade. This was superficial. All necrotic appearing tissue was thoroughly excised. The defect that was left measured 3 cm x 3 cm. There was no way to approximate this large of a defect. It did not penetrate deeply. I do feel that this will heal on over time heal with granulation tissue. I applied an additional aqua cell dressing in that area. The patient was awakened, transferred to a bed and recovery stable condition. [employer] WHITAKER assisted with the procedure.
[2018-05-04 19:23] LABS: Glucose,Whole Blood 179 mg/dL (75-99)
[2018-05-04 21:00] LABS: Glucose,Whole Blood 171 mg/dL (75-99)
[2018-05-04] MEDS: ATORVASTATIN 40 MG TAB PO SCH (22:11)
[2018-05-04] MEDS: BACLOFEN 10 MG TAB PO SCH (22:11)
[2018-05-04] MEDS: FAMOTIDINE 20 MG TAB PO SCH (22:12)
[2018-05-04] MEDS: MELATONIN 5 MG TABLET PO SCH (22:12)
[2018-05-05] MEDS: DAPTOmycin 500 MG in SODIUM CHLORIDE 0.9% 50 ML IVPB SCH (00:21)
[2018-05-05] MEDS: ONDANSETRON 4 MG/2 ML VIAL IVP PRN ×2 (02:05→09:14)
[2018-05-05] MEDS: HYDROcodone/APAP 7.5-325MG 1 EACH TAB PO PRN ×4 (02:46→22:12)
[2018-05-05] MEDS: LEVOTHYROXINE 88 MCG TAB PO SCH (06:07)
[2018-05-05] MEDS: FLUTICASONE 110 MCG INHALER INHALATION SCH ×2 (06:59→19:43)
[2018-05-05 07:15] LABS: Glucose,Whole Blood 142 mg/dL (75-99)
[2018-05-05] MEDS: INSULIN ASPART 100 UNIT/ML 1 ML 10 ML VIAL SQ SCH ×4 (08:02→21:10)
[2018-05-05] MEDS: CLOPIDOGREL 75 MG TAB PO SCH (08:02)
[2018-05-05] MEDS: ASPIRIN 325 MG TAB PO SCH (08:02)
[2018-05-05] MEDS: PANTOPRAZOLE 40 MG TABLET PO SCH (08:02)
[2018-05-05] MEDS: GABAPENTIN 100 MG CAP PO SCH ×3 (08:03→21:09)
[2018-05-05] MEDS: METOPROLOL TARTRATE 25 MG TAB PO SCH ×2 (08:03→21:09)
[2018-05-05] MEDS: MAGNESIUM OXIDE 400 MG TAB PO SCH (08:03)
[2018-05-05] MEDS: FERROUS SULFATE 325 MG TAB PO SCH ×2 (08:03→21:09)
[2018-05-05] MEDS: ISOSORBIDE MONONITRATE ER 60 MG TAB.ER.24H PO SCH (08:03)
[2018-05-05 08:37] LABS: Hypochromasia Moderate; MCH 27.1 pg (25.0-35.0); MCHC 32.4 g/dL (31.0-37.0); MCV 83.8 fL (80.0-100.0); Mean Platelet Volume 7.4; Platelet Count 296 k/uL (150-450); RDW 14.2 % (11.5-15.5); WBC 6.5 k/uL (3.8-10.6)
[2018-05-05 08:55] LABS: Anion Gap 11 mmol/L; Blood Urea Nitrogen 7 mg/dL (7-17); Carbon Dioxide 26 mmol/L (22-30); Chloride 102 mmol/L (98-107); Glucose 189 mg/dL (74-99); Potassium 4.3 mmol/L (3.5-5.1); Sodium 139 mmol/L (137-145)
[2018-05-05] MEDS: SODIUM CHLORIDE 0.9% 1,000 ML IV SCH (11:21)
[2018-05-05 12:02] LABS: Glucose,Whole Blood 145 mg/dL (75-99)
[2018-05-05] MEDS ORDERED: HYDROcodone/APAP 7.5-325MG 1 EACH TAB PO PRN (12:32)
--- NOTE | 2018-05-05 12:37 | P.PN ---
Subjective Progress Note Date: 05/05/18 Principal diagnosis: left hip skin changes Patient is a 67-year-old female with a past medical history of coronary artery disease, diabetes mellitus type 2, fibromyalgia, IBS, osteopenia , and meningioma who presented to the hospital for erythema and black discoloration over her surgical wound on the left hip. Patient had undergone a left hip replacement 3 weeks prior. She has poorly controlled diabetes with hyperglycemia and an A1c of 8.4. She had cultures obtained which grew Proteus. Plan is for I&D with exchange of femoral head and acetbular region with Dr. Palma was done on 05/05 Patient seen and examined at bedside. She is feeling upset and frustrated by the course of her care. She really does not want to have to go to penitentiary facility. She reports that she is still having increased pain in her left hip. She worked with therapy and felt dizzy and nauseous after standing. She was able to sit in a chair for 2 hours. She states her pain is being controlled with the [place] but she is having somewhere off between doses. No chest pain, shortness of breath, or constipation. She states that she does need IV antibiotic she would like to avoid a penitentiary facility. She states her daughter has done 6 weeks versus of IV antibiotics at home and would be able to help her. She is feeling anxious about her discharge plan. She is also decided she would like [facility] instead of [facility] home health care on discharge. Objective - Vital Signs Vital signs: Vital Signs Temp 98.6 F 05/05/18 06:18 Pulse 66 05/05/18 06:18 Resp 18 05/05/18 06:18 BP 149/68 05/05/18 06:18 Pulse Ox 93 L 05/05/18 06:18 Intake & Output 05/04/18 05/05/18 05/05/18 18:59 06:59 18:59 Intake Total 1401 100 Output Total 30 Balance 1371 100 Intake: IV 1401 Oral 100 Output: Estimated Blood Loss 30 Other: Voiding Method Bedside Commode # Voids 4 2 1 # Bowel Movements 1 - Exam General: Nontoxic, pale, obese, no distress, appears at stated age Derm: Left hip covered with dressing, slightly edema of skin noted warm, dry Head: atraumatic, normocephalic, symmetric Eyes: EOMI, no lid lag, anicteric sclera Mouth: no lip lesion, mucus membranes moist Cardiovascular: S1S2 reg, no murmur, positive posterior tibial pulse bilateral, Lungs: CTA bilateral, no rhonchi, no rales , no accessory muscle use Abdominal: soft, nontender to palpation, no guarding, no appreciable organomegaly Ext: no gross muscle atrophy, no edema, no contractures Neuro: CN II-XI grossly intact, no focal neuro deficits Psych: Alert, oriented, appropriate affect - Labs CBC & Chem 7: 05/05/18 08:26 05/05/18 08:26 Labs: Abnormal Lab Results - Last 24 Hours (Table) 05/04/18 05/04/18 05/05/18 Range/Units 19:21 20:54 07:13 RBC (3.80-5.40) m/uL Hgb (11.4-16.0) gm/dL Hct (34.0-46.0) % Glucose (74-99) mg/dL POC Glucose (mg/dL) 179 H 171 H 142 H (75-99) mg/dL 05/05/18 05/05/18 05/05/18 Range/Units 08:26 08:26 11:26 RBC 3.70 L (3.80-5.40) m/uL Hgb 10.0 L (11.4-16.0) gm/dL Hct 31.0 L (34.0-46.0) % Glucose 189 H (74-99) mg/dL POC Glucose (mg/dL) 145 H (75-99) mg/dL Microbiology - Last 24 Hours (Table) 05/02/18 10:15 Gram Stain - Final Hip - Left Wound Culture - Final Proteus mirabilis 05/04/18 16:50 Gram Stain - Preliminary Hip - Left Wound Culture - Preliminary 05/04/18 16:50 Gram Stain - Preliminary Hip - Left Wound Culture - Preliminary 05/04/18 16:50 Anaerobic Culture - Preliminary Hip - Left 05/04/18 16:50 Anaerobic Culture - Preliminary Hip - Left 05/02/18 10:15 Blood Culture - Preliminary Blood No Growth after 48 hours Assessment and Plan Assessment: Left hip surgical site infection with Proteus, failed outpatient therapy with recent RENETTA -Status post I&D with ortho on 05/04 -Continue with daptomycin -ID recommendations- case discussed with Mona LINER MACHINE OPERATOR HELPER -Pain control -PT/OT -Plavix resumed Acute blood loss anemia secondary to recent surgical procedure -Hemoglobin is improving -Continue with oral iron supplementation Diabetes mellitus type 2 with hyperglycemia -Hemoglobin A1c 8.4 -Added Januvia at last discharge which has been ringing down her blood sugars at home and fasting have been between 120-160. Start DPP4 here, glipizide on hold -Continue sliding scale Hypertension, controlled -Continue with Lopressor Chronic: Dyslipidemia Hypothyroidism IVS GERD Atherosclerotic coronary artery disease Obstructive sleep apnea Fibromyalgia History of CVA DVT prophylaxis: Heparin Discussed with: Patient, nursing, Mona LINER MACHINE OPERATOR HELPER Anticipated discharge: 1-[address]: home with home health A total of 35 minutes was spent on the care of this complex patient more than 50 % of the time was spent in counseling and care coordination.
[2018-05-05] MEDS: CIPROFLOXACIN HCL 500 MG TAB PO SCH ×2 (14:17→21:10)
--- NOTE | 2018-05-05 15:36 | P.PN ---
Subjective Progress Note Date: 05/05/18 Principal diagnosis: s/p incision with irrigation and debridement left hip wound, exchange polyethylene and femoral head components left hip Patient is seen today resting in hospital bed, she appears comfortable. She admits to some discomfort in the left hip region. She denies chest pain or shortness of breath. She has ambulated minimally at this time. Objective - Vital Signs Vital signs: Vital Signs Temp 98.8 F 05/05/18 13:56 Pulse 78 05/05/18 13:56 Resp 20 05/05/18 13:56 BP 162/71 05/05/18 13:56 Pulse Ox 96 05/05/18 13:56 Intake & Output 05/04/18 05/05/18 05/05/18 18:59 06:59 18:59 Intake Total 1401 100 Output Total 30 Balance 1371 100 Intake: IV 1401 Oral 100 Output: Estimated Blood Loss 30 Other: Voiding Method Bedside Commode # Voids 4 2 1 # Bowel Movements 1 - Exam Left lower extremity: Aqua cell bandages are in good position and condition No drainage visualized surrounding bandages Calf is soft, no tenderness with palpation Log roll maneuver reproduces minimal discomfort Sensation to lite touch throughout extremity is intact Dorsal pedis pulse is 2+ - Labs CBC & Chem 7: 05/05/18 08:26 05/05/18 08:26 Labs: Abnormal Lab Results - Last 24 Hours (Table) 05/04/18 05/04/18 05/05/18 Range/Units 19:21 20:54 07:13 RBC (3.80-5.40) m/uL Hgb (11.4-16.0) gm/dL Hct (34.0-46.0) % Glucose (74-99) mg/dL POC Glucose (mg/dL) 179 H 171 H 142 H (75-99) mg/dL 05/05/18 05/05/18 05/05/18 Range/Units 08:26 08:26 11:26 RBC 3.70 L (3.80-5.40) m/uL Hgb 10.0 L (11.4-16.0) gm/dL Hct 31.0 L (34.0-46.0) % Glucose 189 H (74-99) mg/dL POC Glucose (mg/dL) 145 H (75-99) mg/dL Microbiology - Last 24 Hours (Table) 05/02/18 10:15 Blood Culture - Preliminary Blood No Growth after 72 hours 05/02/18 10:15 Gram Stain - Final Hip - Left Wound Culture - Final Proteus mirabilis 05/04/18 16:50 Gram Stain - Preliminary Hip - Left Wound Culture - Preliminary 05/04/18 16:50 Gram Stain - Preliminary Hip - Left Wound Culture - Preliminary 05/04/18 16:50 Anaerobic Culture - Preliminary Hip - Left 05/04/18 16:50 Anaerobic Culture - Preliminary Hip - Left Assessment and Plan Plan: Assessment: Post op day #1 s/p incision with irrigation and debridement left hip wound, polyethylene and femoral head component exchange left hip Plan: Pain control, continue current medication GI and DVT prophylaxis, resume plavix Wound care: will attempt to leave current bandage in place for 3-5 days, will discuss with Dr. Naylor other options for occlusive dressing at discharge Await culture/sensitivity results, ID recommendations for outpatient antibiotics Medical recommendations Weightbear as tolerated with PT Further recommendations to follow Time with Patient: Less than 30
[2018-05-05 17:18] LABS: Glucose,Whole Blood 170 mg/dL (75-99)
[2018-05-05 20:39] LABS: Glucose,Whole Blood 176 mg/dL (75-99)
[2018-05-05] MEDS: ATORVASTATIN 40 MG TAB PO SCH (21:08)
[2018-05-05] MEDS: MELATONIN 5 MG TABLET PO SCH (21:08)
[2018-05-05] MEDS: FAMOTIDINE 20 MG TAB PO SCH (21:09)
[2018-05-05] MEDS: BACLOFEN 10 MG TAB PO SCH (21:09)
[2018-05-06] MEDS: LEVOTHYROXINE 88 MCG TAB PO SCH (05:43)
[2018-05-06] MEDS: HYDROcodone/APAP 7.5-325MG 1 EACH TAB PO PRN ×4 (05:45→22:04)
[2018-05-06 07:05] LABS: Glucose,Whole Blood 179 mg/dL (75-99)
[2018-05-06] MEDS: INSULIN ASPART 100 UNIT/ML 1 ML 10 ML VIAL SQ SCH ×4 (07:27→22:08)
[2018-05-06] MEDS: ASPIRIN 325 MG TAB PO SCH (07:28)
[2018-05-06] MEDS: CIPROFLOXACIN HCL 500 MG TAB PO SCH ×2 (07:28→22:03)
[2018-05-06] MEDS: PANTOPRAZOLE 40 MG TABLET PO SCH (07:28)
[2018-05-06] MEDS: ISOSORBIDE MONONITRATE ER 60 MG TAB.ER.24H PO SCH (07:29)
[2018-05-06] MEDS: CLOPIDOGREL 75 MG TAB PO SCH (07:29)
[2018-05-06] MEDS: FERROUS SULFATE 325 MG TAB PO SCH ×2 (07:29→22:03)
[2018-05-06] MEDS: GABAPENTIN 100 MG CAP PO SCH ×3 (07:29→22:01)
[2018-05-06] MEDS: METOPROLOL TARTRATE 25 MG TAB PO SCH ×2 (07:30→22:03)
[2018-05-06] MEDS: LINAGLIPTIN 5 MG TABLET PO SCH (07:30)
[2018-05-06] MEDS: MAGNESIUM OXIDE 400 MG TAB PO SCH (07:30)
[2018-05-06] MEDS: FLUTICASONE 110 MCG INHALER INHALATION SCH ×2 (08:21→20:28)
[2018-05-06] MEDS ORDERED: HYDROmorphone 2 MG TAB PO PRN (11:07)
[2018-05-06] MEDS ORDERED: HYDROmorphone 4 MG TABLET PO PRN (11:08)
[2018-05-06] MEDS: SODIUM CHLORIDE 0.9% 1,000 ML IV SCH (11:47)
[2018-05-06] MEDS: CYANOCOBALAMIN 500 MCG TAB PO SCH (11:48)
[2018-05-06 12:04] LABS: HCT 29.4 % (34.0-46.0); HGB 9.5 gm/dL (11.4-16.0); Hypochromasia Moderate; MCH 26.9 pg (25.0-35.0); MCHC 32.2 g/dL (31.0-37.0); MCV 83.5 fL (80.0-100.0); Mean Platelet Volume 6.9; Platelet Count 270 k/uL (150-450); Poikilocytosis Slight; RBC 3.52 m/uL (3.80-5.40); RDW 14.2 % (11.5-15.5); WBC 6.6 k/uL (3.8-10.6)
[2018-05-06 12:13] LABS: Glucose,Whole Blood 193 mg/dL (75-99)
[2018-05-06 12:14] LABS: Anion Gap 9 mmol/L; Blood Urea Nitrogen 8 mg/dL (7-17); Calcium 9.1 mg/dL (8.4-10.2); Carbon Dioxide 29 mmol/L (22-30); Chloride 103 mmol/L (98-107); Glucose 179 mg/dL (74-99); Potassium 4.1 mmol/L (3.5-5.1); Sodium 141 mmol/L (137-145)
--- NOTE | 2018-05-06 12:27 | P.PN ---
Subjective Progress Note Date: 05/06/18 Principal diagnosis: s/p incision with irrigation and debridement left hip wound, exchange polyethylene and femoral head components left hip Patient is seen today resting in hospital bed, she appears comfortable. She admits to some discomfort in the left hip region. She denies chest pain or shortness of breath. She has ambulated minimally at this time. Objective - Vital Signs Vital signs: Vital Signs Temp 98.4 F 05/06/18 06:13 Pulse 87 05/06/18 06:13 Resp 18 05/06/18 06:13 BP 159/76 05/06/18 06:13 Pulse Ox 95 05/06/18 06:13 Intake & Output 05/05/18 05/06/18 05/06/18 18:59 06:59 18:59 Other: # Voids 5 4 # Bowel Movements 1 1 - Exam Left lower extremity: Aqua cell bandages are in good position and condition No drainage visualized surrounding bandages Calf is soft, no tenderness with palpation Log roll maneuver reproduces minimal discomfort Sensation to lite touch throughout extremity is intact Dorsal pedis pulse is 2+ - Labs CBC & Chem 7: 05/06/18 11:03 05/06/18 11:03 Labs: Abnormal Lab Results - Last 24 Hours (Table) 05/05/18 05/05/18 05/06/18 Range/Units 17:15 20:38 06:58 RBC (3.80-5.40) m/uL Hgb (11.4-16.0) gm/dL Hct (34.0-46.0) % Glucose (74-99) mg/dL POC Glucose (mg/dL) 170 H 176 H 179 H (75-99) mg/dL 05/06/18 05/06/18 05/06/18 Range/Units 11:03 11:03 12:01 RBC 3.52 L (3.80-5.40) m/uL Hgb 9.5 L (11.4-16.0) gm/dL Hct 29.4 L (34.0-46.0) % Glucose 179 H (74-99) mg/dL POC Glucose (mg/dL) 193 H (75-99) mg/dL Microbiology - Last 24 Hours (Table) 05/04/18 16:50 Gram Stain - Preliminary Hip - Left Wound Culture - Preliminary 05/04/18 16:50 Gram Stain - Preliminary Hip - Left Wound Culture - Preliminary 05/02/18 10:15 Blood Culture - Preliminary Blood No Growth after 72 hours 05/02/18 10:15 Gram Stain - Final Hip - Left Wound Culture - Final Proteus mirabilis Assessment and Plan Plan: Assessment: Post op day #2 s/p incision with irrigation and debridement left hip wound, polyethylene and femoral head component exchange left hip Plan: Pain control, continue current medication GI and DVT prophylaxis, resume plavix Wound care: will attempt to leave current bandage in place for 3-5 days, plan is to continue aquacell dressing at discharge Await culture/sensitivity results, ID recommendations for outpatient antibiotics Medical recommendations Weightbear as tolerated with PT Possible discharge to rehab or to home with healthcare in the next few days Time with Patient: Less than 30
--- NOTE | 2018-05-06 15:20 | P.PN ---
Subjective Progress Note Date: 05/06/18 Principal diagnosis: Left hip pain Patient was seen and examined. No acute events overnight. Patient reports left hip pain, burning in nature. This occurred after she transferred from her chair to her bed. Pain is 5 out of 10 in severity controlled with current pain medication. She denies any fever or chills. Patient saddened by the fact that she might have to go to LTAC for IV Antibiotic, scared of losing her independence. Patient reports good appetite. No changes in bowel or urination. Objective - Vital Signs Vital signs: Vital Signs Temp 98.4 F 05/06/18 06:13 Pulse 87 05/06/18 06:13 Resp 18 05/06/18 06:13 BP 159/76 05/06/18 06:13 Pulse Ox 95 05/06/18 06:13 Intake & Output 05/05/18 05/06/18 05/06/18 18:59 06:59 18:59 Other: # Voids 5 4 # Bowel Movements 1 1 - Exam General: [non toxic], [no distress], [appears at stated age] Derm: [warm], [dry] Head: [atraumatic], [normocephalic], [symmetric] Eyes: [EOMI], [no lid lag], [anicteric sclera] Mouth: [no lip lesion], [mucus membranes moist] Cardiovascular: [S1S2 reg], [no murmur], [positive DP pulse bilateral] Lungs: [CTA bilateral], [no rhonchi, no rales] , [no accessory muscle use] Abdominal: [soft], [ nontender to palpation], [no guarding], [no appreciable organomegaly] Ext: [no gross muscle atrophy], [L hip limited ROM due to pain, dressings applied with erythema surrounding and minimal strikethrough] Psych: [Alert], [oriented], [appropriate affect] - Labs CBC & Chem 7: 05/06/18 11:03 05/06/18 11:03 Labs: Abnormal Lab Results - Last 24 Hours (Table) 05/05/18 05/05/18 05/06/18 Range/Units 17:15 20:38 06:58 RBC (3.80-5.40) m/uL Hgb (11.4-16.0) gm/dL Hct (34.0-46.0) % Glucose (74-99) mg/dL POC Glucose (mg/dL) 170 H 176 H 179 H (75-99) mg/dL 05/06/18 05/06/18 05/06/18 Range/Units 11:03 11:03 12:01 RBC 3.52 L (3.80-5.40) m/uL Hgb 9.5 L (11.4-16.0) gm/dL Hct 29.4 L (34.0-46.0) % Glucose 179 H (74-99) mg/dL POC Glucose (mg/dL) 193 H (75-99) mg/dL Microbiology - Last 24 Hours (Table) 05/02/18 10:15 Blood Culture - Preliminary Blood No Growth after 96 hours 05/04/18 16:50 Gram Stain - Preliminary Hip - Left Wound Culture - Preliminary 05/04/18 16:50 Gram Stain - Preliminary Hip - Left Wound Culture - Preliminary 05/02/18 10:15 Gram Stain - Final Hip - Left Wound Culture - Final Proteus mirabilis Assessment and Plan Assessment: Assessment and Plan 1. L hip surgical site infection: Failed outPT Keflex after recent RENETTA. Patient is afebrile with no leukocytosis. s/p I&D 05/04, 05/02 cultures grew P. mirabilis. XR not concerning for OM. Pain management with Tylenol, [place] PRN, Tramadol PRN, Dilaudid IV PRN. Continue Ciprofloxacin 500 mg PO BID. FU PT/OT, Orthopedic Sx, ID consult, L hip Cx. 2. Anemia: Hg 9.5 Hct 29.4 MCV 83.5. Likely from acute blood loss due to Surgery , has been stable since. Continue FeSO4 325 mg PO BID. Daily CBC. 3. DM: POC glucose 193. A1c 8.4. ISS, Tradjenta 5 mg PO QD. Accuchecks. Hypoglycemic precautions. Diabetic diet. 4. HTN: BP 159/76. Continue Imdur 60 mg PO QD, Metoprolol 25 mg PO BID, Nifedipine 60 mg PO QD. Monitor vitals, adjust medications as necessary. 5. HLDA: Stable. Continue Lipitor 40 mg PO QHS. 6. Hypothyroidism: Stable. Continue Synthroid 88 mcg PO QD. 7. CAD + h/o CVA: Stable. Continue ASA 325 mg PO QD, Plavix 75 mg PO QD, Lipitor 40 mg PO QHS. 8. Fibromyalgia: Stable. Continue Baclofen 10 mg PO QHS. 9. Asthma: Stable. Continue Flovent 110 2 puff BID, Albuterol neb Q4H PRN for SOB/wheezing. 10. DVT/GI Prophylaxis: Stop Pepcid, continue Protonix 40 mg PO QAM. Start SCDs for DVT prophylaxis. ID to determine between IV Abx and PO Abx. Patient open to going to [place] but concerned about her dog and independence there. If she needs IV Abx, we will need PICC line.
[2018-05-06 17:16] LABS: Glucose,Whole Blood 156 mg/dL (75-99)
[2018-05-06 21:04] LABS: Glucose,Whole Blood 171 mg/dL (75-99)
[2018-05-06] MEDS: MELATONIN 5 MG TABLET PO SCH (22:02)
[2018-05-06] MEDS: BACLOFEN 10 MG TAB PO SCH (22:03)
[2018-05-06] MEDS: ATORVASTATIN 40 MG TAB PO SCH (22:04)
--- NOTE | 2018-05-06 23:39 | P.PN ---
Subjective Progress Note Date: 05/06/18 67-year-old female who is a known history of severe degenerative joint disease was having progressive pain to her left hip and constantly underwent a left total hip arthroplasty via anterior approach about 3 weeks ago. Directly postoperatively she continued to improve but now several days ago developed increasing pain to the area. She does have a physical therapist who has been coming to the home who apparently has been assessing area. The patient herself has difficulty seeing the area and there was a dressing in place. She contact her primary care physician and the visiting nurse was requested. Apparently when the nurse evaluated the site she was directed to hospital with evidence of pain erythema and discoloration to the site.She continues to have pain and discomfort at the area which limits her ability to move the leg at this time. Touch the area is very tender. She has noticed no drainage. She's had low-grade temperature only without chills or rigors. 05/06/2018 patient has had a surgical intervention with a polyethylene exchange and femoral head exchange. No evidence of infection at the site was noted. Proteus mirabilis has been isolated which is quinolone susceptible. Objective - Vital Signs Vital signs: Vital Signs Temp 98.5 F 05/06/18 23:00 Pulse 93 05/06/18 22:06 Resp 16 05/06/18 15:25 BP 143/87 05/06/18 22:06 Pulse Ox 93 L 05/06/18 23:00 Intake & Output 05/06/18 05/06/18 05/07/18 06:59 18:59 06:59 Intake Total 750 Balance 750 Intake: Oral 750 Other: # Voids 4 3 2 # Bowel Movements 1 1 - Exam Pleasant 67-year-old woman complains of discomfort to the left hip HEENT: Anicteric conjunctiva are pink and moist nasal mucosa grossly intact without significant lesions, there is no thrush. Neck: The neck is supple without significant lymphadenopathy or thyromegaly. Lungs: Good bilateral air entry without significant crackles or wheezing. There is no significant bronchial sounds. There is no egophony or dullness. Heart: Regular rate and rhythm with an audible S1-S2, no S3 no S4. There is no significant murmur click or rub, PMI was nondisplaced. Abdomen: Positive bowel sounds soft and nontender without palpable masses or organomegaly. There was no guarding or rebound. Extremities: The upper extremities have excellent pulses they are symmetric, no significant petechiae or telangiectasia. No splinter hemorrhages were noted. The right lower extremity has no acute abnormalities. Left lower extremity reveals evidence of the recent intervention into the anterior aspect of the left hip. The new surgical incision is noted with no evidence of any purulent drainage. The open ulceration is noted laterally to the surgical incision. It is been debrided and there some granulation. There is some surrounding erythema which is improved from her first evaluation. There is tenderness to range of motion to the left hip. There is no significant ascending erythema. Neuro: Awake alert oriented to person place and time. There are no acute new gross focal sensory motor deficits. - Labs CBC & Chem 7: 05/06/18 11:03 05/06/18 11:03 Labs: Abnormal Lab Results - Last 24 Hours (Table) 05/06/18 05/06/18 05/06/18 Range/Units 06:58 11:03 11:03 RBC 3.52 L (3.80-5.40) m/uL Hgb 9.5 L (11.4-16.0) gm/dL Hct 29.4 L (34.0-46.0) % Glucose 179 H (74-99) mg/dL POC Glucose (mg/dL) 179 H (75-99) mg/dL 05/06/18 05/06/18 05/06/18 Range/Units 12:01 17:14 20:59 RBC (3.80-5.40) m/uL Hgb (11.4-16.0) gm/dL Hct (34.0-46.0) % Glucose (74-99) mg/dL POC Glucose (mg/dL) 193 H 156 H 171 H (75-99) mg/dL Microbiology - Last 24 Hours (Table) 05/04/18 16:50 Anaerobic Culture - Preliminary Hip - Left 05/04/18 16:50 Anaerobic Culture - Preliminary Hip - Left 05/04/18 16:50 Gram Stain - Final Hip - Left Wound Culture - Final 05/04/18 16:50 Gram Stain - Final Hip - Left Wound Culture - Final 05/02/18 10:15 Blood Culture - Preliminary Blood No Growth after 96 hours Laboratory Results WBC 6.6 k/uL (3.8-10.6) 05/06/18 11:03 RBC 3.52 m/uL (3.80-5.40) L 05/06/18 11:03 Hgb 9.5 gm/dL (11.4-16.0) L 05/06/18 11:03 Hct 29.4 % (34.0-46.0) L 05/06/18 11:03 MCV 83.5 fL (80.0-100.0) 05/06/18 11:03 MCH 26.9 pg (25.0-35.0) 05/06/18 11:03 MCHC 32.2 g/dL (31.0-37.0) 05/06/18 11:03 RDW 14.2 % (11.5-15.5) 05/06/18 11:03 Plt Count 270 k/uL (150-450) 05/06/18 11:03 Neutrophils % 69 % 05/04/18 11:50 Lymphocytes % 18 % 05/04/18 11:50 Monocytes % 7 % 05/04/18 11:50 Eosinophils % 4 % 05/04/18 11:50 Basophils % 1 % 05/04/18 11:50 Neutrophils # 4.2 k/uL (1.3-7.7) 05/04/18 11:50 Lymphocytes # 1.1 k/uL (1.0-4.8) 05/04/18 11:50 Monocytes # 0.4 k/uL (0-1.0) 05/04/18 11:50 Eosinophils # 0.2 k/uL (0-0.7) 05/04/18 11:50 Basophils # 0.1 k/uL (0-0.2) 05/04/18 11:50 Hypochromasia Moderate 05/06/18 11:03 Poikilocytosis Slight 05/06/18 11:03 PT 10.6 sec (9.0-12.0) 05/04/18 11:50 INR 1.1 (<1.2) 05/04/18 11:50 APTT 24.8 sec (22.0-30.0) 05/02/18 10:15 Sodium 141 mmol/L (137-145) 05/06/18 11:03 Potassium 4.1 mmol/L (3.5-5.1) 05/06/18 11:03 Chloride 103 mmol/L (98-107) 05/06/18 11:03 Carbon Dioxide 29 mmol/L (22-30) 05/06/18 11:03 Anion Gap 9 mmol/L 05/06/18 11:03 BUN 8 mg/dL (7-17) 05/06/18 11:03 Creatinine 0.76 mg/dL (0.52-1.04) 05/06/18 11:03 Est GFR (CKD-EPI)AfAm >90 (>60 ml/min/1.73 sqM) 05/06/18 11:03 Est GFR (CKD-EPI)NonAf 81 (>60 ml/min/1.73 sqM) 05/06/18 11:03 Glucose 179 mg/dL (74-99) H 05/06/18 11:03 POC Glucose (mg/dL) 171 mg/dL (75-99) H 05/06/18 20:59 POC Glu Parts Advisor Yamilet Skaggs 05/06/18 20:59 Lactic Ac Sepsis Rflx Y 05/02/18 11:25 Plasma Lactic Acid Osvaldo 0.9 mmol/L (0.7-2.0) 05/02/18 14:33 Calcium 9.1 mg/dL (8.4-10.2) 05/06/18 11:03 Total Bilirubin 0.7 mg/dL (0.2-1.3) 05/02/18 10:15 AST 29 U/L (14-36) 05/02/18 10:15 ALT 13 U/L (9-52) 05/02/18 10:15 Alkaline Phosphatase 84 U/L (38-126) 05/02/18 10:15 Total Protein 7.2 g/dL (6.3-8.2) 05/02/18 10:15 Albumin 3.7 g/dL (3.5-5.0) 05/02/18 10:15 Microbiology 05/04/18 16:50 Hip - Left Anaerobic Culture - Preliminary 05/04/18 16:50 Hip - Left Anaerobic Culture - Preliminary 05/04/18 16:50 Hip - Left Gram Stain - Final 05/04/18 16:50 Hip - Left Wound Culture - Final 05/04/18 16:50 Hip - Left Gram Stain - Final 05/04/18 16:50 Hip - Left Wound Culture - Final 05/02/18 10:15 Blood Blood Culture - Preliminary No Growth after 96 hours 05/02/18 10:15 Hip - Left Gram Stain - Final 05/02/18 10:15 Hip - Left Wound Culture - Final Proteus mirabilis Assessment and Plan (1) Status post total hip replacement, left Narrative/Plan: 67-year-old female presents to Hospital after evaluation by her visiting nurse because of increasing difficulties to her left hip. The patient is approximately 3 weeks status post her left total hip arthroplasty via anterior approach. The surgery went well and she's been having care. Her physical therapist in the home setting. She was having some difficulties and to talk to her primary care physician and requested visiting nurse. The home care agency revealed that the physical therapist would be able to perform dressing changes for her. The patient relates the site became much more tender and she became more concerned and constantly a home care nurse was sent to the home. The nurse revealed evidence of cellulitis and she was referred to hospital. With evidence of what appears to be some eschar on the skin on the anterior aspect of the hip the infectious diseases consultation was requested. The patient does have a history of diabetes mellitus type 2 with a last known hemoglobin A1c of 8.9. Uncontrolled diabetes mellitus is a significant risk factor for wound infection. 05/06/2018 the patient is status post a surgical incision and drainage to the area femoral head exchange and polyethylene exchange. The patient is feeling better at this point in time but there is still the significant wound to the left hip area. Proteus mirabilis has been isolated that is fortunately susceptible to fluoroquinolone and constantly ciprofloxacin will be utilized for antibiotic therapy. Local wound care with the opticell silver has been requested for the next dressing change. Ambulation is as per orthopedics. The patient has an extensive infection to her joint gram-negative in nature. Fluoroquinolone therapy is certainly an option and the patient will need local wound care and therapy to regain her status. Is agreeing to go to [facility] in [facility] to receive her care. She will follow in the office Current Visit: No Status: Acute Code(s): Z96.642 - PRESENCE OF LEFT ARTIFICIAL HIP JOINT SNOMED Code(s): [id number]
[2018-05-07] MEDS: HYDROcodone/APAP 7.5-325MG 1 EACH TAB PO PRN ×4 (02:12→15:54)
[2018-05-07] MEDS: LEVOTHYROXINE 88 MCG TAB PO SCH (06:25)
[2018-05-07 07:06] LABS: Glucose,Whole Blood 159 mg/dL (75-99)
[2018-05-07 07:42] VITALS: TEMP 98.4
[2018-05-07] MEDS: FLUTICASONE 110 MCG INHALER INHALATION SCH (07:43)
[2018-05-07] MEDS: INSULIN ASPART 100 UNIT/ML 1 ML 10 ML VIAL SQ SCH ×2 (08:14→12:49)
[2018-05-07] MEDS: MAGNESIUM OXIDE 400 MG TAB PO SCH (08:15)
[2018-05-07] MEDS: CIPROFLOXACIN HCL 500 MG TAB PO SCH (08:15)
[2018-05-07] MEDS: PANTOPRAZOLE 40 MG TABLET PO SCH (08:15)
[2018-05-07] MEDS: GABAPENTIN 100 MG CAP PO SCH ×2 (08:15→15:20)
[2018-05-07] MEDS: FERROUS SULFATE 325 MG TAB PO SCH (08:15)
[2018-05-07] MEDS: METOPROLOL TARTRATE 25 MG TAB PO SCH (08:15)
[2018-05-07] MEDS: ISOSORBIDE MONONITRATE ER 60 MG TAB.ER.24H PO SCH (08:15)
[2018-05-07] MEDS: CLOPIDOGREL 75 MG TAB PO SCH (08:15)
[2018-05-07] MEDS: LINAGLIPTIN 5 MG TABLET PO SCH (08:15)
[2018-05-07] MEDS: ASPIRIN 325 MG TAB PO SCH (08:16)
--- NOTE | 2018-05-07 11:03 | P.PN ---
Subjective Progress Note Date: 05/07/18 Principal diagnosis: left hip pain patient was seen and examined. No acute events overnight. Patient reports mild hip pain, worsened with exertion, controlled with current pain medication. She is agreeable to go to a facility for closer monitoring of her wounds. Her daughter is at bedside. She has no other complaints today. Objective - Vital Signs Vital signs: Vital Signs Temp 98.4 F 05/07/18 07:00 Pulse 69 05/07/18 07:00 Resp 16 05/07/18 07:00 BP 128/58 05/07/18 07:00 Pulse Ox 92 L 05/07/18 07:00 Intake & Output 05/06/18 05/07/18 05/07/18 18:59 06:59 18:59 Intake Total 750 100 Balance 750 100 Intake: Oral 750 100 Other: Voiding Method Bedside Commode # Voids 3 2 # Bowel Movements 1 - Exam General: [non toxic], [no distress], [appears at stated age] Derm: [warm], [dry] Head: [atraumatic], [normocephalic], [symmetric] Eyes: [EOMI], [no lid lag], [anicteric sclera] Mouth: [no lip lesion], [mucus membranes moist] Cardiovascular: [S1S2 reg], [no murmur], [positive DP pulse bilateral] Lungs: [CTA bilateral], [no rhonchi, no rales] , [no accessory muscle use] Abdominal: [soft], [ nontender to palpation], [no guarding], [no appreciable organomegaly] Ext: [no gross muscle atrophy], [L hip limited ROM due to pain, dressings applied with erythema surrounding and minimal strikethrough] Psych: [Alert], [oriented], [appropriate affect] - Labs CBC & Chem 7: 05/06/18 11:03 05/06/18 11:03 Labs: Abnormal Lab Results - Last 24 Hours (Table) 05/06/18 05/06/18 05/06/18 Range/Units 11:03 11:03 12:01 RBC 3.52 L (3.80-5.40) m/uL Hgb 9.5 L (11.4-16.0) gm/dL Hct 29.4 L (34.0-46.0) % Glucose 179 H (74-99) mg/dL POC Glucose (mg/dL) 193 H (75-99) mg/dL 05/06/18 05/06/18 05/07/18 Range/Units 17:14 20:59 07:01 RBC (3.80-5.40) m/uL Hgb (11.4-16.0) gm/dL Hct (34.0-46.0) % Glucose (74-99) mg/dL POC Glucose (mg/dL) 156 H 171 H 159 H (75-99) mg/dL Microbiology - Last 24 Hours (Table) 05/04/18 16:50 Anaerobic Culture - Preliminary Hip - Left 05/04/18 16:50 Anaerobic Culture - Preliminary Hip - Left 05/04/18 16:50 Gram Stain - Final Hip - Left Wound Culture - Final 05/04/18 16:50 Gram Stain - Final Hip - Left Wound Culture - Final 05/02/18 10:15 Blood Culture - Preliminary Blood No Growth after 96 hours Assessment and Plan Assessment: Assessment and Plan 1. L hip surgical site infection: Failed outPT Keflex after recent RENETTA. Patient is afebrile with no leukocytosis. s/p I&D 05/04, 05/02 cultures grew P. mirabilis. XR not concerning for OM. Pain management with Tylenol, [place] PRN, Tramadol PRN, Dilaudid IV PRN. ID recommendations appreciated - Continue Ciprofloxacin 500 mg PO BID. L hip Cx prelim negative. FU PT/OT, Orthopedic Sx, L hip Cx (final) 2. Anemia: Hg 9.5 Hct 29.4 MCV 83.5. Likely from acute blood loss due to Surgery , has been stable since. Continue FeSO4 325 mg PO BID. Daily CBC. 3. DM: POC glucose 159. A1c 8.4. ISS, Tradjenta 5 mg PO QD. Accuchecks. Hypoglycemic precautions. Diabetic diet. 4. HTN: BP 128/58. Continue Imdur 60 mg PO QD, Metoprolol 25 mg PO BID, Nifedipine 60 mg PO QD. Monitor vitals, adjust medications as necessary. 5. HLDA: Stable. Continue Lipitor 40 mg PO QHS. 6. Hypothyroidism: Stable. Continue Synthroid 88 mcg PO QD. 7. CAD + h/o CVA: Stable. Continue ASA 325 mg PO QD, Plavix 75 mg PO QD, Lipitor 40 mg PO QHS. 8. Fibromyalgia: Stable. Continue Baclofen 10 mg PO QHS. 9. Asthma: Stable. Continue Flovent 110 2 puff BID, Albuterol neb Q4H PRN for SOB/wheezing. 10. DVT/GI Prophylaxis: Stop Pepcid, continue Protonix 40 mg PO QAM. Start SCDs for DVT prophylaxis. Discussed with Dr. Naylor, HIRAM with PO Ciprofloxacin, to follow outPT. Patient open to going to ID, bed available. Cleared for DC from medical standpoint. FU Orthopedic Sx
[2018-05-07] MEDS: CYANOCOBALAMIN 500 MCG TAB PO SCH (12:03)
[2018-05-07] MEDS: SODIUM CHLORIDE 0.9% 1,000 ML IV SCH (12:03)
[2018-05-07 12:48] LABS: Glucose,Whole Blood 209 mg/dL (75-99)
--- NOTE | 2018-05-07 15:06 | P.PN ---
Subjective Progress Note Date: 05/07/18 Principal diagnosis: s/p incision with irrigation and debridement left hip wound, exchange polyethylene and femoral head components left hip Patient is seen today resting in hospital bed, she appears comfortable. She admits to some discomfort in the left hip region. She denies chest pain or shortness of breath. She has ambulated minimally at this time. Objective - Vital Signs Vital signs: Vital Signs Temp 98.4 F 05/07/18 07:00 Pulse 69 05/07/18 07:00 Resp 16 05/07/18 07:00 BP 128/58 05/07/18 07:00 Pulse Ox 92 L 05/07/18 07:00 Intake & Output 05/06/18 05/07/18 05/07/18 18:59 06:59 18:59 Intake Total 750 100 160 Balance 750 100 160 Intake: IV 160 Sodium Chloride 0.9% 1, 160 000 ml @ 20 mls/hr IV . Q24H [facility] Rx#:[id number] Oral 750 100 Other: Voiding Method Bedside Commode # Voids 3 2 # Bowel Movements 1 - Exam Left lower extremity: Xochitl in good position and condition, incision is clean, dry and intact. 3 x 3cm wound visualized, there is a silver dressing present. No drainage visualized Calf is soft, no tenderness with palpation Log roll maneuver reproduces minimal discomfort Sensation to lite touch throughout extremity is intact Dorsal pedis pulse is 2+ - Labs CBC & Chem 7: 05/06/18 11:03 05/06/18 11:03 Labs: Abnormal Lab Results - Last 24 Hours (Table) 05/06/18 05/06/18 05/07/18 Range/Units 17:14 20:59 07:01 POC Glucose (mg/dL) 156 H 171 H 159 H (75-99) mg/dL 05/07/18 Range/Units 12:43 POC Glucose (mg/dL) 209 H (75-99) mg/dL Microbiology - Last 24 Hours (Table) 05/02/18 10:15 Blood Culture - Preliminary Blood No Growth after 120 hours 05/04/18 16:50 Anaerobic Culture - Preliminary Hip - Left 05/04/18 16:50 Anaerobic Culture - Preliminary Hip - Left 05/04/18 16:50 Gram Stain - Final Hip - Left Wound Culture - Final 05/04/18 16:50 Gram Stain - Final Hip - Left Wound Culture - Final Assessment and Plan Plan: Assessment: Post op day #3 s/p incision with irrigation and debridement left hip wound, polyethylene and femoral head component exchange left hip Plan: Pain control, continue current medication GI and DVT prophylaxis, resume plavix Wound care: patient will be sent will silver impregnated dressing, wound care every 2 days. Patient scheduled to follow-up with Dr. Naylor clinic. Patient will be sent on oral antibiotics, ciprofloxacin Medical recommendations Weightbear as tolerated with PT Patient will be discharged to rehab today Time with Patient: Less than 30
--- NOTE | 2018-05-07 15:13 | P.DS ---
Providers Date of admission: 05/02/18 11:40 Expected date of discharge: 05/07/18 Attending physician: Jackson Palma Consults: 05/02/18 11:40 Consult Physician Urgent Consulting Provider: Edin Naylor Consult Reason/Comments: Incisional infection Do you want consulting provider notified?: Yes Consult Physician Urgent Consulting Provider: Lico Jeffery Consult Reason/Comments: medical consult Do you want consulting provider notified?: Yes Primary care physician: Melissa Mares MD Hospital Course: Date of admission: 05/02/2018 Date of discharge: 05/07/2018 Admission diagnosis: Left hip incision infection, recent history left total hip arthroplasty Discharge diagnosis: Left periprosthetic hip deep infection, Status post incision with irrigation and debridement left hip, polyethylene liner and femoral head exchange Attending physician: Dr. Palma Surgical procedures: Status post incision irrigation debridement left hip, polyethylene liner and femoral head exchange Past medical history: Patient is a 67-year-old female who presented to [facility] on 05/02/2018 after being seen at home by her home nurse and recommended she report to the hospital due to possible surgical site infection involving her left hip. Patient underwent a left total hip arthroplasty on by Dr. Palma. Patient had initially been doing very well. She was seen in the outpatient setting last week, she was started on oral antibiotics with concern of possible cellulitis involving the area of incision. Over the weekend the patient's symptoms hadn't improved, they had actually worsened which prompted nursing to advise patient reported to hospital. After arrival to the hospital, our orthopedic team was contacted and we took the admission. Dr Palma evaluated the patient, there was concern of a incisional site infection with possible deep infection of the hip. Patient was boarded for surgery to take place on 05/04/2018. Hospital course: Details of patient's surgery can be found in operative report. Patient tolerated the procedure well and was subsequently transported to orthopedic floor. Patient's orthopeidc and medical care was provided daily. Patient had daily laboratory tests performed for evaluation of overall blood counts. Patient had daily physical therapy to include strengthening range of motion as well as education with walker ambulation. Patient was treated with Plavix and aspirin for their postoperative DVT prophylaxis during their inpatient stay. Patient was noted to have a relatively uneventful postoperative course. Patient reported satisfactory pain control with oral pain medications by postoperative day 0. Patient showed satisfactory progress with physical therapy. Patient moved steadily through the program and had no difficulty meeting the goals by postoperative day 3. Given patient's otherwise satisfactory course and having met physical therapy goals, plan is to discharge patient rehab on postoperative day 3. Discharge condition/disposition: Patient will be discharged rehab in stable condition. Discharge medications: Instructions are given on resumption of patient's normal daily medications per primary care recommendation, in addition patient will be prescribed [place] 7.5 mg/325 mg, ciprofloxacin 500 mg. Discharge instructions: 1. Wound care and infection precautions, keep incision dry and covered while showering, no lotions, creams, moisturizers. No soaking, tubs, pools, hottubs. Do not scrub over the incision. 2. Weight-bear as tolerated with walker / cane until follow-up. 3. Ice and elevate when necessary. Do not exceed 20 minutes per hour with ice pack. 4. Utilize compression sleeve until seen at first follow up appointment. 5. Visiting nursing care. 6. Home physical therapy 7. Pain meds and anticoagulants per prescription. 8. Pain medication has potential to cause constipation. Increase oral fluid and fiber intake. Contact primary care provider if you have not had a bowel movement within 48 hours after discharge 9. No anti-inflammatory medication until discussed at first post operative visit, this including Motrin, Aleve, Mobic, Diclofenac 10. Follow up in office at 2 weeks postop with Cisco Goldberg PA-C 11. Follow up with your primary care doctor 7-10 days after discharge. 12. Contact [facility] with any questions, . Procedures: Incision with irrigation and debridement left hip, polyethylene liner and femoral head exchange Patient Condition at Discharge: Fair Plan - Discharge Summary Discharge Rx Participant: Yes New Discharge Prescriptions: New Ciprofloxacin HCl [Cipro] 500 mg PO Q12HR #84 tablet HYDROcodone/APAP 7.5-325MG [[place] 7.5] 1 - 2 each PO Q6HR PRN #56 tab PRN Reason: Pain Discontinued traMADol HCl [Ultram] 50 mg PO Q6H PRN PRN Reason: Pain HYDROcodone/APAP 7.5-325MG [[place] 7.5] 1 - 2 tab PO Q6HR PRN PRN Reason: Pain No Action Aspirin 325 mg PO DAILY Baclofen 10 mg PO HS Clopidogrel [Plavix] 75 mg PO DAILY Metoprolol Tartrate [Lopressor] 25 mg PO BID Isosorbide Mononitrate ER [Imdur] 60 mg PO DAILY NIFEdipine XL [Procardia XL] 60 mg PO DAILY@1200 Albuterol Nebulized [Ventolin Nebulized] 2.5 mg INHALATION RT-Q4H PRN PRN Reason: Shortness Of Breath Nitroglycerin [Nitroglycerin 400MCG [place]] 1 spray TRANSLINGU Q5M PRN PRN Reason: Chest Pain SUMAtriptan SUCCINATE [Imitrex] 50 mg PO BID PRN PRN Reason: Migraine Headache Atorvastatin [Lipitor] 40 mg PO HS Fluticasone Propionate [Flovent Hfa 110mcg] 2 puff INHALATION RT-BID Gabapentin [Neurontin] 200 mg PO TID Albuterol Inhaler [Ventolin Hfa Inhaler] 1 - 2 puff INHALATION RT-Q6H PRN PRN Reason: Shortness Of Breath Melatonin 7.5 mg PO HS Levothyroxine Sodium [Synthroid] 88 mcg PO DAILY Pantoprazole [Protonix] 40 mg PO DAILY Ranitidine HCl 150 mg PO HS glipiZIDE [Glucotrol] 10 mg PO AC-BID Cholecalciferol [Vitamin D3] 1,000 unit PO DAILY Magnesium 200 mg PO DAILY Loperamide HCl [Loperamide] 2 mg PO DAILY PRN PRN Reason: Diarrhea Cyanocobalamin [Vitamin B-12] 500 mcg PO DAILY Ferrous Sulfate [Iron (65 MG Elemental)] 325 mg PO BID #60 tab sitaGLIPtin [Januvia] 100 mg PO DAILY #30 tab Cephalexin [Keflex] 500 mg PO Q6H Discharge Medication List Aspirin 325 mg PO DAILY 06/11/16 [History] Baclofen 10 mg PO HS 06/11/16 [History] Clopidogrel [Plavix] 75 mg PO DAILY 06/11/16 [History] Isosorbide Mononitrate ER [Imdur] 60 mg PO DAILY 06/11/16 [History] Metoprolol Tartrate [Lopressor] 25 mg PO BID 06/11/16 [History] NIFEdipine XL [Procardia XL] 60 mg PO DAILY@1200 09/03/16 [History] Albuterol Nebulized [Ventolin Nebulized] 2.5 mg INHALATION RT-Q4H PRN 12/12/16 [ History] Atorvastatin [Lipitor] 40 mg PO HS 04/22/17 [History] Nitroglycerin [Nitroglycerin 400MCG [place]] 1 spray TRANSLINGU Q5M PRN 04/22/17 [ History] SUMAtriptan SUCCINATE [Imitrex] 50 mg PO BID PRN 04/22/17 [History] Albuterol Inhaler [Ventolin Hfa Inhaler] 1 - 2 puff INHALATION RT-Q6H PRN [History] Fluticasone Propionate [Flovent Hfa 110mcg] 2 puff INHALATION RT-BID 04/28/17 [ History] Gabapentin [Neurontin] 200 mg PO TID 04/28/17 [History] Melatonin 7.5 mg PO HS 09/04/17 [History] Levothyroxine Sodium [Synthroid] 88 mcg PO DAILY 11/27/17 [History] Pantoprazole [Protonix] 40 mg PO DAILY 01/01/18 [History] Ranitidine HCl 150 mg PO HS 01/01/18 [History] Cholecalciferol [Vitamin D3] 1,000 unit PO DAILY 04/03/18 [History] Cyanocobalamin [Vitamin B-12] 500 mcg PO DAILY 04/03/18 [History] Loperamide HCl [Loperamide] 2 mg PO DAILY PRN 04/03/18 [History] Magnesium 200 mg PO DAILY 04/03/18 [History] glipiZIDE [Glucotrol] 10 mg PO AC-BID 04/03/18 [History] Ferrous Sulfate [Iron (65 MG Elemental)] 325 mg PO BID #60 tab 04/15/18 [Rx] sitaGLIPtin [Januvia] 100 mg PO DAILY #30 tab 04/15/18 [Rx] Cephalexin [Keflex] 500 mg PO Q6H 05/02/18 [History] Ciprofloxacin HCl [Cipro] 500 mg PO Q12HR #84 tablet 05/05/18 [Rx] HYDROcodone/APAP 7.5-325MG [[place] 7.5] 1 - 2 each PO Q6HR PRN #56 tab 05/07/18 [ Rx] Follow up Appointment(s)/Referral(s): Edin Naylor MD [STAFF PHYSICIAN] - 1 Week (Wound Center) Melissa Mares MD [Primary Care Provider] - 1-2 days Blu Goldberg PAC [PHYSICIAN DUMP OPERATOR] - 2 Weeks [facility] Visiting Nurse, [NON-STAFF] - Activity/Diet/Wound Care/Special Instructions: Orthopedic Discharge Instructions: 1. Wound care and infection precautions, keep incision dry and covered while showering, no lotions, creams, moisturizers. No soaking, pools, hot tubs. Do not scrub over incision. 2. Weight-bear as tolerated with walker / cane until follow-up. 3. Ice and elevate when necessary. Do not exceed 20 minutes per hour with ice pack. 4. Utilize compression sleeve until seen at first follow up appointment. 5. Pain meds and anticoagulants per prescription. 6. Pain medication has potential to cause constipation. Increase oral fluid and fiber intake. Contact primary care provider if you have not had a bowel movement within 48 hours after discharge. 7. No anti-inflammatory medication until discussed at first post operative visit, this including Motrin, Aleve, Mobic, Diclofenac. 8. Follow up in office at 2 weeks postop with Cisco Goldberg PA-C 9. Follow up with your primary care doctor 7-10 days after discharge. 10. Contact [facility] with any questions, . Discharge Disposition: TRANSFER TO SNF/ECF
[2018-05-07 15:52] VITALS: BP 147/69; PULSE 92; RESP 18
== END 2018-05-07 16:39 | DRG 467 ==
LOC: EC 10:02 → 4MS4W 11:40
PROVIDERS: ADMIT Orthopaedic Surgery; ATTEND Orthopaedic Surgery
PROC: 0SUE09Z Supplement Left Hip Joint, Acetabular Surface with Liner, Open Approach (ICD-10-PCS; 2018-05-04)
PROC: 0SRS03Z Replacement of Left Hip Joint, Femoral Surface with Ceramic Synthetic Substitute, Open Approach (ICD-10-PCS; 2018-05-04)
PROC: 0SPS0JZ Removal of Synthetic Substitute from Left Hip Joint, Femoral Surface, Open Approach (ICD-10-PCS; 2018-05-04)
PROC: 0HBJXZZ Excision of Left Upper Leg Skin, External Approach (ICD-10-PCS; 2018-05-04)
PROC: 3E1U38Z Irrigation of Joints using Irrigating Substance, Percutaneous Approach (ICD-10-PCS; 2018-05-04)
PROC: 0SPB09Z Removal of Liner from Left Hip Joint, Open Approach (ICD-10-PCS; principal; 2018-05-04 07:30)
DX: T84.52XA Infection and inflammatory reaction due to internal left hip prosthesis, initial encounter (principal); D62 Acute posthemorrhagic anemia; L03.116 Cellulitis of left lower limb; I69.354 Hemiplegia and hemiparesis following cerebral infarction affecting left non-dominant side; D86.9 Sarcoidosis, unspecified; E03.9 Hypothyroidism, unspecified; E11.65 Type 2 diabetes mellitus with hyperglycemia; E66.9 Obesity, unspecified; E78.5 Hyperlipidemia, unspecified; F40.240 Claustrophobia; G40.909 Epilepsy, unspecified, not intractable, without status epilepticus; G47.33 Obstructive sleep apnea (adult) (pediatric); I10 Essential (primary) hypertension; I25.10 Atherosclerotic heart disease of native coronary artery without angina pectoris; I25.2 Old myocardial infarction; J45.909 Unspecified asthma, uncomplicated; K21.9 Gastro-esophageal reflux disease without esophagitis; K58.9 Irritable bowel syndrome, unspecified; M79.7 Fibromyalgia; M85.80 Other specified disorders of bone density and structure, unspecified site; Z79.02 Long term (current) use of antithrombotics/antiplatelets; Z79.82 Long term (current) use of aspirin; Z79.84 Long term (current) use of oral hypoglycemic drugs; Z80.1 Family history of malignant neoplasm of trachea, bronchus and lung; Z80.49 Family history of malignant neoplasm of other genital organs; Z87.891 Personal history of nicotine dependence; Z88.1 Allergy status to other antibiotic agents; Z90.710 Acquired absence of both cervix and uterus; Z96.652 Presence of left artificial knee joint; Z95.1 Presence of aortocoronary bypass graft; Z95.5 Presence of coronary angioplasty implant and graft; Z96.642 Presence of left artificial hip joint; Z98.1 Arthrodesis status; Z98.42 Cataract extraction status, left eye; Z98.41 Cataract extraction status, right eye; Z88.2 Allergy status to sulfonamides; Z91.030 Bee allergy status; Z91.041 Radiographic dye allergy status; Z91.013 Allergy to seafood; Z79.890 Hormone replacement therapy; Z79.899 Other long term (current) drug therapy; Z86.14 Personal history of Methicillin resistant Staphylococcus aureus infection
CPT/HCPCS: 36415; 73501; 80048; 80053; 83605; 85025; 85027; 85610; 85730; 87040; 87070; 87075; 87077; 87186; 87205; 93005; 94640; 99284

== ENCOUNTER 2018-06-09 21:12 | Inpatient (IN) | payer MEDICARE, OTHER ==
[2018-06-09] MEDS ORDERED: IBUPROFEN 600 MG TAB PO STA (21:29)
[2018-06-09] MEDS ORDERED: ACETAMINOPHEN TAB 500 MG TAB PO STA (21:29)
[2018-06-09 21:57] LABS: Basophils % (A) 0 %; Eosinophils % (A) 0 %; HCT 30.9 % (34.0-46.0); HGB 9.8 gm/dL (11.4-16.0); Hypochromasia Moderate; Lymphocytes # (A) 0.5 k/uL (1.0-4.8); Lymphocytes % (A) 5 %; MCH 24.1 pg (25.0-35.0); MCHC 31.7 g/dL (31.0-37.0); Mean Platelet Volume 6.6; Microcytosis Slight; Monocytes # (A) 0.9 k/uL (0-1.0); Monocytes % (A) 7 %; Neutrophils # (A) 10.1 k/uL (1.3-7.7); Neutrophils % (A) 86 %; Platelet Count 369 k/uL (150-450); RBC 4.07 m/uL (3.80-5.40); RDW 15.1 % (11.5-15.5); WBC 11.6 k/uL (3.8-10.6)
[2018-06-09 22:01] LABS: Creatine Kinase 21 U/L (30-135)
[2018-06-09 22:02] LABS: ALT 33 U/L (9-52); AST 22 U/L (14-36); Albumin 3.2 g/dL (3.5-5.0); Alkaline Phosphatase 66 U/L (38-126); Anion Gap 11 mmol/L; Blood Urea Nitrogen 8 mg/dL (7-17); Calcium 8.7 mg/dL (8.4-10.2); Carbon Dioxide 23 mmol/L (22-30); Chloride 100 mmol/L (98-107); Glucose 177 mg/dL (74-99); Potassium 4.3 mmol/L (3.5-5.1); Sodium 134 mmol/L (137-145); Total Bilirubin 0.4 mg/dL (0.2-1.3); Total Protein 6.4 g/dL (6.3-8.2)
[2018-06-09 22:03] LABS: MCV 75.9 fL (80.0-100.0)
[2018-06-09 22:07] LABS: INR 1.2 (<1.2); Partial Thromboplastin Time 25.1 sec (22.0-30.0); Prothrombin Time 11.6 sec (9.0-12.0)
[2018-06-09 22:12] LABS: Creatine Kinase MB 0.4 ng/mL (0.0-2.4); Troponin I <0.012 ng/mL (0.000-0.034)
[2018-06-09] MEDS ORDERED: cefTRIAXone 2,000 MG in SODIUM CHLORIDE 0.9% 100 ML IVPB STA (22:15)
--- NOTE | 2018-06-09 22:28 | XR ---
EXAMINATION TYPE: XR Hip Limited LT DATE OF EXAM: 06/09/2018 COMPARISON: 05/02/2018 HISTORY: Left hip infection TECHNIQUE: Single view FINDINGS: There is a left hip prosthesis. Components appear in anatomic position. There appears to be some soft tissue air bubbles lateral to the hip joint. IMPRESSION: No fracture. No evidence of osteomyelitis. Left hip appears unchanged compared to last ex am. There is possible soft tissue air laterally that could relate to infection.
[2018-06-09] MEDS: SODIUM CHLORIDE 0.9% 500 ML 500 ML IV SCH (22:32)
--- NOTE | 2018-06-09 22:34 | ED ---
Extremity Problem HPI - General Chief complaint: Extremity Problem,Nontraumatic Stated complaint: HIP PAIN Time Seen by Provider: 06/09/18 21:28 Source: EMS, RN notes reviewed, old records reviewed Mode of arrival: EMS Limitations: no limitations - History of Present Illness Initial comments: This is a 5-year-old female to the ER for evaluation patient coming in for recheck of wound left hip wound recheck. 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 Patient is also Brenning of fever and severe pain. Decreased ability to have a. Patient was just had prolonged inpatient hospitalization rehabilitation secondary to that left hip. Patient just discharged living at home and now unable to ambulate. Patient states she noted as well as a fever drainage from that left hip. MD Complaint: extremity pain (() -: month(s) Location: left, lower extremity History of Same: Yes -: Yes myalgia, Yes arthralgia, Yes fever Radiation: none Severity scale (1-10): 10 Quality: constant Consistency: constant Improves with: medication Worsens with: nothing, rest Associated Symptoms: denies other symptoms - Related Data Home Medications Medication Instructions Recorded Confirmed Aspirin 325 mg PO DAILY 06/11/16 06/09/18 Baclofen 10 mg PO HS 06/11/16 06/09/18 Clopidogrel [Plavix] 75 mg PO DAILY 06/11/16 06/09/18 Isosorbide Mononitrate ER [Imdur] 60 mg PO DAILY 06/11/16 06/09/18 Metoprolol Tartrate [Lopressor] 25 mg PO BID 06/11/16 06/09/18 NIFEdipine XL [Procardia XL] 60 mg PO DAILY@1200 09/03/16 06/09/18 Albuterol Nebulized [Ventolin 2.5 mg INHALATION RT-Q4H PRN 12/12/16 06/09/18 Nebulized] Atorvastatin [Lipitor] 40 mg PO HS 04/22/17 06/09/18 Nitroglycerin [Nitroglycerin 1 spray TRANSLINGU Q5M PRN 04/22/17 06/09/18 400MCG [place]] SUMAtriptan SUCCINATE [Imitrex] 50 mg PO BID PRN 04/22/17 06/09/18 Albuterol Inhaler [Ventolin Hfa 1 - 2 puff INHALATION RT-Q6H PRN 04/28/17 Inhaler] Fluticasone Propionate [Flovent 2 puff INHALATION RT-BID 04/28/17 06/09/18 Hfa 110mcg] Gabapentin [Neurontin] 200 mg PO TID 04/28/17 06/09/18 Melatonin 7.5 mg PO HS 09/04/17 06/09/18 Levothyroxine Sodium [Synthroid] 88 mcg PO DAILY 11/27/17 06/09/18 Pantoprazole [Protonix] 40 mg PO DAILY 01/01/18 06/09/18 Ranitidine HCl 150 mg PO HS 01/01/18 06/09/18 Cholecalciferol [Vitamin D3] 1,000 unit PO DAILY 04/03/18 06/09/18 Loperamide HCl [Loperamide] 2 mg PO DAILY PRN 04/03/18 06/09/18 Magnesium 200 mg PO DAILY 04/03/18 06/09/18 glipiZIDE [Glucotrol] 10 mg PO AC-BID 04/03/18 06/09/18 Metoclopramide [Reglan] 5 mg PO TID PRN 06/02/18 06/09/18 oxyCODONE HCL [OxyIR] 5 mg PO Q6H PRN 06/02/18 06/09/18 traMADol HCL [Ultram] 50 mg PO Q6HR PRN 06/02/18 06/09/18 Multivitamins, Thera [Multivitamin 1 tab PO DAILY 06/03/18 06/09/18 (formulary)] Previous Rx's Medication Instructions Recorded Ferrous Sulfate [Iron (65 MG 325 mg PO BID #60 tab 04/15/18 Elemental)] sitaGLIPtin [Januvia] 100 mg PO DAILY #30 tab 04/15/18 Ciprofloxacin HCl [Cipro] 500 mg PO Q12HR #84 tablet 05/05/18 Allergies Allergy/AdvReac Type Severity Reaction Status Date / Time fluconazole Allergy Itching Verified 06/09/18 21:16 hydrocodone Allergy Dyspnea Verified 06/09/18 21:16 Iodinated Contrast- Oral and Allergy Anaphylaxis Verified 06/09/18 21:16 IV Dye /Rash/Itchi [Iodinated Contrast Media - ng IV Dye] shellfish derived [Shrimp] Allergy Anaphylaxis- Verified 06/09/18 21:16 FEELS LIKE THROAT CLOSING vancomycin Allergy Itching Verified 06/09/18 21:16 venom-honey bee Allergy Swelling/It Verified 06/09/18 21:16 [bee venom (honey bee)] suellen doxycycline AdvReac Nausea & Verified 06/09/18 21:16 Vomiting fluticasone AdvReac Loss of Verified 06/09/18 21:16 Voice hydroxychloroquine AdvReac Nausea & Verified 06/09/18 21:16 [From Plaquenil] Vomiting levofloxacin AdvReac Nausea & Verified 06/09/18 21:16 Vomiting lisinopril AdvReac Cough Verified 06/09/18 21:16 morphine AdvReac Nausea & Verified 06/09/18 21:16 Vomiting ropinirole AdvReac Nausea & Verified 06/09/18 21:16 Vomiting sulfamethoxazole AdvReac Nausea & Verified 06/09/18 21:16 [From Bactrim] Vomiting trimethoprim [From Bactrim] AdvReac Nausea & Verified 06/09/18 21:16 Vomiting Review of Systems ROS Statement: Those systems with pertinent positive or pertinent negative responses have been documented in the HPI. ROS Other: All systems not noted in ROS Statement are negative. 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 Last Myocardial Infarction Date:: 2006 History of Any Multi-Drug Resistant Organisms: MRSA Date of last positivie culture/infection: 2010 MDRO Source:: lung Past Surgical History: Appendectomy, Back Surgery, Breast Surgery, Cholecystectomy, Coronary Bypass/CABG, Heart Catheterization With Stent, Hysterectomy, Joint Replacement, Orthopedic Surgery, Tonsillectomy, Tubal Ligation Additional Past Surgical History / Comment(s): cervical spinal fusion, lumbar spinal surg x2, artie elbow surgery,total lt knee replacement, cataracts artie, benign tumor lt lung removed, lt ankle surg, laser surgery eyes, cabg (2006), pin in finger and removed, drainage of pleural effusion, [facility] pain [facility] procedures, artie breast bx x2, eye surgery for macular hole in left eye., Right Carotid surgery, left hip replaced 04-13-18, incision & debridement left hip wound & acetabular & femoral head exchange Past Anesthesia/Blood Transfusion Reactions: No Reported Reaction Additional Past Anesthesia/Blood Transfusion Reaction / Comment(s): claustrophobic. UNKNOWN RX PRIOR TO HEART CATH MADE HER LEGS "JUMP". HX OF BLOOD TRANSFUSION (NO REACTION). STATES DIFFICULTY LYING FLAT- NEEDS PILLOW AND "EASES IN TO LYING FLAT" Date of Last Stent Placement:: 2005 Past Psychological History: No Psychological Hx Reported Smoking Status: Former smoker Past Alcohol Use History: None Reported Past Drug Use History: None Reported - Past Family History Sister(s) Family Medical History: Cancer Additional Family Medical History / Comment(s): Cervical cancer; lung cancer Brother(s) Family Medical History: Cancer Additional Family Medical History / Comment(s): Pancreatic, prostate; lung cancer General Exam - General Exam Comments Initial Comments: Patient does have significant drainage of left hip, chronic wound Limitations: no limitations General appearance: alert, in no apparent distress Head exam: Present: atraumatic, normocephalic, normal inspection Eye exam: Present: normal appearance, PERRL, EOMI. Absent: scleral icterus, conjunctival injection, periorbital swelling ENT exam: Present: normal exam, mucous membranes moist Neck exam: Present: normal inspection. Absent: tenderness, meningismus, lymphadenopathy Respiratory exam: Present: normal lung sounds bilaterally. Absent: respiratory distress, wheezes, rales, rhonchi, stridor Cardiovascular Exam: Present: regular rate, normal rhythm, normal heart sounds. Absent: systolic murmur, diastolic murmur, rubs, gallop, clicks GI/Abdominal exam: Present: soft, normal bowel sounds. Absent: distended, tenderness, guarding, rebound, rigid Extremities exam: Present: normal inspection, full ROM, normal capillary refill. Absent: tenderness, pedal edema, joint swelling, calf tenderness Back exam: Present: normal inspection Neurological exam: Present: alert, oriented X3, CN II-XII intact Psychiatric exam: Present: normal affect, normal mood Skin exam: Present: warm, dry, intact, normal color. Absent: rash Course Vital Signs 06/09/18 21:16 Temperature 100.8 F H Pulse Rate 96 Respiratory 18 Rate Blood Pressure 130/65 O2 Sat by Pulse 96 Oximetry - Reevaluation(s) Reevaluation #1: 06/09/18 23:58 Medical record is reviewed Reevaluation #2: 06/09/18 23:58 Patient is feeling improved with pain control Medical Decision Making - Medical Decision Making 68 female the ER for evaluation of significant left hip wound infection. Patient placed on antibiotics with multiple antibiotic ALLERGIES, will admit for further evaluation and treatment of left hip - Lab Data Result diagrams: 06/09/18 21:30 06/09/18 21:30 Lab Results 06/09/18 06/09/18 06/09/18 Range/Units 21:30 21:30 21:30 WBC 11.6 H (3.8-10.6) k/uL RBC 4.07 (3.80-5.40) m/uL Hgb 9.8 L (11.4-16.0) gm/dL Hct 30.9 L (34.0-46.0) % MCV 75.9 L D (80.0-100.0) fL MCH 24.1 L (25.0-35.0) pg MCHC 31.7 (31.0-37.0) g/dL RDW 15.1 (11.5-15.5) % Plt Count 369 (150-450) k/uL Neutrophils % 86 % Lymphocytes % 5 % Monocytes % 7 % Eosinophils % 0 % Basophils % 0 % Neutrophils # 10.1 H (1.3-7.7) k/uL Lymphocytes # 0.5 L (1.0-4.8) k/uL Monocytes # 0.9 (0-1.0) k/uL Eosinophils # 0.0 (0-0.7) k/uL Basophils # 0.0 (0-0.2) k/uL Hypochromasia Moderate Microcytosis Slight PT (9.0-12.0) sec INR (<1.2) APTT (22.0-30.0) sec Sodium 134 L (137-145) mmol/L Potassium 4.3 (3.5-5.1) mmol/L Chloride 100 (98-107) mmol/L Carbon Dioxide 23 (22-30) mmol/L Anion Gap 11 mmol/L BUN 8 (7-17) mg/dL Creatinine 0.58 (0.52-1.04) mg/dL Est GFR (CKD-EPI)AfAm >90 (>60 ml/min/1.73 sqM) Est GFR (CKD-EPI)NonAf >90 (>60 ml/min/1.73 sqM) Glucose 177 H (74-99) mg/dL Plasma Lactic Acid [place] (0.7-2.0) mmol/L Calcium 8.7 (8.4-10.2) mg/dL Total Bilirubin 0.4 (0.2-1.3) mg/dL AST 22 (14-36) U/L ALT 33 (9-52) U/L Alkaline Phosphatase 66 (38-126) U/L Total Creatine Kinase 21 L (30-135) U/L CK-MB (CK-2) 0.4 (0.0-2.4) ng/mL CK-MB (CK-2) Rel Index 1.9 Troponin I <0.012 (0.000-0.034) ng/mL Total Protein 6.4 (6.3-8.2) g/dL Albumin 3.2 L (3.5-5.0) g/dL Urine Color Urine Appearance (Clear) Urine pH (5.0-8.0) Ur Specific [place] (1.001-1.035) Urine Protein (Negative) Urine Glucose (UA) (Negative) Urine Ketones (Negative) Urine Blood (Negative) Urine Nitrite (Negative) Urine Bilirubin (Negative) Urine Urobilinogen (<2.0) mg/dL Ur Leukocyte Esterase (Negative) Urine RBC (0-5) /hpf Urine WBC (0-5) /hpf Ur Squamous Epith Cells (0-4) /hpf Urine Bacteria (None) /hpf Urine Mucus (None) /hpf 06/09/18 06/09/18 06/09/18 Range/Units 21:30 21:30 22:41 WBC (3.8-10.6) k/uL RBC (3.80-5.40) m/uL Hgb (11.4-16.0) gm/dL Hct (34.0-46.0) % MCV (80.0-100.0) fL MCH (25.0-35.0) pg MCHC (31.0-37.0) g/dL RDW (11.5-15.5) % Plt Count (150-450) k/uL Neutrophils % % Lymphocytes % % Monocytes % % Eosinophils % % Basophils % % Neutrophils # (1.3-7.7) k/uL Lymphocytes # (1.0-4.8) k/uL Monocytes # (0-1.0) k/uL Eosinophils # (0-0.7) k/uL Basophils # (0-0.2) k/uL Hypochromasia Microcytosis PT 11.6 (9.0-12.0) sec INR 1.2 H (<1.2) APTT 25.1 (22.0-30.0) sec Sodium (137-145) mmol/L Potassium (3.5-5.1) mmol/L Chloride (98-107) mmol/L Carbon Dioxide (22-30) mmol/L Anion Gap mmol/L BUN (7-17) mg/dL Creatinine (0.52-1.04) mg/dL Est GFR (CKD-EPI)AfAm (>60 ml/min/1.73 sqM) Est GFR (CKD-EPI)NonAf (>60 ml/min/1.73 sqM) Glucose (74-99) mg/dL Plasma Lactic Acid [place] 2.4 H* (0.7-2.0) mmol/L Calcium (8.4-10.2) mg/dL Total Bilirubin (0.2-1.3) mg/dL AST (14-36) U/L ALT (9-52) U/L Alkaline Phosphatase (38-126) U/L Total Creatine Kinase (30-135) U/L CK-MB (CK-2) (0.0-2.4) ng/mL CK-MB (CK-2) Rel Index Troponin I (0.000-0.034) ng/mL Total Protein (6.3-8.2) g/dL Albumin (3.5-5.0) g/dL Urine Color Yellow Urine Appearance Clear (Clear) Urine pH 6.0 (5.0-8.0) Ur Specific [place] 1.013 (1.001-1.035) Urine Protein Trace H (Negative) Urine Glucose (UA) Negative (Negative) Urine Ketones 1+ H (Negative) Urine Blood Negative (Negative) Urine Nitrite Negative (Negative) Urine Bilirubin Negative (Negative) Urine Urobilinogen <2.0 (<2.0) mg/dL Ur Leukocyte Esterase Small H (Negative) Urine RBC 1 (0-5) /hpf Urine WBC 12 H (0-5) /hpf Ur Squamous Epith Cells 2 (0-4) /hpf Urine Bacteria Rare H (None) /hpf Urine Mucus Rare H (None) /hpf - EKG Data -: EKG Interpreted by Me (EKG shows a flutter rate of 91, QRS 90, QTc 460) - Radiology Data Radiology results: report reviewed (X-ray left hip is negative), image reviewed Disposition Clinical Impression: Status post total hip replacement, left, Type 2 diabetes mellitus Disposition: ADMITTED IP TO THIS [facility] Condition: Fair Referrals: Melissa Mares MD [Primary Care Provider] - 1-2 days
[2018-06-09 23:04] LABS: Appearance,Urine Clear (Clear); Bacteria,Urine Rare /hpf; Bilirubin,Urine Negative (Negative); Blood,Urine Negative (Negative); Color,Urine Yellow; Glucose,Urine (UA) Negative (Negative); Ketones,Urine 1+ (Negative); Leukocyte Esterase,Urine Small (Negative); Mucus,Urine Rare /hpf; Nitrite,Urine Negative (Negative); Protein,Urine Trace (Negative); RBC,Urine 1 /hpf (0-5); Specific Gravity,Urine 1.013 (1.001-1.035); Squamous Epithelial Cell,Urine 2 /hpf (0-4); Urobilinogen,Urine <2.0 mg/dL (<2.0); WBC,Urine 12 /hpf (0-5)
[2018-06-10] MEDS ORDERED: HYDROmorphone 1 MG/ML 1 ML SYRINGE IVP STA (03:34)
[2018-06-10] MEDS: SODIUM CHLORIDE 0.9% 1,000 ML IV SCH ×2 (04:26→06:20)
[2018-06-10] MEDS ORDERED: ALBUTEROL NEBULIZED 2.5 MG/3 ML INHALATION PRN (05:39)
[2018-06-10] MEDS ORDERED: traMADol 50 MG TAB PO PRN (05:39)
[2018-06-10] MEDS ORDERED: METOCLOPRAMIDE 5 MG TAB PO PRN (05:39)
[2018-06-10] MEDS ORDERED: LEVOTHYROXINE 88 MCG TAB PO SCH (06:30)
--- NOTE | 2018-06-10 06:40 | P.HPIM ---
History of Present Illness H&P Date: 06/10/18 Chief Complaint: wound infection 68-year-old female with extensive past medical history. She had left hip replacement 2 months ago was complicated with surgical wound cellulitis after 3 weeks of surgery she was admitted to the hospital was started on IV antibiotics and wound debridement was provided and replacement of hardware. She was then discharged to a rehab facility where she finished her rehabilitation 2 weeks ago and then was sent to her daughter's home with home care while she was continued on by mouth antibiotics ciprofloxacin Patient is presenting to the hospital today due to worsening pain over the left hip 8 out of 10 in severity achy pain not controlled with home medications , along with increased erythema and drainage of foul-smelling discharge from the surgical wound for which patient was concerned regarding recurrent infection and decided to come to the hospital. She was also complaining of low-grade fevers and some chills she denies any coughing any chest pain or shortness of breath she denies any abdominal pain or changes in her bowel or urinary habits she denies any GI bleeding. She continues to follow up outpatient with wound clinic and she was scheduled to visit [facility] for plastic surgery evaluation. In the emergency department patient was found to have foul drainage from her left hip wound, elevated white count with neutrophilia, and she had a fever of 100.8. Left hip x-ray showed no changes suggestive of osteomyelitis but did show possible soft tissue air laterally Review of Systems Pertinent positives as noted in HPI. 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 Last Myocardial Infarction Date:: 2006 History of Any Multi-Drug Resistant Organisms: MRSA Date of last positivie culture/infection: 2010 MDRO Source:: lung Past Surgical History: Appendectomy, Back Surgery, Breast Surgery, Cholecystectomy, Coronary Bypass/CABG, Heart Catheterization With Stent, Hysterectomy, Joint Replacement, Orthopedic Surgery, Tonsillectomy, Tubal Ligation Additional Past Surgical History / Comment(s): cervical spinal fusion, lumbar spinal surg x2, artie elbow surgery,total lt knee replacement, cataracts artie, benign tumor lt lung removed, lt ankle surg, laser surgery eyes, cabg (2006), pin in finger and removed, drainage of pleural effusion, [facility] pain clinic procedures, artie breast bx x2, eye surgery for macular hole in left eye., Right Carotid surgery, left hip replaced 04-13-18, incision & debridement left hip wound & acetabular & femoral head exchange Past Anesthesia/Blood Transfusion Reactions: No Reported Reaction Additional Past Anesthesia/Blood Transfusion Reaction / Comment(s): claustrophobic. UNKNOWN RX PRIOR TO HEART CATH MADE HER LEGS "JUMP". HX OF BLOOD TRANSFUSION (NO REACTION). STATES DIFFICULTY LYING FLAT- NEEDS PILLOW AND "EASES IN TO LYING FLAT" Date of Last Stent Placement:: 2005 Past Psychological History: No Psychological Hx Reported Additional Psychological History / Comment(s): Single. Former smoker. Retired labor. The experience. No travel history. No animal exposures. No significant alcohol use Smoking Status: Former smoker Past Alcohol Use History: None Reported Additional Past Alcohol Use History / Comment(s): former smoker 44 years, 2ppd, quit 2005 Past Drug Use History: None Reported - Past Family History Sister(s) Family Medical History: Cancer Additional Family Medical History / Comment(s): Cervical cancer; lung cancer Brother(s) Family Medical History: Cancer Additional Family Medical History / Comment(s): Pancreatic, prostate; lung cancer Medications and Allergies Home Medications Medication Instructions Recorded Confirmed Type Aspirin 325 mg PO DAILY 06/11/16 06/09/18 History Baclofen 10 mg PO HS 06/11/16 06/09/18 History Clopidogrel [Plavix] 75 mg PO DAILY 06/11/16 06/09/18 History Isosorbide Mononitrate ER [Imdur] 60 mg PO DAILY 06/11/16 06/09/18 History Metoprolol Tartrate [Lopressor] 25 mg PO BID 06/11/16 06/09/18 History NIFEdipine XL [Procardia XL] 60 mg PO DAILY@1200 09/03/16 06/09/18 History Albuterol Nebulized [Ventolin 2.5 mg INHALATION RT-Q4H PRN 12/12/16 06/09/18 History Nebulized] Atorvastatin [Lipitor] 40 mg PO HS 04/22/17 06/09/18 History Nitroglycerin [Nitroglycerin 1 spray TRANSLINGU Q5M PRN 04/22/17 06/09/18 History 400MCG Rand] SUMAtriptan SUCCINATE [Imitrex] 50 mg PO BID PRN 04/22/17 06/09/18 History Albuterol Inhaler [Ventolin Hfa 1 - 2 puff INHALATION RT-Q6H PRN 04/28/17 History Inhaler] Fluticasone Propionate [Flovent 2 puff INHALATION RT-BID 04/28/17 06/09/18 History Hfa 110mcg] Gabapentin [Neurontin] 200 mg PO TID 04/28/17 06/09/18 History Melatonin 7.5 mg PO HS 09/04/17 06/09/18 History Levothyroxine Sodium [Synthroid] 88 mcg PO DAILY 11/27/17 06/09/18 History Pantoprazole [Protonix] 40 mg PO DAILY 01/01/18 06/09/18 History Ranitidine HCl 150 mg PO HS 01/01/18 06/09/18 History Cholecalciferol [Vitamin D3] 1,000 unit PO DAILY 04/03/18 06/09/18 History Loperamide HCl [Loperamide] 2 mg PO DAILY PRN 04/03/18 06/09/18 History Magnesium 200 mg PO DAILY 04/03/18 06/09/18 History glipiZIDE [Glucotrol] 10 mg PO AC-BID 04/03/18 06/09/18 History Ferrous Sulfate [Iron (65 MG 325 mg PO BID #60 tab 04/15/18 06/09/18 Rx Elemental)] sitaGLIPtin [Januvia] 100 mg PO DAILY #30 tab 04/15/18 06/09/18 Rx Ciprofloxacin HCl [Cipro] 500 mg PO Q12HR #84 tablet 05/05/18 06/09/18 Rx Metoclopramide [Reglan] 5 mg PO TID PRN 06/02/18 06/09/18 History oxyCODONE HCL [OxyIR] 5 mg PO Q6H PRN 06/02/18 06/09/18 History traMADol HCL [Ultram] 50 mg PO Q6HR PRN 06/02/18 06/09/18 History Multivitamins, Thera [Multivitamin 1 tab PO DAILY 06/03/18 06/09/18 History (formulary)] Allergies Allergy/AdvReac Type Severity Reaction Status Date / Time fluconazole Allergy Itching Verified 06/09/18 21:16 hydrocodone Allergy Dyspnea Verified 06/09/18 21:16 Iodinated Contrast- Oral and Allergy Anaphylaxis Verified 06/09/18 21:16 IV Dye /Rash/Itchi [Iodinated Contrast Media - ng IV Dye] shellfish derived [Shrimp] Allergy Anaphylaxis- Verified 06/09/18 21:16 FEELS LIKE THROAT CLOSING vancomycin Allergy Itching Verified 06/09/18 21:16 venom-honey bee Allergy Swelling/It Verified 06/09/18 21:16 [bee venom (honey bee)] suellen doxycycline AdvReac Nausea & Verified 06/09/18 21:16 Vomiting fluticasone AdvReac Loss of Verified 06/09/18 21:16 Voice hydroxychloroquine AdvReac Nausea & Verified 06/09/18 21:16 [From Plaquenil] Vomiting levofloxacin AdvReac Nausea & Verified 06/09/18 21:16 Vomiting lisinopril AdvReac Cough Verified 06/09/18 21:16 morphine AdvReac Nausea & Verified 06/09/18 21:16 Vomiting ropinirole AdvReac Nausea & Verified 06/09/18 21:16 Vomiting sulfamethoxazole AdvReac Nausea & Verified 06/09/18 21:16 [From Bactrim] Vomiting trimethoprim [From Bactrim] AdvReac Nausea & Verified 06/09/18 21:16 Vomiting Physical Exam Vitals: Vital Signs Temp Pulse Pulse Resp BP BP Pulse Ox 06/10/18 04:33 98.1 F 81 18 116/83 96 06/10/18 03:22 97.9 F 71 18 154/68 95 06/10/18 02:00 61 18 152/70 93 L 06/10/18 01:00 98.8 F 95 18 152/70 95 06/10/18 00:20 68 18 150/92 93 L 06/09/18 22:00 71 18 141/63 93 L 06/09/18 21:16 100.8 F H 96 18 130/65 96 Intake and Output 06/09/18 06/09/18 06/10/18 14:59 22:59 06:59 Other: Voiding Method Bedside Commode Weight 84.822 kg Constitutional: No acute distress, conversant, pleasant, obese Eyes: Anicteric sclerae, moist conjunctiva, no lid-lag Pupils equal round reactive to light ENMT: NC/AT Oropharynx clear, no erythema, or exudates Neck: Supple, FROM, no masses, or JVD No carotid bruits No thyromegaly Lungs: Clear to auscultation Clear to percussion Normal respiratory effort, no accessory muscle use Cardiovascular: Heart regular in rate and rhythm, No murmurs, gallops, or rubs No peripheral edema Abdominal: Soft Nontender, no guarding, rebound or rigidity Abdomen moving with respiration Normoactive bowel sounds No hepatomegaly, No splenomegaly No palpable mass No abdominal wall hernia noted Skin: 2 areas of small ulcers surrounded by erythema over the medial aspect of the left buttock cheek Large area of open left hip wound with black eschar and surrounding erythema and drainage of foul-smelling yellowish greenish discharge tender to palpation with some induration and warmth to the touch. Limited range of motion over the left hip due to severe pain Otherwise, Normal temperature, tone, texture, turgor No subcutaneous nodules Extremities: No digital cyanosis No clubbing Pedal pulses intact and symmetrical Radial pulses intact and symmetrical No calf tenderness Psychiatric: Alert and oriented to person, place and time Appropriate affect fair judgment Neuro Muscles Strength -4/5 in all 4 extremities Sensation to light touch grossly present throughout Cranial nerves II-XII grossly intact No focal sensory deficits Lymphatics: no palpable cervical or supraclavicular , or inguinal lymph nodes Results CBC & Chem 7: 06/09/18 21:30 06/09/18 21:30 Labs: Abnormal Lab Results - Last 24 Hours (Table) 06/09/18 06/09/18 06/09/18 Range/Units 21:30 21:30 21:30 WBC 11.6 H (3.8-10.6) k/uL Hgb 9.8 L (11.4-16.0) gm/dL Hct 30.9 L (34.0-46.0) % MCV 75.9 L D (80.0-100.0) fL MCH 24.1 L (25.0-35.0) pg Neutrophils # 10.1 H (1.3-7.7) k/uL Lymphocytes # 0.5 L (1.0-4.8) k/uL INR (<1.2) Sodium 134 L (137-145) mmol/L Glucose 177 H (74-99) mg/dL Plasma Lactic Acid Osvaldo (0.7-2.0) mmol/L Total Creatine Kinase 21 L (30-135) U/L Albumin 3.2 L (3.5-5.0) g/dL Urine Protein (Negative) Urine Ketones (Negative) Ur Leukocyte Esterase (Negative) Urine WBC (0-5) /hpf Urine Bacteria (None) /hpf Urine Mucus (None) /hpf 06/09/18 06/09/18 06/09/18 Range/Units 21:30 21:30 22:41 WBC (3.8-10.6) k/uL Hgb (11.4-16.0) gm/dL Hct (34.0-46.0) % MCV (80.0-100.0) fL MCH (25.0-35.0) pg Neutrophils # (1.3-7.7) k/uL Lymphocytes # (1.0-4.8) k/uL INR 1.2 H (<1.2) Sodium (137-145) mmol/L Glucose (74-99) mg/dL Plasma Lactic Acid Osvaldo 2.4 H* (0.7-2.0) mmol/L Total Creatine Kinase (30-135) U/L Albumin (3.5-5.0) g/dL Urine Protein Trace H (Negative) Urine Ketones 1+ H (Negative) Ur Leukocyte Esterase Small H (Negative) Urine WBC 12 H (0-5) /hpf Urine Bacteria Rare H (None) /hpf Urine Mucus Rare H (None) /hpf Microbiology - Last 24 Hours (Table) 06/09/18 22:34 Wound Culture - Preliminary Hip - Left Thrombosis Risk Factor Assmnt - Choose All That Apply Any of the Below Risk Factors Present?: Yes Each Factor Represents 1 point: Abnormal pulmonary function (COPD), Medical pt on bed rest, Obesity (BMI >25), Swollen legs (current) Other Risk Factors: Yes Each Risk Factor Represents 2 Points: Age 61-74 years Thrombosis Risk Factor Assessment Total Risk Factor Score: 6 Thrombosis Risk Factor Assessment Level: High Risk Assessment and Plan Assessment: 68-year-old female with extensive past medical history. She had left hip replacement 2 months ago was complicated with surgical wound cellulitis after 3 weeks of surgery she was admitted to the hospital was started on IV antibiotics and wound debridement was provided and replacement of hardware. She was then discharged to a rehab facility where she finished her rehabilitation 2 weeks ago and then was sent to her daughter's home with home care while she was continued on by mouth antibiotics ciprofloxacin. Patient was admitted as an inpatient with anticipated length of stay more than 48 hours due to suspected recurrent cellulitis and infection of the surgical wound for IV antibiotic treatment and further surgical and ID evaluation. Patient was started on Zosyn and daptomycin (due to intolerance to Vanco) for full emperic coverage Plan: Surgical wound infection recurrent and cellulitis with foul-smelling drainage Cultures taken blood culture and wound culture Broad-spectrum coverage with Zosyn and daptomycin (due to Bank intolerance) Infectious disease and orthopedic consult Pain control Wound care Decubitus pressure ulcer stage II of the left buttock present on admission Local wound care Patient encouraged to sit up in chair and change position frequently Chronic conditions currently stable recent history of left hip replacement Chronic anemia which was started postoperatively Hypertension, continue home meds CVA and CVA, aspirin and Plavix. Hold atorvastatin due to interaction with daptomycin Hypothyroidism continue home meds Diabetes mellitus on sliding scale DVT prophylaxis on Lovenox GI Prophylaxis PPI Preformed a thorough record review from recent hospitalization as summarized in HPI and assessment summary. 68-year-old female with extensive past medical history. She had left hip replacement 2 months ago was complicated with surgical wound cellulitis after 3 weeks of surgery she was admitted to the hospital was started on IV antibiotics and wound debridement was provided and replacement of hardware. She was then discharged to a rehab facility where she finished her rehabilitation 2 weeks ago and then was sent to her daughter's home with home care while she was continued on by mouth antibiotics ciprofloxacin Surrogate decision-maker: Patient daughter CODE STATUS: Full code Discussed with: Patient, ER, RN Anticipated discharge: 48-[address]: Pending clinical course A total of 55 minutes was spent on the care of this complex patient more than 50 % of the time was spent in counseling and care coordination.
[2018-06-10] MEDS ORDERED: DAPTOmycin 500 MG in SODIUM CHLORIDE 0.9% 50 ML IVPB SCH (07:00)
[2018-06-10 07:22] VITALS: RESP 16
[2018-06-10 07:46] LABS: Glucose,Whole Blood 178 mg/dL (75-99)
[2018-06-10] MEDS: PIPERACILLIN-TAZOBACTAM 3.375 GM in SODIUM CHLORIDE 0.9% 100 ML IVPB SCH ×2 (07:51→15:24)
[2018-06-10] MEDS: GABAPENTIN 100 MG CAP PO SCH ×2 (07:52→15:25)
[2018-06-10] MEDS: HYDROmorphone 1 MG/ML 1 ML SYRINGE IVP PRN ×3 (07:53→15:18)
[2018-06-10] MEDS: INSULIN ASPART 100 UNIT/ML 1 ML 10 ML VIAL SQ SCH ×2 (07:53→11:46)
[2018-06-10] MEDS ORDERED: FLUTICASONE 110 MCG INHALER INHALATION SCH (08:00)
[2018-06-10] MEDS ORDERED: PANTOPRAZOLE 40 MG TABLET PO SCH (09:00)
[2018-06-10] MEDS ORDERED: CLOPIDOGREL 75 MG TAB PO SCH (09:00)
[2018-06-10] MEDS ORDERED: ASPIRIN 325 MG TAB PO SCH (09:00)
[2018-06-10] MEDS ORDERED: ENOXAPARIN 40 MG/0.4 ML SYRINGE SQ SCH (09:00)
[2018-06-10] MEDS ORDERED: ISOSORBIDE MONONITRATE ER 60 MG TAB.ER.24H PO SCH (09:00)
[2018-06-10] MEDS ORDERED: METOPROLOL TARTRATE 25 MG TAB PO SCH (09:00)
[2018-06-10 09:22] LABS: Basophils % (A) 0 %; Eosinophils % (A) 0 %; HCT 31.8 % (34.0-46.0); HGB 9.8 gm/dL (11.4-16.0); Hypochromasia Marked; Lymphocytes # (A) 0.5 k/uL (1.0-4.8); Lymphocytes % (A) 6 %; MCH 23.7 pg (25.0-35.0); MCHC 30.9 g/dL (31.0-37.0); MCV 76.5 fL (80.0-100.0); Mean Platelet Volume 6.6; Microcytosis Slight; Monocytes # (A) 0.6 k/uL (0-1.0); Monocytes % (A) 7 %; Neutrophils # (A) 7.2 k/uL (1.3-7.7); Neutrophils % (A) 86 %; Platelet Count 363 k/uL (150-450); RBC 4.16 m/uL (3.80-5.40); RDW 14.7 % (11.5-15.5); WBC 8.4 k/uL (3.8-10.6)
--- NOTE | 2018-06-10 10:06 | P.CONS ---
History of Present Illness - Reason for Consult Consult date: 06/10/18 - History of Present Illness 67-year-old female who is a known history of severe degenerative joint disease was having progressive pain to her left hip and underwent a left total hip arthroplasty via anterior approach in March. Directly postoperatively, she continued to improve but subsequently developed increasing pain to the to the hip area and cellulitis and was readmitted to the hospital. She was found to have a deep tissue infection and underwent incision and irrigation debridement of the left hip wound and left hip acetabular polyethylene and femoral head exchange. She was discharged on ciprofloxacin for 42 days. Patient states that she was seen by the wound care at [facility] and regarding physical therapy was doing well and was discharged from there on May 26. She then went to her daughter's home and has received home care and physical therapy was placed on hold. She started experiencing pain to her left hip and she was unable to move her left leg forward to ambulate. He had severe pain in the left groin. On Friday she noticed that she had significant drainage from the wound and a foul order and she has not been able to eat due to the smell. It was also more swollen and painful. She had her first appointment with Dr. Alex at the wound healing Center last Friday and arrangements were being made for her to see a physician at [facility] in [place] for grafting of the wound and she has an appointment set up for next Friday. However, as noted that Dr. Alex did address necrotic tissue noted and was discussing with Dr. Palma. Regarding her diabetes, patient states that her blood sugars have been running between 90 and 150. Patient came into [facility] emergency center for evaluation. Temperature max 100.8, white count 11.6, blood sugar 177 and creatinine 0.58. Lactic acid initially 2.4 and repeat 0.9 patient is status post 1500 ML's IV fluid. Albumin 3.2. Urinalysis was clear with leukoesterase small. Wound on the left hip culture in progress. Previous wound culture is positive for MRSA and Proteus. The CRP and sed rate are pending. Hip x-ray shows no fracture. No evidence of osteomyelitis. Soft tissue air laterally could relate to infection. Review of Systems Constitutional: Reports anorexia, Reports chills, Reports fatigue, Reports fever , Reports malaise, Reports poor appetite, Reports weakness Eyes: denies blurred vision Ears, nose, mouth and throat: Denies dental pain, Denies dysphagia, Denies headache, Denies hoarseness, Denies mouth pain, Denies vertigo Cardiovascular: Reports leg edema, Denies chest pain, Denies decreased exercise tolerance, Denies dyspnea on exertion, Denies edema, Denies lightheadedness, Denies shortness of breath, Denies syncope Respiratory: Denies congestion, Denies cough, Denies cough with sputum, Denies dyspnea, Denies excessive sputum, Denies hemoptysis, Denies home oxygen, Denies wheezing Gastrointestinal: Reports loss of appetite, Denies abdominal pain, Denies diarrhea, Denies melena, Denies nausea, Denies vomiting Genitourinary: Denies dysuria Musculoskeletal: Reports gait dysfunction, Reports muscle weakness, Denies frequent falls Integumentary: Reports color changes, Reports darkening of skin, Reports wounds Neurological: Reports gait dysfunction, Reports weakness, Denies change in mentation, Denies change in speech, Denies confusion, Denies head injury, Denies headaches, Denies memory loss, Denies visual changes Psychiatric: Denies anxiety, Denies depression, Denies suicidal ideation Endocrine: Denies excessive sweating, Denies excessive thirst, Denies fatigue, Denies flushing Past Medical History Past Medical History: Asthma, Coronary Artery Disease (CAD), CVA/TIA, Diabetes Mellitus, Fibromyalgia, GERD/Reflux, Hyperlipidemia, Hypertension, Myocardial Infarction ([place]), Neurologic Disorder, Osteoarthritis (OA), Seizure Disorder, Sleep Apnea/CPAP/BIPAP, Thyroid Disorder Additional Past Medical History / Comment(s): back pain & hip pain, sarcoidosis , IBS, osteopenia, past hx of seizures, states has had both cva and tia, some left sided weakness, face numbness, some memory loss, possibly early stages of parkinsons, mengioma on her brain, [place] 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 Last Myocardial Infarction Date:: 2006 History of Any Multi-Drug Resistant Organisms: MRSA Year Discovered:: 2010 MDRO Source:: lung Past Surgical History: Appendectomy, Back Surgery, Breast Surgery, Cholecystectomy, Coronary Bypass/CABG, Heart Catheterization With Stent, Hysterectomy, Joint Replacement, Orthopedic Surgery, Tonsillectomy, Tubal Ligation Additional Past Surgical History / Comment(s): cervical spinal fusion, lumbar spinal surg x2, artie elbow surgery,total lt knee replacement, cataracts artie, benign tumor lt lung removed, lt ankle surg, laser surgery eyes, cabg (2006), pin in finger and removed, drainage of pleural effusion, [facility] pain clinic procedures, artie breast bx x2, eye surgery for macular hole in left eye., Right Carotid surgery, left hip replaced 04-13-18, incision & debridement left hip wound & acetabular & femoral head exchange Past Anesthesia/Blood Transfusion Reactions: No Reported Reaction Additional Past Anesthesia/Blood Transfusion Reaction / Comm: claustrophobic. UNKNOWN RX PRIOR TO HEART CATH MADE HER LEGS "JUMP". HX OF BLOOD TRANSFUSION ( NO REACTION). STATES DIFFICULTY LYING FLAT- NEEDS PILLOW AND "EASES IN TO LYING FLAT" Date of Last Stent Placement:: 2005 Past Psychological History: No Psychological Hx Reported Additional Psychological History / Comment(s): Single. Former smoker. Retired labor. The experience. No travel history. No animal exposures. No significant alcohol use Smoking Status: Former smoker Past Alcohol Use History: None Reported Additional Past Alcohol Use History / Comment(s): former smoker 44 years, 2ppd, quit 2005. She is currently residing with her daughter. Past Drug Use History: None Reported - Past Family History Sister(s) Family Medical History: Cancer Additional Family Medical History / Comment(s): Cervical cancer; lung cancer Brother(s) Family Medical History: Cancer Additional Family Medical History / Comment(s): Pancreatic, prostate; lung cancer Medications and Allergies Home Medications Medication Instructions Recorded Confirmed Type Aspirin 325 mg PO DAILY 06/11/16 06/09/18 History Baclofen 10 mg PO HS 06/11/16 06/09/18 History Clopidogrel [Plavix] 75 mg PO DAILY 06/11/16 06/09/18 History Isosorbide Mononitrate ER [Imdur] 60 mg PO DAILY 06/11/16 06/09/18 History Metoprolol Tartrate [Lopressor] 25 mg PO BID 06/11/16 06/09/18 History NIFEdipine XL [Procardia XL] 60 mg PO DAILY@1200 09/03/16 06/09/18 History Albuterol Nebulized [Ventolin 2.5 mg INHALATION RT-Q4H PRN 12/12/16 06/09/18 History Nebulized] Atorvastatin [Lipitor] 40 mg PO HS 04/22/17 06/09/18 History Nitroglycerin [Nitroglycerin 1 spray TRANSLINGU Q5M PRN 04/22/17 06/09/18 History 400MCG [place]] SUMAtriptan SUCCINATE [Imitrex] 50 mg PO BID PRN 04/22/17 06/09/18 History Albuterol Inhaler [Ventolin Hfa 1 - 2 puff INHALATION RT-Q6H PRN 04/28/17 History Inhaler] Fluticasone Propionate [Flovent 2 puff INHALATION RT-BID 04/28/17 06/09/18 History Hfa 110mcg] Gabapentin [Neurontin] 200 mg PO TID 04/28/17 06/09/18 History Melatonin 7.5 mg PO HS 09/04/17 06/09/18 History Levothyroxine Sodium [Synthroid] 88 mcg PO DAILY 11/27/17 06/09/18 History Pantoprazole [Protonix] 40 mg PO DAILY 01/01/18 06/09/18 History Ranitidine HCl 150 mg PO HS 01/01/18 06/09/18 History Cholecalciferol [Vitamin D3] 1,000 unit PO DAILY 04/03/18 06/09/18 History Loperamide HCl [Loperamide] 2 mg PO DAILY PRN 04/03/18 06/09/18 History Magnesium 200 mg PO DAILY 04/03/18 06/09/18 History glipiZIDE [Glucotrol] 10 mg PO AC-BID 04/03/18 06/09/18 History Ferrous Sulfate [Iron (65 MG 325 mg PO BID #60 tab 04/15/18 06/09/18 Rx Elemental)] sitaGLIPtin [Januvia] 100 mg PO DAILY #30 tab 04/15/18 06/09/18 Rx Ciprofloxacin HCl [Cipro] 500 mg PO Q12HR #84 tablet 05/05/18 06/09/18 Rx Metoclopramide [Reglan] 5 mg PO TID PRN 06/02/18 06/09/18 History oxyCODONE HCL [OxyIR] 5 mg PO Q6H PRN 06/02/18 06/09/18 History traMADol HCL [Ultram] 50 mg PO Q6HR PRN 06/02/18 06/09/18 History Multivitamins, Thera [Multivitamin 1 tab PO DAILY 06/03/18 06/09/18 History (formulary)] Allergies Allergy/AdvReac Type Severity Reaction Status Date / Time fluconazole Allergy Itching Verified 06/09/18 21:16 hydrocodone Allergy Dyspnea Verified 06/09/18 21:16 Iodinated Contrast- Oral and Allergy Anaphylaxis Verified 06/09/18 21:16 IV Dye /Rash/Itchi [Iodinated Contrast Media - ng IV Dye] shellfish derived [Shrimp] Allergy Anaphylaxis- Verified 06/09/18 21:16 FEELS LIKE THROAT CLOSING vancomycin Allergy Itching Verified 06/09/18 21:16 venom-honey bee Allergy Swelling/It Verified 06/09/18 21:16 [bee venom (honey bee)] suellen doxycycline AdvReac Nausea & Verified 06/09/18 21:16 Vomiting fluticasone AdvReac Loss of Verified 06/09/18 21:16 Voice hydroxychloroquine AdvReac Nausea & Verified 06/09/18 21:16 [From Plaquenil] Vomiting levofloxacin AdvReac Nausea & Verified 06/09/18 21:16 Vomiting lisinopril AdvReac Cough Verified 06/09/18 21:16 morphine AdvReac Nausea & Verified 06/09/18 21:16 Vomiting ropinirole AdvReac Nausea & Verified 06/09/18 21:16 Vomiting sulfamethoxazole AdvReac Nausea & Verified 06/09/18 21:16 [From Bactrim] Vomiting trimethoprim [From Bactrim] AdvReac Nausea & Verified 06/09/18 21:16 Vomiting Physical Exam Vitals: Vital Signs Temp Pulse Pulse Pulse Resp BP BP 06/10/18 07:00 98.7 F 89 16 136/76 06/10/18 04:33 98.1 F 81 18 116/83 06/10/18 03:22 97.9 F 71 18 154/68 06/10/18 02:00 61 18 152/70 06/10/18 01:00 98.8 F 95 18 152/70 06/10/18 00:20 68 18 150/92 06/09/18 22:00 71 18 141/63 06/09/18 21:16 100.8 F H 96 18 130/65 Pulse Ox 06/10/18 07:00 96 06/10/18 04:33 96 06/10/18 03:22 95 06/10/18 02:00 93 L 06/10/18 01:00 95 06/10/18 00:20 93 L 06/09/18 22:00 93 L 06/09/18 21:16 96 Intake and Output 06/09/18 06/10/18 06/10/18 22:59 06:59 14:59 Other: Voiding Method Bedside Commode Bedside Commode # Voids 1 Weight 84.822 kg Gen: This is a 68-year-old female. She is in bed and appears to be comfortable. She appears to be in no acute distress. HEENT: Head is atraumatic, normocephalic. Pupils equal, round. Sclerae is anicteric. Conjunctiva pink. Oral mucous membranes are moist. Dentures in place. No thrush noted. NECK: Supple. No JVD. No lymphadenopathy. No thyromegaly. LUNGS: Clear to auscultation. No wheezes or rhonchi. No intercostal retractions. HEART: Regular rate and rhythm. No murmur. ABDOMEN: Soft. Bowel sounds are present. No masses. No tenderness. EXTREMITIES: No pedal edema. No calf tenderness. Dorsalis pedis palpable bilaterally. To the left lateral hip, there is a large open wound with necrotic tissue, surrounding erythema, foul order. NEUROLOGICAL: Patient is awake, alert and oriented x3. Cranial nerves 2 through 12 are grossly intact. Results Results: Laboratory Results WBC 8.4 k/uL (3.8-10.6) 06/10/18 08:20 RBC 4.16 m/uL (3.80-5.40) 06/10/18 08:20 Hgb 9.8 gm/dL (11.4-16.0) L 06/10/18 08:20 Hct 31.8 % (34.0-46.0) L 06/10/18 08:20 MCV 76.5 fL (80.0-100.0) L 06/10/18 08:20 MCH 23.7 pg (25.0-35.0) L 06/10/18 08:20 MCHC 30.9 g/dL (31.0-37.0) L 06/10/18 08:20 RDW 14.7 % (11.5-15.5) 06/10/18 08:20 Plt Count 363 k/uL (150-450) 06/10/18 08:20 Neutrophils % 86 % 06/10/18 08:20 Lymphocytes % 6 % 06/10/18 08:20 Monocytes % 7 % 06/10/18 08:20 Eosinophils % 0 % 06/10/18 08:20 Basophils % 0 % 06/10/18 08:20 Neutrophils # 7.2 k/uL (1.3-7.7) 06/10/18 08:20 Lymphocytes # 0.5 k/uL (1.0-4.8) L 06/10/18 08:20 Monocytes # 0.6 k/uL (0-1.0) 06/10/18 08:20 Eosinophils # 0.0 k/uL (0-0.7) 06/10/18 08:20 Basophils # 0.0 k/uL (0-0.2) 06/10/18 08:20 Hypochromasia Marked 06/10/18 08:20 Microcytosis Slight 06/10/18 08:20 PT 11.6 sec (9.0-12.0) 06/09/18 21:30 INR 1.2 (<1.2) H 06/09/18 21:30 APTT 25.1 sec (22.0-30.0) 06/09/18 21:30 Sodium 134 mmol/L (137-145) L 06/09/18 21:30 Potassium 4.3 mmol/L (3.5-5.1) 06/09/18 21:30 Chloride 100 mmol/L (98-107) 06/09/18 21:30 Carbon Dioxide 23 mmol/L (22-30) 06/09/18 21:30 Anion Gap 11 mmol/L 06/09/18 21:30 BUN 8 mg/dL (7-17) 06/09/18 21:30 Creatinine 0.58 mg/dL (0.52-1.04) 06/09/18 21:30 Est GFR (CKD-EPI)AfAm >90 (>60 ml/min/1.73 sqM) 06/09/18 21:30 Est GFR (CKD-EPI)NonAf >90 (>60 ml/min/1.73 sqM) 06/09/18 21:30 Glucose 177 mg/dL (74-99) H 06/09/18 21:30 POC Glucose (mg/dL) 178 mg/dL (75-99) H 06/10/18 07:41 POC Glu [employer] Yamile[employer] David 06/10/18 07:41 Lactic Ac Sepsis Rflx Y 06/09/18 22:16 Plasma Lactic Acid Osvaldo 0.9 mmol/L (0.7-2.0) 06/10/18 02:03 Calcium 8.7 mg/dL (8.4-10.2) 06/09/18 21:30 Total Bilirubin 0.4 mg/dL (0.2-1.3) 06/09/18 21:30 AST 22 U/L (14-36) 06/09/18 21:30 ALT 33 U/L (9-52) 06/09/18 21:30 Alkaline Phosphatase 66 U/L (38-126) 06/09/18 21:30 Total Creatine Kinase 21 U/L (30-135) L 06/09/18 21:30 CK-MB (CK-2) 0.4 ng/mL (0.0-2.4) 06/09/18 21:30 CK-MB (CK-2) Rel Index 1.9 06/09/18 21:30 Troponin I <0.012 ng/mL (0.000-0.034) 06/09/18 21:30 Total Protein 6.4 g/dL (6.3-8.2) 06/09/18 21:30 Albumin 3.2 g/dL (3.5-5.0) L 06/09/18 21:30 Urine Color Yellow 06/09/18 22:41 Urine Appearance Clear (Clear) 06/09/18 22:41 Urine pH 6.0 (5.0-8.0) 06/09/18 22:41 Ur Specific [place] 1.013 (1.001-1.035) 06/09/18 22:41 Urine Protein Trace (Negative) H 06/09/18 22:41 Urine Glucose (UA) Negative (Negative) 06/09/18 22:41 Urine Ketones 1+ (Negative) H 06/09/18 22:41 Urine Blood Negative (Negative) 06/09/18 22:41 Urine Nitrite Negative (Negative) 06/09/18 22:41 Urine Bilirubin Negative (Negative) 06/09/18 22:41 Urine Urobilinogen <2.0 mg/dL (<2.0) 06/09/18 22:41 Ur Leukocyte Esterase Small (Negative) H 06/09/18 22:41 Urine RBC 1 /hpf (0-5) 06/09/18 22:41 Urine WBC 12 /hpf (0-5) H 06/09/18 22:41 Ur Squamous Epith Cells 2 /hpf (0-4) 06/09/18 22:41 Urine Bacteria Rare /hpf (None) H 06/09/18 22:41 Urine Mucus Rare /hpf (None) H 06/09/18 22:41 CBC & Chem 7: 06/10/18 08:20 06/09/18 21:30 Labs: Abnormal Lab Results - Last 24 Hours (Table) 06/09/18 06/09/18 06/09/18 Range/Units 21:30 21:30 21:30 WBC 11.6 H (3.8-10.6) k/uL Hgb 9.8 L (11.4-16.0) gm/dL Hct 30.9 L (34.0-46.0) % MCV 75.9 L D (80.0-100.0) fL MCH 24.1 L (25.0-35.0) pg Neutrophils # 10.1 H (1.3-7.7) k/uL Lymphocytes # 0.5 L (1.0-4.8) k/uL INR (<1.2) Sodium 134 L (137-145) mmol/L Glucose 177 H (74-99) mg/dL POC Glucose (mg/dL) (75-99) mg/dL Plasma Lactic Acid [place] (0.7-2.0) mmol/L Total Creatine Kinase 21 L (30-135) U/L Albumin 3.2 L (3.5-5.0) g/dL Urine Protein (Negative) Urine Ketones (Negative) Ur Leukocyte Esterase (Negative) Urine WBC (0-5) /hpf Urine Bacteria (None) /hpf Urine Mucus (None) /hpf 06/09/18 06/09/18 06/09/18 Range/Units 21:30 21:30 22:41 WBC (3.8-10.6) k/uL Hgb (11.4-16.0) gm/dL Hct (34.0-46.0) % MCV (80.0-100.0) fL MCH (25.0-35.0) pg Neutrophils # (1.3-7.7) k/uL Lymphocytes # (1.0-4.8) k/uL INR 1.2 H (<1.2) Sodium (137-145) mmol/L Glucose (74-99) mg/dL POC Glucose (mg/dL) (75-99) mg/dL Plasma Lactic Acid [place] 2.4 H* (0.7-2.0) mmol/L Total Creatine Kinase (30-135) U/L Albumin (3.5-5.0) g/dL Urine Protein Trace H (Negative) Urine Ketones 1+ H (Negative) Ur Leukocyte Esterase Small H (Negative) Urine WBC 12 H (0-5) /hpf Urine Bacteria Rare H (None) /hpf Urine Mucus Rare H (None) /hpf 06/10/18 Range/Units 07:41 WBC (3.8-10.6) k/uL Hgb (11.4-16.0) gm/dL Hct (34.0-46.0) % MCV (80.0-100.0) fL MCH (25.0-35.0) pg Neutrophils # (1.3-7.7) k/uL Lymphocytes # (1.0-4.8) k/uL INR (<1.2) Sodium (137-145) mmol/L Glucose (74-99) mg/dL POC Glucose (mg/dL) 178 H (75-99) mg/dL Plasma Lactic Acid [place] (0.7-2.0) mmol/L Total Creatine Kinase (30-135) U/L Albumin (3.5-5.0) g/dL Urine Protein (Negative) Urine Ketones (Negative) Ur Leukocyte Esterase (Negative) Urine WBC (0-5) /hpf Urine Bacteria (None) /hpf Urine Mucus (None) /hpf Microbiology - Last 24 Hours (Table) 06/09/18 22:34 Gram Stain - Preliminary Hip - Left Wound Culture - Preliminary Assessment and Plan Plan: This is a 68-year-old female who presents to hospital with surgical wound infection to the left hip. Her last surgical intervention was done on May 04 which time she underwent a debridement and replacement of the femoral head with polyethylene exchange. Blood and wound cultures are in progress. Her previous wound cultures were positive for Proteus mirabilis and MRSA. She is currently on daptomycin and Zosyn which will be continued. Consult for Dr. Palma will be added. Continue supportive care. Further recommendations as patient progresses. The above dictated assessment and findings were discussed with Dr. Naylor. The impression and plan of care have been directed as dictated. Mona Ruiz nurse practitioner acting as scribe for Dr. Naylor.
[2018-06-10 11:34] LABS: Glucose,Whole Blood 145 mg/dL (75-99)
[2018-06-10 12:03] LABS: Erythrocyte Sedimentation Rate 107 mm/hr (0-20)
--- NOTE | 2018-06-10 13:50 | P.CNOR ---
History of Present Illness - [facility] Consult date: 06/10/18 Consult reason: other History of present illness: Patient is a 68-year-old female who presented to [facility] late last night with regards to increasing pain involving her left hip. Patient also notices increasing drainage from her left hip wound. Patient has a very extensive history involving her left hip. Patient initially underwent a left total hip arthroplasty by Dr. Palma on . Patient did well postoperatively, she was discharge home postop day 2. Her initial postop visit, she was noticed to have a small eschar lateral to the incision. She did have some friability involving the incision, she was started on oral antibiotics prophylactically. Further follow-up, the eschar did worsen along with the incision. There is concern over a cellulitic component of the incision, patient was taken to surgery on 05/04/2018. She was found to have a deep infection involving the left hip, polyethylene liner and femoral head were removed and exchanged. The small eschar was also removed from the lateral aspect of the hip. She spent 5 days in the hospital, she was consulted by infectious disease. Cultures were taken at surgery, she was started on oral Cipro for the bacteria that was found. Since that surgery, she's been followed by both infectious disease and been seen in the wound clinic. Patient's symptoms have continued to worsen it sounds like. Dr. Palma was then contact with our wound care doctor on site , and then discuss further treatment. We recommended patient to see a plastic surgeon, of [facility]. She was scheduled to see him next week. Patient states that Friday she noticed increasing drainage involving the left hip. Since the day of surgery, she's had a very difficult time visualizing the incision herself. She's had home care since the initial surgery with help with dressing changes. Evaluation today at bedside, patient notes significant pain involving the left hip region with movement. She notes pain along the lateral aspect where the wounds are located. She admits to, fevers over the last few days. She has remained on the oral antibiotics at this time. Review of Systems Constitutional: Reports as per HPI Past Medical History Past Medical History: Asthma, Coronary Artery Disease (CAD), CVA/TIA, Diabetes Mellitus, Fibromyalgia, GERD/Reflux, Hyperlipidemia, Hypertension, Myocardial Infarction ([place]), Neurologic Disorder, Osteoarthritis (OA), Seizure Disorder, Sleep Apnea/CPAP/BIPAP, Thyroid Disorder Additional Past Medical History / Comment(s): back pain & hip pain, sarcoidosis , IBS, osteopenia, past hx of seizures, states has had both cva and tia, some left sided weakness, face numbness, some memory loss, possibly early stages of parkinsons, mengioma on her brain, [place] 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 Last Myocardial Infarction Date:: 2006 History of Any Multi-Drug Resistant Organisms: MRSA Year Discovered:: 2010 MDRO Source:: lung Past Surgical History: Appendectomy, Back Surgery, Breast Surgery, Cholecystectomy, Coronary Bypass/CABG, Heart Catheterization With Stent, Hysterectomy, Joint Replacement, Orthopedic Surgery, Tonsillectomy, Tubal Ligation Additional Past Surgical History / Comment(s): cervical spinal fusion, lumbar spinal surg x2, artie elbow surgery,total lt knee replacement, cataracts artie, benign tumor lt lung removed, lt ankle surg, laser surgery eyes, cabg (2006), pin in finger and removed, drainage of pleural effusion, [facility] pain clinic procedures, artie breast bx x2, eye surgery for macular hole in left eye., Right Carotid surgery, left hip replaced 04-13-18, incision & debridement left hip wound & acetabular & femoral head exchange Past Anesthesia/Blood Transfusion Reactions: No Reported Reaction Additional Past Anesthesia/Blood Transfusion Reaction / Comm: claustrophobic. UNKNOWN RX PRIOR TO HEART CATH MADE HER LEGS "JUMP". HX OF BLOOD TRANSFUSION ( NO REACTION). STATES DIFFICULTY LYING FLAT- NEEDS PILLOW AND "EASES IN TO LYING FLAT" Date of Last Stent Placement:: 2005 Past Psychological History: No Psychological Hx Reported Additional Psychological History / Comment(s): Single. Former smoker. Retired labor. The experience. No travel history. No animal exposures. No significant alcohol use Smoking Status: Former smoker Past Alcohol Use History: None Reported Additional Past Alcohol Use History / Comment(s): former smoker 44 years, 2ppd, quit 2005. She is currently residing with her daughter. Past Drug Use History: None Reported - Past Family History Sister(s) Family Medical History: Cancer Additional Family Medical History / Comment(s): Cervical cancer; lung cancer Brother(s) Family Medical History: Cancer Additional Family Medical History / Comment(s): Pancreatic, prostate; lung cancer Medications and Allergies Home Medications Medication Instructions Recorded Confirmed Type Aspirin 325 mg PO DAILY 06/11/16 06/09/18 History Baclofen 10 mg PO HS 06/11/16 06/09/18 History Clopidogrel [Plavix] 75 mg PO DAILY 06/11/16 06/09/18 History Isosorbide Mononitrate ER [Imdur] 60 mg PO DAILY 06/11/16 06/09/18 History Metoprolol Tartrate [Lopressor] 25 mg PO BID 06/11/16 06/09/18 History NIFEdipine XL [Procardia XL] 60 mg PO DAILY@1200 09/03/16 06/09/18 History Albuterol Nebulized [Ventolin 2.5 mg INHALATION RT-Q4H PRN 12/12/16 06/09/18 History Nebulized] Atorvastatin [Lipitor] 40 mg PO HS 04/22/17 06/09/18 History Nitroglycerin [Nitroglycerin 1 spray TRANSLINGU Q5M PRN 04/22/17 06/09/18 History 400MCG [place]] SUMAtriptan SUCCINATE [Imitrex] 50 mg PO BID PRN 04/22/17 06/09/18 History Albuterol Inhaler [Ventolin Hfa 1 - 2 puff INHALATION RT-Q6H PRN 04/28/17 History Inhaler] Fluticasone Propionate [Flovent 2 puff INHALATION RT-BID 04/28/17 06/09/18 History Hfa 110mcg] Gabapentin [Neurontin] 200 mg PO TID 04/28/17 06/09/18 History Melatonin 7.5 mg PO HS 09/04/17 06/09/18 History Levothyroxine Sodium [Synthroid] 88 mcg PO DAILY 11/27/17 06/09/18 History Pantoprazole [Protonix] 40 mg PO DAILY 01/01/18 06/09/18 History Ranitidine HCl 150 mg PO HS 01/01/18 06/09/18 History Cholecalciferol [Vitamin D3] 1,000 unit PO DAILY 04/03/18 06/09/18 History Loperamide HCl [Loperamide] 2 mg PO DAILY PRN 04/03/18 06/09/18 History Magnesium 200 mg PO DAILY 04/03/18 06/09/18 History glipiZIDE [Glucotrol] 10 mg PO AC-BID 04/03/18 06/09/18 History Ferrous Sulfate [Iron (65 MG 325 mg PO BID #60 tab 04/15/18 06/09/18 Rx Elemental)] sitaGLIPtin [Januvia] 100 mg PO DAILY #30 tab 04/15/18 06/09/18 Rx Ciprofloxacin HCl [Cipro] 500 mg PO Q12HR #84 tablet 05/05/18 06/09/18 Rx Metoclopramide [Reglan] 5 mg PO TID PRN 06/02/18 06/09/18 History oxyCODONE HCL [OxyIR] 5 mg PO Q6H PRN 06/02/18 06/09/18 History traMADol HCL [Ultram] 50 mg PO Q6HR PRN 06/02/18 06/09/18 History Multivitamins, Thera [Multivitamin 1 tab PO DAILY 06/03/18 06/09/18 History (formulary)] Allergies Allergy/AdvReac Type Severity Reaction Status Date / Time fluconazole Allergy Itching Verified 06/09/18 21:16 hydrocodone Allergy Dyspnea Verified 06/09/18 21:16 Iodinated Contrast- Oral and Allergy Anaphylaxis Verified 06/09/18 21:16 IV Dye /Rash/Itchi [Iodinated Contrast Media - ng IV Dye] shellfish derived [Shrimp] Allergy Anaphylaxis- Verified 06/09/18 21:16 FEELS LIKE THROAT CLOSING vancomycin Allergy Itching Verified 06/09/18 21:16 venom-honey bee Allergy Swelling/It Verified 06/09/18 21:16 [bee venom (honey bee)] suellen doxycycline AdvReac Nausea & Verified 06/09/18 21:16 Vomiting fluticasone AdvReac Loss of Verified 06/09/18 21:16 Voice hydroxychloroquine AdvReac Nausea & Verified 06/09/18 21:16 [From Plaquenil] Vomiting levofloxacin AdvReac Nausea & Verified 06/09/18 21:16 Vomiting lisinopril AdvReac Cough Verified 06/09/18 21:16 morphine AdvReac Nausea & Verified 06/09/18 21:16 Vomiting ropinirole AdvReac Nausea & Verified 06/09/18 21:16 Vomiting sulfamethoxazole AdvReac Nausea & Verified 06/09/18 21:16 [From Bactrim] Vomiting trimethoprim [From Bactrim] AdvReac Nausea & Verified 06/09/18 21:16 Vomiting Physical Examination Left lower extremity: Limited range of motion exam due to pain Bandages removed to examine wounds. The area of eschar noted his at least 4" x 3" x 4" x 3". There is dehiscence noted of the anterior incision involving the left hip replacement. There is obvious granulation tissue. There is foul- smelling discharge present. There is erythema surrounding this area. The incision dehiscence measures about 4 inches. Sensory exam to light touch throughout the extremity is intact, dorsal pedis pulses 2+. According to nursing notes patient has pressure ulcers on the buttock region, please see chart for further detail Results - Labs Labs: Abnormal Lab Results - Last 24 Hours (Table) 06/09/18 06/09/18 06/09/18 Range/Units 21:30 21:30 21:30 WBC 11.6 H (3.8-10.6) k/uL Hgb 9.8 L (11.4-16.0) gm/dL Hct 30.9 L (34.0-46.0) % MCV 75.9 L D (80.0-100.0) fL MCH 24.1 L (25.0-35.0) pg MCHC (31.0-37.0) g/dL Neutrophils # 10.1 H (1.3-7.7) k/uL Lymphocytes # 0.5 L (1.0-4.8) k/uL ESR (0-20) mm/hr INR (<1.2) Sodium 134 L (137-145) mmol/L Glucose 177 H (74-99) mg/dL POC Glucose (mg/dL) (75-99) mg/dL Plasma Lactic Acid Osvaldo (0.7-2.0) mmol/L Total Creatine Kinase 21 L (30-135) U/L C-Reactive Protein (<10.0) mg/L Albumin 3.2 L (3.5-5.0) g/dL Urine Protein (Negative) Urine Ketones (Negative) Ur Leukocyte Esterase (Negative) Urine WBC (0-5) /hpf Urine Bacteria (None) /hpf Urine Mucus (None) /hpf 06/09/18 06/09/18 06/09/18 Range/Units 21:30 21:30 22:41 WBC (3.8-10.6) k/uL Hgb (11.4-16.0) gm/dL Hct (34.0-46.0) % MCV (80.0-100.0) fL MCH (25.0-35.0) pg MCHC (31.0-37.0) g/dL Neutrophils # (1.3-7.7) k/uL Lymphocytes # (1.0-4.8) k/uL ESR (0-20) mm/hr INR 1.2 H (<1.2) Sodium (137-145) mmol/L Glucose (74-99) mg/dL POC Glucose (mg/dL) (75-99) mg/dL Plasma Lactic Acid Osvaldo 2.4 H* (0.7-2.0) mmol/L Total Creatine Kinase (30-135) U/L C-Reactive Protein (<10.0) mg/L Albumin (3.5-5.0) g/dL Urine Protein Trace H (Negative) Urine Ketones 1+ H (Negative) Ur Leukocyte Esterase Small H (Negative) Urine WBC 12 H (0-5) /hpf Urine Bacteria Rare H (None) /hpf Urine Mucus Rare H (None) /hpf 06/10/18 06/10/18 06/10/18 Range/Units 07:41 08:20 08:20 WBC (3.8-10.6) k/uL Hgb 9.8 L (11.4-16.0) gm/dL Hct 31.8 L (34.0-46.0) % MCV 76.5 L (80.0-100.0) fL MCH 23.7 L (25.0-35.0) pg MCHC 30.9 L (31.0-37.0) g/dL Neutrophils # (1.3-7.7) k/uL Lymphocytes # 0.5 L (1.0-4.8) k/uL ESR 107 H (0-20) mm/hr INR (<1.2) Sodium (137-145) mmol/L Glucose (74-99) mg/dL POC Glucose (mg/dL) 178 H (75-99) mg/dL Plasma Lactic Acid Osvaldo (0.7-2.0) mmol/L Total Creatine Kinase (30-135) U/L C-Reactive Protein 256.8 H (<10.0) mg/L Albumin (3.5-5.0) g/dL Urine Protein (Negative) Urine Ketones (Negative) Ur Leukocyte Esterase (Negative) Urine WBC (0-5) /hpf Urine Bacteria (None) /hpf Urine Mucus (None) /hpf 06/10/18 Range/Units 11:22 WBC (3.8-10.6) k/uL Hgb (11.4-16.0) gm/dL Hct (34.0-46.0) % MCV (80.0-100.0) fL MCH (25.0-35.0) pg MCHC (31.0-37.0) g/dL Neutrophils # (1.3-7.7) k/uL Lymphocytes # (1.0-4.8) k/uL ESR (0-20) mm/hr INR (<1.2) Sodium (137-145) mmol/L Glucose (74-99) mg/dL POC Glucose (mg/dL) 145 H (75-99) mg/dL Plasma Lactic Acid [place] (0.7-2.0) mmol/L Total Creatine Kinase (30-135) U/L C-Reactive Protein (<10.0) mg/L Albumin (3.5-5.0) g/dL Urine Protein (Negative) Urine Ketones (Negative) Ur Leukocyte Esterase (Negative) Urine WBC (0-5) /hpf Urine Bacteria (None) /hpf Urine Mucus (None) /hpf Microbiology - Last 24 Hours (Table) 06/09/18 22:41 Urine Culture - Preliminary Urine,Voided 06/09/18 22:34 Gram Stain - Preliminary Hip - Left Wound Culture - Preliminary H & H 06/09/18 06/10/18 Range/Units 21:30 08:20 Hgb 9.8 L 9.8 L (11.4-16.0) gm/dL Hct 30.9 L 31.8 L (34.0-46.0) % Coagulation 06/09/18 Range/Units 21:30 INR 1.2 H (<1.2) Result Diagrams: 06/10/18 08:20 06/09/18 21:30 - Diagnostic results Hip x-ray: report reviewed, image reviewed Assessment and Plan Plan: Imaging: X-rays of hip and reports were reviewed. Images demonstrated no acute fractures or dislocations. Report does note soft tissue gases, possible infectious process. Assessment: 1. 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 Left hip wound dehiscence 3. Left proximal leg eschar 4. Other multiple medical comorbidities Plan: I was able to discuss the case, including the physical exam findings and we excised Dr. Palma. Due to the patient's current state, we recommended immediate transfer to a tertiary care facility. More specifically transfer to [place], [place] to orthopedic service. She will likely need multiple specialties on consult for this complicated case. We'll begin transfer process I did discuss the case with Gen. surgery, infectious disease and internal medicine Time with Patient: Less than 30
[2018-06-10] MEDS ORDERED: ACETAMINOPHEN TAB 325 MG TAB PO PRN (15:07)
[2018-06-10 16:38] VITALS: BP 153/78; PULSE 123
[2018-06-10 16:51] VITALS: TEMP 100.3
[2018-06-10] MEDS ORDERED: BACLOFEN 10 MG TAB PO SCH (21:00)
[2018-06-10] MEDS ORDERED: MELATONIN 5 MG TABLET PO SCH (21:00)
[2018-06-10] MEDS ORDERED: ATORVASTATIN 40 MG TAB PO SCH (21:00)
[2018-06-10] MEDS ORDERED: NON-FORMULARY DRUG (Ranitidine Hcl [Ranitidine Hcl] 150 MG) PO SCH (21:00)
[2018-06-10] MEDS ORDERED: GABAPENTIN 100 MG CAP PO SCH (21:00)
--- NOTE | 2018-06-11 11:21 | P.DS ---
Providers Date of admission: 06/10/18 03:34 Attending physician: Rasheed Finney MD Consults: 06/10/18 06:31 Consult Physician Urgent Consulting Provider: Edin Naylor Consult Reason/Comments: left hip infection Do you want consulting provider notified?: Yes, Notify in am 06/10/18 09:48 Consult Physician Routine Consulting Provider: Jackson Palma Consult Reason/Comments: wound debridement Do you want consulting provider notified?: Yes 06/10/18 09:50 Consult Physician Urgent Consulting Provider: Tuan Hernandez Consult Reason/Comments: surgical debridement Do you want consulting provider notified?: Yes Primary care physician: Melissa Mares MD - Discharge Diagnosis(es) (1) Postoperative wound dehiscence Status: Acute Hospital Course: Patient is a 68-year-old female previously admitted for purpose perioperative wound infection after having left hip replacement [address] Sohan Mueller with subsequent surgical wound cellulitis but underwent wound debridement and replacement of hardware. 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 Patient was started on IV antibiotics with Zosyn and daptomycin. The patient's orthopedic surgeon Dr. Palma was consulted and recommended transferring the patient to a tertiary care facility, patient was subsequent transferred to [facility] by orthopedic service. Patient Condition at Discharge: Fair Plan - Discharge Summary New Discharge Prescriptions: No Action Aspirin 325 mg PO DAILY Baclofen 10 mg PO HS Clopidogrel [Plavix] 75 mg PO DAILY Metoprolol Tartrate [Lopressor] 25 mg PO BID Isosorbide Mononitrate ER [Imdur] 60 mg PO DAILY NIFEdipine XL [Procardia XL] 60 mg PO DAILY@1200 Albuterol Nebulized [Ventolin Nebulized] 2.5 mg INHALATION RT-Q4H PRN PRN Reason: Shortness Of Breath Nitroglycerin [Nitroglycerin 400MCG [place]] 1 spray TRANSLINGU Q5M PRN PRN Reason: Chest Pain SUMAtriptan SUCCINATE [Imitrex] 50 mg PO BID PRN PRN Reason: Migraine Headache Atorvastatin [Lipitor] 40 mg PO HS Fluticasone Propionate [Flovent Hfa 110mcg] 2 puff INHALATION RT-BID Gabapentin [Neurontin] 200 mg PO TID Albuterol Inhaler [Ventolin Hfa Inhaler] 1 - 2 puff INHALATION RT-Q6H PRN PRN Reason: Shortness Of Breath Melatonin 7.5 mg PO HS Levothyroxine Sodium [Synthroid] 88 mcg PO DAILY Pantoprazole [Protonix] 40 mg PO DAILY Ranitidine HCl 150 mg PO HS glipiZIDE [Glucotrol] 10 mg PO AC-BID Cholecalciferol [Vitamin D3] 1,000 unit PO DAILY Magnesium 200 mg PO DAILY Loperamide HCl [Loperamide] 2 mg PO DAILY PRN PRN Reason: Diarrhea Ferrous Sulfate [Iron (65 MG Elemental)] 325 mg PO BID #60 tab sitaGLIPtin [Januvia] 100 mg PO DAILY #30 tab Ciprofloxacin HCl [Cipro] 500 mg PO Q12HR #84 tablet traMADol HCL [Ultram] 50 mg PO Q6HR PRN PRN Reason: Pain oxyCODONE HCL [OxyIR] 5 mg PO Q6H PRN PRN Reason: Pain Metoclopramide [Reglan] 5 mg PO TID PRN PRN Reason: Nausea Multivitamins, Thera [Multivitamin (formulary)] 1 tab PO DAILY Discharge Medication List Aspirin 325 mg PO DAILY 06/11/16 [History] Baclofen 10 mg PO HS 06/11/16 [History] Clopidogrel [Plavix] 75 mg PO DAILY 06/11/16 [History] Isosorbide Mononitrate ER [Imdur] 60 mg PO DAILY 06/11/16 [History] Metoprolol Tartrate [Lopressor] 25 mg PO BID 06/11/16 [History] NIFEdipine XL [Procardia XL] 60 mg PO DAILY@1200 09/03/16 [History] Albuterol Nebulized [Ventolin Nebulized] 2.5 mg INHALATION RT-Q4H PRN 12/12/16 [ History] Atorvastatin [Lipitor] 40 mg PO HS 04/22/17 [History] Nitroglycerin [Nitroglycerin 400MCG [place]] 1 spray TRANSLINGU Q5M PRN 04/22/17 [ History] SUMAtriptan SUCCINATE [Imitrex] 50 mg PO BID PRN 04/22/17 [History] Albuterol Inhaler [Ventolin Hfa Inhaler] 1 - 2 puff INHALATION RT-Q6H PRN [History] Fluticasone Propionate [Flovent Hfa 110mcg] 2 puff INHALATION RT-BID 04/28/17 [ History] Gabapentin [Neurontin] 200 mg PO TID 04/28/17 [History] Melatonin 7.5 mg PO HS 09/04/17 [History] Levothyroxine Sodium [Synthroid] 88 mcg PO DAILY 11/27/17 [History] Pantoprazole [Protonix] 40 mg PO DAILY 01/01/18 [History] Ranitidine HCl 150 mg PO HS 01/01/18 [History] Cholecalciferol [Vitamin D3] 1,000 unit PO DAILY 04/03/18 [History] Loperamide HCl [Loperamide] 2 mg PO DAILY PRN 04/03/18 [History] Magnesium 200 mg PO DAILY 04/03/18 [History] glipiZIDE [Glucotrol] 10 mg PO AC-BID 04/03/18 [History] Ferrous Sulfate [Iron (65 MG Elemental)] 325 mg PO BID #60 tab 04/15/18 [Rx] sitaGLIPtin [Januvia] 100 mg PO DAILY #30 tab 04/15/18 [Rx] Ciprofloxacin HCl [Cipro] 500 mg PO Q12HR #84 tablet 05/05/18 [Rx] Metoclopramide [Reglan] 5 mg PO TID PRN 06/02/18 [History] oxyCODONE HCL [OxyIR] 5 mg PO Q6H PRN 06/02/18 [History] traMADol HCL [Ultram] 50 mg PO Q6HR PRN 06/02/18 [History] Multivitamins, Thera [Multivitamin (formulary)] 1 tab PO DAILY 06/03/18 [History ] Follow up Appointment(s)/Referral(s): Melissa Mares MD [Primary Care Provider] - 1-2 days Discharge Disposition: OTHER INSTITUTION NOT DEFINED
--- NOTE | 2018-06-11 19:49 | P.PN ---
Progress Note - Text Progress Note Date: 06/11/18 Received a phone call from Microbiology that Patient had positive blood culture 07/29 for gram negative bacilli. I was able to speak with Екатерина LANDIS from [facility] Transfer Line on 06/11/18 at 1948 and she will communicate this with the admitting team.
== END 2018-06-10 18:26 | disposition short-term general hospital (02) | DRG 920 ==
LOC: EC 21:12 → 4MS4W 06-10 03:34
PROVIDERS: ADMIT Family Medicine; ATTEND Family Medicine
DX: T81.31XA Disruption of external operation (surgical) wound, not elsewhere classified, initial encounter (principal); T81.42XA Infection following a procedure, deep incisional surgical site, initial encounter; J45.909 Unspecified asthma, uncomplicated; I25.10 Atherosclerotic heart disease of native coronary artery without angina pectoris; E11.9 Type 2 diabetes mellitus without complications; M79.7 Fibromyalgia; K21.9 Gastro-esophageal reflux disease without esophagitis; I65.22 Occlusion and stenosis of left carotid artery; E78.5 Hyperlipidemia, unspecified; I10 Essential (primary) hypertension; M19.90 Unspecified osteoarthritis, unspecified site; G40.909 Epilepsy, unspecified, not intractable, without status epilepticus; G47.30 Sleep apnea, unspecified; G51.0 Bell's palsy; D86.9 Sarcoidosis, unspecified; F40.240 Claustrophobia; D64.9 Anemia, unspecified; E03.9 Hypothyroidism, unspecified; K58.0 Irritable bowel syndrome with diarrhea; Z96.652 Presence of left artificial knee joint; Z86.73 Personal history of transient ischemic attack (TIA), and cerebral infarction without residual deficits; Z86.14 Personal history of Methicillin resistant Staphylococcus aureus infection; I25.2 Old myocardial infarction; Z90.49 Acquired absence of other specified parts of digestive tract; Z95.5 Presence of coronary angioplasty implant and graft; Z95.1 Presence of aortocoronary bypass graft; Z98.42 Cataract extraction status, left eye; Z98.41 Cataract extraction status, right eye; Z98.1 Arthrodesis status; Z87.891 Personal history of nicotine dependence; Z80.8 Family history of malignant neoplasm of other organs or systems; Z80.1 Family history of malignant neoplasm of trachea, bronchus and lung; Z79.82 Long term (current) use of aspirin; Z79.02 Long term (current) use of antithrombotics/antiplatelets; Z79.899 Other long term (current) drug therapy; Z79.51 Long term (current) use of inhaled steroids; Z79.890 Hormone replacement therapy; Z79.84 Long term (current) use of oral hypoglycemic drugs; Z88.2 Allergy status to sulfonamides; Z88.8 Allergy status to other drugs, medicaments and biological substances; Z88.1 Allergy status to other antibiotic agents; Z91.030 Bee allergy status; Z91.041 Radiographic dye allergy status; Z91.013 Allergy to seafood; Z86.19 Personal history of other infectious and parasitic diseases; Z98.51 Tubal ligation status
CPT/HCPCS: 36415; 73501; 80053; 81001; 82550; 82553; 83605; 84484; 85025; 85610; 85652; 85730; 86140; 87040; 87070; 87077; 87086; 87186; 87205; 93005; 94640; 96365; 96375; 99285

== ENCOUNTER → 2018-09-10 | Day surgery (SDC) | payer MEDICARE, OTHER | LOC: CATHCVL 11:30 | PROVIDERS: ATTEND Internal Medicine Infectious Disease | DX: T84.52XA Infection and inflammatory reaction due to internal left hip prosthesis, initial encounter (principal); S31.109A Unspecified open wound of abdominal wall, unspecified quadrant without penetration into peritoneal cavity, initial encounter; Z95.820 Peripheral vascular angioplasty status with implants and grafts; E66.9 Obesity, unspecified; Z68.35 Body mass index [BMI] 35.0-35.9, adult; D64.9 Anemia, unspecified; E11.40 Type 2 diabetes mellitus with diabetic neuropathy, unspecified; M19.90 Unspecified osteoarthritis, unspecified site; B57.2 Chagas' disease (chronic) with heart involvement; E08.9 Diabetes mellitus due to underlying condition without complications; E78.00 Pure hypercholesterolemia, unspecified; I10 Essential (primary) hypertension; Z87.891 Personal history of nicotine dependence; E03.9 Hypothyroidism, unspecified; Z88.1 Allergy status to other antibiotic agents; Z88.3 Allergy status to other anti-infective agents; Z91.030 Bee allergy status; Z88.5 Allergy status to narcotic agent; Z88.8 Allergy status to other drugs, medicaments and biological substances; Z91.048 Other nonmedicinal substance allergy status | CPT/HCPCS: 36410; 76937; C1751 ==

== ENCOUNTER → 2019-02-01 | Outpatient (CLI) | payer MEDICARE, OTHER ==
--- NOTE | 2019-02-01 13:31 | MR ---
EXAMINATION TYPE: MR brain wo/w con DATE OF EXAM: 02/01/2019 COMPARISON: 12/30/2017 HISTORY: Cerebellar meningioma TECHNIQUE: Multiplanar, multisequence images of the brain and brainstem is performed without and with IV contras t, utilizing 9 mL intravenous Gadavist . FINDINGS: Exam limited by artifact. Diffusion weighted images demonstrate no evidence of a recent infarct or other diffusion abnormality. Midline structures demonstrate normal morphology. The craniocervical junction appears within normal limits. Post contrast images demonstrate no abnormal enhancement. The dural venous sinuses appear pa tent. Changes of chronic sinusitis noted. Area of abnormal signal in the basal ganglia compatible with kianna te lacunar infarct. White matter: There are approximately 15 punctate areas of abnormal signal seen scattered throughout the white matter nonspecific pattern. All measure less than 5 mm. No callosal lesions. No lesions per pendicular to ventricular system. No subcortical lesions. No enhancing lesions. There is slight asymm etry enhancement of the left cavernous segment of the ICA which appears stable from prior exams and m ay be chronic. This could be correlated with the its CTA or MRI as clinically warranted. Adjacent to the tentorium on the right there is a 8.5 mm area of rounded signal. IMPRESSION: 1. Stable posterior fossa extra-axial mass most typical of meningioma measuring 8.5 mm and previousl y measuring 8.5 mm. 2. Stable minimal nonspecific white matter changes. Differential diagnosis would include remote micro vascular ischemia. Other etiologies not entirely excluded. 3. There appears to be slight asymmetric appearance to the enhancement of the cavernous segment left ICA relative to the right which appears stable on multiple prior exams. This may be related to intrac ranial atherosclerotic disease and could be correlated with CTA or MRA as clinically warranted
== END | disposition home or self-care (01) ==
LOC: RADMRIMAIN 10:19
PROVIDERS: ATTEND Neurological Surgery
DX: D32.0 Benign neoplasm of cerebral meninges (principal); R90.89 Other abnormal findings on diagnostic imaging of central nervous system
CPT/HCPCS: 70553; A9585

== ENCOUNTER → 2019-02-09 | Outpatient (CLI) | payer MEDICARE, OTHER ==
--- NOTE | 2019-02-11 13:24 | MM ---
Reason for exam: screening (asymptomatic). Last mammogram was performed 1 year and 3 months ago. History: Patient is postmenopausal. Benign excisional biopsy of the left breast, 2014. Benign excisional biopsy of the left breast, 2010. Took estrogen beginning at age 43. Took progesterone beginning at age 43. Physical Findings: A clinical breast exam by your physician is recommended on an annual basis and results should be correlated with mammographic findings. MG 3D Screening Mammo W/Cad Bilateral CC and MLO view(s) were taken. Prior study comparison: November 24, 2017, bilateral MG 3d screening mammo w/cad. October 25, 2016, bilateral MG 3d screening mammo w/cad. The breast tissue is almost entirely fat. No significant changes when compared with prior studies. ASSESSMENT: Benign, BI-RAD 2 RECOMMENDATION: Routine screening mammogram of both breasts in 1 year.
== END | disposition home or self-care (01) ==
LOC: RADMAMWWP 14:19
PROVIDERS: ATTEND Family Medicine
DX: Z12.31 Encounter for screening mammogram for malignant neoplasm of breast (principal)
CPT/HCPCS: 77063; 77067

== ENCOUNTER 2019-02-15 12:05 | Observation (INO) | payer MEDICARE, OTHER ==
--- NOTE | 2019-02-15 12:36 | ED ---
Chest Pain HPI - General Chief Complaint: Chest Pain Stated Complaint: chest pain Time Seen by Provider: 02/15/19 12:08 Source: patient, RN notes reviewed, old records reviewed Limitations: no limitations - History of Present Illness Initial Comments: This is a 68-year-old female the ER for evaluation presents today for evaluation regards to chest pain. Patient does have a significant history of heart disease with multiple medical comorbidities. Patient's complaining of chest pain shortness of breath 2 days progressively worsening with no improvement factors. Does have significant history of similar similar symptoms patient usually takes nitro with chest pain, nitro did not work today MD Complaint: chest pain -: days(s) Onset: during rest, during exertion, awoke with symptoms Pain Location: left chest Severity: moderate Severity scale (1-10): 4 Quality: aching Consistency: constant Improves With: nothing Worsens With: nothing Anginal Symptoms: nausea Treatments Prior to Arrival: none - Related Data Home Medications Medication Instructions Recorded Confirmed Aspirin 325 mg PO DAILY 06/11/16 02/15/19 Clopidogrel [Plavix] 75 mg PO DAILY 06/11/16 02/15/19 Isosorbide Mononitrate ER [Imdur] 60 mg PO DAILY 06/11/16 02/15/19 Metoprolol Tartrate [Lopressor] 25 mg PO BID 06/11/16 02/15/19 NIFEdipine XL [Procardia XL] 60 mg PO DAILY 09/03/16 02/15/19 Albuterol Nebulized [Ventolin 2.5 mg INHALATION RT-Q4H PRN 12/12/16 02/15/19 Nebulized] Atorvastatin [Lipitor] 40 mg PO HS 04/22/17 02/15/19 Nitroglycerin [Nitroglycerin 1 spray TRANSLINGU Q5M PRN 04/22/17 02/15/19 400MCG [place]] Albuterol Inhaler [Ventolin Hfa 1 - 2 puff INHALATION RT-Q6H PRN 04/28/17 02/15/19 Inhaler] Melatonin 7.5 mg PO HS 09/04/17 02/15/19 Levothyroxine Sodium [Synthroid] 88 mcg PO DAILY 11/27/17 02/15/19 Pantoprazole [Protonix] 40 mg PO DAILY 01/01/18 02/15/19 Ranitidine HCl 150 mg PO BID 01/01/18 02/15/19 Cholecalciferol [Vitamin D3 (25 1,000 unit PO DAILY 04/03/18 02/15/19 Mcg = 1000 Iu)] Magnesium 200 mg PO DAILY 04/03/18 02/15/19 glipiZIDE [Glucotrol] 10 mg PO AC-BID 04/03/18 02/15/19 Multivitamins, Thera [Multivitamin 1 tab PO DAILY 06/03/18 02/15/19 (formulary)] Cyanocobalamin [Vitamin B-12] 500 mcg PO DAILY 02/15/19 02/15/19 Ferrous Sulfate [Iron (65 MG 325 mg PO DAILY 02/15/19 02/15/19 Elemental)] Fluconazole 200 mg PO DAILY 02/15/19 02/15/19 Furosemide [Lasix] 20 mg PO DAILY 02/15/19 02/15/19 Ipratropium [place] [Atrovent Hfa] 1 puff INHALATION RT-BID 02/15/19 02/15/19 Minocycline HCl [Minocin] 100 mg PO Q12H 02/15/19 02/15/19 Pregabalin [Lyrica] 150 mg PO TID 02/15/19 02/15/19 Rosiglitazone Maleate [Avandia] 4 mg PO DAILY 02/15/19 02/15/19 oxyCODONE-APAP 5-325MG [Percocet 1 tab PO Q4H PRN 02/15/19 02/15/19 5-325 mg] traZODone HCL [Desyrel] 100 mg PO HS 02/15/19 02/15/19 Previous Rx's Medication Instructions Recorded sitaGLIPtin [Januvia] 100 mg PO DAILY #30 tab 04/15/18 Allergies Allergy/AdvReac Type Severity Reaction Status Date / Time fluconazole Allergy Itching Verified 02/15/19 12:55 hydrocodone Allergy Dyspnea Verified 02/15/19 12:55 Iodinated Contrast- Oral and Allergy Anaphylaxis Verified 02/15/19 12:55 IV Dye /Rash/Itchi [Iodinated Contrast Media - ng IV Dye] shellfish derived [Shrimp] Allergy Anaphylaxis- Verified 02/15/19 12:55 FEELS LIKE THROAT CLOSING vancomycin Allergy Itching Verified 02/15/19 12:55 venom-honey bee Allergy Swelling/It Verified 02/15/19 12:55 [bee venom (honey bee)] suellen doxycycline AdvReac Nausea & Verified 02/15/19 12:55 Vomiting fluticasone AdvReac Loss of Verified 02/15/19 12:55 Voice hydroxychloroquine AdvReac Nausea & Verified 02/15/19 12:55 [From Plaquenil] Vomiting levofloxacin AdvReac Nausea & Verified 02/15/19 12:55 Vomiting lisinopril AdvReac Cough Verified 02/15/19 12:55 morphine AdvReac Nausea & Verified 02/15/19 12:55 Vomiting ropinirole AdvReac Nausea & Verified 02/15/19 12:55 Vomiting sulfamethoxazole AdvReac Nausea & Verified 02/15/19 12:55 [From Bactrim] Vomiting trimethoprim [From Bactrim] AdvReac Nausea & Verified 02/15/19 12:55 Vomiting Review of Systems ROS Statement: Those systems with pertinent positive or pertinent negative responses have been documented in the HPI. ROS Other: All systems not noted in ROS Statement are negative. EKG Findings - EKG Comments: EKG Findings:: EKG shows sinus rhythm rate of 72, [place] 140, QRS 86, QTc 464 Past Medical History Past Medical History: Asthma, Coronary Artery Disease (CAD), CVA/TIA, Diabetes Mellitus, Fibromyalgia, GERD/Reflux, Hyperlipidemia, Hypertension, Myocardial Infarction ([place]), Neurologic Disorder, Osteoarthritis (OA), Seizure Disorder, Sleep Apnea/CPAP/BIPAP, Thyroid Disorder Additional Past Medical History / Comment(s): back pain & hip pain, sarcoidosis, IBS, osteopenia, past hx of seizures, states has had both cva and tia, some left sided weakness, face numbness, some memory loss, possibly early stages of parkinsons, 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 Last Myocardial Infarction Date:: 2006 History of Any Multi-Drug Resistant Organisms: MRSA Date of last positivie culture/infection: 06/09/18 MDRO Source:: HIP Past Surgical History: Appendectomy, Back Surgery, Breast Surgery, Cholecystectomy, Coronary Bypass/CABG, Heart Catheterization With Stent, Hysterectomy, Joint Replacement, Orthopedic Surgery, Tonsillectomy, Tubal Ligation Additional Past Surgical History / Comment(s): cervical spinal fusion, lumbar spinal surg x2, artie elbow surgery,total lt knee replacement, cataracts artie, benign tumor lt lung removed, lt ankle surg, laser surgery eyes, cabg (2006), pin in finger and removed, drainage of pleural effusion, [facility] procedures, artie breast bx x2, eye surgery for macular hole in left eye., Right Carotid surgery, left hip replaced 04-13-18, incision & debridement left hip wound & acetabular & femoral head exchange Past Anesthesia/Blood Transfusion Reactions: No Reported Reaction Additional Past Anesthesia/Blood Transfusion Reaction / Comment(s): claustrophobic. UNKNOWN RX PRIOR TO HEART CATH MADE HER LEGS "JUMP". HX OF BLOOD TRANSFUSION (NO REACTION). STATES DIFFICULTY LYING FLAT- NEEDS PILLOW AND "EASES IN TO LYING FLAT" Date of Last Stent Placement:: 2005 Past Psychological History: No Psychological Hx Reported Smoking Status: Former smoker Past Alcohol Use History: None Reported Past Drug Use History: None Reported - Past Family History Sister(s) Family Medical History: Cancer Additional Family Medical History / Comment(s): Cervical cancer; lung cancer Brother(s) Family Medical History: Cancer Additional Family Medical History / Comment(s): Pancreatic, prostate; lung cancer General Exam Limitations: no limitations General appearance: alert, in no apparent distress Head exam: Present: atraumatic, normocephalic, normal inspection Eye exam: Present: normal appearance, PERRL, EOMI. Absent: scleral icterus, conjunctival injection, periorbital swelling ENT exam: Present: normal exam, mucous membranes moist Neck exam: Present: normal inspection. Absent: tenderness, meningismus, lymphadenopathy Respiratory exam: Present: normal lung sounds bilaterally. Absent: respiratory distress, wheezes, rales, rhonchi, stridor Cardiovascular Exam: Present: regular rate, normal rhythm, normal heart sounds. Absent: systolic murmur, diastolic murmur, rubs, gallop, clicks GI/Abdominal exam: Present: soft, normal bowel sounds. Absent: distended, tend erness, guarding, rebound, rigid Extremities exam: Present: normal inspection, full ROM, normal capillary refill. Absent: tenderness, pedal edema, joint swelling, calf tenderness Back exam: Present: normal inspection Neurological exam: Present: alert, oriented X3, CN II-XII intact Psychiatric exam: Present: normal affect, normal mood Skin exam: Present: warm, dry, intact, normal color. Absent: rash Course Vital Signs 07/22/19 07/22/19 12:11 13:26 Temperature 99.0 F Pulse Rate 77 69 Respiratory 18 16 Rate Blood Pressure 122/78 111/66 O2 Sat by Pulse 95 96 Oximetry - Reevaluation(s) Reevaluation #1: 02/15/19 12:36 Medical records reviewed Reevaluation #2: 02/15/19 14:09 Patient still with chest pain Chest Pain MDM - MDM 5-year-old female the ER with history of ACS coming in with chest pain. Chest pains persistent will admit for cardiac observation Critical Care Time Critical Care Time: Yes Total Critical Care Time: 31 Disposition Clinical Impression: Chest pain, CAD (coronary artery disease) of artery bypass graft Disposition: ADMITTED IP TO THIS HOSP Condition: Undetermined Instructions (If sedation given, give patient instructions): Chest Pain (ED) Is patient prescribed a controlled substance at d/c from ED?: No Referrals: Melissa Mares MD [Primary Care Provider] - 1-2 days
[2019-02-15 13:11] LABS: Basophils % (A) 1 %; Eosinophils # (A) 0.2 k/uL (0-0.7); Eosinophils % (A) 2 %; HCT 35.4 % (34.0-46.0); HGB 11.7 gm/dL (11.4-16.0); Lymphocytes # (A) 1.3 k/uL (1.0-4.8); Lymphocytes % (A) 18 %; MCH 26.9 pg (25.0-35.0); MCHC 33.1 g/dL (31.0-37.0); MCV 81.2 fL (80.0-100.0); Mean Platelet Volume 8.4; Monocytes # (A) 0.6 k/uL (0-1.0); Monocytes % (A) 7 %; Neutrophils # (A) 5.2 k/uL (1.3-7.7); Neutrophils % (A) 69 %; Platelet Count 223 k/uL (150-450); RBC 4.35 m/uL (3.80-5.40); RDW 15.4 % (11.5-15.5); WBC 7.4 k/uL (3.8-10.6)
[2019-02-15 13:21] LABS: INR 0.9 (<1.2); Partial Thromboplastin Time 26.6 sec (22.0-30.0); Prothrombin Time 9.9 sec (9.0-12.0)
[2019-02-15 13:22] LABS: Albumin 3.9 g/dL (3.5-5.0); Calcium 9.4 mg/dL (8.4-10.2); Magnesium 1.8 mg/dL (1.6-2.3); Potassium 4.3 mmol/L (3.5-5.1); Total Bilirubin 0.4 mg/dL (0.2-1.3)
[2019-02-15] MEDS ORDERED: ASPIRIN 81 MG PO STA (14:08)
[2019-02-15] MEDS ORDERED: HEPARIN SODIUM,PORCINE 5,000 UNIT/ML 1 ML VIAL IV PRN (14:08)
[2019-02-15] MEDS ORDERED: NITROGLYCERIN SL TABS 0.4 MG TAB SUBLINGUAL PRN (14:08)
[2019-02-15] MEDS ORDERED: HEPARIN SODIUM,PORCINE 5,000 UNIT/ML 1 ML VIAL IV ONE (14:08)
--- NOTE | 2019-02-15 14:24 | XR ---
EXAMINATION TYPE: XR chest 2V DATE OF EXAM: 02/15/2019 COMPARISON: 06/12/2017 HISTORY: Shortness of breath TECHNIQUE: Frontal and lateral views of the chest are obtained. FINDINGS: Scattered senescent parenchymal changes noted. Hyperinflation compatible with COPD. No evidence for infiltrate. No evidence for atelectasis. Heart size is stable. Mediastinal structures are stable and grossly unremarkable. No evidence for hilar prominence. Degenerative changes dorsal spine. IMPRESSION: 1. No evidence for acute pulmonary disease.
[2019-02-15] MEDS: HEPARIN SOD,PORK IN 0.45% NACL 25,000 UNIT in 0.45% NACL 1 250ML.BAG IV SCH (14:47)
[2019-02-15 16:40] VITALS: BMI 37.1
[2019-02-15 16:50] LABS: Glucose,Whole Blood 90 mg/dL (75-99)
--- NOTE | 2019-02-15 19:01 | P.HPIM ---
History of Present Illness H&P Date: 02/15/19 Chief Complaint: chest pain Patient is a 5-year-old female past medical history of coronary artery disease with prior one-vessel coronary artery bypass grafting and stenting to the circumflex artery and bilateral iliac stents, hypertension, diabetes, dyslipidemia, and prior stroke who presented to the emergency department with complaints of chest pain. In the ER she underwent an extensive evaluation. Her initial vital signs were within normal limits. Initial laboratory analysis unremarkable with a troponin of less than 0.012 and a BNP of 326. Initial EKG s howed normal sinus rhythm at a rate of 72, normal axis, normal intervals, and no significant ST-T wave changes. Patient seen and examined at bedside. She states that over the last 3 days she has had chest pain. It is been increasing in frequency and intensity. She describes as a pain or pressure feeling that his retrosternal without radiation. At times she feels as though her heart is racing. It is not associated with any shortness of breath, nausea, vomiting, lightheadedness, dizziness, diaphoresis, or numbness and tingling. She states it typically occurs any time she is active. It is also occurring at rest. She has also noticed some left elbow pain over the last 3 days. It occurs independently of the chest pain. She tried Tums and nitroglycerin both of which did not seem to help. She has never had this type of feeling before. She reports that she sees Dr. Oconnor in the cardiology office. She saw him about a month ago. He thought her by mouth glitazone was leading to her lower extremity edema and she has subsequently been taken off this medication started on Avandia. She reports since she has had increasing lower extremity edema. She also reports increasing shortness of breath, inability to lay flat at night with 3-4 pillow orthopnea, and a dry cough. Patient does have a significant cardiac history of states she has been told that her bypass graft has failed. She also reports that her one stent was prior to her bypass grafting. She reports that approximately 4 years ago she was told that she had a 40 spent her some blockage in a different artery. She has not had a cardiac catheterization since that time but had undergone a stress test which she reports was negative. She denies any recent echocardiogram. She is also been dealing with a nonhealing wound left lower quadrant of her abdomen Review of Systems Pertinent positives and negatives as discussed in HPI, a complete review of systems was performed and all other systems are negative. 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 Obstructive sleep apnea-does not use CPAP Last Myocardial Infarction Date:: 2006 History of Any Multi-Drug Resistant Organisms: MRSA Date of last positivie culture/infection: 01/11/19 MDRO Source:: HIP Past Surgical History: Appendectomy, Back Surgery, Breast Surgery, Cholecystectomy, Coronary Bypass/CABG, Heart Catheterization With Stent, Hysterectomy, Joint Replacement, Orthopedic Surgery, Tonsillectomy, Tubal Ligation Additional Past Surgical History / Comment(s): cervical spinal fusion, lumbar spinal surg x2, artie elbow surgery,total lt knee replacement, cataracts artie, benign tumor lt lung removed, lt ankle surg, laser surgery eyes, cabg (2006), pin in finger and removed, drainage of pleural effusion, [facility] procedures, artie breast bx x2, eye surgery for macular hole in left eye., Right Carotid surgery, left hip replaced 04-13-18, incision & debridement left hip wound & acetabular & femoral head exchange, plastic surgery on stomach with skin graft Past Anesthesia/Blood Transfusion Reactions: No Reported Reaction Additional Past Anesthesia/Blood Transfusion Reaction / Comment(s): claustrophobic. UNKNOWN RX PRIOR TO HEART CATH MADE HER LEGS "JUMP". HX OF BLOOD TRANSFUSION (NO REACTION). STATES DIFFICULTY LYING FLAT- NEEDS PILLOW AND "EASES IN TO LYING FLAT" Date of Last Stent Placement:: 2005 Past Psychological History: No Psychological Hx Reported Smoking Status: Former smoker Past Alcohol Use History: None Reported Additional Past Alcohol Use History / Comment(s): former smoker 44 years, 2ppd, quit 2005. Past Drug Use History: None Reported Additional History: Lives alone and uses a walker mostly, cane on the good days, and a scooter for any significant distance. - Past Family History Sister(s) Family Medical History: Cancer Additional Family Medical History / Comment(s): Cervical cancer; lung cancer. One sister-coronary artery disease with bypass grafting. One sister with peripheral arterial disease and aortic graft Brother(s) Family Medical History: Cancer Additional Family Medical History / Comment(s): Pancreatic, prostate; lung cancer, stents. One brother-coronary artery disease with 8 stents. One brother that was being evaluated for cardiac transplant when he developed pancreatic cancer Mother Additional Family Medical History / Comment(s): Myocardial infarction at age 71 Father Additional Family Medical History / Comment(s): from myocardial infarction at age 68 Medications and Allergies Home Medications Medication Instructions Recorded Confirmed Type Aspirin 325 mg PO DAILY 06/11/16 02/15/19 History Clopidogrel [Plavix] 75 mg PO DAILY 06/11/16 02/15/19 History Isosorbide Mononitrate ER [Imdur] 60 mg PO DAILY 06/11/16 02/15/19 History Metoprolol Tartrate [Lopressor] 25 mg PO BID 06/11/16 02/15/19 History NIFEdipine XL [Procardia XL] 60 mg PO DAILY 09/03/16 02/15/19 History Albuterol Nebulized [Ventolin 2.5 mg INHALATION RT-Q4H PRN 12/12/16 02/15/19 History Nebulized] Atorvastatin [Lipitor] 40 mg PO HS 04/22/17 02/15/19 History Nitroglycerin [Nitroglycerin 1 spray TRANSLINGU Q5M PRN 04/22/17 02/15/19 History 400MCG [place]] Albuterol Inhaler [Ventolin Hfa 1 - 2 puff INHALATION RT-Q6H PRN 04/28/17 02/15/19 History Inhaler] Melatonin 10 mg PO HS 09/04/17 02/15/19 History Levothyroxine Sodium [Synthroid] 88 mcg PO DAILY 11/27/17 02/15/19 History Pantoprazole [Protonix] 40 mg PO DAILY 01/01/18 02/15/19 History Ranitidine HCl 150 mg PO BID 01/01/18 02/15/19 History Cholecalciferol [Vitamin D3 (25 2,000 unit PO DAILY 04/03/18 02/15/19 History Mcg = 1000 Iu)] Magnesium 200 mg PO DAILY 04/03/18 02/15/19 History glipiZIDE [Glucotrol] 10 mg PO AC-BID 04/03/18 02/15/19 History sitaGLIPtin [Januvia] 100 mg PO DAILY #30 tab 04/15/18 02/15/19 Rx Multivitamins, Thera [Multivitamin 1 tab PO DAILY 06/03/18 02/15/19 History (formulary)] Cyanocobalamin [Vitamin B-12] 500 mcg PO DAILY 02/15/19 02/15/19 History Ferrous Sulfate [Iron (65 MG 325 mg PO DAILY 02/15/19 02/15/19 History Elemental)] Fluconazole 200 mg PO DAILY 02/15/19 02/15/19 History Ipratropium [place] [Atrovent Hfa] 1 puff INHALATION RT-BID 02/15/19 02/15/19 History Minocycline HCl [Minocin] 100 mg PO Q12H 02/15/19 02/15/19 History Pregabalin [Lyrica] 150 mg PO TID 02/15/19 02/15/19 History Rosiglitazone Maleate [Avandia] 4 mg PO DAILY 02/15/19 02/15/19 History oxyCODONE-APAP 5-325MG [Percocet 1 tab PO Q4H PRN 02/15/19 02/15/19 History 5-325 mg] traZODone HCL [Desyrel] 50 mg PO HS 02/15/19 02/15/19 History Allergies Allergy/AdvReac Type Severity Reaction Status Date / Time hydrocodone Allergy Dyspnea Verified 02/15/19 12:55 Iodinated Contrast- Oral and Allergy Anaphylaxis Verified 02/15/19 12:55 IV Dye /Rash/Itchi [Iodinated Contrast Media - ng IV Dye] shellfish derived [Shrimp] Allergy Anaphylaxis- Verified 02/15/19 12:55 FEELS LIKE THROAT CLOSING vancomycin Allergy Itching Verified 02/15/19 12:55 venom-honey bee Allergy Swelling/It Verified 02/15/19 12:55 [bee venom (honey bee)] suellen doxycycline AdvReac Nausea & Verified 02/15/19 12:55 Vomiting fluticasone AdvReac Loss of Verified 02/15/19 12:55 Voice hydroxychloroquine AdvReac Nausea & Verified 02/15/19 12:55 [From Plaquenil] Vomiting levofloxacin AdvReac Nausea & Verified 02/15/19 12:55 Vomiting lisinopril AdvReac Cough Verified 02/15/19 12:55 morphine AdvReac Nausea & Verified 02/15/19 12:55 Vomiting ropinirole AdvReac Nausea & Verified 02/15/19 12:55 Vomiting sulfamethoxazole AdvReac Nausea & Verified 02/15/19 12:55 [From Bactrim] Vomiting trimethoprim [From Bactrim] AdvReac Nausea & Verified 02/15/19 12:55 Vomiting Physical Exam Osteopathic Statement: *. No significant issues noted on an osteopathic structural exam other than those noted in the History and Physical/Consult. Vitals: Vital Signs Temp Pulse Pulse Resp BP BP Pulse Ox 02/15/19 15:34 97.7 F 76 17 136/75 99 02/15/19 13:26 69 16 111/66 96 02/15/19 12:11 99.0 F 77 18 122/78 95 Intake and Output 02/15/19 02/15/19 02/15/19 06:59 14:59 22:59 Other: Weight 92.079 kg General: non toxic, no distress, appears at stated age, normal weight Derm: Open wound left lower quadrant no discharge, not malodorous, no erythema, no warmth, good granulation tissue, multiple areas of scarring over abdomen area and left hip no unusual ecchymoses, warm, dry Head: atraumatic, normocephalic, symmetric Eyes: EOMI, no lid lag, anicteric sclera, pupils equal round reactive to light ENT: Nose and ears atraumatic, no thrush, no pharyngeal erythema Neck: No thyromegaly, no cervical lymphadenopathy, trachea midline, supple Mouth: no lip lesion, mucus membranes moist Cardiovascular: S1S2 reg, no murmur, positive posterior tibial pulse bilateral, trace edema, capillary refill less than 2 seconds, chest pain not reproducible Lungs: CTA bilateral, no rhonchi, no rales , no accessory muscle use Abdominal: soft, nontender to palpation, no guarding, no appreciable organomegaly, normal bowel sounds Ext: no gross muscle atrophy, muscle strength 5 out of 5 in bilateral upper extremities and right lower extremity, 3 out of 5 in left lower extremity, no contractures, Neuro: CN II-XI grossly intact, light touch intact all 4 extremities, finger to nose within normal limits, Psych: Alert, oriented, appropriate affect Results CBC & Chem 7: 02/15/19 12:46 02/15/19 12:46 Labs: Abnormal Lab Results - Last 24 Hours (Table) 02/15/19 Range/Units 12:46 BUN 23 H (7-17) mg/dL Chest x-ray: report reviewed Thrombosis Risk Factor Assmnt - DVT/VTE Prophylaxis DVT/VTE Prophylaxis: Low risk, early ambulation encouraged - Choose All That Apply Any of the Below Risk Factors Present?: Yes Each Factor Represents 1 point: Obesity (BMI >25) Other Risk Factors: Yes Each Risk Factor Represents 2 Points: Age 61-74 years Thrombosis Risk Factor Assessment Total Risk Factor Score: 3 Thrombosis Risk Factor Assessment Level: Moderate Risk Assessment and Plan Assessment: Atypical chest pain with history of coronary artery disease -Aspirin, nitroglycerin as needed, Lipitor -Telemetry -Serial troponins -Nothing by mouth from midnight, cardiology consultation, likely stress test in a.m. -Continue with aspirin, Plavix, and Imdur Hypertension, controlled -Continue home medications of Procardia, Lopressor -Follow blood pressures Dyslipidemia -Continue statin therapy -Check lipid profile in a.m. Diabetes mellitus type 2 -Continue with Januvia, hold Avandia and glipizide -Sliding-scale insulin -Follow Accu-Cheks closely Left hip chronic infection -Continue suppressive therapy with minocyclin Obesity with BMI 37.1 -Structured outpatient weight loss Chronic left lower quadrant abdominal wound - continue out patient f/u with Dr Naylor - due to have dressing changed on and polymem in place with optifoam covering. Chronic conditions: Sleep apnea, untreated GERD Asthma without exacerbation Carotid stenosis Hypothyroidism The patient is placed in observation with an anticipated less than 2 per night stay for evaluation of chest pain. DVT prophylaxis: SCDs Discussed with: Patient, nursing, ED physician Anticipated discharge date: 1-[address]: home A total of 65 minutes was spent on the care of this complex patient more than 50% of the time was spent in counseling and care coordination.
[2019-02-15] MEDS ORDERED: NALOXONE 0.4 MG/ML 1 ML VIAL IV PRN (19:03)
[2019-02-15] MEDS ORDERED: ACETAMINOPHEN TAB 325 MG TAB PO PRN (19:03)
[2019-02-15] MEDS ORDERED: HYDROmorphone 0.5 MG/0.5 ML SYRINGE IVP PRN (19:14)
[2019-02-15] MEDS ORDERED: oxyCODONE-APAP 5-325MG 1 EACH TAB PO PRN (19:57)
[2019-02-15] MEDS ORDERED: ALBUTEROL NEBULIZED 2.5 MG/3 ML INHALATION PRN ×2 (19:57)
[2019-02-15 20:14] LABS: Glucose,Whole Blood 152 mg/dL (75-99)
[2019-02-15] MEDS: PREGABALIN 75 MG CAP PO SCH (20:44)
[2019-02-15] MEDS: MINOCYCLINE 50 MG CAP PO SCH (20:44)
[2019-02-15] MEDS: MELATONIN 5 MG TABLET PO SCH (20:45)
[2019-02-15] MEDS: FAMOTIDINE 20 MG TAB PO SCH (20:45)
[2019-02-15] MEDS: METOPROLOL TARTRATE 25 MG TAB PO SCH (20:45)
[2019-02-15] MEDS: INSULIN ASPART (NovoLOG) 100 UNIT/ML VIAL SQ SCH (20:45)
[2019-02-15] MEDS ORDERED: METOPROLOL TARTRATE 25 MG TAB PO SCH (21:00)
--- NOTE | 2019-02-16 01:48 | US ---
EXAM: US Duplex Bilateral Lower Extremity Veins CLINICAL HISTORY: Edema, dvt TECHNIQUE: Real-time duplex ultrasound scan of the bilateral lower extremity veins integrating B-mode two-dimensional vascular structure, Doppler spectral analysis, color flow Doppler imaging and compression. COMPARISON: No relevant prior studies available. FINDINGS: Right deep veins: Unremarkable. No DVT in the right common femoral, femoral, proximal deep femoral or popliteal veins. The veins demonstrate normal color flow, are normally compressible, with normal phasic flow and/or augmentation response. Right superficial veins: Unremarkable. No thrombus in the visualized right great saphenous vein. Left deep veins: Limited flow seen within the distal left femoral vein. Question nonocclusive thrombus. All other veins are patent. Left superficial veins: Unremarkable. No thrombus in the visualized left great saphenous vein. Soft tissues: No acute findings. No popliteal cyst. IMPRESSION: Limited flow seen within the distal left femoral vein. Question nonocclusive thrombus. All other veins are patent.
[2019-02-16 03:11] LABS: Cholesterol 114 mg/dL (<200); HDL Cholesterol 37 mg/dL (40-60); LDL Cholesterol,Calculated 41 mg/dL (0-99); Triglycerides 179 mg/dL (<150)
[2019-02-16 03:15] LABS: Mean Platelet Volume 8.4; Platelet Count 170 k/uL (150-450)
[2019-02-16] MEDS: LEVOTHYROXINE 88 MCG TAB PO SCH (06:51)
[2019-02-16 06:54] LABS: Glucose,Whole Blood 99 mg/dL (75-99)
[2019-02-16] MEDS: IPRATROPIUM 0.5 MG/2.5 ML NEBU INHALATION SCH ×2 (07:27→11:13)
[2019-02-16 08:35] LABS: D-Dimer 1.7 mg/L FEU (<0.60); Partial Thromboplastin Time 56.1 sec (22.0-30.0)
[2019-02-16] MEDS ORDERED: methylPREDNISolone SOD SUCCI 125 MG/2 ML VIAL IV STA (08:44)
[2019-02-16] MEDS ORDERED: diphenhydrAMINE 50 MG/ML 1 ML VIAL IVP STA (08:44)
[2019-02-16] MEDS ORDERED: ASPIRIN 325 MG TAB PO SCH (09:00)
[2019-02-16] MEDS ORDERED: CLOPIDOGREL 75 MG TAB PO SCH (09:00)
[2019-02-16] MEDS: INSULIN ASPART (NovoLOG) 100 UNIT/ML VIAL SQ SCH ×4 (09:21→20:45)
--- NOTE | 2019-02-16 09:24 | P.PN ---
Subjective Progress Note Date: 02/16/19 Principal diagnosis: Patient feels okay still have some chest pain but improving Constitutional: No acute distress, conversant, pleasant Eyes: Anicteric ENMT: NC/AT Oropharynx clear, no erythema, exudates Neck: Supple, FROM, no masses, or JVD No carotid bruits No thyromegaly Lungs: Clear to auscultation Clear to percussion Normal respiratory effort, no accessory muscle use Cardiovascular: Heart regular in rate and rhythm, No murmurs, gallops, or rubs No peripheral edema Abdominal: Soft Nontender, no guarding, rebound or rigidity Abdomen moving with respiration Normoactive bowel sounds No hepatomegaly, No splenomegaly No palpable mass No abdominal wall hernia noted Skin: Normal temperature, tone, Extremities: No digital cyanosis No clubbing Pedal pulses intact and symmetrical Radial pulses intact and symmetrical Normal gait and station No calf tenderness Psychiatric:Alert and oriented to person, place and time Appropriate affect Intact judgement Neuro: No focal weakness noted Atypical chest pain with history of coronary artery disease -Aspirin, nitroglycerin as needed, Lipitor -Telemetry -Serial troponins -Discussed with cardiology we will check computed tomography scan of the lungs to rule out PE Further workup as better results Hypertension, controlled -Continue home medications of Procardia, Lopressor -Follow blood pressures Dyslipidemia -Continue statin therapy -Check lipid profile in a.m. Diabetes mellitus type 2 -Continue with Januvia, hold Avandia and glipizide -Sliding-scale insulin -Follow Accu-Cheks closely Left hip chronic infection -Continue suppressive therapy with minocyclin Obesity with BMI 37.1 -Structured outpatient weight loss Chronic left lower quadrant abdominal wound - continue out patient f/u with Dr Naylor - due to have dressing changed on and polymem in place with optifoam covering. Chronic conditions: Sleep apnea, untreated GERD Asthma without exacerbation Carotid stenosis Hypothyroidism Overall appears to be stable and in no distress Objective - Vital Signs Vital signs: Vital Signs Temp 97.6 F 02/16/19 08:00 Pulse 64 02/16/19 08:00 Resp 16 02/16/19 08:00 BP 130/64 02/16/19 08:00 Pulse Ox 99 02/16/19 07:53 Intake & Output 02/15/19 02/16/19 02/16/19 18:59 06:59 18:59 Intake Total 60.388 Balance 60.388 Weight 92.079 kg Intake: Intake, IV Titration 60.388 Amount Heparin Sod,Pork in 0.45% 60.388 NaCl 25,000 unit In 0.45 % NaCl 1 250ml.bag @ 10. 87 UNITS/KG/HR 10.009 mls /hr IV .Q24H [facility] Rx#: [id number] Other: Voiding Method Toilet # Voids 1 - Labs CBC & Chem 7: 02/16/19 01:51 02/15/19 12:46 Labs: Abnormal Lab Results - Last 24 Hours (Table) 02/15/19 02/15/19 02/15/19 Range/Units 12:46 19:55 20:12 APTT 44.9 H (22.0-30.0) sec D-Dimer (<0.60) mg/L FEU BUN 23 H (7-17) mg/dL POC Glucose (mg/dL) 152 H (75-99) mg/dL Triglycerides (<150) mg/dL HDL Cholesterol (40-60) mg/dL 02/16/19 02/16/19 02/16/19 Range/Units 01:51 01:51 07:56 APTT 55.1 H 56.1 H (22.0-30.0) sec D-Dimer 1.70 H (<0.60) mg/L FEU BUN (7-17) mg/dL POC Glucose (mg/dL) (75-99) mg/dL Triglycerides 179 H (<150) mg/dL HDL Cholesterol 37 L (40-60) mg/dL
--- NOTE | 2019-02-16 10:12 | P.CRDCN ---
History of Present Illness History of present illness: This is a pleasant 68-year-old female past medical history significant for coronary artery disease status post bypass grafting in 2006, hypertension, dyslipidemia, peripheral vascular disease status post carotid endarterectomy and recent bilateral iliac stent placement in May 2018 at [facility], diabetes mellitus, obstructive sleep apnea, hypothyroidism, osteoarthritis and gastroesophageal reflux disease. She follows in the office with Dr. Oconnor. We have been asked to see her in consultation secondary to chest discomfort. She states that on Friday night she noticed intermittent heaviness in the midsternal region with intermittent sharp pains in the left precordial region. This was mostly noticed at rest with no relation to activity or exertion. There is no radiation to the arm, back, neck or jaw. She noticed some mild shortness of breath that has been getting progressively worse over the previous couple of days. Yesterday while she was up and ambulating around her house she felt as of the discomfort became worse with exertion and improved after she sat down for about 20 minutes. He heaviness in the chest seems to be also exacerbated by deep inspiration however is not worse with cough. She is currently seen and examined resting, lying flat in bed in no acute distress. She does complain of bilateral lower extremity discomfort and swelling. She underwent lower extremity Doppler revealing possible nonconclusive thrombus of the left femoral vein. Otherwise unremarkable. EKG reveals sinus mechanism with no acute ST or T wave abnormalities noted. Heart rate is 72. Chest x-ray is negative for acute cardiopulmonary process. Laboratory data reviewed, WBC 7.4, hemoglobin 11.7, platelets 170, d-dimer 1.7, sodium 140, potassium 4.3, creatinine 0.88, magnesium 1.8, cardiac enzymes negative 3, proBNP 326, LDL 41 and HDL 37. Current cardiac medications at home include aspirin 325 mg daily, atorvastatin 40 mg daily, Plavix 75 mg daily, Imdur 60 mg daily, Lopressor 25 mg twice a day, nifedipine 60 mg daily. Most recent stress test performed in the office January 2018 with a Lexiscan stress test was negative for reversible ischemia. At the time of my exam: CONSTITUTIONAL: Denies fever. Denies chills. EYES: Denies blurred vision. Denies vision changes. Denies eye pain. EARS, NOSE, MOUTH & THROAT: Denies headache. Denies sore throat. Denies ear pain. CARDIOVASCULAR: Denies chest pain. Denies shortness of breath. Denies orthopnea. Denies PND. Denies palpitations. RESPIRATORY: Denies cough. GASTROINTESTINAL: Denies abdominal pain. Denies diarrhea. Denies constipation. Denies nausea. Denies vomiting. MUSCULOSKELETAL: Denies myalgias. INTEGUMENTARY: Denies pruitis. Denies rash. NEUROLOGIC: Denies numbness. Denies tingling. Denies weakness. PSYCHIATRIC: Denies anxiety. Denies depression. ENDOCRINE: Denies fatigue. Denies weight change. Denies polydipsia. Denies polyurina. GENITOURINARY: Denies burning, hematuria or urgency with micturation. HEMATOLOGIC: Denies history of anemia. Denies bleeding. Blood pressure 130/64 heart rate 64 afebrile maintaining oxygen saturation on room air GENERAL: This is a 68-year-old occasion female in no apparent distress at the time of my examination. Obese. HEENT: Head is atraumatic, normocephalic. Pupils are equal, round. Sclerae anicteric. Conjunctivae are clear. Mucous membranes of the mouth are moist. Neck is supple. There is no jugular venous distention. No carotid bruit is heard. LUNGS: Clear to auscultation no wheezes, rales or rhonchi. No chest wall tenderness is noted on palpation or with deep breathing. HEART: Regular rate and rhythm with systolic ejection murmur at the base, no rubs or gallops. S1 and S2 heard. ABDOMEN: Soft, nontender. Bowel sounds are heard. No organomegaly noted. EXTREMITIES: Trace bilateral lower extremity nonpitting edema and no calf tend erness noted. VASCULAR: Radial and dorsalis pedis pulses palpated, no evidence of clubbing. NEUROLOGIC: Patient is awake, alert and oriented x3. ASSESSMENT Chest pain, atypical for angina with some pleuritic features as well as exertional suggestive of possible angina versus underlying pulmonary illness. An acute coronary event has been ruled out. Nonocclusive thrombus of the left femoral vein History of peripheral vascular disease status post iliac stenting History of coronary artery disease status post bypass grafting Hypertension Dyslipidemia Carotid endarterectomy Obesity, BMI 37 PLAN Perform CTA chest to rule out pulmonary embolism. Recommend vascular surgery opinion regarding abnormal lower extremity Doppler. Continue heparin infusion pending his recommendation. Obtain 2-D echocardiogram and Doppler study to assess cardiac structure and function. We will continue to follow and make recommendations accordingly. Thank you kindly for this consultation. Nurse Practitioner note has been reviewed, I agree with a documented findings and plan of care. Patient was seen and examined. 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 Obstructive sleep apnea- does not use CPAP Last Myocardial Infarction Date:: 2006 History of Any Multi-Drug Resistant Organisms: MRSA Date of last positivie culture/infection: 01/11/19 MDRO Source:: HIP Past Surgical History: Appendectomy, Back Surgery, Breast Surgery, Cholecystectomy, Coronary Bypass/CABG, Heart Catheterization With Stent, Hyster ectomy, Joint Replacement, Orthopedic Surgery, Tonsillectomy, Tubal Ligation Additional Past Surgical History / Comment(s): cervical spinal fusion, lumbar spinal surg x2, artie elbow surgery,total lt knee replacement, cataracts artie, benign tumor lt lung removed, lt ankle surg, laser surgery eyes, cabg (2006), pin in finger and removed, drainage of pleural effusion, [facility] pain clinic procedures, artie breast bx x2, eye surgery for macular hole in left eye., Right Carotid surgery, left hip replaced 04-13-18, incision & debridement left hip wound & acetabular & femoral head exchange, plastic surgery on stomach with skin graft Past Anesthesia/Blood Transfusion Reactions: No Reported Reaction Additional Past Anesthesia/Blood Transfusion Reaction / Comment(s): claustrophobic. UNKNOWN RX PRIOR TO HEART CATH MADE HER LEGS "JUMP". HX OF BLOOD TRANSFUSION (NO REACTION). STATES DIFFICULTY LYING FLAT- NEEDS PILLOW AND "EASES IN TO LYING FLAT" Date of Last Stent Placement:: 2005 Past Psychological History: No Psychological Hx Reported Smoking Status: Former smoker Past Alcohol Use History: None Reported Additional Past Alcohol Use History / Comment(s): former smoker 44 years, 2ppd, quit 2005. Past Drug Use History: None Reported - Past Family History Sister(s) Family Medical History: Cancer Additional Family Medical History / Comment(s): Cervical cancer; lung cancer. One sister-coronary artery disease with bypass grafting. One sister with peripheral arterial disease and aortic graft Brother(s) Family Medical History: Cancer Additional Family Medical History / Comment(s): Pancreatic, prostate; lung cancer, stents. One brother-coronary artery disease with 8 stents. One brother that was being evaluated for cardiac transplant when he developed pancreatic cancer Mother Additional Family Medical History / Comment(s): Myocardial infarction at age 71 Father Additional Family Medical History / Comment(s): from myocardial infarction at age 68 Medications and Allergies Home Medications Medication Instructions Recorded Confirmed Type Aspirin 325 mg PO DAILY 06/11/16 02/15/19 History Clopidogrel [Plavix] 75 mg PO DAILY 06/11/16 02/15/19 History Isosorbide Mononitrate ER [Imdur] 60 mg PO DAILY 06/11/16 02/15/19 History Metoprolol Tartrate [Lopressor] 25 mg PO BID 06/11/16 02/15/19 History NIFEdipine XL [Procardia XL] 60 mg PO DAILY 09/03/16 02/15/19 History Albuterol Nebulized [Ventolin 2.5 mg INHALATION RT-Q4H PRN 12/12/16 02/15/19 History Nebulized] Atorvastatin [Lipitor] 40 mg PO HS 04/22/17 02/15/19 History Nitroglycerin [Nitroglycerin 1 spray TRANSLINGU Q5M PRN 04/22/17 02/15/19 History 400MCG Shiner] Albuterol Inhaler [Ventolin Hfa 1 - 2 puff INHALATION RT-Q6H PRN 04/28/17 02/15/19 History Inhaler] Melatonin 10 mg PO HS 09/04/17 02/15/19 History Levothyroxine Sodium [Synthroid] 88 mcg PO DAILY 11/27/17 02/15/19 History Pantoprazole [Protonix] 40 mg PO DAILY 01/01/18 02/15/19 History Ranitidine HCl 150 mg PO BID 01/01/18 02/15/19 History Cholecalciferol [Vitamin D3 (25 2,000 unit PO DAILY 04/03/18 02/15/19 History Mcg = 1000 Iu)] Magnesium 200 mg PO DAILY 04/03/18 02/15/19 History glipiZIDE [Glucotrol] 10 mg PO AC-BID 04/03/18 02/15/19 History sitaGLIPtin [Januvia] 100 mg PO DAILY #30 tab 04/15/18 02/15/19 Rx Multivitamins, Thera [Multivitamin 1 tab PO DAILY 06/03/18 02/15/19 History (formulary)] Cyanocobalamin [Vitamin B-12] 500 mcg PO DAILY 02/15/19 02/15/19 History Ferrous Sulfate [Iron (65 MG 325 mg PO DAILY 02/15/19 02/15/19 History Elemental)] Fluconazole 200 mg PO DAILY 02/15/19 02/15/19 History Ipratropium Robert Lee [Atrovent Hfa] 1 puff INHALATION RT-BID 02/15/19 02/15/19 History Minocycline HCl [Minocin] 100 mg PO Q12H 02/15/19 02/15/19 History Pregabalin [Lyrica] 150 mg PO TID 02/15/19 02/15/19 History Rosiglitazone Maleate [Avandia] 4 mg PO DAILY 02/15/19 02/15/19 History oxyCODONE-APAP 5-325MG [Percocet 1 tab PO Q4H PRN 02/15/19 02/15/19 History 5-325 mg] traZODone HCL [Desyrel] 50 mg PO HS 02/15/19 02/15/19 History Allergies Allergy/AdvReac Type Severity Reaction Status Date / Time hydrocodone Allergy Dyspnea Verified 02/15/19 12:55 Iodinated Contrast- Oral and Allergy Anaphylaxis Verified 02/15/19 12:55 IV Dye /Rash/Itchi [Iodinated Contrast Media - ng IV Dye] shellfish derived [Shrimp] Allergy Anaphylaxis- Verified 02/15/19 12:55 FEELS LIKE THROAT CLOSING vancomycin Allergy Itching Verified 02/15/19 12:55 venom-honey bee Allergy Swelling/It Verified 02/15/19 12:55 [bee venom (honey bee)] suellen doxycycline AdvReac Nausea & Verified 02/15/19 12:55 Vomiting fluticasone AdvReac Loss of Verified 02/15/19 12:55 Voice hydroxychloroquine AdvReac Nausea & Verified 02/15/19 12:55 [From Plaquenil] Vomiting levofloxacin AdvReac Nausea & Verified 02/15/19 12:55 Vomiting lisinopril AdvReac Cough Verified 02/15/19 12:55 morphine AdvReac Nausea & Verified 02/15/19 12:55 Vomiting ropinirole AdvReac Nausea & Verified 02/15/19 12:55 Vomiting sulfamethoxazole AdvReac Nausea & Verified 02/15/19 12:55 [From Bactrim] Vomiting trimethoprim [From Bactrim] AdvReac Nausea & Verified 02/15/19 12:55 Vomiting Physical Exam Vitals: Vital Signs Temp Pulse Pulse Resp BP BP Pulse Ox 02/16/19 04:00 97.9 F 63 16 147/61 99 02/15/19 23:34 97.8 F 65 16 134/56 97 02/15/19 19:38 97.9 F 70 16 137/63 98 02/15/19 15:34 97.7 F 76 17 136/75 99 02/15/19 13:26 69 16 111/66 96 02/15/19 12:11 99.0 F 77 18 122/78 95 Intake and Output 02/15/19 02/16/19 02/16/19 22:59 06:59 14:59 Intake Total 60.388 Balance 60.388 Intake: Intake, IV Titration 60.388 Amount Heparin Sod,Pork in 0.45% 60.388 NaCl 25,000 unit In 0.45 % NaCl 1 250ml.bag @ 10. 87 UNITS/KG/HR 10.009 mls /hr IV .Q24H [facility] Rx#: [id number] Other: Voiding Method Toilet Toilet # Voids 2 1 Results 02/16/19 01:51 02/15/19 12:46 Cardiac Enzymes 02/15/19 02/15/19 02/15/19 Range/Units 12:46 12:46 19:55 AST 14 (14-36) U/L Troponin I <0.012 <0.012 (0.000-0.034) ng/mL 02/16/19 Range/Units 01:51 AST (14-36) U/L Troponin I <0.012 (0.000-0.034) ng/mL Coagulation 0702/15/19 02/16/19 Range/Units 12:46 19:55 01:51 PT 9.9 (9.0-12.0) sec APTT 26.6 44.9 H 55.1 H (22.0-30.0) sec Lipids 02/16/19 Range/Units 01:51 Triglycerides 179 H (<150) mg/dL Cholesterol 114 (<200) mg/dL HDL Cholesterol 37 L (40-60) mg/dL CBC 02/15/19 02/16/19 Range/Units 12:46 01:51 WBC 7.4 (3.8-10.6) k/uL RBC 4.35 (3.80-5.40) m/uL Hgb 11.7 (11.4-16.0) gm/dL Hct 35.4 (34.0-46.0) % Plt Count 223 170 (150-450) k/uL Comprehensive Metabolic Panel 02/15/19 Range/Units 12:46 Sodium 140 (137-145) mmol/L Potassium 4.3 (3.5-5.1) mmol/L Chloride 102 (98-107) mmol/L Carbon Dioxide 28 (22-30) mmol/L BUN 23 H (7-17) mg/dL Creatinine 0.88 (0.52-1.04) mg/dL Glucose 99 (74-99) mg/dL Calcium 9.4 (8.4-10.2) mg/dL AST 14 (14-36) U/L ALT 13 (9-52) U/L Alkaline Phosphatase 80 (38-126) U/L Total Protein 7.0 (6.3-8.2) g/dL Albumin 3.9 (3.5-5.0) g/dL Current Medications Generic Name Dose Route Start Last Admin Trade Name Freq PRN Reason Stop Dose Admin Acetaminophen 650 mg 02/15/19 19:03 Tylenol Tab PO Q6HR PRN Mild Pain or Fever > 100.5 Albuterol Sulfate 2.5 mg 02/15/19 19:57 Ventolin Nebulized INHALATION RT-Q4H PRN Shortness Of Breath Aspirin 325 mg 02/16/19 09:00 Aspirin PO DAILY [facility] Atorvastatin Calcium 80 mg 02/16/19 09:00 Lipitor PO DAILY [facility] Cholecalciferol 2,000 unit 02/16/19 09:00 Vitamin D3 (25 Mcg = 1000 Iu) PO DAILY [facility] Clopidogrel Bisulfate 75 mg 02/16/19 09:00 Plavix PO DAILY [facility] Cyanocobalamin 500 mcg 02/16/19 09:00 Vitamin B-12 PO DAILY [facility] Famotidine 20 mg 02/15/19 21:00 02/15/19 20:45 Pepcid PO 20 mg BID [facility] Administration Ferrous Sulfate 325 mg 02/16/19 09:00 Feosol PO DAILY [facility] Fluconazole 200 mg 02/16/19 09:00 Diflucan PO DAILY [facility] Heparin Sodium (Porcine) 0 unit 02/15/19 14:08 Heparin IV Q6HR PRN Low PTT Protocol Hydromorphone HCl 0.5 mg 02/15/19 19:14 Dilaudid IVP Q3HR PRN Severe Pain Heparin Sodium/Sodium Chloride 250 mls @ 10.009 mls/hr 02/15/19 14:15 02/15/19 20:49 25,000 unit/ Sodium Chloride IV 12.87 units/kg/hr .Q24H [facility] 11.851 mls/hr Titration Protocol 10.87 UNITS/KG/HR Insulin Aspart 0 unit 02/15/19 21:00 02/15/19 20:45 Novolog SQ 1 unit ACHS [facility] Administration Protocol Ipratropium Robert Lee 0.5 mg 02/15/19 20:00 02/16/19 07:27 Atrovent Nebulized INHALATION Not Given RT-BID [facility] Isosorbide Mononitrate 60 mg 02/16/19 09:00 Imdur PO DAILY [facility] Levothyroxine Sodium 88 mcg 02/16/19 06:30 02/16/19 06:51 Synthroid PO 88 mcg DAILY@0630 [facility] Administration Linagliptin 5 mg 02/16/19 09:00 Tradjenta PO DAILY [facility] Magnesium Oxide 200 mg 02/16/19 09:00 Mag-Ox PO DAILY [facility] Melatonin 10 mg 02/15/19 21:00 02/15/19 20:45 Melatonin PO 10 mg HS [facility] Administration Metoprolol Tartrate 25 mg 02/15/19 21:00 02/15/19 20:45 Lopressor PO 25 mg BID [facility] Administration Minocycline HCl 100 mg 02/15/19 20:00 02/15/19 20:44 Minocin PO 100 mg Q12H [facility] Administration Multivitamins 1 each 02/16/19 09:00 Theragran PO DAILY [facility] Naloxone HCl 0.2 mg 02/15/19 19:03 Narcan IV Q2M PRN Opioid Reversal Nifedipine 60 mg 02/16/19 09:00 Procardia Xl PO DAILY [facility] Nitroglycerin 0.4 mg 02/15/19 14:08 Nitrostat SUBLINGUAL Q5M PRN Chest Pain Oxycodone/Acetaminophen 1 each 02/15/19 19:57 Percocet 5-325 PO Q4H PRN Pain Pantoprazole Sodium 40 mg 02/16/19 07:30 Protonix PO AC-BRKFST [facility] Pregabalin 150 mg 02/15/19 22:00 02/15/19 20:44 Lyrica PO 150 mg TID [facility] Administration Intake and Output 02/15/19 02/16/19 02/16/19 22:59 06:59 14:59 Intake Total 60.388 Balance 60.388 Intake: Intake, IV Titration 60.388 Amount Heparin Sod,Pork in 0.45% 60.388 NaCl 25,000 unit In 0.45 % NaCl 1 250ml.bag @ 10. 87 UNITS/KG/HR 10.009 mls /hr IV .Q24H [facility] Rx#: [id number] Other: Voiding Method Toilet Toilet # Voids 2 1 02/16/19 01:51 02/15/19 12:46
--- NOTE | 2019-02-16 10:54 | CT ---
EXAMINATION TYPE: CT angio chest DATE OF EXAM: 02/16/2019 COMPARISON: Lower extremity ultrasound dated 02/16/2019 with questioned nonocclusive thrombus in the d istal left femoral vein. CT dated 09/04/2016. HISTORY: Chest pain. Prior left benign lung tumor removed. CT DLP: 442.8 mGycm. Automated Exposure Control for Dose Reduction was Utilized. CONTRAST: CTA scan of the thorax is performed with IV Contrast, patient injected with 100 mL of Isovue 370, pul monary embolism protocol. MIP Images are created on CT scanner and reviewed. FINDINGS: LUNGS: Surgical sutures are present along the left mediastinal border from prior wedge resection with sutures also seen along the left interlobar fissure and anterior left lower lobe. Low-density 3 mm p ulmonary nodule in the right middle lobe is seen on image 67. Right middle lobe pulmonary nodule paras g the hemidiaphragm could relate to a true pulmonary nodule or atelectasis and is best measured on co lisa image 48 measuring up to 5 mm. Scattered areas of dependent subsegmental atelectasis are seen a t the lung bases. Multifocal pleural thickening is nodular but subcentimeter. Very minimal biapical p leural thickening is also noted. Linear scarring is seen at the location of the 3 mm right middle lob e pulmonary nodule and right basilar nodule versus pseudonodule is new. Multifocal nodular pleural th ickening is similar to the prior. There is no pleural effusion or pneumothorax seen. The tracheobron chial tree is patent. MEDIASTINUM: There is satisfactory enhancement of the pulmonary artery and its branches, there is no CT evidence for pulmonary embolism. There are no greater than 1 cm hilar or mediastinal lymph nodes. No pericardial effusion is seen. Moderate atherosclerosis of the thoracic aorta with severe athero sclerosis noted of the left subclavian artery proximally. Left vertebral artery origin appears patent and there is opacification of the visualized proximal left vertebral artery. Moderate coronary arter y calcifications are seen with post CABG changes the chest noted. Heart is upper limits of normal siz e. OTHER: Very small hiatal hernia suspected. Mild degree hepatic steatosis, partially visualized. Exten sive atherosclerosis of the visualized upper abdominal aorta. Multilevel degenerative changes of the thoracic spine are moderate with endplate sclerosis multifocally. IMPRESSION: 1. No evidence of pulmonary embolus. 2. New pseudonodule/atelectasis versus true pulmonary nodule along the right hemidiaphragm measuring 5 mm and new 3 mm right middle lobe pulmonary nodule. Follow-up is recommended in 12 months per Fleis chner criteria. 3. Very small hiatal hernia suspected with mild degree hepatic steatosis also incidentally seen.
[2019-02-16] MEDS: MINOCYCLINE 50 MG CAP PO SCH ×2 (11:07→20:49)
[2019-02-16] MEDS: MAGNESIUM OXIDE 400 MG TAB PO SCH (11:07)
[2019-02-16] MEDS: ATORVASTATIN 80 MG TAB PO SCH (11:07)
[2019-02-16] MEDS: FERROUS SULFATE 325 MG TAB PO SCH (11:07)
[2019-02-16] MEDS: CHOLECALCIFEROL 1,000 UNIT TAB PO SCH (11:07)
[2019-02-16] MEDS: MULTIVITAMINS, THERA 1 EACH TAB PO SCH (11:08)
[2019-02-16] MEDS: PREGABALIN 75 MG CAP PO SCH ×3 (11:08→20:45)
[2019-02-16] MEDS: CYANOCOBALAMIN 500 MCG TAB PO SCH (11:08)
[2019-02-16] MEDS: FAMOTIDINE 20 MG TAB PO SCH ×2 (11:08→20:45)
[2019-02-16] MEDS: ASPIRIN 81 MG PO SCH (11:08)
[2019-02-16] MEDS: METOPROLOL TARTRATE 25 MG TAB PO SCH ×2 (11:09→20:45)
[2019-02-16] MEDS: ISOSORBIDE MONONITRATE ER 60 MG TAB.ER.24H PO SCH (11:09)
[2019-02-16] MEDS: FLUCONAZOLE 100 MG TAB PO SCH (11:09)
[2019-02-16] MEDS: PANTOPRAZOLE 40 MG TABLET PO SCH (11:09)
[2019-02-16] MEDS: LINAGLIPTIN 5 MG TABLET PO SCH (11:09)
[2019-02-16 11:35] LABS: Glucose,Whole Blood 145 mg/dL (75-99)
[2019-02-16] MEDS: HEPARIN SOD,PORK IN 0.45% NACL 25,000 UNIT in 0.45% NACL 1 250ML.BAG IV SCH (11:35)
--- NOTE | 2019-02-16 13:24 | ECHOF ---
Referral Reason:chest pain MEASUREMENTS -------- HEIGHT: 157.5 cm WEIGHT: 92.1 kg BP: 147/61 RVIDd: 3.5 cm (< 3.3) IVSd: 1.2 cm (0.6 - 1.1) LVIDd: 4.0 cm (3.9 - 5.3) LVPWd: 1.2 cm (0.6 - 1.1) IVSs: 1.9 cm LVIDs: 2.4 cm LVPWs: 1.7 cm LAESV Index (A-L): 22.43 ml/m Ao Diam: 3.0 cm (2.0 - 3.7) AV Cusp: 2.0 cm (1.5 - 2.6) LA Diam: 4.6 cm (2.7 - 3.8) MV EXCURSION: 13.536 mm (> 18.000) MV EF SLOPE: 107 mm/s (70 - 150) EPSS: 0.3 cm MV E Jayden: 1.25 m/s MV DecT: 180 ms MV A Jayden: 0.53 m/s MV E/A Ratio: 2.38 RAP: 5.00 mmHg RVSP: 47.08 mmHg FINDINGS -------- Sinus rhythm. This was a technically difficult study with suboptimal apical views. The left ventricular size is normal. There is mild concentric left ventricular hypertrophy. Overa ll left ventricular systolic function is normal with, an EF between 55 - 60 %. Mitral Doppler inflo w pattern suggests diastolic filling abnormality 14.78. The right ventricle is mildly enlarged. Normal LA size by volume 22+/-6 ml/m2. The right atrial size is normal. 5.0mg of Lumason was utilized for enhancement of images Interatrial and interventricular septum intact. The aortic valve is trileaflet and appears structurally normal. There is no evidence of aortic regu rgitation. There is no evidence of aortic stenosis. Mild mitral annular calcification present. Dego-ng-lfcigath mitral regurgitation is present. Moderate tricuspid regurgitation present. There is moderate pulmonary hypertension. The right edward tricular systolic pressure, as measured by Doppler, is 47.08mmHg. Trace/mild (physiologic) pulmonic regurgitation. The aortic root size is normal. IVC Not well visulized. There is no pericardial effusion. CONCLUSIONS -------- 1. Sinus rhythm. 2. This was a technically difficult study with suboptimal apical views. 3. The left ventricular size is normal. 4. There is mild concentric left ventricular hypertrophy. 5. Overall left ventricular systolic function is normal with, an EF between 55 - 60 %. 6. Mitral Doppler inflow pattern suggest diastolic filling abnormality 14.78. 7. The right ventricle is mildly enlarged. 8. Normal LA size by volume 22+/-6 ml/m2. 9. The right atrial size is normal. 10. 5.0mg of Lumason was utilized for enhancement of images 11. Interatrial and interventricular septum intact. 12. The aortic valve is trileaflet and appears structurally normal. 13. There is no evidence of aortic regurgitation. 14. There is no evidence of aortic stenosis. 15. Mild mitral annular calcification present. 16. Uunq-ao-xwselymp mitral regurgitation is present. 17. Moderate tricuspid regurgitation present. 18. There is moderate pulmonary hypertension. 19. The right ventricular systolic pressure, as measured by Doppler, is 47.08mmHg. 20. Trace/mild (physiologic) pulmonic regurgitation. 21. The aortic root size is normal. 22. IVC Not well visulized. 23. There is no pericardial effusion. TUCK POINTER HELPER: Peyton Olson RDCS
--- NOTE | 2019-02-16 13:47 | CONS ---
DATE OF CONSULTATION: 02/16/2019 This is a 68-year-old female, well known to me from my office. Patient came to the hospital with history of chest pain and patient had a complete workup with Cardiology and also had a CT of the chest which showed no evidence of PE. The patient had an ultrasound of the left lower extremity, which shows limited flow noted in the left femoral vein suggestive of nonocclusive thrombus. The patient has history of coronary artery disease, post bypass graft to the , history of hypertension, history of peripheral vascular disease. The patient had extensive surgery for the left hip at [facility] and the patient is on IV antibiotic and the patient was seen by Cardiology for rule out cardiac issue. I was consulted for DVT to the left femoral vein. The patient also had bilateral iliac stent placed at [facility] recently due to the stay for her left hip surgery. PHYSICAL EXAMINATION: The patient was seen in her room, lying comfortably in bed. NECK: Supple. Trachea central. CHEST: Clear. ABDOMEN: Soft. Femoral pulses are present. Dorsal pedis is palpable. No evidence of any vascular compromise due to DVT. Discussed with the hospitalist. Patient will go home on anticoagulation. I will follow in my office in 2 weeks. MMODL / IJN: [id number] / JOSEPH
[2019-02-16] MEDS ORDERED: CAFFEINE CITRATE 60 MG/3 ML VIAL IV PRN (15:22)
[2019-02-16] MEDS ORDERED: AMINOPHYLLINE 500 MG/20 ML VIAL IV PRN (15:22)
[2019-02-16 16:43] LABS: Glucose,Whole Blood 280 mg/dL (75-99)
[2019-02-16 19:56] LABS: Glucose,Whole Blood 266 mg/dL (75-99)
[2019-02-16] MEDS: MELATONIN 5 MG TABLET PO SCH (20:45)
[2019-02-17] MEDS: LEVOTHYROXINE 88 MCG TAB PO SCH (06:24)
[2019-02-17 06:56] LABS: Glucose,Whole Blood 141 mg/dL (75-99)
[2019-02-17] MEDS ORDERED: SODIUM CHLORIDE 0.9% IV ONE (07:00)
[2019-02-17] MEDS ORDERED: DIPYRIDAMOLE IV ONE (07:00)
[2019-02-17 08:36] LABS: HCT 36.2 % (34.0-46.0); HGB 11.8 gm/dL (11.4-16.0); MCH 27.4 pg (25.0-35.0); MCHC 32.4 g/dL (31.0-37.0); MCV 84.6 fL (80.0-100.0); Mean Platelet Volume 8.3; Platelet Count 173 k/uL (150-450); RBC 4.28 m/uL (3.80-5.40); RDW 15.7 % (11.5-15.5); WBC 6.9 k/uL (3.8-10.6)
[2019-02-17 08:50] LABS: ALT 21 U/L (9-52); AST 13 U/L (14-36); African American GFR (CKD) >90 (>60 ml/min/1.73 sqM); Albumin 3.7 g/dL (3.5-5.0); Alkaline Phosphatase 77 U/L (38-126); Anion Gap 7 mmol/L; Blood Urea Nitrogen 15 mg/dL (7-17); Calcium 9.1 mg/dL (8.4-10.2); Carbon Dioxide 29 mmol/L (22-30); Chloride 106 mmol/L (98-107); Glucose 147 mg/dL (74-99); Potassium 3.6 mmol/L (3.5-5.1); Sodium 142 mmol/L (137-145); Total Bilirubin 0.3 mg/dL (0.2-1.3); Total Protein 6.7 g/dL (6.3-8.2)
[2019-02-17] MEDS: INSULIN ASPART (NovoLOG) 100 UNIT/ML VIAL SQ SCH ×2 (11:34→12:35)
[2019-02-17 11:38] LABS: Glucose,Whole Blood 128 mg/dL (75-99)
[2019-02-17 11:43] VITALS: TEMP 97.6
[2019-02-17] MEDS ORDERED: APIXABAN 5 MG TAB PO SCH (11:50)
--- NOTE | 2019-02-17 11:52 | EST ---
EXERCISE STRESS AGE: 68 SEX: F HT: 5'2" WT: 203 PROTOCOL: Persantine Cardiolite Stress Test HEART RATE REST: 69 BLOOD PRESSURE REST: 143/64 MAXIMUM HEART RATE ACHIEVED: 83 MAXIMUM BLOOD PRESSURE: 125/54 85% MPHR: 128 100% MPHR: 150 INDICATIONS: Chest pain. CLINICAL INFORMATION: Baseline EKG revealed normal sinus rhythm without significant ST-T changes. With Persantine administration as per protocol, patient did not have any significant symptoms. Heart rate changed from 69-83 beats per minute, blood pressure changed from 143/64 to 125/54. EKG was unremarkable. By EKG criteria, this is unremarkable Persantine stress test. The nuclear scan results which are more pertinent will be reported by the radiologist. MMODL / IJN: [id number] /
[2019-02-17] MEDS: MAGNESIUM OXIDE 400 MG TAB PO SCH (12:28)
[2019-02-17] MEDS: PANTOPRAZOLE 40 MG TABLET PO SCH (12:28)
[2019-02-17] MEDS: CHOLECALCIFEROL 1,000 UNIT TAB PO SCH (12:28)
[2019-02-17] MEDS: FERROUS SULFATE 325 MG TAB PO SCH (12:29)
[2019-02-17] MEDS: FAMOTIDINE 20 MG TAB PO SCH (12:29)
[2019-02-17] MEDS: CYANOCOBALAMIN 500 MCG TAB PO SCH (12:29)
[2019-02-17] MEDS: METOPROLOL TARTRATE 25 MG TAB PO SCH (12:30)
[2019-02-17] MEDS: ATORVASTATIN 80 MG TAB PO SCH (12:31)
[2019-02-17] MEDS: PREGABALIN 75 MG CAP PO SCH (12:31)
[2019-02-17] MEDS: ASPIRIN 81 MG PO SCH (12:32)
[2019-02-17] MEDS: MINOCYCLINE 50 MG CAP PO SCH (12:33)
[2019-02-17] MEDS: FLUCONAZOLE 100 MG TAB PO SCH (12:33)
[2019-02-17] MEDS: MULTIVITAMINS, THERA 1 EACH TAB PO SCH (12:34)
[2019-02-17] MEDS: LINAGLIPTIN 5 MG TABLET PO SCH (12:34)
[2019-02-17] MEDS: ISOSORBIDE MONONITRATE ER 60 MG TAB.ER.24H PO SCH (12:35)
--- NOTE | 2019-02-17 12:50 | NM ---
EXAMINATION TYPE: NM stress persantine cardiolit DATE OF EXAM: 02/17/2019 COMPARISON: CTA chest from yesterday. HISTORY: Chest pain. History of hypertension, diabetes, stroke, family history of heart attack, prior CABG, prior tobacco use quit 2005, asthma, and hypercholesterolemia TECHNIQUE: After the intravenous administration of 10.13 mCi Tc 99m Sestamibi - Cardiolite resting S PECT images acquired 45 minutes post injection. The patient received 52.5 mg Persantine, 25.4 mCi Tc 99m Sestamibi - Stress images obtained 30 minute s post injection FINDINGS: Review of stress and rest SPECT images demonstrates no distinct perfusion abnormality. Gated analysi s shows normal wall motion with an estimated left ventricular ejection fraction of 75 %. IMPRESSION: No scintigraphic evidence for reversible ischemia.
--- NOTE | 2019-02-17 14:01 | P.PN ---
Subjective This is a pleasant 68-year-old female past medical history significant for coronary artery disease status post bypass grafting in 2006, hypertension, dyslipidemia, peripheral vascular disease status post carotid endarterectomy and recent bilateral iliac stent placement in May 2018 at [facility], diabetes mellitus, obstructive sleep apnea, hypothyroidism, osteoarthritis and gastroesophageal reflux disease. She follows in the office with Dr. Oconnor. We have been asked to see her in consultation secondary to chest discomfort. She states that on Friday night she noticed intermittent heaviness in the midsternal region with intermittent sharp pains in the left precordial region. This was mostly noticed at rest with no relation to activity or exertion. There is no radiation to the arm, back, neck or jaw. She noticed some mild shortness of breath that has been getting progressively worse over the previous couple of days. Yesterday while she was up and ambulating around her house she felt as of the discomfort became worse with exertion and improved after she sat down for about 20 minutes. He heaviness in the chest seems to be also exacerbated by deep inspiration however is not worse with cough. She is currently seen and examined resting, lying flat in bed in no acute distress. She does complain of bilateral lower extremity discomfort and swelling. She underwent lower extremity Doppler revealing possible nonconclusive thrombus of the left femoral vein. Otherwise unremarkable. EKG reveals sinus mechanism with no acute ST or T wave abnormalities noted. Heart rate is 72. Chest x-ray is negative for acute cardiopulmonary process. Laboratory data reviewed, WBC 7.4, hemoglobin 11.7, platelets 170, d-dimer 1.7, sodium 140, potassium 4.3, creatinine 0.88, magnesium 1.8, cardiac enzymes negative 3, proBNP 326, LDL 41 and HDL 37. Current cardiac medications at home include aspirin 325 mg daily, atorvastatin 40 mg daily, Plavix 75 mg daily, Imdur 60 mg daily, Lopressor 25 mg twice a day, nifedipine 60 mg daily. Most recent stress test performed in the office January 2018 with a Lexiscan stress test was negative for reversible ischemia. 02/17/2019 Pt is seen examined resting comfortably in bed in no acute distress. Persantine stress test performed revealed no evidence of reversible cardiac ischemia. She has been seen by Dr. Rossi and he is recommending oral anti-coagulation for non-occlusive thrombus of the left femoral vein. CTA chest is negative for PE with evidence of pulmonary nodule and small hiatal hernia. Echocardiogram reveals preserved LV systolic function with EF 55-60%, diastolic dysfunction, mild-moderate MR, moderate TR and moderate pulmonary hypertension with RVSP 47 mmHg. Blood pressure 188/68 heart rate 74 afebrile maintaining oxygen saturation on room air. GENERAL: This is a 68-year-old occasion female in no apparent distress at the time of my examination. Obese. HEENT: Head is atraumatic, normocephalic. Pupils are equal, round. Sclerae anicteric. Conjunctivae are clear. Mucous membranes of the mouth are moist. Neck is supple. There is no jugular venous distention. No carotid bruit is heard. LUNGS: Clear to auscultation no wheezes, rales or rhonchi. No chest wall tenderness is noted on palpation or with deep breathing. HEART: Regular rate and rhythm with systolic ejection murmur at the base, no rubs or gallops. S1 and S2 heard. EXTREMITIES: Trace bilateral lower extremity nonpitting edema and no calf tenderness noted. ASSESSMENT Chest pain, atypical for angina with some pleuritic features as well as exertional suggestive of possible angina versus underlying pulmonary illness. An acute coronary event has been ruled out. Nonocclusive thrombus of the left femoral vein History of peripheral vascular disease status post iliac stenting History of coronary artery disease status post bypass grafting Hypertension Dyslipidemia Carotid endarterectomy Obesity, BMI 37 PLAN Iliac stenting was performed 8 months ago, therefore plavix can be discontinued since oral anti-coagulation will be needed for DVT. Continue asprin along with Eliquis. Stable for discharge from a cardiac perspective. Follow up with Dr. Gongora in 1-2 weeks. Nurse Practitioner note has been reviewed, I agree with a documented findings and plan of care. Patient was seen and examined. Objective - Vital Signs Vital signs: Vital Signs Temp 97.6 F 02/17/19 11:42 Pulse 74 02/17/19 11:42 Resp 18 02/17/19 11:42 BP 188/68 02/17/19 11:42 Pulse Ox 97 02/17/19 11:42 Intake & Output 02/16/19 02/17/19 02/17/19 18:59 06:59 18:59 Other: Voiding Method Toilet Toilet # Voids 3 - Labs CBC & Chem 7: 02/17/19 08:01 02/17/19 08:01 Labs: Abnormal Lab Results - Last 24 Hours (Table) 02/16/19 02/16/19 02/17/19 Range/Units 16:41 19:54 06:54 RDW (11.5-15.5) % APTT (22.0-30.0) sec Glucose (74-99) mg/dL POC Glucose (mg/dL) 280 H 266 H 141 H (75-99) mg/dL AST (14-36) U/L 02/17/19 02/17/19 02/17/19 Range/Units 08:01 08:01 08:01 RDW 15.7 H (11.5-15.5) % APTT 44.4 H (22.0-30.0) sec Glucose 147 H (74-99) mg/dL POC Glucose (mg/dL) (75-99) mg/dL AST 13 L (14-36) U/L 02/17/19 Range/Units 11:36 RDW (11.5-15.5) % APTT (22.0-30.0) sec Glucose (74-99) mg/dL POC Glucose (mg/dL) 128 H (75-99) mg/dL AST (14-36) U/L
--- NOTE | 2019-02-17 14:33 | P.DS ---
Providers Date of admission: 02/15/19 14:08 Attending physician: Yesenia Hu DO Consults: 02/15/19 14:08 Consult Physician Urgent Consulting Provider: Seth Houser Consult Reason/Comments: cp Do you want consulting provider notified?: Yes 02/16/19 08:38 Consult Physician Routine Consulting Provider: Chintan Rossi Consult Reason/Comments: possible thrombus, left femoral Do you want consulting provider notified?: Yes Primary care physician: Melissa Mares MD Hospital Course: 68-year-old female admitted to the hospital with chest pain and she patient also did have lower extremity DVT patient has been evaluated by cardiology no evidence of acute coronary syndrome at this time and has been recommended to be started on anticoagulation for the DVT by vascular so patient has been on heparin drip and will be discharged home on eliquis During the hospital stay the patient remained stable Constitutional: No acute distress, conversant, pleasant Eyes: ENMT: NC/AT Oropharynx clear, no erythema, exudates Neck: Supple, FROM, no masses, or JVD No carotid bruits No thyromegaly Lungs: Clear to auscultation Clear to percussion Normal respiratory effort, no accessory muscle use Cardiovascular: Heart regular in rate and rhythm, No murmurs, gallops, or rubs No peripheral edema Abdominal: Soft Nontender, no guarding, rebound or rigidity Abdomen moving with respiration Normoactive bowel sounds No hepatomegaly, No splenomegaly No palpable mass No abdominal wall hernia noted Skin: Normal temperature, tone, texture, turgor No induration No subcutaneous nodules No rash, lesions No ulcers Extremities: No digital cyanosis No clubbing Pedal pulses intact and symmetrical Radial pulses intact and symmetrical Normal gait and station No calf tenderness Psychiatric:Alert and oriented to person, place and time Appropriate affect Intact judgement Neuro: Generalized weakness Atypical chest pain with history of coronary artery disease -Stress test negative no acute coronary syndrome Hypertension, controlled -Continue home medications of Procardia, Lopressor -Follow blood pressures Dyslipidemia -Continue statin therapy - Diabetes mellitus type 2 Left hip chronic infection -Continue suppressive therapy with minocyclin Obesity with BMI 37.1 -Structured outpatient weight loss Chronic left lower quadrant abdominal wound - continue out patient f/u with Dr Naylor - due to have dressing changed on and polymem in place with optifoam covering. Chronic conditions: Sleep apnea, untreated GERD Asthma without exacerbation Carotid stenosis Hypothyroidism Overall appears to be stable and in no distress Acute DVT lower extremity no evidence of PE by computed tomography scan of the lungs patient has been started on eliquis In follow-up by vascular Patient Condition at Discharge: Undetermined Plan - Discharge Summary Discharge Rx Participant: Yes New Discharge Prescriptions: New Apixaban [Eliquis] 10 mg PO BID 7 Days #14 tab Apixaban [Eliquis] 5 mg PO BID 30 Days #60 tab Atorvastatin [Lipitor] 80 mg PO DAILY tab Acetaminophen Tab [Tylenol] 650 mg PO Q6HR PRN tab PRN Reason: Mild Pain Or Fever > 100.5 Continue Aspirin 325 mg PO DAILY Metoprolol Tartrate [Lopressor] 25 mg PO BID Isosorbide Mononitrate ER [Imdur] 60 mg PO DAILY NIFEdipine XL [Procardia XL] 60 mg PO DAILY Albuterol Nebulized [Ventolin Nebulized] 2.5 mg INHALATION RT-Q4H PRN PRN Reason: Shortness Of Breath Nitroglycerin [Nitroglycerin 400MCG Groom] 1 spray TRANSLINGU Q5M PRN PRN Reason: Chest Pain Atorvastatin [Lipitor] 40 mg PO HS Albuterol Inhaler [Ventolin Hfa Inhaler] 1 - 2 puff INHALATION RT-Q6H PRN PRN Reason: Shortness Of Breath Melatonin 10 mg PO HS Levothyroxine Sodium [Synthroid] 88 mcg PO DAILY Pantoprazole [Protonix] 40 mg PO DAILY Ranitidine HCl 150 mg PO BID glipiZIDE [Glucotrol] 10 mg PO AC-BID Cholecalciferol [Vitamin D3 (25 Mcg = 1000 Iu)] 2,000 unit PO DAILY Magnesium 200 mg PO DAILY sitaGLIPtin [Januvia] 100 mg PO DAILY #30 tab Multivitamins, Thera [Multivitamin (formulary)] 1 tab PO DAILY Cyanocobalamin [Vitamin B-12] 500 mcg PO DAILY Ferrous Sulfate [Iron (65 MG Elemental)] 325 mg PO DAILY Fluconazole 200 mg PO DAILY Ipratropium Lutsen [Atrovent Hfa] 1 puff INHALATION RT-BID Minocycline HCl [Minocin] 100 mg PO Q12H oxyCODONE-APAP 5-325MG [Percocet 5-325 mg] 1 tab PO Q4H PRN PRN Reason: Pain Pregabalin [Lyrica] 150 mg PO TID Rosiglitazone Maleate [Avandia] 4 mg PO DAILY traZODone HCL [Desyrel] 50 mg PO HS Discontinued Clopidogrel [Plavix] 75 mg PO DAILY Discharge Medication List Aspirin 325 mg PO DAILY 06/11/16 [History] Isosorbide Mononitrate ER [Imdur] 60 mg PO DAILY 06/11/16 [History] Metoprolol Tartrate [Lopressor] 25 mg PO BID 06/11/16 [History] NIFEdipine XL [Procardia XL] 60 mg PO DAILY 09/03/16 [History] Albuterol Nebulized [Ventolin Nebulized] 2.5 mg INHALATION RT-Q4H PRN 12/12/16 [History] Atorvastatin [Lipitor] 40 mg PO HS 04/22/17 [History] Nitroglycerin [Nitroglycerin 400MCG Groom] 1 spray TRANSLINGU Q5M PRN 04/22/17 [History] Albuterol Inhaler [Ventolin Hfa Inhaler] 1 - 2 puff INHALATION RT-Q6H PRN 04/28/17 [History] Melatonin 10 mg PO HS 09/04/17 [History] Levothyroxine Sodium [Synthroid] 88 mcg PO DAILY 11/27/17 [History] Pantoprazole [Protonix] 40 mg PO DAILY 01/01/18 [History] Ranitidine HCl 150 mg PO BID 01/01/18 [History] Cholecalciferol [Vitamin D3 (25 Mcg = 1000 Iu)] 2,000 unit PO DAILY 04/03/18 [History] Magnesium 200 mg PO DAILY 04/03/18 [History] glipiZIDE [Glucotrol] 10 mg PO AC-BID 04/03/18 [History] sitaGLIPtin [Januvia] 100 mg PO DAILY #30 tab 04/15/18 [Rx] Multivitamins, Thera [Multivitamin (formulary)] 1 tab PO DAILY 06/03/18 [History] Cyanocobalamin [Vitamin B-12] 500 mcg PO DAILY 02/15/19 [History] Ferrous Sulfate [Iron (65 MG Elemental)] 325 mg PO DAILY 02/15/19 [History] Fluconazole 200 mg PO DAILY 02/15/19 [History] Ipratropium Lutsen [Atrovent Hfa] 1 puff INHALATION RT-BID 02/15/19 [History] Minocycline HCl [Minocin] 100 mg PO Q12H 02/15/19 [History] Pregabalin [Lyrica] 150 mg PO TID 02/15/19 [History] Rosiglitazone Maleate [Avandia] 4 mg PO DAILY 02/15/19 [History] oxyCODONE-APAP 5-325MG [Percocet 5-325 mg] 1 tab PO Q4H PRN 02/15/19 [History] traZODone HCL [Desyrel] 50 mg PO HS 02/15/19 [History] Acetaminophen Tab [Tylenol] 650 mg PO Q6HR PRN tab 02/17/19 [Rx] Apixaban [Eliquis] 5 mg PO BID 30 Days #60 tab 02/17/19 [Rx] Apixaban [Eliquis] 10 mg PO BID 7 Days #14 tab 02/17/19 [Rx] Atorvastatin [Lipitor] 80 mg PO DAILY tab 02/17/19 [Rx] Follow up Appointment(s)/Referral(s): Melissa Mares MD [Primary Care Provider] - 1-2 days Chintan Rossi MD [STAFF PHYSICIAN] - 03/03/19 11:00 am Macy Gongora MD [STAFF PHYSICIAN] - 03/03/19 10:15 am Patient Instructions/Handouts: Chest Pain (ED), Chest Pain (DC), Nuclear Stress Test (DC) Discharge Disposition: HOME SELF-CARE
[2019-02-17 14:52] VITALS: BP 134/68; PULSE 72; RESP 17
== END 2019-02-17 15:05 | disposition home or self-care (01) ==
LOC: EC 12:05 → 1SOBS 14:08
PROVIDERS: ADMIT Internal Medicine; ATTEND Internal Medicine
DX: R07.89 Other chest pain (principal); I25.10 Atherosclerotic heart disease of native coronary artery without angina pectoris; I82.412 Acute embolism and thrombosis of left femoral vein; I27.20 Pulmonary hypertension, unspecified; I08.1 Rheumatic disorders of both mitral and tricuspid valves; M79.7 Fibromyalgia; E03.9 Hypothyroidism, unspecified; K21.9 Gastro-esophageal reflux disease without esophagitis; J45.909 Unspecified asthma, uncomplicated; I10 Essential (primary) hypertension; G47.33 Obstructive sleep apnea (adult) (pediatric); G40.909 Epilepsy, unspecified, not intractable, without status epilepticus; K58.0 Irritable bowel syndrome with diarrhea; E78.5 Hyperlipidemia, unspecified; E11.51 Type 2 diabetes mellitus with diabetic peripheral angiopathy without gangrene; M19.90 Unspecified osteoarthritis, unspecified site; Z99.89 Dependence on other enabling machines and devices; G20 Parkinson's disease; D86.9 Sarcoidosis, unspecified; M85.80 Other specified disorders of bone density and structure, unspecified site; I65.22 Occlusion and stenosis of left carotid artery; Z86.69 Personal history of other diseases of the nervous system and sense organs; Z90.49 Acquired absence of other specified parts of digestive tract; I69.354 Hemiplegia and hemiparesis following cerebral infarction affecting left non-dominant side; R20.0 Anesthesia of skin; R41.3 Other amnesia; F40.240 Claustrophobia; S31.104A Unspecified open wound of abdominal wall, left lower quadrant without penetration into peritoneal cavity, initial encounter; M54.9 Dorsalgia, unspecified; M25.559 Pain in unspecified hip; D32.0 Benign neoplasm of cerebral meninges; M25.522 Pain in left elbow; R60.0 Localized edema; R06.01 Orthopnea; E66.9 Obesity, unspecified; Z68.37 Body mass index [BMI] 37.0-37.9, adult; R53.1 Weakness; Z79.82 Long term (current) use of aspirin; Z79.02 Long term (current) use of antithrombotics/antiplatelets; Z79.890 Hormone replacement therapy; Z79.84 Long term (current) use of oral hypoglycemic drugs; Z79.891 Long term (current) use of opiate analgesic; Z79.899 Other long term (current) drug therapy; Z88.2 Allergy status to sulfonamides; Z88.1 Allergy status to other antibiotic agents; Z91.030 Bee allergy status; Z91.041 Radiographic dye allergy status; Z88.5 Allergy status to narcotic agent; Z91.013 Allergy to seafood; Z86.14 Personal history of Methicillin resistant Staphylococcus aureus infection; I25.2 Old myocardial infarction; Z90.710 Acquired absence of both cervix and uterus; Z95.820 Peripheral vascular angioplasty status with implants and grafts; Z95.1 Presence of aortocoronary bypass graft; Z95.5 Presence of coronary angioplasty implant and graft; Z98.1 Arthrodesis status; Z96.652 Presence of left artificial knee joint; Z98.42 Cataract extraction status, left eye; Z98.41 Cataract extraction status, right eye; Z96.642 Presence of left artificial hip joint; Z87.891 Personal history of nicotine dependence; Z80.1 Family history of malignant neoplasm of trachea, bronchus and lung; Z80.42 Family history of malignant neoplasm of prostate; Z80.49 Family history of malignant neoplasm of other genital organs; Z80.0 Family history of malignant neoplasm of digestive organs; Z82.49 Family history of ischemic heart disease and other diseases of the circulatory system
CPT/HCPCS: 96366 ×2; 96376; 96365; 96375; 99291; 36415; 94760; 93005; 93017; 85379; 83880; 80061; 80053 ×2; 83690; 83735; 84484 ×2; 85025; 85027; 85049; 85610; 85730 ×3; 71046; 93970; 71275; 78452; G0378 ×3; C8929; A9500; J1200; J1644 ×2; J2930; Q9950; Q9967; 93306

== ENCOUNTER → 2019-03-10 | Outpatient (CLI) | payer MEDICARE, OTHER ==
[2019-03-10 10:09] LABS: Appearance,Urine Clear (Clear); Bilirubin,Urine Negative (Negative); Blood,Urine Negative (Negative); Color,Urine Light Yellow; Glucose,Urine (UA) Negative (Negative); Ketones,Urine Negative (Negative); Leukocyte Esterase,Urine Negative (Negative); Nitrite,Urine Negative (Negative); PH, Urine 6.5 (5.0-8.0); Protein,Urine Negative (Negative); Urobilinogen,Urine <2.0 mg/dL (<2.0)
[2019-03-10 16:34] LABS: African American GFR (CKD) 66.1 (60.0-200.0); Anion Gap 11.2 mmol/L (4.00-12.00); Carbon Dioxide 26.8 mmol/L (21.6-31.8); Potassium 5.1 mmol/L (3.5-5.5)
[2019-03-10 17:29] LABS: Hemoglobin A1C 7.4 % (4.0-6.0)
== END ==
LOC: LABWHC1 09:03
PROVIDERS: ATTEND Family Medicine
DX: E11.65 Type 2 diabetes mellitus with hyperglycemia (principal); R35.1 Nocturia
CPT/HCPCS: 36415; 80048; 81003; 82043; 82570; 83036

== ENCOUNTER → 2019-08-11 | Outpatient (CLI) | payer MEDICARE, OTHER ==
--- NOTE | 2019-08-11 13:05 | US ---
EXAMINATION TYPE: US venous doppler duplex LE RT DATE OF EXAM: 08/11/2019 12:36 PM COMPARISON: US CLINICAL HISTORY: M79.661Pain in right lower leg R22.41. Pt states pain right leg by right knee SIDE PERFORMED: Right TECHNIQUE: The lower extremity deep venous system is examined utilizing real time linear array sonog rakan with graded compression, doppler sonography and color-flow sonography. VESSELS IMAGED: External Iliac Vein (EIV) Common Femoral Vein Deep Femoral Vein Greater Saphenous Vein * Femoral Vein Popliteal Vein Small Saphenous Vein * Proximal Calf Veins (* superficial vessels) Right Leg: Negative for DVT, probable Knapp's Cyst right pop fossa= 3.9 x 1.3 x 2.7 cm Results called to Sirisha at 's office at time of exam IMPRESSION: 1. Right lower extremity ultrasound negative for deep venous thrombosis. 2. Right popliteal cyst
== END ==
LOC: RADUSWWP 12:07
PROVIDERS: ATTEND Internal Medicine
DX: M71.21 Synovial cyst of popliteal space [Baker], right knee (principal); M79.661 Pain in right lower leg